=== PATIENT | male | born 1955 | race Caucasian/White ===

== ENCOUNTER 2022-07-08 15:52 | Outpatient (CLI) | payer MEDICARE, BC, SELFPAY ==
--- OUTSIDE RECORDS SUMMARY | 2022-07-08 15:55 | XMS_ITS | Encounter Summary ---
:1955 Author Organization [facility] Address [address] [place] [address] Care Team Providers Name Role Phone Angeline Stern MD Primary Care Provider [phone] Encounter Details Date Type Department Care Team Description 10/06/[address] [facility] MD Adi [address] [place], [place] ORTHOPEDICS [address] [address] [facility] [phone] [place] [address] (Wo rk) Social History Tobacco Use Types Packs/Day Years Used Date Smoking Tobacco: Never Smokeless Tobacco: Never Alcohol Use Standard Drinks/Week Comments No 0 (1 standard drink = 0.6 oz pure alcoho l) Sex Assigned at Date Recorded Not on file documented as of this encounter Medications at Time of Discharge Medication Sig Dispensed Refills Start Date End Date clobetasol (TEMOVATE) Apply topically 2 0 0.05 % external ointment times daily Dermatological Products, Externally apply 0 Misc. (KERASAL FUNGAL topically daily as NAIL RENEWAL EX) needed fluticasone (FLONASE) 50 [place] 1 spray into 0 MCG/ACT nasal spray both nostrils daily as needed for rhinitis or allergies ibuprofen (ADVIL,MOTRIN) Take 1 tablet by 90 tablet 1 02/08 800 MG tablet mouth every 8 hours as needed for pain. loratadine-pseudoePHEDri Take 1 tablet by 14 tablet 0 02/08 ne (CLARITIN-D 24-HOUR) mouth daily. 10-240 MG per tablet meclizine (ANTIVERT) 25 Take 25 mg by mouth 0 MG tablet 3 times daily as needed for dizziness multivitamin w/minerals Take 1 tablet by 0 (MULTI-VITAMIN) tablet mouth daily oxyCODONE (ROXICODONE) 5 1 tab po q 4 hrs prn pain scale 3-6, 55 ta blet 0 10/19/2018 MG tabletIndications: 2 tabs po q 4hrs prn pain scale 7-10 S/P total knee arthroplasty, right acetaminophen (TYLENOL) Take 3 tablets (975 270 tablet 0 02/201911/18/2018 325 MG mg) by mouth every 8 tabletIndications: S/P hours total knee arthroplasty, right aspirin (ASA) 325 MG EC Take 1 tablet (325 60 tablet 0 02/201911/18/2018 tabletIndications: VTE mg) by mouth 2 times Prophylaxis daily hydrOXYzine (ATARAX) 25 Take 1 tablet (25 45 tablet 0 10/1910/29/2018 MG tabletIndications: mg) by mouth every 6 S/P total knee hours as needed for arthroplasty, right itching (adjuvant to pain medication) order for Equipment being ordered: Walker Wheels ( [id number]) and Walker ([id number]) 1 each 0 10/18/2018 10/18/2019 DMEIndications: S/P Treatment Diagnosis: Impaired gait stability s/p TKA total knee arthroplasty, right senna-docusate Take 2 tablets by 120 tablet 0 10/19/201804/2019 (SENOKOT-S/PERICOLACE) mouth 2 times daily 8.6-50 MG tabletIndications: S/P total knee arthroplasty, right documented as of this encounter Plan of Treatment Not on filedocumented as of this encounter Visit Diagnoses Not on filedocumented in this encounter Care Teams Pulp Plant Supervisor Relationship Specialty Start Date End Date Angeline Stern MD PCP - General Internal Medicine 02/09/13 10/10/18 [id number] [address] [address] documented as of this encounter
--- OUTSIDE RECORDS SUMMARY | 2022-07-08 15:55 | XMS_ITS | Encounter Summary ---
:1955 Author Organization [facility] Address [address] [place] [address] Care Team Providers Name Role Phone Angeline Stern MD Primary Care Provider [phone] Encounter Details Date Type Department Care Team Description 10/31/2015 Therapy Visit [facility] Marshall, Primary osteoarthritis Athletic Medicine - PT of right knee (Primary [facility] [address] Dx) Therapy [place] [address] [facility] [address] [address] [address] Social History Tobacco Use Types Packs/Day Years Used Date Smoking Tobacco: Never Smokeless Tobacco: Never Alcohol Use Standard Drinks/Week Comments No 0 (1 standard drink = 0.6 oz pure alcoho l) Sex Assigned at Date Recorded Not on file documented as of this encounter Plan of Treatment Not on filedocumented as of this encounter Procedures Procedure Name Priority Date/Time Associated Diagnosis Comme nts Z NEUROMUSCULAR Routine 10/31/2015 2:37 PM Primary osteoarth ritis RE-EDUCATION PUBLIC HEALTH TEACHER of right knee Z THERAPEUTIC Routine 10/31/2015 2:37 PM Primary osteoarthri tis EXERCISES PUBLIC HEALTH TEACHER of right knee documented in this encounter Visit Diagnoses Diagnosis Primary osteoarthritis of right knee - P rimary Primary localized osteoarthrosis, lower leg documented in this encounter Care Teams Change Management Specialist Relationship Specialty Start Date End Date Angeline Stern MD PCP - General Internal Medicine 02/09/13 10/10/18 [address] [address] [address] documented as of this encounter
--- OUTSIDE RECORDS SUMMARY | 2022-07-08 15:55 | XMS_ITS | Encounter Summary ---
:1955 Author Organization [facility] Address [address] [place] [address] Care Team Providers Name Role Phone Angeline Stern MD Primary Care Provider [phone] Encounter Details Date Type Department Care Team Description 10/17/2015 Therapy Visit [place] for Ludwin Pastrana, Primary osteoarthritis Athletic Medicine - PT of right knee (Primary [facility] Physical [address] Dx) Therapy [place] [address] [employer] [address] [place] [address] Social History Tobacco Use Types Packs/Day Years Used Date Smoking Tobacco: Never Smokeless Tobacco: Never Alcohol Use Standard Drinks/Week Comments No 0 (1 standard drink = 0.6 oz pure alcoho l) Sex Assigned at Date Recorded Not on file documented as of this encounter Progress Notes Maria Teresa Bateman - 10/17/2015 4:26 PM CST Subjective: Pertinent medical history includes: None. Medical allergies: no. Other surgeries include: None reported. Current medications: Muscle relaxants. 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 Primary job tasks include: Other, driving, repetitive tasks, lifting and operating a machine (pushing/ pulling, carrying). Barriers include: None as reported by patient. Red flags: None as reported by patient. Knee Activity of Daily Living Score: 64.61 Objective: System Physical Exam General ROS Assessment/Plan: ICAL SUPPORT ASSOCIATE Ludwin Pastrana PT - 10/17/2015 1:19 PM CST [place] for Athletic Medicine Initial Evaluation Subjective: Mitch Catherine is a 60 year old male with a bilateral knees (R>L) condition. B knee pain on oraround 09/22/2015, pt turned his leg while walking and noticed a sharp pain. Since that time he has had continued pain in his R>L knee. Pt has had xrays of his knees which show bilateral knee OA. Prior to the current episode of pain, pt had noticed knee pain over the years prior, especially after doing housework that involved kneeling and lifting. Pt visited MD who gave a cortisone injection on 10/07/2015, pt is feeling very mild benefit so far from that. 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 Patient reports pain: Medial. Pain is described as sharp and aching and is constant and reported as 1/10 and 8/10. Pain is worse in the P.M.. Symptoms are exacerbated by walking, running and descendingstairs (driving - pushing on gas, prolonged position) and relieved by rest. Since onset symptoms areunchanged. Special tests: X-ray. Previous treatment: injection. There was mild improvement followingprevious treatment. General health as reported by patient is good. Past medical history: low back pain. Objective: Standing Alignment: Lumbar: Lateral shift L Gait: Gait Type: Antalgic Deviations: Hip: Trendelenberg R and Trendelenberg L Flexibility/Screens: Positive screens: Hip; Lumbar; Knee and Shoulder Lower Extremity: Decreased left lower extremity flexibility:Quadriceps Decreased right lower extremity flexibility: Quadriceps Knee Evaluation: ROM: AROM: normal Strength: Quad Set Left: Good Pain: Quad Set Right: Good Pain: Ligament Testing: Normal Special Tests: Normal Palpation: Right knee tenderness present at: Medial Joint Line Edema: Normal General ROS Assessment/Plan: Patient is a 60 year old male with both sides knee complaints. Patient has the following significant findings with corresponding treatment plan. Diagnosis 1: R>L knee pain, DJD Pain - hot/cold therapy, manual therapy, self management, education and home program Decreased strength - therapeutic exercise and therapeutic activities Impaired gait - gait training Impaired muscle performance - neuro re-education Decreased function - therapeutic activities Previous and current functional limitations: (See Goal Flow Sheet for this information) Short term and MCC goals: (See Goal Flow Sheet for this information) Communication ability: Patient appears to be able to clearly communicate and understand verbal and written communication and follow directions correctly. Treatment Explanation - The following has been discussed with the patient: RX ordered/plan of care Anticipated outcomes Possible risks and side effects This patient would benefit from PT intervention to resume normal activities. Rehab potential is good. Frequency: 1 X week, once daily Duration: for 8 weeks Discharge Plan: Achieve all LTG. Independent in home treatment program. Reach maximal therapeutic benefit. Please refer to the daily flowsheet for treatment today, total treatment time and time spent performing 1:1 timed codes. ICAL SUPPORT ASSOCIATE documented in this encounter Plan of Treatment Not on filedocumented as of this encounter Procedures Procedure Name Priority Date/Time Associated Diagnosis Comme [facility] Z THERAPEUTIC Routine 10/17/2015 3:22 PM Primary osteoarthri tis of EXERCISES CLINICAL SUPPORT ASSOCIATE right knee documented in this encounter Visit Diagnoses Diagnosis Primary osteoarthritis of right knee - P rimary Primary localized osteoarthrosis, lower leg documented in this encounter Care Teams Octave Board Assembler Relationship Specialty Start Date End Date Angeline Stern MD PCP - General Internal Medicine 02/09/13 10/10/18 [address] [place] [address] documented as of this encounter
--- OUTSIDE RECORDS SUMMARY | 2022-07-08 15:55 | XMS_ITS | Encounter Summary ---
:1955 Author Organization [facility] Address [address] [place] [address] Care Team Providers Name Role Phone Angeline Stern MD Primary Care Provider [phone] Reason for Visit Reason Onset Date Comments Outreach 06/14/2013 Preventative health screening Encounter Details Date Type Department Care Team Description 06/14/2013 Telephone [facility] Angeline Stern Outreach (Preventative Clinic Carrol Portillo MD health screening) [address] [address] [place], [place] [address] [phone] Social History Tobacco Use Types Packs/Day Years Used Date Smoking Tobacco: Never Smokeless Tobacco: Never Alcohol Use Standard Drinks/Week Comments No 0 (1 standard drink = 0.6 oz pure alcoho l) Sex Assigned at Date Recorded Not on file documented as of this encounter Miscellaneous Notes Telephone Encounter - Nael Moise - 06/14/2013 6:48 PM CDT 06/14/2013 Call Regarding Preventive Health Screening FIT kit Message: no answer, kept ringing Comments: declined colonoscopy earlier this year due to finances, opted for FIT kit but previous order has without the kit being returned. Outreach Reimbursement Analyst Nael Mcnamara documented in this encounter Plan of Treatment Not on filedocumented as of this encounter Visit Diagnoses Not on filedocumented in this encounter Care Teams Back Pad Inspector Relationship Specialty Start Date End Date Angeline Stern MD PCP - General Internal Medicine 02/09/13 10/10/18 [address] [place] [address] documented as of this encounter
--- OUTSIDE RECORDS SUMMARY | 2022-07-08 15:55 | XMS_ITS | Encounter Summary ---
:1955 Author Organization [facility] Address [address] [place] [address] Care Team Providers Name Role Phone Mitch Li Primary Care Provider Encounter Details Date Type Department Care Team Description 10/17/2018 Travel Social History Tobacco Use Types Packs/Day Years [...] on filedocumented in this encounter Care Teams Assistant Softball Coach Relationship Specialty Start Date End Date Micth Li PCP - General Family Practice 10/11/18 documented as of this encounter
--- OUTSIDE RECORDS SUMMARY | 2022-07-08 15:55 | XMS_ITS | Encounter Summary ---
:1955 Author Organization [facility] Address [address] [place] [address] Care Team Providers Name Role Phone Angeline Stern MD Primary Care Provider [phone] Encounter Details Date Type Department Care Team Description 12/19/2015 Therapy Visit [place] for Day, Ludwin, Right sh oulder pain (Primary Dx); Athletic Medicine - PT Primary osteoarthritis of right knee [place] [facility] [address] Therapy [place] [address] [employer] [address] [place] [address] Social History Tobacco Use Types Packs/Day [...] Name Priority Date/Time Associated Diagnosis Comme nts [facility] NEUROMUSCULAR Routine 12/19/2015 2:37 PM Right shoul gena pain RE-EDUCATION CDT Primary osteoarthritis of right knee Z THERAPEUTIC Routine 12/19/2015 2:37 PM Right shoulde r pain EXERCISES CDT Primary osteoarthritis of right knee documented in this encounter Visit Diagnoses Diagnosis Right shoulder pain - Primary Pain in joint, shoulder region Primary osteoarthritis of right knee Primary localized osteoarthrosis, lower leg documented in this encounter Care Teams Corrections Officer Relationship Specialty Start Date End Date Angeline Stern MD PCP - General Internal Medicine 02/09/13 10/10/18 [address] [address] [address] documented as of this encounter
--- OUTSIDE RECORDS SUMMARY | 2022-07-08 15:55 | XMS_ITS | Encounter Summary ---
:1955 Author Organization [facility] Address [address] [place] [address] Care Team Providers Name Role Phone Angeline Stern MD Primary Care Provider [phone] Encounter Details Date Type Department Care Team Description 01/02/2016 Therapy Visit [place] for Ludwin Pastrana, Right sh oulder pain (Primary Dx); Athletic Medicine - PT Primary osteoarthritis of right knee [place] [facility] [address] Therapy [place] [address] [employer] [employer] [address] [place] [address] Social History Tobacco Use Types Packs/Day Years Used Date Smoking Tobacco: Never Smokeless Tobacco: Never Alcohol Use Standard Drinks/Week Comments No 0 (1 standard drink = 0.6 oz pure alcoho l) Sex Assigned at Date Recorded Not on file documented as of this encounter Progress Notes Ludwin Pastrana, PT - 01/02/2016 2:36 PM CDT Subjective: HPI Objective: System Physical Exam General ROS Assessment/Plan: DISCHARGE REPORT SUBJECTIVE Pt indicates that his R knee is feeling back to normal, has no limitation with any ADL's and is confident that he will be able to manage his condition on his own going forward. Pt feels that his R shoulder is at 90% of back to normal, has very mild pain with certain movements. Pt acknowledges that he hasn't fully returned to work duties that may aggravate his shoulder and notes that he will need to test how his shoulder handles that stress before he can feel back to 100%. Current pain level is 0/10 . Initial Pain level: 5/10. Changes in function: Yes (See Goal flowsheet attached for changes in current functional level) Adverse reaction to treatment or activity: None OBJECTIVE Standing Alignment: Cervical/Thoracic: Forward head Shoulder/UE: Rounded shoulders Gait:?normal ?? Knee ROM:?? AROM: normal?? Strength: Knee Ext: Left: 5/5 Right: 5/5 Knee Flex: Left 5/5 Right: 5/5 Quad Set Left: Good? Quad Set Right: Good? Ligament Testing:?? Normal Special Tests: Normal Palpation:?? Right knee tenderness present at:?? none Edema:?? Normal Shoulder AROM: Flexion: Left: Wnl Right: Wnl Abduction: Left: wnl Right: Wnl External Rotation: Left: Wnl Right: WNL Extension/Internal Rotation: Left: Wnl Right: Wnl PROM: : PROM = AROM. Strength: Flexion: Left:5/5 Pain: Right: 5/5 Pain: Abduction: Left: 5/5 Pain: Right: 5/5 Pain: Internal Rotation: Left:5/5 Pain: Right: 5/5 Pain: External Rotation: Left:5/5 Pain: Right:5/5 Pain: Special Tests: Left shoulder negative for the following special tests: Labral and Impingement Right shoulder negative for the following special tests: Impingement Right shoulder negative for the following special tests:Labral Palpation: Right shoulder tenderness present at: none ASSESSMENT/PLAN Updated problem list and treatment plan: Diagnosis 1: R knee pain Diagnosis 2: R shoulder pain STG/LTGs have been met or progress has been made towards goals: Yes (See Goal flow sheet completed today.) Assessment of Progress: The patient's condition is improving. Self Management Plans: Patient has been instructed in a home treatment program. Patient has been instructed in self management of symptoms. I have re-evaluated this patient and find that the nature, scope, duration and intensity of the therapy is appropriate for the medical condition of the patient. Mitch continues to require the following intervention to meet STG and LTG's: PT intervention is nolonger required to meet STG/LTG. Recommendations: This patient is ready to be discharged from therapy and continue their home treatment program. Please refer to the daily flowsheet for treatment today, total treatment time and time spent performing 1:1 timed codes. documented in this encounter Plan of Treatment Not on filedocumented as of this encounter Procedures Procedure Name Priority Date/Time Associated Diagnosis Comme nts [facility] NEUROMUSCULAR Routine 01/02/2016 2:34 PM Right shoulder pa in RE-EDUCATION CDT [facility] THERAPEUTIC EXERCISES Routine 01/02/2016 2:34 PM Right jose cruz ulder pain CDT documented in this encounter Visit Diagnoses Diagnosis Right shoulder pain - Primary Pain in joint, shoulder region Primary osteoarthritis of right knee Primary localized osteoarthrosis, lower leg documented in this encounter Care Teams Cadd Operator Relationship Specialty Start Date End Date Angeline Stern MD PCP - General Internal Medicine 02/09/13 10/10/18 [address] [place] [address] documented as of this encounter
--- OUTSIDE RECORDS SUMMARY | 2022-07-08 15:55 | XMS_ITS | Clinical Summary ---
:1955 Author Organization [facility] Address [address] [place] [address] Care Team Providers Name Role Phone Mitch Li Primary Care Provider Allergies Active Allergy Reactions Severity Noted Date Comments Amoxicillin Hives 02/08/2013 Medications Medication Sig Dispensed Refills Start Date End Date Status loratadine-pseudoePHED Take 1 tablet by 14 tablet 0 02/08/2013 Active rine (CLARITIN-D mouth daily. 24-HOUR) 10-240 MG per tablet ibuprofen Take 1 tablet by 90 tablet 1 02/08/2013 Ac tive (ADVIL,MOTRIN) 800 MG mouth every 8 tablet hours as needed for pain. fluticasone (FLONASE) [place] 1 spray into 0 Active 50 MCG/ACT nasal spray both nostrils daily as needed for rhinitis or allergies meclizine (ANTIVERT) Take 25 mg by 0 Active 25 MG tablet mouth 3 times daily as needed for dizziness clobetasol (TEMOVATE) Apply topically 2 0 Active 0.05 % external times daily ointment Dermatological Externally apply 0 Active Products, Misc. topically daily as (KERASAL FUNGAL NAIL needed RENEWAL EX) multivitamin Take 1 tablet by 0 Active w/minerals mouth daily (MULTI-VITAMIN) tablet oxyCODONE (ROXICODONE) 1 tab po q 4 hrs prn pain scale 3-6, 55 tabl et 0 10/19/2018 Active 5 MG 2 tabs po q 4hrs prn pain scale 7-10 tabletIndications: S/P total knee arthroplasty, right Active Problems Patient Care Coordination Note Formatting of this note might be differe nt from the original. [email or web address] Problem Noted Date S/P total knee arthroplasty, right 10/17/2018 CARDIOVASCULAR SCREENING; LDL GOAL LESS THAN 160 02/08 Resolved Problems Problem Noted Date Resolved Date Right shoulder pain 11/28/2015 01/02/2016 Primary osteoarthritis of right knee 10/17/2015 Immunizations Name Administration Dates Next Due Tdap (Adacel,Boostrix) 09/15/2010 Family History Medical History Relation Comments Neurologic Disorder Father parkinson's Breast Cancer Mother postmenopausal Cardiovascular Mother heart faiure; a ge 85 Diabetes Mother Cardiovascular Sister 1 Kidney Disease Sister 2 born with one kidney Relation Status Comments Father Mother Sister 1 Sister 2 Social History Tobacco Use Types Packs/Day Years Used Date Smoking Tobacco: Never Smokeless Tobacco: Never Alcohol Use Standard Drinks/Week Comments No 0 (1 standard drink = 0.6 oz pure alcoho l) Sex Assigned at Date Recorded Not on file Last Filed Vital Signs Vital Sign Reading Time Taken Comments Blood Pressure 135/78 10/19/2018 7:29 AM CUSTOMER TECHNICAL SERVICES MANAGER Pulse 75 10/17/2018 2:45 PM CUSTOMER TECHNICAL SERVICES MANAGER Temperature 35.6 ??C (96 ??F) 10/19/2018 7:29 AM CUSTOMER TECHNICAL SERVICES MANAGER Respiratory Rate 16 10/19/2018 12:43 PM CUSTOMER TECHNICAL SERVICES MANAGER Oxygen Saturation 96% 10/19/2018 7:29 AM CUSTOMER TECHNICAL SERVICES MANAGER Inhaled Oxygen Concentration - - Weight 103.9 kg (229 lb) 10/17/2018 8:20 AM CUSTOMER TECHNICAL SERVICES MANAGER Height 185.4 cm (6' 1) 10/17/2018 8:20 AM CUSTOMER TECHNICAL SERVICES MANAGER per pt Body Mass Index 30.21 10/17/2018 8:20 AM CUSTOMER TECHNICAL SERVICES MANAGER Plan of Treatment Not on file Medical Devices Implanted Type Area Medical Education Manager Device Shelf Model / Identifier Expiration Serial / Date Lot Bone Cement Simplex W/Tobramycin [id number] Cement, Right: STRYKE R 03/12/2020 [id number] / Implanted: Qty: 1 on 10/17/2018 by Los Diaz MD at [facility] Bone Knee ORTHOPEDICS / [id number] Imp Patella Zim Knee All Marcelle 35mm [id number] Total Rig ht: [employer] 07/13/2026 [id number] / Implanted: Qty: 1 on 10/17/2018 by Los Diaz MD at [facility] Joint Knee / Component [id number] /Insert Persona Tibia, Cemented, 5 Degree, Stemmed, Right, Size F Right: [employer] 06/12/2028 [id number] / Implanted: Qty: 1 on 10/17/2018 by Los Diaz MD at [facility] Knee / [id number] Insurance Payer Benefit Plan / Subscriber ID Effective Dates Phone Addre ss Type Group BCBS BCBS FEDERAL [id number] 2015-Present [phone] [address] PPO EMPLOYEE PROGRAM Tasneem JANSEN [id number] Advance Directives For more information, please contact: [phone] Latest Code Status on File Code Status Date Activated Date Inactivated Comments Full Code 10/17/2018 2:52 PM 10/19/2018 3:42 PM Question Answer Comments Code status determined by: Discussion with patient/legal dec ision maker Care Teams Leadership Program Intern Relationship Specialty Start Date End Date Mitch Li PCP - General Family Practice 10/11/18
--- OUTSIDE RECORDS SUMMARY | 2022-07-08 15:55 | XMS_ITS | Encounter Summary ---
:1955 Author Organization [facility] Address [address] [place] [address] Care Team Providers Name Role Phone Angeline Stern MD Primary Care Provider [phone] Encounter Details Date Type Department Care Team Description 11/28/2015 Therapy Visit [facility] for Ludwin Pastrana, Primary osteoarthritis of right knee (Primary Dx); Athletic Medicine - PT Right shoulder pain [facility] [address] Therapy [place] [address] [facility] [id number] [place] [id number] Social History Tobacco Use Types Packs/Day Years Used Date Smoking Tobacco: Never Smokeless Tobacco: Never Alcohol Use Standard Drinks/Week Comments No 0 (1 standard drink = 0.6 oz pure alcoho l) Sex Assigned at Date Recorded Not on file documented as of this encounter Progress Notes Maria Teresa Bateman - 11/28/2015 4:10 PM CDT Subjective: Pertinent medical history includes: None. Medical allergies: yes (Amoxiclilin). Other surgeries include: None reported. Current medications: Anti-inflammatory and other (Claritan D). 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 Primary job tasks include: Lifting, repetitive tasks and other (Walking). Barriers include: None as reported by patient. Red flags: None as reported by patient. Objective: System Physical Exam General ROS Assessment/Plan: Ludwin Pastrana PT - 11/28/2015 2:00 PM CDT [facility] Initial Evaluation Subjective: Mitch Catherine is a 60 year old male with a right shoulder condition. This is a chronic conditionR shoulder pain which started on or around February of 2015, pt was moving and stacking heavy boxes overhead. Pt noticed pain immediately as he was performing the lift. Pt put off going in to the MD until August of 2015 when it had worsened following doing some excessive vacuuming while at work. Pt had a cortisone injection in August of 2015, which didn't help. Pt then had an MRI of his R shoulder inJanuary of 2015. No tearing indicated in the MRI. However, pt does recall them saying that surgery was a potential option. . Patient reports pain: Posterior. Pain is described as sharp and aching and is constant and reported as 5/10. Pain is the same all the time. Symptoms are exacerbated by certain positions, lifting and carrying (vacuuming) and relieved by rest. Since onset symptoms are gradually worsening. Special tests:MRI. Previous treatment: injection. There was no improvement following previous treatment. Past medical history: B knee OA. Objective: Standing Alignment: Cervical/Thoracic: Forward head Shoulder/UE: Rounded shoulders Shoulder Evaluation: ROM: AROM: Flexion: Left: Wnl Right: Wnl Abduction: Left: wnl Right: Wnl External Rotation: Left: Wnl Right: At side WNL, at 90 abd 45 Extension/Internal Rotation: Left: Wnl Right: Wnl PROM: : PROM = AROM. Strength: Flexion: Left:5/5 Pain: Right: 5-/5 Pain: Abduction: Left: 5/5 Pain: Right: 5-/5 Pain: Internal Rotation: Left:5/5 Pain: Right: 5/5 Pain: External Rotation: Left:5/5 Pain: Right:5-/5 Pain: Stability Testing: Left shoulder stability negative testing: Apprehension and Sulcus sign Right shoulder stability negative testing: Apprehension and Sulcus sign Special Tests: Left shoulder negative for the following special tests: Labral and Impingement Right shoulder positive for the following special tests:Impingement Right shoulder negative for the following special tests:Labral Palpation: Right shoulder tenderness present at: Supraspinatus Mobility Tests: Glenohumeral anterior left: Hypomobile Glenohumeral anterior right: Hypomobile Glenohumeral posterior left: Hypomobile Glenohumeral posterior right: Hypomobile Glenohumeral inferior left: Hypomobile Glenohumeral inferior right: Hypomobile General ROS Assessment/Plan: Patient is a 60 year old male with right side shoulder complaints. Patient has the following significant findings with corresponding treatment plan. 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 Independent in home treatment program. Reach maximal therapeutic benefit. Please refer to the daily flowsheet for treatment today, total treatment time and time spent performing 1:1 timed codes. documented in this encounter Plan of Treatment Not on filedocumented as of this encounter Procedures Procedure Name Priority Date/Time Associated Diagnosis Comme nts [facility] THERAPEUTIC Routine 11/28/2015 3:33 PM Primary osteoarthri tis EXERCISES CDT of right knee Right shoulder pain [facility] NEUROMUSCULAR Routine 11/28/2015 3:33 PM Primary osteoarth ritis RE-EDUCATION CDT of right knee Right shoulder pain documented in this encounter Visit Diagnoses Diagnosis Primary osteoarthritis of right knee - P rimary Primary localized osteoarthrosis, lower leg Right shoulder pain Pain in joint, shoulder region documented in this encounter Care Teams Hospice Clinical Supervisor Relationship Specialty Start Date End Date Angeline Stern MD PCP - General Internal Medicine 02/09/13 10/10/18 [address] [place] [address] documented as of this encounter
--- OUTSIDE RECORDS SUMMARY | 2022-07-08 15:55 | XMS_ITS | Encounter Summary ---
:1955 Author Organization [facility] Address [address] [place] [address] Care Team Providers Name Role Phone Angeline Stern MD Primary Care Provider [phone] Encounter Details Date Type Department Care Team Description 11/21/2015 Therapy Visit [facility] Marshall, Primary osteoarthritis Athletic Medicine - PT of right knee ([facility] [address] Dx) Therapy [place] [address] [facility] [address] [address] [phone] Social History Tobacco Use [...] Name Priority Date/Time Associated Diagnosis Comme nts [facility] NEUROMUSCULAR Routine 11/21/2015 2:41 PM Primary osteoarth ritis 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
--- OUTSIDE RECORDS SUMMARY | 2022-07-08 15:55 | XMS_ITS | Encounter Summary ---
:1955 Author Organization [facility] Address [address] [place] [address] Care Team Providers Name Role Phone Angeline Stern MD Primary Care Provider [phone] Encounter Details Date Type Department Care Team Description 10/24/2015 Therapy Visit Ludwin Marshall, Primary osteoarthritis Athletic Medicine - PT of right knee ([facility] [address] Dx) Therapy [place] [address] [facility] [address] [place] [phone] Social History Tobacco Use [...] Name Priority Date/Time Associated Diagnosis Comme nts [facility] NEUROMUSCULAR Routine 10/24/2015 2:43 PM Primary osteoarth ritis 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
--- OUTSIDE RECORDS SUMMARY | 2022-07-08 15:55 | XMS_ITS | Encounter Summary ---
:1955 Author Organization [facility] Address [facility] [place] [address] Care Team Providers Name Role Phone Angeline Stern MD Primary Care Provider [phone] Mitch Li Primary Care Provider Encounter Details Date Type Department Care Team Description 09/27/2018 Orders Only [employer] [place] [facility] laboratory examination [address] [facility] (Primary Dx) [place], [place] [facility] [phone] [phone] [address] [place] [address] Social History Tobacco Use Types Packs/Day Years Used Date Smoking Tobacco: Never Smokeless Tobacco: Never Alcohol Use Standard Drinks/Week Comments No 0 (1 standard drink = 0.6 oz pure alcoho l) Sex Assigned at Date Recorded Not on file documented as of this encounter Plan of Treatment Not on filedocumented as of this encounter Visit Diagnoses Diagnosis Pre-operative laboratory examination - P rimary Pre-procedural laboratory examination documented in this encounter Care Teams Tire Duster Relationship Specialty Start Date End Date Angeline Stern MD PCP - General Internal Medicine 02/09/13 10/10/18 [address] [place] [address] Mitch Li PCP - General Family Practice 10/11/18 documented as of this encounter
--- OUTSIDE RECORDS SUMMARY | 2022-07-08 15:55 | XMS_ITS | Encounter Summary ---
:1955 Author Organization [facility] Address [address] [place] [id number] Care Team Providers Name Role Phone Mitch Li Primary Care Provider Reason for Visit Auth/Cert Specialty Diagnoses / Procedures Referred By Contact Refer red To Contact Surgery Diagnoses DJD Rh Periop Services Procedures ARTHROPLASTY KNEE [address] [place], [place] [address] Phone: Fax: Referral ID Status Reason Start Date Expiration Date Visits Requ ested Visits Authorized [id number] 1 1 Encounter Details Date Type Department Care Team Description 10/17/2018 Surgery [facility] Leonor Diallo Right to jer[place]o knee [facility] lacy Joshi MD arthroplasty [address] [place], [place] ORTHOPEDICS [phone] [facility] [phone] [address] [place] [address] (Wo rk) Surgery Details Date/Time Status Location OR Service Patient Case Case Traum a Class Class Type Case? 10/17/18 10:25 Posted [facility] OR OR 06 Orthopedics Surgery AM Admit Panel 1 Procedure LRB Anes Op Region Wound Class Commen ts Right total knee Right Combined Spinal with Knee I-Clean arthroplasty Femoral Nerve Block Surgeon Surgeon Role Service Panel Leonor Diallo MD Primary Orthopedics 1 Anita Burgess PA-C Assisting Aquaculture Program Director Authorizat ion 1 Special Needs Joint Class on 10/06 @1800. Nasal screen done at preop6# stated documented in this encounter Social History Tobacco Use Types Packs/Day Years Used Date Smoking Tobacco: Never Smokeless Tobacco: Never Alcohol Use Standard Drinks/Week Comments No 0 (1 standard drink = 0.6 oz pure alcoho l) Sex Assigned at Date Recorded Not on file documented as of this encounter Last Filed Vital Signs Vital Sign Reading Time Taken Comments Blood Pressure 152/102 10/17/2018 8:20 AM WARDROBE SUPERVISOR Pulse 86 10/17/2018 8:20 AM WARDROBE SUPERVISOR Temperature 36.5 ??C (97.7 ??F) 10/17/2018 8:20 AM WARDROBE SUPERVISOR Respiratory Rate 18 10/17/2018 11:35 AM WARDROBE SUPERVISOR Oxygen Saturation 98% 10/17/2018 8:20 AM WARDROBE SUPERVISOR Inhaled Oxygen Concentration - - Weight 103.9 kg (229 lb) 10/17/2018 8:20 AM WARDROBE SUPERVISOR Height 185.4 cm (6' 1) 10/17/2018 8:20 AM WARDROBE SUPERVISOR per pt Body Mass Index 30.21 10/17/2018 8:20 AM WARDROBE SUPERVISOR documented in this encounter Discharge Summaries Anita Burgess PA-C - 10/19/2018 1:37 PM CST Diagnosis: right DJD knee Procedure: right Cemented total knee replacement Surgeon: Leonor Diallo MD Patient underwent total knee replacement without complication. Patient had typical transient post-opanemia. Patient's hospital stay included physical therapy and DVT prophylaxis. After discussion withpatient regarding no history of DVT and current high mobility, patient is discharged with ASA for home DVT pphx. Patient will follow -up in the office 10-14days post-op for wound check. Please refer tochart for any other specifics of this hospital stay. Anita Burgess PA-C ROBE SUPERVISOR documented in this encounter Discharge Instructions Discharge InstructionsAddie Sarabia RN - 10/18/2018 5:05 PM WARDROBE SUPERVISOR Return to clinic in 10-14 days. Call [phone] to schedule or if you experience any problems before your scheduled appointment. See general discharge instruction sheet for knees 1. Do exercises at home as instructed by therapist twice a day. Continue outpatient therapy as ordered by your doctor. 2. Ice knee after exercises and therapy. 3. Examine dressing daily for problems. 4. May shower, can get dressing wet, no soaking (no bathtubs, pools or hot tubs) 5. Notify your dentist or physician of your implant so you can get antibiotics before any dental work or before any invasive procedure (ie: colonoscopy) 6. Remove anti-embolism stockings (Satnam hose) for 30 minutes twice daily. Aquacel dressing: DO NOT CHANGE DRESSING DAILY. Leave this dressing on until follow-up appointment with Orthopedic Surgeon. Dressing is waterproof, can shower with it on, pat dry when done. No soaking such as in tub baths, pools or hot tubs While on narcotic pain medication, to prevent constipation: 1. Drink plenty of water to keep well hydrated 2. May take over the counter Colace or Senna (follow instructions on label) Call your physician if: ([phone]) 1. Persistent fever greater than 100 degrees with body chills or excessive sweating. 2. Increased/persistent redness, localized warmth, tenderness, drainage or swelling at incision site. Greater than 50% drainage on dressing. 3. Persistent pain not controlled with oral pain medications, ice and rest. 4. No bowel movement in 3 days (may use Milk of Magnesia or other over the counter remedy). 5. Chest pain, shortness of breath, and/or calf pain with excessive swelling. 6. Generalized feeling of illness. 7. Any other questions or concerns related to your surgery/recovery. Thank you for allowing [facility] to participate in your cares!! ROBE SUPERVISOR documented in this encounter Medications at Time of Discharge Medication Sig Dispensed Refills Start Date End Date clobetasol (TEMOVATE) Apply topically 2 0 0.05 % external ointment times daily Dermatological Products, Externally apply 0 Misc. (KERASAL FUNGAL topically daily as NAIL RENEWAL EX) needed fluticasone (FLONASE) 50 [place] 1 spray into 0 MCG/ACT nasal spray [...] arthroplasty, right documented as of this encounter Progress Notes Anita Burgess PA-C - 10/19/2018 9:55 AM CST Orthopedic Surgery 10/19/2018 POD 2 S: Patient voices no unexpected ortho complaints today. Denies chest pain or shortness of breath. Did well overnight. Planning to discharge later today. O: Blood pressure 135/78, pulse 75, temperature 96 ??F (35.6 ??C), temperature source Oral, resp. rate 16, height 1.854 m (6' 1), weight 103.9 kg (229 lb), SpO2 96 %. Lab Results Component Value Date HGB 13.0 10/19/2018 No results found for: INR I/O last 3 completed shifts: In: 1999 [P.O.:1999] Out: 2860 [Urine:2860] Distal extremity CMSI bilaterally. Calves are negative bilaterally, both soft and nontender. The dressing is C/D/I. A: Mr. Engle is doing well status post Procedure(s): Right total knee arthroplasty. P: Continue physical therapy. Continue DVT pphx with ASA due to high mobility and low risk factors for DVT. Anticipate discharge to home later today. Anita Burgess PA-C [phone] ROBE SUPERVISOR Tatyana Noel, OT - 10/18/2018 3:11 PM CST 10/18/18 1434 Quick Adds Type of Visit Initial Occupational Therapy Evaluation Living Environment Lives With spouse Living Arrangements house Home Accessibility stairs to enter home Transportation Anticipated family or friend will provide Living Environment Comment Pt lives with spouse in house, 3 stairs to enter, all needs can be met onmain level, walk in shower, comfort height toilet. Functional Level Ambulation 0-->independent Transferring 0-->independent Toileting 0-->independent Bathing 0-->independent Dressing 0-->independent Eating 0-->independent Communication 0-->understands/communicates without difficulty Swallowing 0-->swallows foods/liquids without difficulty Cognition 0 - no cognition issues reported Fall history within last six months no General Information Onset of Illness/Injury or Date of Surgery - Date 10/17/18 Referring Physician Anita Burgess PA-C Patient/Family Goals Statement Pt's goal is to d/c home Additional Occupational Profile Info/Pertinent History of Current Problem Per chart: Pt is a 63 yearold male s/p R TKA Precautions/Limitations fall precautions Weight-Bearing Status - RLE weight-bearing as tolerated Visual Perception Visual Perception Wears glasses Pain Assessment Patient Currently in Pain Yes, see Vital Sign flowsheet (10/23 pain in RLE) Range of Motion (ROM) ROM Comment WFL Strength Strength Comments WFL Hand Strength Hand Strength Comments WFL Coordination Upper Extremity Coordination No deficits were identified Bed Mobility Skill: Sit to Supine Level of [place]: Sit/Supine stand-by assist Physical Assist/Nonphysical Assist: Sit/Supine 1 person assist Bed Mobility Skill: Supine to Sit Level of [place]: Supine/Sit stand-by assist Physical Assist/Nonphysical Assist: Supine/Sit 1 person assist Transfer Skill: Bed to Chair/Chair to Bed Level of [place]: Bed to Chair stand-by assist Physical Assist/Nonphysical Assist: Bed to Chair 1 person assist Weight-Bearing Restrictions weight-bearing as tolerated Assistive Device - Transfer Skill Bed to Chair Chair to Bed Rehab Eval rolling walker Transfer Skill: Sit to Stand Level of [place]: Sit/Stand stand-by assist Physical Assist/Nonphysical Assist: Sit/Stand 1 person assist Transfer Skill: Sit to Stand weight-bearing as tolerated Assistive Device for Transfer: Sit/Stand rolling walker Transfer Skill: Toilet Transfer Level of [place]: Toilet stand-by assist Physical Assist/Nonphysical Assist: Toilet 1 person assist Weight-Bearing Restrictions: Toilet weight-bearing as tolerated Assistive Device rolling walker Balance Balance Comments CGA/SBA while in stance FWW level Upper Body Dressing Level of [place]: Dress Upper Body stand-by assist Physical Assist/Nonphysical Assist: Dress Upper Body 1 person assist Lower Body Dressing Level of [place]: Dress Lower Body stand-by assist Physical Assist/Nonphysical Assist: Dress Lower Body 1 person assist Toileting Level of [place]: Toilet stand-by assist Physical Assist/Nonphysical Assist: Toilet 1 person assist Grooming Level of [place]: Grooming stand-by assist Physical Assist/Nonphysical Assist: Grooming 1 person assist Instrumental Activities of Daily Living (IADL) Previous Responsibilities housekeeping;laundry;shopping;yardwork;medication management;finances;driving;work IADL Comments Pt will have support from spouse as needed for IADLs Activities of Daily Living Analysis Impairments Contributing to Impaired Activities of Daily Living pain ADL Comments Pt presents to OT below baseline level of functioning in areas of self cares including bathing, dressing, grooming and toileting General Therapy Interventions Planned Therapy Interventions ADL retraining;IADL retraining;transfer training Clinical Impression Criteria for Skilled Therapeutic Interventions Met yes, treatment indicated OT Diagnosis Impaired ADLs, IADLs and mobility tasks Influenced by the following impairments Pain, decreased functional activity tolerance Assessment of Occupational Performance 5 or more Performance Deficits Identified Performance Deficits Bathing, dressing, grooming, toileting, homemaking, transfers Clinical Decision Making (Complexity) Low complexity Therapy Frequency daily Predicted Duration of Therapy Intervention (days/wks) eval and 1x treat Anticipated Discharge Disposition Home with Assist Risks and Benefits of Treatment have been explained. Yes Patient, Family & other staff in agreement with plan of care Yes Clinical Impression Comments Pt would benefit from skilled OT to maximize safety and indep in all ADLs, IADLs and mobility tasks due to current deficits impacting function [facility] AM-PAC??? 6 Clicks Daily Activity Inpatient Short Form 1. Putting on and taking off regular lower body clothing? 3 - A Little 2. Bathing (including washing, rinsing, drying)? 3 - A Little 3. Toileting, which includes using toilet, bedpan or urinal? 4 - None 4. Putting on and taking off regular upper body clothing? 4 - None 5. Taking care of personal grooming such as brushing teeth? 4 - None 6. Eating meals? 4 - None Daily Activity Raw Score (Score out of 24.Lower scores equate to lower levels of function) 22 Total Evaluation Time Total Evaluation Time (Minutes) 10 ROBE SUPERVISOR Monica Vizcarra RN - 10/18/2018 1:30 PM CST Patient A&O. VSS. Ambulates Ax1 w/ WW & GB. +BS/gas, tolerating diet. Arenas discontinued this am, has voided adequately since. CMS intact. Dressing CDI. Taking scheduled tylenol and PRN oxycodone and atarax for pain control. Possible discharge to home tomorrow. Will continue to monitor. Anita Fuchs PA-C - 10/18/2018 7:51 AM CST Orthopedic Surgery 10/18/2018 POD 1 S: Patient voices no unexpected ortho complaints today. Denies chest pain or shortness of breath. Ambulated in room last cabrera. O: Blood pressure 130/80, pulse 75, temperature 95.7 ??F (35.4 ??C), temperature source Oral, resp. rate 16, height 1.854 m (6' 1), weight 103.9 kg (229 lb), SpO2 98 %. Lab Results Component Value Date HGB 13.7 10/18/2018 No results found for: INR I/O last 3 completed shifts: In: 2750 [P.O.:960; I.V.:1790] Out: 2560 [Urine:2150; Drains:385; Blood:25] Distal extremity CMSI bilaterally. Calves are negative bilaterally, both soft and nontender. The dressing is C/D/I. A: Mr. Engle is doing well status post Procedure(s): Right total knee arthroplasty. P: Continue physical therapy. Continue DVT pphx with ASA due to high mobility and low risk factors for DVT. Anticipate discharge to home likely tomorrow cabrera. Anita Burgess PA-C [phone] ROBE SUPERVISOR Brandon Parrish, RN - 10/18/2018 5:26 AM CST Pt alert and oriented,VSS, lung sounds clear, capno in place with 2L of O2. Up with Assist of one gait/walker. Tolerating regular diet, +ve bowel sounds, -ve flatus. Pain controlled with scheduled tylenol with prn Oxy. Dressing is clean dry and intact.Hemovac in place drained 160ml.dced this morning. Arenas d/mendel this morning, due to void.Plan to go home at discharge. ROBE SUPERVISOR Kathi Orourke, PT - 10/17/2018 5:38 PM CST 10/17/18 1341 Quick Adds Type of Visit Initial PT Evaluation Living Environment Lives With spouse Living Arrangements house Home Accessibility stairs to enter home Number of Stairs, Main Entrance three Stair Railings, Main Entrance railing on left side (ascending) Transportation Anticipated family or friend will provide Self-Care Usual Activity Tolerance good Current Activity Tolerance moderate Regular Exercise No Equipment Currently Used at Home none Functional Level Prior Ambulation 0-->independent Transferring 0-->independent Toileting 0-->independent Bathing 0-->independent Fall history within last six months no Which of the above functional risks had a recent onset or change? ambulation;transferring;toileting;bathing;dressing General Information Onset of Illness/Injury or Date of Surgery - Date 10/17/18 Referring Physician Anita Burgess PA-C Patient/Family Goals Statement Return home at discharge Pertinent History of Current Problem (include personal factors and/or comorbidities that impact the POC) Pt is POD0 R TKA. See chart for PMH. Precautions/Limitations fall precautions Weight-Bearing Status - LLE full weight-bearing Weight-Bearing Status - RLE weight-bearing as tolerated General Observations Pt supine upon initiation, agreeable to session. Cognitive Status Examination Orientation orientation to person, place and time Level of Consciousness alert Follows Commands and Answers Questions 100% of the time Personal Safety and Judgment intact Memory intact Pain Assessment Patient Currently in Pain Yes, see Vital Sign flowsheet Integumentary/Edema Integumentary/Edema Comments Kunal wrap in place to R LE Posture Posture Forward head position;Protracted shoulders Range of Motion (ROM) ROM Comment R knee flexion to ~45 degrees Strength Strength Comments Good quad set, able to SLR R LE Bed Mobility Bed Mobility Comments sit<>supine not assessed 2/2 elevated BP Transfer Skills Transfer Comments Not assessed 2/2 elevated BP Gait Gait Comments Not assessed 2/2 elevated BP. Balance Balance Comments Anticipate pt will require B UE support for safe dynamic mobility Sensory Examination Sensory Perception no deficits were identified Coordination Coordination no deficits were identified Muscle Tone Muscle Tone no deficits were identified Modality Interventions Planned Modality Interventions Cryotherapy Planned Modality Interventions Comments Ice PRN General Therapy Interventions Planned Therapy Interventions bed mobility training;gait training;ROM;strengthening;stretching;transfer training;home program guidelines;progressive activity/exercise Clinical Impression Criteria for Skilled Therapeutic Intervention yes, treatment indicated PT Diagnosis Impaired functional mobility Influenced by the following impairments Pain, weakness, elevated BP, impaired R knee flexion Functional limitations due to impairments Difficulty with bed mobility, transfers, ambulation, stairs Clinical Presentation Stable/Uncomplicated Clinical Presentation Rationale medically stable Clinical Decision Making (Complexity) Low complexity Therapy Frequency` 2 times/day Predicted Duration of Therapy Intervention (days/wks) 3 days Anticipated Equipment Needs at Discharge walker Anticipated Discharge Disposition Home with Outpatient Therapy Risk & Benefits of therapy have been explained Yes Patient, Family & other staff in agreement with plan of care Yes [facility]-PAC TM 6 Clicks ?? 2016, Trustees of [facility], under license to [employer]. All rights reserved. 6 Clicks Short Forms Basic Mobility Inpatient Short Form [facility] AM-PAC??? 6 Clicks V.2 Basic Mobility Inpatient Short Form 1. Turning from your back to your side while in a flat bed without using bedrails? 4 - None 2. Moving from lying on your back to sitting on the side of a flat bed without using bedrails? 3 - ALittle 3. Moving to and from a bed to a chair (including a wheelchair)? 3 - A Little 4. Standing up from a chair using your arms (e.g., wheelchair, or bedside chair)? 3 - A Little 5. To walk in hospital room? 3 - A Little 6. Climbing 3-5 steps with a railing? 2 - A Lot Basic Mobility Raw Score (Score out of 24.Lower scores equate to lower levels of function) 18 Total Evaluation Time Total Evaluation Time (Minutes) 8 ROBE SUPERVISOR Monica Vizcarra RN - 10/17/2018 2:52 PM CST Arrived to room 604 from PACU at 1440 via cart, transferred to bed via hover mat without difficulty,alert and oriented x 4, oriented to room and call system, dressing CDI, CMS intact, IV patent and infusing, hemovac and arenas patent, rates pain 2 , reviewed welcome folder and pain/medication information packet with patient and . SCD's on BLE. Clarisa ice chips well. PCS WNL. Will continue to monitor. ROBE SUPERVISOR documented in this encounter Consult Notes Papi Toro MD - 10/17/2018 4:08 PM CST [facility] Hospitalist Consultation Date of Admission: 10/17/2018 Assessment & Plan Mitch Engle is a 63 year old male who was admitted on 10/17/2018. I was asked to see the patient for medical management of medical issues, in the setting of right total knee arthroplasty. Right total knee arthroplasty: I evaluated the patient postoperatively. Patient underwent surgery under spinal anesthesia. Postoperatively, patient has been doing well. Vitals are stable. Pain is adequately controlled. Drain is in place. At baseline patient does not appear to have chronic medical problems. His main medical issue is his usual allergies for which she takes Claritin-D. Otherwise he has history of osteoarthritis and degenerative joint disease. He says that his blood pressure is usually fairly good. We will follow the patient peripherally. Feel free to contact us should there be any medical issues. DVT Prophylaxis: Defer to primary service Code Status: Full Code Papi Toro MD Reason for Consult Reason for consult: I was asked by orthopedic team to evaluate this patient to manage postoperative medical issues. Primary Care Physician MITCH LI Chief Complaint Right knee pain. History is obtained from the patient History of Present Illness Mitch Engle is a 63 year old male who was admitted by orthopedic team for an elective righttotal knee arthroplasty. His knee pain has been progressively worsening and not better with medical management. I evaluated the patient postoperatively. Patient underwent the surgery under spinal anesthesia. Uneventful surgery. Postoperatively patient has been doing well with stable vitals and adequate pain control. Past Medical History I have reviewed this patient's medical history and updated it with pertinent information if needed. Past Medical History: Diagnosis Date ??? Osteoarthritis knees, feet, shoudlers ??? Sleep apnea Doesn't use a CPAP Past Surgical History I have reviewed this patient's surgical history and updated it with pertinent information if needed. Past Surgical History: Procedure Laterality Date ??? C NONSPECIFIC PROCEDURE 1958 right groin- not certain if hernia related. Prior to Admission Medications Prior to Admission Medications Prescriptions Last Dose Informant Patient Reported? Taking? Dermatological Products, Misc. (KERASAL FUNGAL NAIL RENEWAL EX) 10/14/2018 Yes Yes Sig: Externally apply topically daily as needed clobetasol (TEMOVATE) 0.05 % external ointment Past Week at Unknown time Yes Yes Sig: Apply topically 2 times daily fluticasone (FLONASE) 50 MCG/ACT nasal spray Past Month at Unknown time Yes Yes Sig: [place] 1 spray into both nostrils daily as needed for rhinitis or allergies ibuprofen (ADVIL,MOTRIN) 800 MG tablet 10/07/2018 Yes Yes Sig: Take 1 tablet by mouth every 8 hours as needed for pain. loratadine-pseudoePHEDrine (CLARITIN-D 24-HOUR) 10-240 MG per tablet 10/12/2018 Yes Yes Sig: Take 1 tablet by mouth daily. meclizine (ANTIVERT) 25 MG tablet More than a month at Unknown time Yes No Sig: Take 25 mg by mouth 3 times daily as needed for dizziness multivitamin w/minerals (MULTI-VITAMIN) tablet 10/10/2018 Yes Yes Sig: Take 1 tablet by mouth daily Facility-Administered Medications: None Allergies Allergies Allergen Reactions ??? Amoxicillin Hives Social History I have reviewed this patient's social history and updated it with pertinent information if needed. Mitch De La Cruz Teddyjohnna reports that has never smoked. he has never used smokeless tobacco. He reports that he does not drink alcohol or use drugs. Family History I have reviewed this patient's family history and updated it with pertinent information if needed. Family History Problem Relation Age of Onset ??? Diabetes Mother ??? Cardiovascular Mother heart faiure; age 85 ??? Breast Cancer Mother postmenopausal ??? Neurologic Disorder Father parkinson's ??? Cardiovascular Sister ??? Kidney Disease Sister born with one kidney Review of Systems The 10 point Review of Systems is negative other than noted in the HPI or here. Physical Exam Temp: 95.6 ??F (35.3 ??C) Temp src: Oral BP: (!) 155/95 Pulse: 75 Heart Rate: 80 Resp: 12 SpO2: 100 % O2 Device: None (Room air) Vital Signs with Ranges Temp: [95.6 ??F (35.3 ??C)-97.7 ??F (36.5 ??C)] 95.6 ??F (35.3 ??C) Pulse: [73-86] 75 Heart Rate: [73-87] 80 Resp: [7-18] 12 BP: (125-157)/(87-118) 155/95 SpO2: [97 %-100 %] 100 % 229 lbs 0 oz Constitutional: Awake, alert, cooperative, no apparent distress. Eyes: Conjunctiva and pupils examined and normal. HEENT: Moist mucous membranes, normal dentition. Respiratory: Clear to auscultation bilaterally, no crackles or wheezing. Cardiovascular: Regular rate and rhythm, normal S1 and S2, and no murmur noted. GI: Soft, non-distended, non-tender, normal bowel sounds. Lymph/Hematologic: No anterior cervical or supraclavicular adenopathy. Skin: No rashes, no cyanosis, no edema. Musculoskeletal: No joint swelling, erythema or tenderness. Distal sensation is coming back. Drain is in place distal pulses are intact. Neurologic: Cranial nerves 2-12 intact, normal strength and sensation. Psychiatric: Alert, oriented to person, place and time, no obvious anxiety or depression. Data -Data reviewed today: No lab results found in last 7 days. No results found for this or any previous visit (from the past 24 hour(s)). ROBE SUPERVISOR documented in this encounter Miscellaneous Notes Plan of Care - Isabella Muse RN - 10/19/2018 1:37 PM CST Pt A&O x4. VS stable; afebrile. PO oxycodone and scheduled tylenol managing pain. CMS intact. Dressing CDI-incision iced. Up w/ SBA, using gait belt, and walker. Voiding in good amts. Tolerating regular diet. Reviewed discharge instructions and medications with patient and spouse. Questions answered. Patientdischarged to home via spouse w/, discharge instructions, filled medications (Oxycodone, vistaril, senna, tylenol, and aspirin), and belongings at this time. ROBE SUPERVISOR Plan of Care - Angeline Campuzano PTA - 10/19/2018 9:41 AM CST Assistant Project Manager PT Patient plan for discharge: Home Current status: PT - Pt amb 250' with ww indep with step thru gait pattern. Goal met Pt performed 4 steps with simulating grab rail and use of SEC with supervision. Goal met Pt is indep with all transfers. Goal met Barriers to return to prior living situation: Stairs to enter home-will address with PT Recommendations for discharge: Home with OPPT per plan established by the PT. Rationale for recommendations: Anticipate that with continued IPPT the pt will be able to complete all mobility skills required for safe discharge home. OPPT to maximize post-op outcomes. PT - Pt discharging to home today per Ortho with OP PT. Collaborated with PT - all goals met - please refer to discharge summary. Entered by: Angeline Capmuzano 10/19/2018 9:41 AM ROBE SUPERVISOR Associated attestation - Urmila Mejia PT - 10/19/2018 11:25 AM WARDROBE SUPERVISOR Physical Therapy Discharge Summary Reason for therapy discharge: All goals and outcomes met, no further needs identified. Progress towards therapy goal(s). See goals on Care Plan in [facility] electronic health record for goal details. Goals met Therapy recommendation(s): Continued therapy is recommended. Rationale/Recommendations: Recommend OP PT for continued gait training, strengthening, and functional mobility training per BPCI care plan. Plan of Care - Lili Davidson RN - 10/19/2018 2:52 AM CST Pt up with 1 assist, walker, and gait belt. Pain controlled with oxycodone, tylenol, and ice to R knee. LS clear - encouraged IS use in which pt demonstrated approproriately. BS hypo, passing flatus. Discussed bowel management options for when patient goes home. Pt understood. CMS intact with no numbness/tingling. Drsg CDI. Voiding adequately. Plan is to discharge to home today if meets criteria. ROBE SUPERVISOR Plan of Care - Nara Reddy RN - 10/18/2018 11:16 PM CST A/O. VSS. CMS intact. Dressing D/I. Voiding well. Ambulated in berger with Ax1 et walker. Tolerating regular diet. Pain well controlled with Oxycodone 10mg. Plans to discharge home tomorrow. Will continue to monitor. ROBE SUPERVISOR Plan of Care - Tatyana Noel, OT - 10/18/2018 3:14 PM CST OT: Order received, eval completed and treatment initiated. Pt is a 63 year old male s/p R TKA. Pt lives with spouse in house, 3 stairs to enter, all needs can be met on main level, walk in shower, comfort height toilet. Pt reports indep in all ADLs, IADLs and mobility tasks with no AD at baseline. Ptworks for [employer], active job. Assistant Project Manager OT Patient plan for discharge: Home Current status: Pt completed bed mobility supine <> sit EOB with SBA. Pt completed sit > stand from EOB to FWW with SBA, safety cues provided for hand placement with transfers. Pt ambulated to/from BR FWW level with SBA, completed toilet transfer with use of FWW as simulated toilet rails withSBA. Pt educated on walk in shower transfer technique, able to return demo with CGA for safety. Pt educated on compensatory technique for LB dressing, able to return demo to thread shorts over toes with SBA, don up over hips with SBA. Pt able to complete toileting and grooming tasks with SBA. Pt and spouse educated on home safety modifications/recommendations, car transfer technique and safe activities post TKA, verbalized understanding. Pt with no further skilled OT needs. Barriers to return to prior living situation: Stairs (PT to address) Recommendations for discharge: Home w/ spouse assist as needed for ADLs/IADLs Rationale for recommendations: Pt doing well, has achieved all OT goals at this time. No further questions/concerns for OT. Entered by: Tatyana Noel 10/18/2018 3:15 PM Occupational Therapy Discharge Summary Reason for therapy discharge: All goals and outcomes met, no further needs identified. Progress towards therapy goal(s). See goals on Care Plan in [facility] electronic health record for goal details. Goals met Therapy recommendation(s): No further skilled OT needs. ROBE SUPERVISOR Plan of Care - Henry Álvarez, PT - 10/18/2018 1:20 PM CST Assistant Project Manager PT Patient plan for discharge: Home Current status: BP stable this morning, no lightheadedness or nausea. Amb x 175ft with FWW and CGA/SBA. No KI needed, good quad control with functional standing activity and gait skills. AAROM R knee 10-80 deg. Reviewed HEP. Barriers to return to prior living situation: Stairs to enter home-will address with PT Recommendations for discharge: Home with OPPT Rationale for recommendations: Anticipate that with continued IPPT the pt will be able to complete all mobility skills required for safe discharge home. OPPT to maximize post-op outcomes. Entered by: Henry Álvarez 10/18/2018 1:20 PM ROBE SUPERVISOR Plan of Care - Nara Reddy, RN - 10/17/2018 10:43 PM CST A/O. CMS intact. Dressing D/I. Hemovac in place. Arenas patent with clear, yellow urine. Remains on RA. Zofran given x2 this shift-has intermittent nausea. No emesis. Pain well controlled with [id number]. Ambulated around room with Ax2 et walker. Tolerated well. Plans to go home at discharge. Will continue to monitor. ROBE SUPERVISOR Plan of Care - Kathi Orourke, PT - 10/17/2018 5:43 PM CST PT: Orders received. PT evaluation completed and treatment initiated. Pt is POD0 R TKA. Pt reports living in a rambler style home with 3 steps to enter through garage, or single step through front. Pt's spouse will be available to assist if needed after discharge. Pt was indep with mobility prior to surgery. Assistant Project Manager PT Patient plan for discharge: Home Current status: Pt and spouse educated in PT role and POC, pt agreeable to session. Pt and sposue with multiple questions regarding equipment needs, expectations for mobility, IP PT versus OPPT, and overall recovery. Answered questions to pt's satisfaction. Pt's BP assessed in supine before initiatingOOB mobility 2/2 elevated readings earlier this evening. BP initially 159/105. Rechecked again ~3 minutes later after encouragement for deep breathing and relaxation techniques. Improved to 155/98. OOBmobility held at this time 2/2 elevated diastolic BP. Pt understanding, and RN notified. Plans to beOOB with nursing later this evening as appropriate. Pt able to complete SLR with ease, do not anticipate need for KI. Barriers to return to prior living situation: Stairs to enter home-will address with PT Recommendations for discharge: Home with OPPT Rationale for recommendations: Anticipate that with continued IPPT the pt will be able to complete all mobility skills required for safe discharge home. OPPT to maximize post-op outcomes. Entered by: Kathi Orourke 10/17/2018 5:44 PM ROBE SUPERVISOR Op Note - Leonor Diallo MD - 10/17/2018 1:02 PM CST Procedure Date: 10/17/2018 PREOPERATIVE DIAGNOSIS: Osteoarthritis, right knee. POSTOPERATIVE DIAGNOSIS: Osteoarthritis, right knee. PROCEDURE PERFORMED: Right total knee arthroplasty. SURGEON: Leonor Diallo MD SHIRRING MACHINE OPERATOR: Anita Burgess PA-C ANESTHESIA: Spinal with adductor canal block. ESTIMATED BLOOD LOSS: 25 mL. TOURNIQUET TIME: Approximately 65 minutes. COMPLICATIONS: None. DESCRIPTION OF PROCEDURE: The patient was taken to the operating room where after successful administration of spinal anesthetic, adductor canal block, antibiotic prophylaxis, tranexamic acid, and sterile prep and drape, the leg was exsanguinated and an anterior incision was made followed by medial arthrotomy with a predominantly posteromedial soft tissue release. He had a slight flexion contracture.An intramedullary 5 degree guide was used with anterior referencing at 3 degrees of external rotation which did appear to match the epicondylar axis and a box cut was made for PCL substitution. Retractors were carefully placed about the proximal tibia and a cut was made perpendicular to the mechanicalaxis, removing approximately 2 mm of medial bone. Medial osteophytes were also removed. Tibial rotation was matched to the medial one-third of the tubercle and 10 mm was then resected from the undersurface of a 25 mm patella, which was prepared accordingly. Posterior osteophytes were removed under direct vision and with the knee in hyperflexion, carefully protecting the neurovascular structures, and a capsular injection was similarly performed. After copious irrigation and drying, antibiotic-impregnated Simplex cement was used for a Kelsie Persona size 8 femur, size F tibia, 10-mm polyethylene insert, and a 35 mm patellar button. Range of motion, balance, and tracking were all excellent. Copious antibiotic and Betadine irrigation was performed after drawing in full extension. A layered anatomic closure was then accomplished. The staff had preselected antibiotic cement and for this reason it was utilized. There were no complications. LEONOR DIALLO MD MT: WT Name: MITCH ENGLE MRN: [id number] Account: [id number] : 1955 Procedure Date: 10/17/2018 Document: [id number] ROBE SUPERVISOR Op Note - Leonor Diallo MD - 10/17/2018 7:13 AM CST R TKR for OA No anticipated complications ROBE SUPERVISOR Pharmacy-Admission Medication History - Ashok Clayton, [facility] - 10/13/2018 2:31 PM CST Medication reconciliation completed by pre-admitting. Prior to Admission medications Medication Sig Last Dose Taking? Auth Provider clobetasol (TEMOVATE) 0.05 % external ointment Apply topically 2 times daily Yes Reported, Patient Dermatological Products, Misc. (KERASAL FUNGAL NAIL RENEWAL EX) Externally apply topically daily as needed Yes Reported, Patient fluticasone (FLONASE) 50 MCG/ACT nasal spray [place] 1 spray into both nostrils daily as needed for rhinitis or allergies Yes Reported, Patient ibuprofen (ADVIL,MOTRIN) 800 MG tablet Take 1 tablet by mouth every 8 hours as needed for pain. Yes Angeline Stern MD loratadine-pseudoePHEDrine (CLARITIN-D 24-HOUR) 10-240 MG per tablet Take 1 tablet by mouth daily. Yes Angeline Stern MD meclizine (ANTIVERT) 25 MG tablet Take 25 mg by mouth 3 times daily as needed for dizziness Yes Reported, Patient multivitamin w/minerals (MULTI-VITAMIN) tablet Take 1 tablet by mouth daily Yes Reported, Patient ROBE SUPERVISOR documented in this encounter Plan of Treatment Not on filedocumented as of this encounter Procedures Procedure Name Priority Date/Time Associated Comments Diagnosis HEMOGLOBIN Routine 10/19/2018 6:23 AM S/P total knee Results for this WARDROBE SUPERVISOR arthroplasty, right procedur e are in the results section. GLUCOSE Routine 10/19/2018 6:23 AM S/P total knee Results for this WARDROBE SUPERVISOR arthroplasty, right procedur e are in the results section. HEMOGLOBIN Routine 10/18/2018 6:03 AM Results f or this WARDROBE SUPERVISOR procedure are i n the results section. GLUCOSE Routine 10/18/2018 6:03 AM Results f or this WARDROBE SUPERVISOR procedure are i n the results section. XR KNEE PORT RIGHT STAT 10/17/2018 4:31 PM Res ults for this / VIEWS WARDROBE SUPERVISOR procedure are i n the results section. ARTHROPLASTY, KNEE, 10/17/2018 11:32 AM DJD TOTAL WARDROBE SUPERVISOR Special Needs Joint Class on 10/06 @1800. N angi screen done at preop6' / 220# stated LAB RESULT - HIM SCAN 09/19/2018 12:00 AM WARDROBE SUPERVISOR EKG CARDIAC - HIM SCAN 09/14/2018 12:00 AM WARDROBE SUPERVISOR documented in this encounter Results (ABNORMAL) Glucose (10/19/2018 6:23 AM WARDROBE SUPERVISOR) P athologist Signature Glucose 106 (H) 70 - 99 10/19/2018 JUSTIN mg/dL 7:07 AM [facility] Specimen Anatomical Collection Method Collection Time Receive d Time (Source) Location / / Volume Laterality Blood specimen 10/19/2018 6:23 AM 019 6:24 (specimen) WARDROBE SUPERVISOR AM WARDROBE SUPERVISOR Leonor Diallo MD LAB - BLOOD ORDERABLES Performing Organization Address City/State/ZIP Code Phon e Number [place] [address] [place] [address] [facility] [address] [place], [place] [address], [facility] [phone] (ABNORMAL) Hemoglobin (10/19/2018 6:23 AM WARDROBE SUPERVISOR) athologist Signature Hemoglobin 13.0 (L) 13.3 - 17.7 10/19/2018 JUSTIN g/dL 6:57 AM [facility] Specimen Anatomical Collection Method Collection Time Receive d Time (Source) Location / / Volume Laterality Blood specimen 10/19/2018 6:23 AM 019 6:24 (specimen) WARDROBE SUPERVISOR AM WARDROBE SUPERVISOR Anita Burgess PA-C LAB - BLOOD ORDERABLES Performing Organization Address City/[facility]/ZIP [facility] Phon e Number [facility] [address] [place], [place] [address] [place] [address] [address] [place], [place] [address], [facility] [phone] (ABNORMAL) Glucose (10/18/2018 6:03 AM WARDROBE SUPERVISOR) athologist Signature Glucose 117 (H) 70 - 99 10/18/2018 JUSTIN mg/dL 6:22 AM [facility] Specimen Anatomical Collection Method Collection Time Receive d Time (Source) Location / / Volume Laterality Blood specimen 10/18/2018 6:03 AM 019 6:04 (specimen) WARDROBE SUPERVISOR AM WARDROBE SUPERVISOR Leonor Diallo MD LAB - BLOOD ORDERABLES Performing Organization Address City/[facility]/ZIP [facility] Phon e Number M [facility] [address] [place], [place] [address] [facility] [address] [place], [place] [address], [facility] [phone] Hemoglobin (10/18/2018 6:03 AM WARDROBE SUPERVISOR) athologist Signature Hemoglobin 13.7 13.3 - 17.7 10/18/2018 [facility] g/dL 6:09 AM [facility] Specimen Anatomical Collection Method Collection Time Receive d Time (Source) Location / / Volume Laterality Blood specimen 10/18/2018 6:03 AM 019 6:04 (specimen) WARDROBE SUPERVISOR AM WARDROBE SUPERVISOR Anita Burgess PA-C LAB - BLOOD ORDERABLES Performing Organization Address City/State/ZIP Code Phon e Number M [facility] [address] [place], [place] [address] [facility] [address] [place], [place] [address], [facility] [phone] XR Knee Port Right 1/2 Views (10/17/2018 4:31 PM WARDROBE SUPERVISOR) Anatomical Region Laterality Modality Knee, Right Knee Right Digital Radiography Specimen (Source) Anatomical Location Collection Method / Collectio n Time Received Time / Laterality Volume Impressions 10/17/2018 5:12 PM WARDROBE SUPERVISOR IMPRESSION: ?Knee arthroplasty in anatomic alignment. DESMOND ZAYAS MD Narrative 10/17/2018 5:12 PM WARDROBE SUPERVISOR KNEE ONE-TWO VIEWS RIGHT 10/17/2018 4:31 PM HISTORY: Knee arthroplasty COMPARISON: None. FINDINGS: ?There is total knee arthr oplasty in anatomic alignment with well-seated components. Procedure Note Desmond Zayas MD - 10/17/2018Fo rmatting of this note might be different from the original. KNEE ONE-TWO VIEWS RIGHT 10/17/2018 4:31 P M HISTORY: Knee arthroplasty COMPARISON: None. FINDINGS: There is total knee arthroplas ty in anatomic alignment with well-seated components. IMPRESSION: Knee arthroplasty in anatomi c alignment. DESMOND ZAYAS MD Anita Burgess PA-C IMG DIAGNOSTIC IMAGING ORDER TRENT LAB RESULT - HIM SCAN (09/19/2018 12:00 AM WARDROBE SUPERVISOR) Specimen (Source) Anatomical Location Collection Method / Collectio n Time Received Time / Laterality Volume 09/19/2018 Narrative This result has an attachment that is no t available. Provider Outside NON-BEAKER LAB TESTING EKG CARDIAC - HIM SCAN (09/14/2018 12:00 AM WARDROBE SUPERVISOR) Specimen (Source) Anatomical Location Collection Method / Collectio n Time Received Time / Laterality Volume 09/14/2018 Narrative This result has an attachment that is no t available. Provider Outside ECG ORDERABLES documented in this encounter Visit Diagnoses Not on filedocumented in this encounter Administered Medications Inactive Administered Medications - up to 3 most recent administrations Medication Order MAR Action Action Date Dose Rate Site acetaminophen (TYLENOL) tablet 650 mg 650 mg, Oral, EVERY 4 HOURS PRN, other, multimodal surgical pain management along with NSAIDS and opioid medication as ind icated based on pain control and physical function., Starting on Fidelina 10/20/18 at 000 0, May give first dose 4 hours after last scheduled dose of acetaminophen Maximum acetaminophen dose from all sources = 75 mg/kg/day not to exceed 4 grams/day., Post-procedure acetaminophen (TYLENOL) tablet 975 mg Given 10/19/2018 8:01 AM WARDROBE SUPERVISOR 975 mg 975 mg, Oral, EVERY 8 HOURS, First dose on Wed10/17/18 at 1600, For 3 days, Do not use if patient has an active opioid/acetaminophen combined analgesic product ordered for pain. Maximum acetaminophen dose from all sources = 75 mg/kg/day not to exceed 4 grams/day., Post-procedure Given 10/19/2018 12:22 AM WARDROBE SUPERVISOR 975 mg Given 10/18/2018 4:14 PM WARDROBE SUPERVISOR 975 mg aspirin (ASA) EC tablet 325 mg Given 10/19/2018 8:01 AM WARDROBE SUPERVISOR 325 mg 325 mg, Oral, DAILY, First dose on Wed10/18/18 at 0800, Indications: VTE Prophylaxis, DO NOT CRUSH., Post-procedure Given 10/18/2018 7:44 AM WARDROBE SUPERVISOR 325 mg bacitracin 100,000 Units, Given 10/17/2018 1:02 2,000 mLs Operative gentamicin (GARAMYCIN) 200 mg, PM WARDROBE SUPERVISOR Site/Surgical Site ceFAZolin (ANCEF) 2 g in sodium chloride 0.9% (bag) 2,000 mL Bag for irrigation Irrigation, ONCE, On Wed10/17/18 at 0030, For 1 dose, Intra-procedure benzocaine-menthol (CHLORASEPTIC) 6-10 M G lozenge 1-2 lozenge 1-2 lozenge, Buccal, EVERY 1 HOUR PRN, sore throat, so re throat without fever, Starting on Wed10/17/18 at 1451, Post-procedure bupivacaine 0.25% w/EPI Given 10/17/2018 12:42 PM 31 ml given Operative 1:200,000 (29mL) + WARDROBE SUPERVISOR Site/S urgical Site ketorolac 30 mg (1mL) PRN, Starting on Wed10/17/18 at 1242, Intra-procedure celecoxib (celeBREX) capsule 200 mg Given 10/19/2018 8:01 AM WARDROBE SUPERVISOR 200 mg 200 mg, Oral, 2 TIMES DAILY, First dose on Wed10/18/18 at 0800, For 4 doses, Age less than 65. IF celecoxib (CELEBREX) was given pre-operatively, start celecoxib (CELEBREX) 12 hours after given., Post-procedure Given 10/18/2018 8:48 PM WARDROBE SUPERVISOR 200 mg Given 10/18/2018 7:43 AM WARDROBE SUPERVISOR 200 mg HYDROmorphone (PF) (DILAUDID) injection 0.3-0.5 mg 0.3-0.5 mg, Intravenous, EVERY 2 HOURS P RN, moderate to severe pain, Starting on Wed10/17/18 at 1602, For ordered IV doses 0.1-4 mg give IV Push undiluted. Administer each 2mg over 2-5 minutes. hydrOXYzine (ATARAX) tablet 25 mg Given 10/18/2018 1:39 PM WARDROBE SUPERVISOR 25 mg 25 mg, Oral, EVERY 6 HOURS PRN, itching, Starting on Wed10/17/18 at 1451, Caution to be used when administering multiple Central Nervous System (ELECTRICAL POWER ENGINEER) depressing meds within a short time frame., Post-procedure Given 10/18/2018 7:43 AM WARDROBE SUPERVISOR 25 mg lidocaine (LMX4) cream Topical, EVERY 1 HOUR PRN, pain, with VA D insertion or accessing implanted port., Starting on Wed10/17/18 at 1451, Do NOT g collins if patient has a history of allergy to any local anesthetic or any yeison product. Apply 30 minutes prior to VAD insertion or port access. MAX Dose: 2.5 g (?? of 5 g t ube), Post-procedure lidocaine 1 % 1 mL 1 mL, Other, EVERY 1 HOUR PRN, mild pain with VAD insertion or accessing implanted port, Starting on Wed10/17/18 at 1451, Do NOT give if p atient has a history of allergy to any local anesthetic or any yeison product. MAX dose 1 mL subcutaneous OR intradermal in divided doses., Post-procedure metoclopramide (REGLAN) injection 10 mg 10 mg, Intravenous, Administer over 2 Mi nutes, EVERY 6 HOURS PRN, nausea, vomiting, Starting on Wed10/17/18 at 1451, This is Step 3 of nausea and vomiting management. Give if nausea not resolved 15 minutes a fter giving prochlorperazine (COMPAZINE). If nausea not resolved in 15-30 minutes, Notify provider. Avoid use if patient has full bowel obstruction or perforation. I rritant. For ordered IV doses 1-10 mg, give IV Push undiluted over 2 minutes., Post-procedure metoclopramide (REGLAN) tablet 10 mg 10 mg, Oral, EVERY 6 HOURS PRN, nausea, vomiting, Starting on Wed10/17/18 at 1451, This is Step 3 of nausea and vomiting ma nagement. Give if nausea not resolved 15 minutes after giving prochlorperazine (C OMPAZINE). If nausea not resolved in 15-30 minutes, Notify provider. Avoid use if patient has ful l bowel obstruction or perforation., Post-procedure naloxone (NARCAN) injection 0.1-0.4 mg 0.1-0.4 mg, Intravenous, EVERY 2 MIN PRN , opioid reversal, Starting on Wed10/17/18 at 1451, For respiratory rate LESS than or EQUAL to 8. Partial reversal dose: 0.1 mg titrated q 2 minutes for Analgesia Si de Effects Monitoring Sedation Level of 3 (frequently drowsy, arousable, drifts to sleep during conversation).Full reversal dose: 0.4 mg bolus for Analgesia Side Effects Monitori ng Sedation Level of 4 (somnolent, minimal or no response to st imulation). For ordered IV doses 0.1-2mg give IVP. Give each 0.4mg over 15 second s in emergency situations. For non-emergent situations further dilute in 9mL of NS to facilitate t itration of response., Post-procedure ondansetron (ZOFRAN) injection 4 mg Given 10/17/2018 9:53 PM WARDROBE SUPERVISOR 4 mg 4 mg, Intravenous, EVERY 6 HOURS PRN, nausea, vomiting, Administer over 2-5 Minutes, Starting on Wed10/17/18 at 1451, This is Step 1 of nausea and vomiting management. If nausea not resolved in 15 minutes, go to Step 2 prochlorperazine (COMPAZINE). Irritant. For ordered IV doses 0.1-4 mg, give IV Push undiluted over 2-5 minutes., Post-procedure Given 10/17/2018 3:41 PM WARDROBE SUPERVISOR 4 mg ondansetron (ZOFRAN-ODT) ODT tab 4 mg 4 mg, Oral, EVERY 6 HOURS PRN, nausea, v omiting, Starting on Wed10/17/18 at 1451, This is Step 1 of nausea and vomiting management. If n ausea not resolved in 15 minutes, go to Step 2 prochlorperazine (COMPAZINE). Do not push through foil backing. Peel back foil and gently remove. Place on to ngue immediately. Administration with liquid unnecessary W ith dry hands, peel back foil backing and gently remove tablet; do not push oral d isintegrating tablet through foil backing; administer immediately on tongue and oral disintegrati ng tablet dissolves in seconds; then swallow with saliva; liquid not required ., Post-procedure oxyCODONE (ROXICODONE) tablet 5-10 mg Given 10/19/2018 12:43 PM WARDROBE SUPERVISOR 10 mg 5-10 mg, Oral, EVERY 3 HOURS PRN, other, pain control or improvement in physical function. Hold dose for analgesic side effects., Starting on Wed10/17/18 at 1451, Start with the lowest dose. May adjust dose by 5 mg every 3 hours as needed. Notify provider to assess for uncontrolled pain or analgesic side effects. Hold while on MASTIC FLOOR LAYER or with regular IV opioid dosing. Maximum total is 80 mg in 24 hours., Post-procedure Given 10/19/2018 8:00 AM WARDROBE SUPERVISOR 10 mg Given 10/19/2018 4:27 AM WARDROBE SUPERVISOR 10 mg povidone-iodine Given 10/17/2018 1:02 PM 100 ml given Operative (BETADINE) 10% soln 7 mL WARDROBE SUPERVISOR Site/Surgical Site + 0.9% NaCl 250 mL PRN, Starting on Wed10/17/18 at 1302, Intra-procedure prochlorperazine (COMPAZINE) injection 1 0 mg 10 mg, Intravenous, EVERY 6 HOURS PRN, nausea, vomitin g, Administer over 1-2 Minutes, Starting on Wed10/17/18 at 1451, This is Step 2 of nausea and vomiting management. If nausea not resolved in 15 minutes, give metoclopramide (REGLAN), if ordered (step 3 of nausea and vomiting m anagement) For ordered IV doses 0.1-10 mg, give IV Push undiluted. Each 5mg over 1 minute., Post- procedure prochlorperazine (COMPAZINE) tablet 10 m g 10 mg, Oral, EVERY 6 HOURS PRN, nausea, vomiting, Starting on Wed10/17/18 at 1451, This is Step 2 of nausea and vomiting management. If n ausea not resolved in 15 minutes, give metoclopramide (REGLAN), i f ordered (step 3 of nausea and vomiting management), Post-procedure senna-docusate (SENOKOT-S/PERICOLACE) Given 10/19/2018 8:[address] 1 tablet 8.6-50 MG per tablet 1 tablet 1 tablet, Oral, 2 TIMES DAILY, First dose on Wed10/17/18 at 2000, If no bowel movement in 24 hours, increase to 2 tablets PO. Hold for loose stools., Post-procedure Given 10/18/2018 8:48 PM WARDROBE SUPERVISOR 1 tablet Given 10/18/2018 7:44 AM WARDROBE SUPERVISOR 1 tablet senna-docusate (SENOKOT-S/PERICOLACE) 8. 6-50 MG per tablet 2 tablet 2 tablet, Oral, 2 TIMES DAILY, First dose on Wed 9 at 2000, Hold for loose stools., Post-procedure sodium chloride (PF) 0.9% PF flush 3 mL Given 10/17/2018 9:54 PM WARDROBE SUPERVISOR 3 mLs 3 mL, Intracatheter, EVERY 1 HOUR PRN, line flush, for peripheral IV flush post IV meds, Starting on Wed10/17/18 at 1451, Post-procedure Given 10/17/2018 3:42 PM WARDROBE SUPERVISOR 3 mLs sodium chloride (PF) 0.9% PF flush 3 mL Given 10/19/2018 8:02 AM WARDROBE SUPERVISOR 3 mLs 3 mL, Intracatheter, EVERY 8 HOURS, First dose on Wed10/17/18 at 1500, And Q1H PRN, to lock peripheral IV dormant line., Post-procedure Given 10/19/2018 12:24 AM WARDROBE SUPERVISOR 3 mLs Given 10/18/2018 4:14 PM WARDROBE SUPERVISOR 3 mLs documented in this encounter Active and Recently Administered Medications Times are shown in WARDROBE SUPERVISOR. Scheduled Medication Order 10/17/2018 10/18/2018 10/19/2018 acetaminophen (TYLENOL) tablet 975 mg 1533 (Given - Pr ovider: Nara Reddy RN) 0045 (Given - Provider: Kamron Bailey)0743 (Given - Provider: Monica Vizcarra RN)1614 (Given - Provider: Nara Reddy RN) 0022 (Given - Provider: Lili Davidson RN)0801 (Given - Provider: Isabella Muse RN) 975 mg, Oral, EVERY 8 HOURS, First dose on Wed10/17/18 at 1600, For 3 days, Do not use if patient has an active opioid/acetaminophen combined analgesic product ordered for pain. Maximum acetaminophen dos e from all sources = 75 mg/kg/day not to exceed 4 grams/day., Po st-procedure aspirin (ASA) EC tablet 325 mg 0744 (Given - Pro vider: Monica Vizcarra RN) 0801 (Given - Provider: Isabella Muse RN) 325 mg, Oral, DAILY, First dose on Wed at 0800, DO NOT CRUSH., Post-procedure bacitracin 100,000 Units, gentamicin (GA RAMYCIN) 200 mg, ceFAZolin (ANCEF) 2 g in sodium chloride 0.9% (bag) 2,000 mL Bag for irrigation (COMPLETED) 0030 (Due)1302 (Given - Provider: Leonor Diallo MD) Irrigation, ONCE, Wed10/17/18 at 0030, For 1 dose, Intra-procedur e ceFAZolin (ANCEF) intermittent infusion 2 g in 100 mL dextrose PRE-MIX (COMPLETED) 1143 (Given - Provider: Bev Heart APRN SCENE PAINTER) 2 g, Intravenous, PRE-OP/PRE-PROCEDURE, Starting Wed10/17/18 at 0855, For 1 dose, Give first dose within 1 hour PRIOR to incision. If patient weight is greater than or equal to 120 kg increase dose to 3 g., Indications: Perioperative Pharmacoprophylaxis, Pre-procedur e ceFAZolin (ANCEF) intermittent infusion 2 g in 100 mL dextrose PRE-MIX (COMPLETED) 1999 (Given - Provider: Nara Reddy RN) 0405 (Gi brian - Provider: Brandon Parrish RN) 2 g, Intravenous, EVERY 8 HOURS, First d ose on Wed10/17/18 at 2000, For 2 doses, First post-op dose due 8 hours after intra-op dose, see eMAR. , Indications: Perioperative Pharmacoprophylaxis, Post-procedure celecoxib (celeBREX) capsule 200 mg 742 (Given - Provider: Monica Vizcarra RN)2047 (Given - Provider: Nara Reddy RN) 08 (Given - Provider: Isabella Muse RN) 200 mg, Oral, 2 TIMES DAILY, First dose on Wed10/18/18 at 0800, For 4 doses, Age less than 65. IF celecoxib (CELEBREX) was given pre-operatively, start celecoxib (CELEBREX) 12 hours after given., Post-procedure celecoxib (celeBREX) capsule 400 mg (COMPLETED) 854 ( Given - Provider: Miladys Covarrubias RN) 400 mg, Oral, ONCE, Wed10/17/18 at 0900, For 1 dose, Pre-procedur e oxyCODONE (oxyCONTIN) 12 hr tablet 10 mg (COMPLETED) 0 855 (Given - Provider: Miladys Covarrubias RN) 10 mg, Oral, ONCE, Wed10/17/18 at 0900, For 1 dose, DO NOT CRUSH., Pre-procedure senna-docusate (SENOKOT-S/PERICOLACE) 8. 6-50 MG per tablet 1 tablet(Linked Group 1) 1999 (Given - Provider: Nara Reddy RN) 743 (Gi brian - Provider: Monica Vizcarra RN)2047 (Given - Provider: Nara Reddy RN) 08 (Given - Provider: Isabella Muse RN) 1 tablet, Oral, 2 TIMES DAILY, First dos e on Wed10/17/18 at 1999, If no bowel movement in 24 hours, increase to 2 tablets PO. Hold for loose stools., Post-procedure senna-docusate (SENOKOT-S/PERICOLACE) 8. 6-50 MG per tablet 2 tablet(Linked Group 1) 1999 (See Alternative - Provider: Nara Reddy RN ) 743 (See Alternative - Provider: Monica Vizcarra RN)2047 (See Alternative - Provider: Nara Reddy RN) 08 (See Alternative - Provider: Isabella Muse RN) 2 tablet, Oral, 2 TIMES DAILY, First dos e on Wed10/17/18 at 2000, Hold for loose stools., Post-procedure sodium chloride (PF) 0.9% PF flush 3 mL 1456 (Not Give n - Provider: Monica Vizcarra RN - Reason: IV Infusing)2332 (Not Given - Provider: Nara Reddy RN - Reason: IV Infusing) 0732 (Not Given - Provider: Sumanth RN - Reason: IV Infusing)1614 (Given - Provider: Nara Reddy, JACE) 0024 (Given - Provider: Lili Davidson, JACE)0802 (Given - Provider: Isabella Muse RN) 3 mL, Intracatheter, EVERY 8 HOURS, Firs t dose on Wed10/17/18 at 1500, And Q1H PRN, to lock peripheral IV dormant line., Post-procedure tranexamic acid (CYKLOKAPRON) infusion 1 g (COMPLETED) 1153 (Given - Provider: Bev Heart APRN CRNA) 1 g, Intravenous, ONCE, Wed10/17/18 at 0900, For 1 dose, Pre-proc edure Continuous Medication Order 10/17/2018 10/18/2018 10/19/2018 lactated ringers infusion (CANCELED) 1130 (New Bag - P rovider: Bev Heart APRN CRNA)1233 (New Bag - Provider: Bev Heart APRN CRNA)1319 (Anesthesia Volume Adjustment - Provider: Bev Heart APRN CRNA) at 25 mL/hr, Intravenous, CONTINUOUS, IF patient NOT on dialysis., Pre- procedure, Starting Wed10/17/18 at 0830, Until Wed10/17/18 at 1321 sodium chloride 0.9% infusion (CANCELED) 1532 (New Bag - Provider: Nara Reddy RN) at 50 mL/hr, Intravenous, CONTINUOUS, Ch omayra to saline lock when PO well tolerated., Post-procedure, Starting Wed10/17/18 at 1500, Until Wed10/18/18 at 1703 PRN Medication Order 10/17/2018 10/18/2018 10/19/2018 acetaminophen (TYLENOL) tablet 650 mg 650 mg, Oral, EVERY 4 HOURS PRN, other, multimodal surgical pain management along with NSAIDS and opioid medication as indicated based on pain control and physical function., Starting Fidelina 10/20/18 at 0000 , May give first dose 4 hours after last scheduled dose of acetaminophen Maximum acetaminophen dose from all sources = 75 mg/kg/day not to exceed 4 grams/day., Post-procedure benzocaine-menthol (CHLORASEPTIC) 6-10 MG lozenge 1-2 lozenge 1-2 lozenge, Buccal, EVERY 1 HOUR PRN, s ore throat, sore throat without fever, Starting 10/17/18 at 1451, Post-procedure bupivacaine 0.25% w/EPI 1:200,000 (29mL) + ketorolac 3 0 mg (1mL) (CANCELED) 1242 (Given - Provider: Leonor Diallo MD) PRN, Starting 10/17/18 at 1242, Intra-procedure fentaNYL (PF) (SUBLIMAZE) injection 25-50 mcg (CANCELE D) 1337 (Given - Provider: Danyelle Alvarado RN)1351 (Given - Provider: Danyelle Alvarado RN) 25-50 mcg, Intravenous, EVERY 2 MIN PRN, Starting 10/17/18 at 1314, other, acute pain, MAX cumulative dose = 250 mcg. Use fentaNYL (SUBLIMAZE) initially, as a short acting agent for acute pain control . If insufficient, or a longer acting ag ent is needed, begin morphine or HYDROmorphone (DILAUDID) if ordered. For ordered IV doses 1-100 mcg give IV Push undiluted over a minimum of 3-5 minutes., PACU fluticasone (FLONASE) 50 MCG/ACT spray 1 spray 1 spray, Both Nostrils, DAILY PRN, rhini tis, allergies, Starting 10/18/18 at 0907 HYDROmorphone (PF) (DILAUDID) injection 0.3-0.5 mg 0.3-0.5 mg, Intravenous, EVERY 2 HOURS P RN, Starting 10/17/18 at 1602, Until 10/19/18 at 1537, moderate to severe pain, For ordered IV doses 0.1-4 mg give IV Push undiluted. Administer each 2mg over 2-5 minutes. hydrOXYzine (ATARAX) tablet 25 mg 0743 ( Given - Provider: Monica Vizcarra, RN)1339 (Given - Provider: Monica Vizcarra, RN) 25 mg, Oral, EVERY 6 HOURS PRN, itching, Starting 10/17/18 at 1451, Caution to be used when administering multiple Central Nervous System (ELECTRICAL POWER ENGINEER) depressing meds within a short time frame., Post-procedure lidocaine (LMX4) cream Topical, EVERY 1 HOUR PRN, pain, with VA D insertion or accessing implanted port., Starting 10/17/18 at 1451, Do NOT give if patient has a history of allergy to any local anesthetic or any yeison prod uct. Apply 30 minutes prior to VAD inser tion or port access. MAX Dose: 2.5 g (?? of 5 g tube), Post-procedure lidocaine 1 % 1 mL 1 mL, Other, EVERY 1 HOUR PRN, mild pain with VAD insertion or accessing implanted port, Starting 10/17/18 at 1451, Do NOT give if patient has a history of allergy to any local anesthetic or any flores e product. MAX dose 1 mL subcutaneous O R intradermal in divided doses., Post-procedure metoclopramide (REGLAN) injection 10 mg(Linked Group 2) 10 mg, Intravenous, Administer over 2 Mi nutes, EVERY 6 HOURS PRN, Starting 10/17/18 at 1451, nausea, vomiting, This is Step 3 of nausea and vomiting management. Give if nausea not resolved 15 minutes after giving prochlorperazine (COMPAZINE ). If nausea not resolved in 15-30 minutes, Notify provider. Avoid use if patient has full bowel obstruction or perforation. Irritant. For ordered IV doses 1-10 m g, give IV Push undiluted over 2 minutes., Post-procedure metoclopramide (REGLAN) tablet 10 mg(Linked Group 2) 10 mg, Oral, EVERY 6 HOURS PRN, Starting 10/17/18 at 1451, nausea, vomiting, This is Step 3 of nausea and vomiting management. Give if nausea not resolved 15 minutes after giving prochlorperazine (COM PAZINE). If nausea not resolved in 15-30 minutes, Notify provider. Avoid use if patient has full bowel obstruction or perforation., Post-procedure naloxone (NARCAN) injection 0.1-0.4 mg 0.1-0.4 mg, Intravenous, EVERY 2 MIN PRN , opioid reversal, Starting 10/17/18 at 1451, For respiratory rate LESS than or EQUAL to 8. Partial reversal dose: 0.1 mg titrated q 2 minutes for Analgesia Hakan e Effects Monitoring Sedation Level of 3 (frequently drowsy, arousable, drifts to sleep during conversation).Full reversal dose: 0.4 mg bolus for Analgesia Side Effects Monitoring Sedation Level of 4 (s omnolent, minimal or no response to stim ulation). For ordered IV doses 0.1-2mg give IVP. Give each 0.4mg over 15 seconds in emergency situations. For non- emergent situations further dilute in 9mL of NS to facilitate titration of response., Post-procedure ondansetron (ZOFRAN) injection 4 mg(Linked Group 3) 15 41 (Given - Provider: Nara Reddy RN)2153 (Given - Provider: Nara Reddy RN) 4 mg, Intravenous, EVERY 6 HOURS PRN, na usea, vomiting, Administer over 2-5 Minutes, Starting 10/17/18 at 1451, This is Step 1 of nausea and vomiting management. If nausea not resolved in 15 minutes, go to Step 2 prochlorperazine (COMPAZINE ). Irritant. For ordered IV doses 0.1-4 mg, give IV Push undiluted over 2-5 minutes., Post-procedure ondansetron (ZOFRAN-ODT) ODT tab 4 mg(Linked Group 3) 1541 (See Alternative - Provider: Nara Rdedy RN)2153 (See Alternative - Provider: Nara Reddy RN) 4 mg, Oral, EVERY 6 HOURS PRN, nausea, v omiting, Starting 10/17/18 at 1451, This is Step 1 of nausea and vomiting management. If nausea not resolved in 15 minutes, go to Step 2 prochlorperazine (CORINNE ZINE). Do not push through foil backing. Peel back foil and gently remove. Place on tongue immediately. Administration with liquid unnecessary With dry hands, peel back foil backing and gently remove ta blet; do not push oral disintegrating ta blet through foil backing; administer immediately on tongue and oral disintegrating tablet dissolves in seconds; then swallow with saliva; liquid not required., Post-procedure oxyCODONE (ROXICODONE) tablet 5-10 mg 1642 (Given - Pr ovider: Nara Reddy RN)2000 (Given - Provider: Nara Reddy RN)2306 (Given - Provider: Rosa Jackson LPN) 0405 (Given - Provider: Kamron Bailey)0743 (Given - Provider: Monica Vizcarra, JACE)1047 (Given - Provider: Monica Vizcarra RN)1339 (Given - Provider: Monica Vizcarra RN)1650 (Given - Provider: Nara Reddy RN) 0022 (Given - Provider: Lili Davidson, JACE)0427 (Given - Provider: Lili Davidson, JACE)0800 (Given - Provider: Isabella Muse RN)1243 (Given - Provider: Isabella Muse RN) 5-10 mg, Oral, EVERY 3 HOURS PRN, other, pain control or improvement in physical function. Hold dose for analgesic side effects., Starting 10/17/18 at 1451, Start with the lowest dose. May adjust dose 2047 (Give n - Provider: Nara Reddy RN) by 5 mg every 3 hours as needed. Notify provider to assess for uncontrolled pain or analgesic side effects. Hold while on MASTIC FLOOR LAYER or with regular IV opioid dosing. Maximum total is 80 mg in 24 hours., Post-procedure povidone-iodine (BETADINE) 10% soln 7 mL + 0.9% NaCl 2 50 mL (CANCELED) 1302 (Given - Provider: Leonor Diallo MD) PRN, Starting 10/17/18 at 1302, Intra-procedure prochlorperazine (COMPAZINE) injection 10 mg(Linked Group 4) 10 mg, Intravenous, EVERY 6 HOURS PRN, n ausea, vomiting, Administer over 1-2 Minutes, Starting 10/17/18 at 1451, This is Step 2 of nausea and vomiting management. If nausea not resolved in 15 minutes, give metoclopramide (REGLAN), if ordere d (step 3 of nausea and vomiting management) For ordered IV doses 0.1-10 mg, give IV Push undiluted. Each 5mg over 1 minute., Post-procedure prochlorperazine (COMPAZINE) tablet 10 mg(Linked Group 4) 10 mg, Oral, EVERY 6 HOURS PRN, nausea, vomiting, Starting Wed10/17/18 at 1451, This is Step 2 of nausea and vomiting management. If nausea not resolved in 15 minutes, give metoclopramide (REGLAN), if or dered (step 3 of nausea and vomiting management), Post-procedure sodium chloride (PF) 0.9% PF flush 3 mL 1542 (Given - Provider: Nara Reddy, JACE)2154 (Given - Provider: Nara Reddy, JACE) 3 mL, Intracatheter, EVERY 1 HOUR PRN, l ine flush, for peripheral IV flush post IV meds, Starting Wed10/17/18 at 1451, Post-procedure Linked Groups Order Group 1: senna-docusate (SENOKOT-S/PERICOLACE) 8.6-50 MG per tablet 1 tabletJump to med 1 tablet, Oral, 2 TIMES DAILY, First dos e on Wed10/17/18 at 2000
If no bowel movement in 24 hours, increase to 2 tablets PO. Hold for loose stools.
Post-procedure Or senna-docusate (SENOKOT-S/PERICOLACE) 8.6-50 MG per tablet 2 tabletJump to med 2 tablet, Oral, 2 TIMES DAILY, First dos e on Wed10/17/18 at 2000
Hold for loose stools.
Post-procedure Group 2: metoclopramide (REGLAN) tablet 10 mgJump to med 10 mg, Oral, EVERY 6 HOURS PRN, Starting Wed10/17/18 at 1451, nausea, vomiting
This is Step 3 of nausea and vomiting management. Give if nausea not resolved 15 minutes after g iving prochlorperazine (COMPAZINE).&nbsp ;If nausea not resolved in 15-30 minutes, Notify provider. Avoid use if patient has full bowel obstruction or perforation.
Post-procedure Or metoclopramide (REGLAN) injection 10 mgJump to med 10 mg, Intravenous, Administer over 2 Mi nutes, EVERY 6 HOURS PRN, Starting 10/17/18 at 1451, nausea, vomiting
This is Step 3 of nausea and vomiting management. Give if naus ea not resolved 15 minutes after giving prochlorperazine (COMPAZINE). If nausea not resolved in 15-30 minutes, Notify provider. Avoid use if patient has full bowel obstruction or perfo ration. Irritant. For ordered IV doses 1 -10 mg, give IV Push undiluted over 2 minutes.
Post-procedure Group 3: ondansetron (ZOFRAN-ODT) ODT tab 4 mgJump to med 4 mg, Oral, EVERY 6 HOURS PRN, nausea, v omiting, Starting 10/17/18 at 1451
This is Step 1 of nausea and vomiting management. If nausea not resolved in 15 minutes, go to Sam p 2 prochlorperazine (COMPAZINE). Do not push through foil backing. Peel back foil and gently remove. Place on tongue immediately. Administration with liquid unnecessary With dry hands, peel ba ck foil backing and gently remove tablet ; do not push oral disintegrating tablet through foil backing; administer immediately on tongue and oral disintegrating tablet dissolves in seconds; then swallow with saliva; liquid not required.
Pos t-procedure Or ondansetron (ZOFRAN) injection 4 mgJump to med 4 mg, Intravenous, EVERY 6 HOURS PRN, na usea, vomiting, Administer over 2-5 Minutes, Starting 10/17/18 at 1451
This is Step 1 of nausea and vomiting management. If nausea n ot resolved in 15 minutes, go to Step 2 prochlorperazine (COMPAZINE). Irritant. For ordered IV doses 0.1-4 mg, give IV Push undiluted over 2-5 minutes.
Post-procedure Group 4: prochlorperazine (COMPAZINE) injection 10 mgJump to med 10 mg, Intravenous, EVERY 6 HOURS PRN, n ausea, vomiting, Administer over 1-2 Minutes, Starting 10/17/18 at 1451
This is Step 2 of nausea and vomiting management. If nausea not resol joe in 15 minutes, give metoclopramide ( REGLAN), if ordered (step 3 of nausea and vomiting management) For ordered IV doses 0.1-10 mg, give IV Push undiluted. Each 5mg over 1 minute.
Post-procedure Or prochlorperazine (COMPAZINE) tablet 10 mgJump to med 10 mg, Oral, EVERY 6 HOURS PRN, nausea, vomiting, Starting 10/17/18 at 1451
This is Step 2 of nausea and vomiting management. If nausea not resolved in 15 minutes, give metocloprami de (REGLAN), if ordered (step 3 of nause a and vomiting management)
Post-procedure documented in this encounter Care Teams [employer]let Trucker Relationship Specialty Start Date End Date Mitch Li PCP - General Family Practice 10/11/18 documented as of this encounter
--- OUTSIDE RECORDS SUMMARY | 2022-07-08 15:55 | XMS_ITS | Encounter Summary ---
:1955 Author Organization [facility] Address [address] [place] [id number] Care Team Providers Name Role Phone Mitch Li Ronaldo Primary Care Provider Reason for Visit Auth/Cert Specialty Diagnoses / Procedures Referred By Contact Refer red To Contact Surgery Diagnoses DJD Rh Periop Services Procedures ARTHROPLASTY KNEE [address] [place], [place] [address] Phone: Fax: Referral ID Status Reason Start Date Expiration Date Visits Requ ested Visits Authorized [id number] 1 1 Encounter Details Date Type Department Care Team Description 10/17/2018 - Hospital Encounter [facility] Leonor Diallo S/ P total knee 10/19/2018 [facility] Spine MD Adi arthroplasty, right [address] [facility] (Primary Dx) [place], [place] [facility] [address] [phone] [address] [place] [address] Social History Tobacco Use Types Packs/Day Years Used Date Smoking Tobacco: Never Smokeless Tobacco: Never Alcohol Use Standard Drinks/Week Comments No 0 (1 standard drink = 0.6 oz pure alcoho l) Sex Assigned at Date Recorded Not on file documented as of this encounter Last Filed Vital Signs Vital Sign Reading Time Taken Comments Blood Pressure 135/78 10/19/2018 7:29 AM DR[facility] Pulse 75 10/17/2018 2:45 PM [facility] Temperature 35.6 ??C (96 ??F) 10/19/2018 7:29 AM [facility] Respiratory Rate 16 10/19/2018 12:43 PM [facility] Oxygen Saturation 96% 10/19/2018 7:29 AM [facility] Inhaled Oxygen Concentration - - Weight 103.9 kg (229 lb) 10/17/2018 8:20 AM [facility] Height 185.4 cm (6' 1) 10/17/2018 8:20 AM [facility] per pt Body Mass Index 30.21 10/17/2018 8:20 AM [facility] documented in this encounter Discharge Summaries Anita [...] of this hospital stay. Anita Burgess PA-C [facility] documented in this encounter Discharge Instructions Discharge InstructionsAddie Sarabia RN - 10/18/2018 5:05 PM [facility] Return to clinic in 10-14 days. Call [phone] to schedule or if you experience any [...] instructions on label) Call your physician if: ([phone]) 1. Persistent fever greater than 100 degrees [...] to your surgery/recovery. Thank you for allowing [facility] to participate in your cares!! GE [facility]KHAND documented in this encounter Medications at Time of Discharge Medication Sig Dispensed Refills Start Date End Date clobetasol (TEMOVATE) Apply topically 2 0 0.05 % external ointment times daily Dermatological Products, Externally apply 0 Misc. (KERASAL FUNGAL topically daily as NAIL RENEWAL EX) needed fluticasone (FLONASE) 50 [place] 1 spray into 0 MCG/ACT nasal spray [...] nontender. The dressing is C/D/I. A: Mr. Nodland is doing well status post Procedure(s): Right total knee arthroplasty. P: Continue physical therapy. Continue DVT pphx with ASA due to high mobility and low risk factors for DVT. Anticipate discharge to home later today. Anita Burgess PA-C [phone] [facility] Bert Tatyana, OT - 10/18/2018 3:11 PM CST 10/18/18 [...] Mobility Skill: Sit to Supine Level of [place]: Sit/Supine stand-by assist Physical Assist/Nonphysical Assist: Sit/Supine 1 person assist Bed Mobility Skill: Supine to Sit Level of [place]: Supine/Sit stand-by assist Physical Assist/Nonphysical Assist: Supine/Sit 1 person assist Transfer Skill: Bed to Chair/Chair to Bed Level of [place]: Bed to Chair stand-by assist Physical Assist/Nonphysical Assist: Bed to Chair 1 person assist Weight-Bearing Restrictions weight-bearing as tolerated Assistive Device - Transfer Skill Bed to Chair Chair to Bed Rehab Eval rolling walker Transfer Skill: Sit to Stand Level of [place]: Sit/Stand stand-by assist Physical Assist/Nonphysical Assist: Sit/Stand 1 person assist Transfer Skill: Sit to Stand weight-bearing as tolerated Assistive Device for Transfer: Sit/Stand rolling walker Transfer Skill: Toilet Transfer Level of [place]: Toilet stand-by assist Physical Assist/Nonphysical Assist: Toilet 1 person assist Weight-Bearing Restrictions: Toilet weight-bearing as tolerated Assistive Device rolling walker Balance Balance Comments CGA/SBA while in stance FWW level Upper Body Dressing Level of [place]: Dress Upper Body stand-by assist Physical Assist/Nonphysical Assist: Dress Upper Body 1 person assist Lower Body Dressing Level of [place]: Dress Lower Body stand-by assist Physical Assist/Nonphysical Assist: Dress Lower Body 1 person assist Toileting Level of [place]: Toilet stand-by assist Physical Assist/Nonphysical Assist: Toilet 1 person assist Grooming Level of [place]: Grooming stand-by assist Physical Assist/Nonphysical Assist: Grooming [...] tasks due to current deficits impacting function [facility] AM-PAC??? 6 Clicks Daily Activity Inpatient Short [...] Evaluation Time Total Evaluation Time (Minutes) 10 Monica Horn RN - 10/18/2018 1:30 PM CST Patient A&O. VSS. Ambulates Ax1 w/ WW & GB. +BS/gas, tolerating diet. Carolyn discontinued this am, has voided adequately since. [...] home likely tomorrow cabrera. Anita Burgess PA-C [phone] [facility] Brandon Parrish RN - 10/18/2018 5:26 AM CST Pt [...] to void.Plan to go home at discharge. GE [facility] Kathi Orourke, PT - 10/17/2018 5:38 PM CST 10/17/18 1731 Quick Adds Type of Visit Initial PT [...] in agreement with plan of care Yes [facility] TM 6 Clicks ?? 2016, Trustees of [facility], under license to [employer]. All rights reserved. 6 Clicks Short Forms Basic Mobility Inpatient Short Form [facility]??? 6 Clicks V.2 Basic Mobility Inpatient Short [...] Evaluation Time Total Evaluation Time (Minutes) 8 [facility] Monica Vizcarra RN - 10/17/2018 2:52 PM CST Arrived to room 604 from PACU at 1440 via cart, transferred to bed via hover mat without difficulty,alert and oriented x 4, oriented to room and call system, dressing CDI, CMS intact, IV patent and infusing, hemovac and arenas patent, rates pain , reviewed welcome folder and pain/medication information packet with patient and . SCD's on BLE. Clarisa ice chips well. PCS WNL. Will continue to monitor. GE DECKHAND documented in this encounter Consult Notes Papi Toro MD - 10/17/2018 4:08 PM CST [facility] Hospitalist Consultation Date of Admission: 10/17/2018 [...] Month at Unknown time Yes Yes Sig: [place] 1 spray into both nostrils daily as [...] it with pertinent information if needed. Mitch Engle reports that has never smoked. he has [...] previous visit (from the past 24 hour(s)). GE [facility] documented in this encounter Miscellaneous Notes Plan [...] and aspirin), and belongings at this time. GE [facility] Plan of Care - Angeline Campuzano PTA - 10/19/2018 9:41 AM CST [employer] PT Patient plan for discharge: Home Current [...] refer to discharge summary. Entered by: Angeline Campuzano 10/19/2018 9:41 AM [facility] Associated attestation - Urmila Mejia, PT - 10/19/2018 11:25 AM [facility] Physical Therapy Discharge Summary Reason for therapy discharge: All goals and outcomes met, no further needs identified. Progress towards therapy goal(s). See goals on Care Plan in [facility] electronic health record for goal details. Goals [...] discharge to home today if meets criteria. GE [facility]AND Plan of Care - Nara Reddy RN - 10/18/2018 11:16 PM CST A/O. VSS. CMS intact. Dressing D/I. Voiding well. Ambulated in berger with Ax1 et walker. Tolerating regular diet. Pain well controlled with Oxycodone 10mg. Plans to discharge home tomorrow. Will continue to monitor. GE [facility] Plan of Care - Tatyana Noel OT - 10/18/2018 3:14 PM CST OT: [...] baseline. [employer] for [employer], active job. [employer] OT Patient plan for discharge: Home Current [...] goal(s). See goals on Care Plan in [facility] electronic health record for goal details. Goals met Therapy recommendation(s): No further skilled OT needs. GE [facility] Plan of Care - Henry Álvarez, PT - 10/18/2018 1:20 PM CST [employer] PT Patient plan for discharge: Home Current [...] Entered by: Henry Álvarez 10/18/2018 1:20 PM [facility] Plan of Care - Nara Reddy, RN - 10/17/2018 10:43 PM CST A/O. CMS intact. Dressing D/I. Hemovac in place. Arenas patent with clear, yellow urine. Remains on RA. Zofran given x2 this shift-has intermittent nausea. No emesis. Pain well controlled with [id number]. Ambulated around room with Ax2 et walker. Tolerated well. Plans to go home at discharge. Will continue to monitor. GE [facility] Plan of Care - Kathi Orourke, PT [...] was indep with mobility prior to surgery. [employer] PT Patient plan for discharge: Home Current [...] Entered by: Kathi Orourke 10/17/2018 5:44 PM [facility] Op Note - Leonor Diallo MD - 10/17/2018 1:02 PM CST Procedure Date: 10/17/2018 PREOPERATIVE DIAGNOSIS: Osteoarthritis, right knee. POSTOPERATIVE DIAGNOSIS: Osteoarthritis, right knee. PROCEDURE PERFORMED: Right total knee arthroplasty. SURGEON: Leonor Diallo MD [employer]OR [employer] BUILDING: Anita Burgess PA-C ANESTHESIA: Spinal with adductor [...] WT Name: MITCH ENGLE MRN: [id number] Account: [id number] : 1955 Procedure Date: 10/17/2018 Document: [id number] [facility] Op Note - Leonor Diallo MD - 10/17/2018 7:13 AM CST R TKR for OA No anticipated complications GE [facility] Pharmacy-Admission Medication History - Ashok Clayton [facility] - 10/13/2018 2:31 PM CST Medication reconciliation completed by pre-admitting. Prior to Admission medications Medication Sig Last Dose Taking? Auth Provider clobetasol (TEMOVATE) 0.05 % external ointment Apply topically 2 times daily Yes Reported, Patient Dermatological Products, Misc. (KERASAL FUNGAL NAIL RENEWAL EX) Externally apply topically daily as needed Yes Reported, Patient fluticasone (FLONASE) 50 MCG/ACT nasal spray [place] 1 spray into both nostrils daily as [...] tablet by mouth daily Yes Reported, Patient GE [facility]AND documented in this encounter Plan of Treatment Not on filedocumented as of this encounter Procedures Procedure Name Priority Date/Time Associated Comments Diagnosis HEMOGLOBIN Routine 10/19/2018 6:23 AM S/P total knee Results for this [facility] arthroplasty, right procedur e are in the results section. GLUCOSE Routine 10/19/2018 6:23 AM S/P total knee Results for this [facility] arthroplasty, right procedur e are in the results section. HEMOGLOBIN Routine 10/18/2018 6:03 AM Results f or this [facility] procedure are i n the results section. GLUCOSE Routine 10/18/2018 6:03 AM Results f or this [facility] procedure are i n the results section. XR KNEE PORT RIGHT STAT 10/17/2018 4:31 PM Res ults for this 1/2 VIEWS [facility] procedure are i n the results section. ARTHROPLASTY, KNEE, 10/17/2018 11:32 AM DJD TOTAL [facility] Special Needs Joint Class on 10/06 @1800. N angi screen done at preop6' / 220# stated LAB RESULT - HIM SCAN 09/19/2018 12:00 AM [facility] EKG CARDIAC - HIM SCAN 09/14/2018 12:00 AM [facility] documented in this encounter Results (ABNORMAL) Glucose (10/19/2018 6:23 AM DR[facility]) athologist Signature Glucose 106 (H) 70 - 99 10/19/2018 [place] mg/dL 7:07 AM [facility] Specimen Anatomical Collection Method Collection Time Receive d Time (Source) Location / / Volume Laterality Blood specimen 10/19/2018 6:23 AM 019 6:24 (specimen) [facility] AM [facility] Leonor Diallo MD LAB - BLOOD ORDERABLES Performing Organization Address City/State/ZIP Code Phon e Number [place] [address] [place] [address] [facility] [address] [phone] (ABNORMAL) Hemoglobin (10/19/2018 6:23 AM [facility]) athologist Signature Hemoglobin 13.0 (L) 13.3 - 17.7 10/19/2018 [place] g/dL 6:57 AM [facility] Specimen Anatomical Collection Method Collection Time Receive d Time (Source) Location / / Volume Laterality Blood specimen 10/19/2018 6:23 AM 019 6:24 (specimen) [facility] AM [facility] Anita Burgess PA-C LAB - BLOOD ORDERABLES Performing Organization Address City/State/ZIP Code Phon e [place] [facility] [address] [place], [place] [address] [facility] [address] [place], [place] [address], [facility] [phone] (ABNORMAL) Glucose (10/18/2018 6:03 AM DR[facility]) athologist Signature Glucose 117 (H) 70 - 99 10/18/2018 [place] mg/dL 6:22 AM [facility] Specimen Anatomical Collection Method Collection Time Receive d Time (Source) Location / / Volume Laterality Blood specimen 10/18/2018 6:03 AM 019 6:04 (specimen) DR[facility] AM [facility] Leonor Diallo MD LAB - BLOOD ORDERABLES Performing Organization Address City/State/ZIP Code Phon e Number [facility] [address] [place], [place] [address] [place] [address] [address] [place], [place] [address], [facility] [phone] Hemoglobin (10/18/2018 6:03 AM DR[facility]) athologist Signature Hemoglobin 13.7 13.3 - 17.7 10/18/2018 [facility] g/dL 6:09 AM [facility] Specimen Anatomical Collection Method Collection Time Receive d Time (Source) Location / / Volume Laterality Blood specimen 10/18/2018 6:03 AM 019 6:04 (specimen) DR[facility] AM [facility] Anita Burgess PA-C LAB - BLOOD ORDERABLES Performing Organization Address City[place]State[place] [facility] [place] [facility] [address], [place] [address] [facility] [address] [place], [place] [address], [facility] [phone] XR Knee Port Right 1/2 Views (10/17/2018 4:31 PM DR[facility]) Anatomical Region Laterality Modality Knee, Right Knee Right Digital Radiography Specimen (Source) Anatomical Location Collection Method / Collectio n Time Received Time / Laterality Volume Impressions 10/17/2018 5:12 PM [facility] IMPRESSION: ?Knee arthroplasty in anatomic alignment. DESMOND ZAYAS MD Narrative 10/17/2018 5:12 PM [facility] KNEE ONE-TWO VIEWS RIGHT 10/17/2018 4:31 PM [...] anatomi c alignment. DESMOND ZAYAS MD Anita LOVETT-Tom IMG DIAGNOSTIC IMAGING ORDER TRENT LAB RESULT - HIM SCAN (09/19/2018 12:00 AM [facility]) Specimen (Source) Anatomical Location Collection Method / Collectio n Time Received Time / Laterality Volume 09/19/2018 Narrative This result has an attachment that is no t available. Provider Outside NON-BEAKER LAB TESTING EKG CARDIAC - HIM SCAN (09/14/2018 12:00 AM [facility]) Specimen (Source) Anatomical Location Collection Method / Collectio n Time Received Time / Laterality Volume 09/14/2018 Narrative This result has an attachment that is no t available. Provider Outside ECG ORDERABLES documented in this encounter Visit Diagnoses Diagnosis S/P total knee arthroplasty, right - Tiesha jacinta S/P total knee arthroplasty, right documented in this encounter Administered Medications Inactive Administered [...] tablet 975 mg Given 10/19/2018 8:01 AM [facility] 975 mg 975 mg, Oral, EVERY 8 HOURS, First dose on Wed10/17/18 at 1600, For 3 days, Do not use if patient has an active opioid/acetaminophen combined analgesic product ordered for pain. Maximum acetaminophen dose from all sources = 75 mg/kg/day not to exceed 4 grams/day., Post-procedure Given 10/19/2018 12:22 AM [facility] 975 mg Given 10/18/2018 4:14 PM [facility] 975 mg aspirin (ASA) EC tablet 325 mg Given 10/19/2018 8:01 AM [facility] 325 mg 325 mg, Oral, DAILY, First dose on Wed10/18/18 at 0800, Indications: VTE Prophylaxis, DO NOT CRUSH., Post-procedure Given 10/18/2018 7:44 AM [facility] 325 mg benzocaine-menthol (CHLORASEPTIC) 6-10 M G lozenge 1-2 lozenge 1-2 lozenge, Buccal, EVERY 1 HOUR PRN, sore throat, so re throat without fever, Starting on Wed10/17/18 at 1451, Post-procedure ceFAZolin (ANCEF) intermittent infusion Given 10/18/2018 4:0 5 AM [facility] 2 g 200 mL/hr 2 g in 100 mL dextrose PRE-MIX Routine, 2 g, Intravenous, EVERY 8 HOURS, First dose on Wed10/17/18 at 2000, For 2 doses, First post-op dose due 8 hours after intra-op dose, see eMAR. , Indications: Perioperative Pharmacoprophylaxis, Post-procedure Given 10/17/2018 8:00 PM [facility] 2 g 200 mL/hr celecoxib (celeBREX) capsule 200 mg Given 10/19/2018 8:01 AM [facility] 200 mg 200 mg, Oral, 2 TIMES DAILY, First dose on Wed10/18/18 at 0800, For 4 doses, Age less than 65. IF celecoxib (CELEBREX) was given pre-operatively, start celecoxib (CELEBREX) 12 hours after given., Post-procedure Given 10/18/2018 8:48 PM [facility] 200 mg Given 10/18/2018 7:43 AM [facility] 200 mg celecoxib (celeBREX) capsule 400 mg Given 10/17/2018 8:55 AM [facility] 400 mg 400 mg, Oral, ONCE, On Wed10/17/18 at 0900, For 1 dose, Pre-procedure fentaNYL (PF) (SUBLIMAZE) injection 25-5 0 mcg Given 10/17/2018 1:51 PM [facility] 50 mcg 25-50 mcg, Intravenous, EVERY 2 MIN PRN, other, acute pain, Starting on Wed10/17/18 at 1314, MAX cumulative dose = 250 mcg. Use fentaNYL (SUBLIMAZE) initially, as a short acting agent for acute pain control. If insufficient, or a longer acting agent is needed, begin morphine or HYDROmorphone (DILAUDID) if ordered. For ordered IV doses 1-100 mcg give IV Push undiluted over a minimum of 3-5 minutes., PACU Given 10/17/2018 1:37 PM [facility] 50 mcg HYDROmorphone (PF) (DILAUDID) injection 0.3-0.5 mg 0.3-0.5 mg, Intravenous, EVERY 2 HOURS P RN, moderate to severe pain, Starting on Wed10/17/18 at 1602, For ordered IV doses 0.1-4 mg give IV Push undiluted. Administer each 2mg over 2-5 minutes. hydrOXYzine (ATARAX) tablet 25 mg Given 10/18/2018 1:39 PM [facility] 25 mg 25 mg, Oral, EVERY 6 HOURS PRN, itching, Starting on Wed10/17/18 at 1451, Caution to be used when administering multiple Central Nervous System (RELIGIOUS ACTIVITIES DIRECTOR) depressing meds within a short time frame., Post-procedure Given 10/18/2018 7:43 AM [facility] 25 mg lidocaine (LMX4) cream Topical, EVERY [...] injection 4 mg Given 10/17/2018 9:53 PM [facility] 4 mg 4 mg, Intravenous, EVERY 6 HOURS PRN, nausea, vomiting, Administer over 2-5 Minutes, Starting on 10/17/18 at 1451, This is Step 1 of nausea and vomiting management. If nausea not resolved in 15 minutes, go to Step 2 prochlorperazine (COMPAZINE). Irritant. For ordered IV doses 0.1-4 mg, give IV Push undiluted over 2-5 minutes., Post-procedure Given 10/17/2018 3:41 PM DR[facility] 4 mg ondansetron (ZOFRAN-ODT) ODT tab 4 [...] saliva; liquid not required ., Post-procedure oxyCODONE (oxyCONTIN) 12 hr tablet 10 mg Given 10/17/2018 8:55 AM [facility] 10 mg 10 mg, Oral, ONCE, On Wed10/17/18 at 0900, For 1 dose, DO NOT CRUSH., Pre-procedure oxyCODONE (ROXICODONE) tablet 5-10 mg Given 10/19/2018 12:43 PM [facility] 10 mg 5-10 mg, Oral, EVERY 3 HOURS PRN, other, pain control or improvement in physical function. Hold dose for analgesic side effects., Starting on Wed10/17/18 at 1451, Start with the lowest dose. May adjust dose by 5 mg every 3 hours as needed. Notify provider to assess for uncontrolled pain or analgesic side effects. Hold while on NECKTIES PAINTER or with regular IV opioid dosing. Maximum total is 80 mg in 24 hours., Post-procedure Given 10/19/2018 8:00 AM [facility] 10 mg Given 10/19/2018 4:27 AM [facility] 10 mg prochlorperazine (COMPAZINE) injection 1 0 mg 10 [...] loose stools., Post-procedure Given 10/18/2018 8:48 PM DREDGE [facility] 1 tablet Given 10/18/2018 7:44 AM [facility] 1 tablet senna-docusate (SENOKOT-S/PERICOLACE) 8. 6-50 MG per tablet 2 tablet 2 tablet, Oral, 2 TIMES DAILY, First dose on Wed 9 at 2000, Hold for loose stools., Post-procedure sodium chloride (PF) 0.9% PF flush 3 mL Given 10/17/2018 9:54 PM [facility] 3 mLs 3 mL, Intracatheter, EVERY 1 HOUR PRN, line flush, for peripheral IV flush post IV meds, Starting on Wed10/17/18 at 1451, Post-procedure Given 10/17/2018 3:42 PM DREDGE [facility] 3 mLs sodium chloride (PF) 0.9% PF flush 3 mL Given 10/19/2018 8:02 AM DR[facility] 3 mLs 3 mL, Intracatheter, EVERY 8 HOURS, First dose on Wed10/17/18 at 1500, And Q1H PRN, to lock peripheral IV dormant line., Post-procedure Given 10/19/2018 12:24 AM DR[facility] 3 mLs Given 10/18/2018 4:14 PM DREDGE DECKH[facility] 3 mLs sodium chloride 0.9% infusion New Bag 10/17/2018 3:32 PM DREDGE DECKHAND 50 mL/hr at 50 mL/hr, Intravenous, CONTINUOUS, Change to saline lock when PO well tolerated., Post-procedure, Starting on Wed10/17/18 at 1500, Until Wed10/18/18 at 1703 documented in this encounter Active and Recently Administered Medications Times are shown in DR[facility]. Scheduled Medication Order 10/17/2018 10/18/2018 10/19/2018 acetaminophen (TYLENOL) tablet 975 mg 1533 (Given - Pr ovider: Nara Reddy RN) 0045 (Given - Provider: Kamron Bailey)0743 (Given - Provider: Monica Vizcarra, JACE)1614 (Given - Provider: Nara Reddy, JACE) 0022 (Given - Provider: Lili Davidson RN)0801 [...] 1143 (Given - Provider: Bev Heart APRN CRNA) 2 g, Intravenous, PRE-OP/PRE-PROCEDURE, Starting Wed10/17/18 at 0855, For 1 dose, Give first dose within 1 hour PRIOR to incision. If patient weight is greater than or equal to 120 kg increase dose to 3 g., Indications: Perioperative Pharmacoprophylaxis, Pre-procedur e ceFAZolin (ANCEF) intermittent infusion 2 g in 100 mL dextrose PRE-MIX (COMPLETED) 1999 (Given - Provider: Nara Reddy RN) 040 (Gi brian - Provider: Brandon Parrish RN) 2 g, Intravenous, EVERY 8 HOURS, First d ose on Wed10/17/18 at 1999, For 2 doses, First post-op dose due [...] Alternative - Provider: Nara Reddy RN ) 0744 (See Alternative - Provider: Monica Vizcarra RN)204 (See Alternative - Provider: Nara Reddy, JACE) 0801 (See Alternative - Provider: Isabella Muse RN) [...] Reason: IV Infusing)1614 (Given - Provider: Nara Reddy RN) 0024 (Given - Provider: Lili Davidson RN)0802 (Given - Provider: Isabella Muse, JACE) 3 mL, Intracatheter, EVERY 8 HOURS, Firs [...] (CANCELED) 1532 (New Bag - Provider: Nara Reddy, JACE) at 50 mL/hr, Intravenous, CONTINUOUS, Ch omayra to saline lock when PO well tolerated., Post-procedure, Starting 10/17/18 at 1500, Until Wed10/18/18 at 1703 PRN [...] ore throat, sore throat without fever, Starting Wed10/17/18 at 1451, Post-procedure bupivacaine 0.25% w/EPI 1:200,000 (29mL) + ketorolac 3 0 mg (1mL) (CANCELED) 1242 (Given - Provider: Leonor Diallo MD) PRN, Starting Wed10/17/18 at 1242, Intra-procedure fentaNYL (PF) (SUBLIMAZE) injection 25-50 mcg (CANCELE D) 1337 (Given - Provider: Danyelle Alvarado RN)1351 (Given - Provider: Danyelle Alvarado RN) 25-50 mcg, Intravenous, EVERY 2 MIN PRN, Starting Wed10/17/18 at 1314, other, acute pain, MAX cumulative [...] Intravenous, EVERY 2 HOURS P RN, Starting Wed10/17/18 at 1602, Until Wed10/19/18 at 1537, moderate to severe pain, For ordered IV doses 0.1-4 mg give IV Push undiluted. Administer each 2mg over 2-5 minutes. hydrOXYzine (ATARAX) tablet 25 mg 0743 ( Given - Provider: Monica Vizcarra, RN)1339 (Given - Provider: Monica Vizcarra RN) 25 mg, Oral, EVERY 6 HOURS PRN, itching, Starting Wed10/17/18 at 1451, Caution to be used when administering multiple Central Nervous System (RELIGIOUS ACTIVITIES DIRECTOR) depressing meds within a short time frame., Post-procedure lidocaine (LMX4) cream Topical, EVERY 1 HOUR PRN, pain, with VA D insertion or accessing implanted port., Starting Wed10/17/18 at 1451, Do NOT give if patient [...] 15 41 (Given - Provider: Nara Reddy RN)3 (Given - Provider: Nara Reddy RN) 4 mg, Intravenous, EVERY 6 HOURS PRN, na usea, vomiting, Administer over 2-5 Minutes, Starting Wed10/17/18 at 1451, This is Step 1 of nausea and vomiting management. If nausea not resolved in 15 minutes, go to Step 2 prochlorperazine (COMPAZINE ). Irritant. For ordered IV doses 0.1-4 mg, give IV Push undiluted over 2-5 minutes., Post-procedure ondansetron (ZOFRAN-ODT) ODT tab 4 mg(Linked Group 3) 1541 (See Alternative - Provider: Nara Reddy RN)2153 (See Alternative - Provider: Nara Reddy [...] Kamron Bailey)0743 (Given - Provider: Monica Vizcarra RN)1047 (Given - Provider: Monica Vizcarra RN)1339 (Given [...] Hold dose for analgesic side effects., Starting Wed10/17/18 at 1451, Start with the lowest dose. May adjust dose 2047 (Give n - Provider: Nara Reddy RN) by 5 mg every 3 hours as needed. Notify provider to assess for uncontrolled pain or analgesic side effects. Hold while on NECKT[employer] PAINTER or with regular IV opioid dosing. Maximum total is 80 mg in 24 hours., Post-procedure povidone-iodine (BETADINE) 10% soln 7 mL + 0.9% NaCl 2 50 mL (CANCELED) 1302 (Given - Provider: Leonor Diallo MD) PRN, Starting Wed10/17/18 at 1302, Intra-procedure prochlorperazine (COMPAZINE) injection 10 [...] HOURS PRN, nausea, vomiting, Starting 10/17/18 at 1451, This is Step [...]
Post-procedure documented in this encounter Care Teams Bench Loom Weaver Relationship Specialty Start Date End Date Mitch Li PCP - General Family Practice 10/11/18 documented as of this encounter
--- OUTSIDE RECORDS SUMMARY | 2022-07-08 15:55 | XMS_ITS | Encounter Summary ---
:1955 Author Organization [place] Address [facility] [place] [address] Care Team Providers Name Role Phone Angeline Stern MD Primary Care Provider [phone] Reason for Referral Referral not Required - Closed Specialty Diagnoses / Procedures Referred By Contact Refer red To Contact Diagnoses Right groin mass Angeline Stern M [facility] [place] [id number] [address] [facility][[address]] [address] [place] [address] [place] [phone] Fax: Referral ID Status Reason Start Date Expiration Date Visits Requ ested Visits Authorized [id number] Closed 02/08/2013 08/07/2013 1 1 Reason for Visit Reason Comments Establish Care NEW PATIENT Encounter Details Date Type Department Care Team Description 02/08/2013 Office Visit [facility] Angeline Stern Right mariama in mass (Primary Dx); Clinic Carrol Portillo MD CARDIOVASCULAR SCREENING; LDL GOAL LESS THAN 160; [id number] [address] [address] [address] [address] Special screening for malignant neoplasm s, [place] [address] [phone] Social History Tobacco Use Types Packs/Day Years Used Date Smoking Tobacco: Never Smokeless Tobacco: Never Alcohol Use Standard Drinks/Week Comments No 0 (1 standard drink = 0.6 oz pure alcoho l) Sex Assigned at Date Recorded Not on file documented as of this encounter Last Filed Vital Signs Vital Sign Reading Time Taken Comments Blood Pressure 122/84 02/08/2013 4:07 PM CDT Pulse 76 02/08/2013 4:07 PM CDT Temperature 36.7 ??C (98 ??F) 02/08/2013 4:07 PM CDT Respiratory Rate 12 02/08/2013 4:07 PM CDT Oxygen Saturation - - Inhaled Oxygen Concentration - - Weight 96.2 kg (212 lb) 02/08/2013 4:07 PM CDT Height 182.2 cm (5' 11.75) 02/08/2013 4:07 PM CDT Body Mass Index 28.95 02/08/2013 4:07 PM CDT documented in this encounter Progress Notes Angeline Stern MD - 02/16/2013 4:49 PM CDT Quick Note: Labs reviewed. Continue current meds and healthy lifestyle choices; diet and exercise. Angeline Stern MD - 02/08/2013 4:04 PM CDT SUBJECTIVE: Mitch Catherine is a 57 year old male who presents to clinic today for the following health issues: Abdominal Pain ?? Duration: Several Months ?? Description (location/character/radiation): Right side groin area, can feel oblong shaped mass. Associated flank pain: None ?? Intensity: mild ?? Accompanying signs and symptoms: Fever/Chills: no Nausea/vomitting: no Diarrhea: no Dysuria or Hematuria: YES- 1 Month ago blood in stool ?? History (previous similar pain/trauma/previous testing): None ?? Precipitating or alleviating factors: Pain worse with eating/BM/urination: No Pain relieved by BM: no ?? Therapies tried and outcome: None Problem list and histories reviewed & adjusted, as indicated. Additional history: as documented ROS: CONSTITUTIONAL:NEGATIVE for fever, chills, change in weight INTEGUMENTARY/SKIN: NEGATIVE for worrisome rashes, moles or lesions ENT/MOUTH: NEGATIVE for ear, mouth and throat problems RESP:NEGATIVE for significant cough or SOB CV: NEGATIVE for chest pain, palpitations or peripheral edema GI: right sided pain, no urinary issues or bowel changes. Recalls a surgery as child, he is not sureabout hernia vs undescended testicle vs other ??? : negative for dysuria, hematuria, decreased urinary stream, erectile dysfunction MUSCULOSKELETAL: NEGATIVE for significant arthralgias or myalgia NEURO: NEGATIVE for weakness, dizziness or paresthesias ENDOCRINE: NEGATIVE for temperature intolerance, skin/hair changes HEME/ALLERGY/IMMUNE: NEGATIVE for bleeding problems PSYCHIATRIC: NEGATIVE for changes in mood or affect Problem list, Medication list, Allergies, and Medical/Social/Surgical histories reviewed in [facility] andupdated as appropriate. Labs reviewed in [facility] OBJECTIVE: BP 122/84 Pulse 76 Temp 98 ??F (36.7 ??C) (Oral) Resp 12 Ht 5' 11.75 (1.822 m) Wt 212 lb (96.163 kg) BMI 28.95 kg/m2 Body mass index is 28.95 kg/(m^2). GENERAL: healthy, alert and no distress EYES: Eyes grossly normal to inspection, extraocular movements - intact, and PERRL HENT: ear canals- normal; TMs- normal; Nose- normal; Mouth- no ulcers, no lesions NECK: no tenderness, no adenopathy, no asymmetry, no masses, no stiffness; thyroid- normal to palpation RESP: lungs clear to auscultation - no rales, no rhonchi, no wheezes CV: regular rates and rhythm, normal S1 S2, no S3 or S4 and no murmur, no click or rub - ABDOMEN: soft, nontender, without hepatosplenomegaly or masses MS: extremities- no gross deformities noted, no edema SKIN: no suspicious lesions, no rashes NEURO: Normal strength and tone, sensory exam grossly normal and mentation intact BACK: no CVA tenderness, no paralumbar tenderness - male: testicles normal without atrophy or masses, no hernias and Right sided scar noted- firmness just above the scar; nontender; no clear incisional hernia, no erythema or warmth PSYCH: mentation appears normal ASSESSMENT/PLAN: New Patient 789.33 Right groin mass (primary encounter diagnosis) Comment: superior to previous incision.; 6 cm and runs parallel to incision, ?incisional hernia? uncertain if mesh used at that time No clear dx test; will defer to surgery if anything further is needed; Discussed with pt if concerning symptoms would develop: nausea or vomiting, increased lower abdominal pain, change in bowels, etc.- then would advise immediate assistance. Plan: GENERAL SURG ADULT REFERRAL V81.2 CARDIOVASCULAR SCREENING; LDL GOAL LESS THAN 160 Comment: establishing care, cardiac risk assessment- check lipids Plan: Lipid panel reflex to direct LDL V76.51 Special screening for malignant neoplasms, colon Comment: colon screening reviewed, timing, frequency, etc. Desires FIT at this time due to financialconcerns Plan: Fecal colorectal cancer screen (FIT) reports that he has never smoked. He has never used smokeless tobacco. Estimated Body mass index is 28.95 kg/(m^2) as calculated from the following: Height as of this encounter: 5' 11.75(1.822 m). Weight as of this encounter: 212 lb(96.163 kg). Weight management plan: healthy diet and exercise encouraged. Angeline Stern MD [facility] [place] documented in this encounter Nursing Notes 02/08/2013 4:00 PM CDT >> DEEP NEFF Wed February 08, 2013 4:10 PM Patient presents with: Establish Care - NEW PATIENT Initial BP 122/84 Pulse 76 Temp 98 ??F (36.7 ??C) (Oral) Resp 12 Ht 5' 11.75 (1.822 m) Wt212 lb (96.163 kg) BMI 28.95 kg/m2 Estimated Body mass index is 28.95 kg/(m^2) as calculated from the following: Height as of this encounter: 5' 11.75(1.822 m). Weight as of this encounter: 212 lb(96.163 kg). BP completed using cuff size: taya Neff CMA documented in this encounter Plan of Treatment Scheduled Referrals Name Type Priority Associated Diagnoses Order S noel GENERAL SURG ADULT Referral Routine Right groin mass Order ed: 02/08/2013 REFERRAL documented as of this encounter Procedures Procedure Name Priority Date/Time Associated Diagnosis Comme nts LIPID REFLEX TO Routine 02/08/2013 4:50 PM CARDIOVASCULAR Resu lts for this DIRECT LDL PANEL CDT SCREENING; LDL GOAL proc edure are in LESS THAN 160 the results section. documented in this encounter Results (ABNORMAL) Lipid panel reflex to direct LDL (02/08/2013 4:50 PM CDT) P athologist Signature Cholesterol 213 (H) 0 - 200 [facility] mg/dL CLINIC [facility] Comment: LDL Cholesterol is the primary guide to therapy. The NCEP recommends further evaluation of: patients with cholesterol greater than 200 mg/dL if additional risk facto rs are present, cholesterol greater than 240 mg/dL, triglycerides greater than 1 50 mg/dL, or HDL less than 40 mg/dL. Triglycerides 141 0 - 150 mg/dL [facility] HDL Cholesterol 46 40 - 110 mg/dL [facility] LDL Cholesterol Calculated 139 (H) 0 - 129 mg/dL [facility] Comment: LDL Cholesterol is the primary guide to therapy: LDL-cholesterol goal in high risk patients is <100 mg/dL and in very high risk patients is <70 mg/dL. VLDL-Cholesterol 28 0 - 30 mg/dL [facility] Cholesterol/HDL Ratio 4.7 0.0 - 5.0 [facility] Specimen Anatomical Collection Method Collection Time Receive d Time (Source) Location / / Volume Laterality Blood specimen 02/08/2013 4:50 PM 013 4:51 (specimen) CDT PM CDT Angeline Stern MD LAB - BLOOD ORDERABLES Performing Organization Address City/State/ZIP Code Phon e Number [facility] [address] [facility] [place] [address] [facility] [address] [place] [address] documented in this encounter Visit Diagnoses Diagnosis Right groin mass - Primary Abdominal or pelvic swelling, mass, or l ump, right lower quadrant CARDIOVASCULAR SCREENING; LDL GOAL LESS THAN 160 Special screening for malignant neoplasm s, colon documented in this encounter Care Teams Occupational Rehabilitation Aide Relationship Specialty Start Date End Date Angeline Stern MD PCP - General Internal Medicine 02/09/13 10/10/18 [id number] [place] [id number] documented as of this encounter
--- OUTSIDE RECORDS SUMMARY | 2022-07-08 15:55 | XMS_ITS | Encounter Summary ---
:1955 Author Organization [facility] Address [facility] [place] [place] [address] Care Team Providers Name Role Phone Mitch Li Primary Care Provider Reason for Visit Auth/Cert Specialty Diagnoses / Procedures Referred By Contact Refer red To Contact Surgery Diagnoses DJD Rh Periop Services Procedures ARTHROPLASTY KNEE [address] [place], [place] [address] Phone: Fax: Referral ID Status Reason Start Date Expiration Date Visits Requ ested Visits Authorized [id number] 1 1 Encounter Details Date Type Department Care Team Description 10/17/2018 Anesthesia Event [facility] Aneesh Ibarra MD [facility] ANESTHESIA [id number] [place] [address] [facility] PeriOp Servic es Frederick Turner APRN COMPLIANCE QUALITY PERFORMANCE [facility]ST [facility] ANESTHESIA [place] [address] [facility] [place] [id number] [address] [place] [address] Anesthesia Record Procedure Summary Procedure Name Responsible Anesthesia Start Anesthesia Stop Anesthesiologist Time Time Right total knee Aneesh Ibarra MD 10/17/18 1140 1322 arthroplasty (Right: Knee) Events Date Time Event Comment 10/17/2018 1123 Non-OR Block Start Aneesh sherwood 1130 Non-OR Block Stop Aneesh sidhu 1131 Non-OR Block Start Aneesh sherwood 1137 Non-OR Block Stop Aneesh sidhu 1140 An Start 1142 An Start Data 1142 An Induction 1152 Quick Note 30 bangladeshi nasal trumpet placed in right nare without difficul ty 1207 An Tourn Inflated 1207 AN INCISION 1249 MD Present 1313 An Tourn Deflated 1319 an stop data 1320 MD Present 1322 An Stop Electronically s igned by Bev Heart on October 17, 2018 1:25 PM Name Total midazolam 1 mg/mL 4 mg fentaNYL 50 mcg/mL 200 mcg propofol 10 mg/mL 20 mg propofol infusion (mcg/kg/min) 987.05 mg bupivacaine spinal 0.75% in dextrose 8.25% 2 mL bupivacaine 0.5% with EPINEPHrine 1:200,000 30 mL ceFAZolin (ANCEF) intermittent infusion 2 g in 100 mL dextrose PRE-MIX 2 g tranexamic acid (CYKLOKAPRON) infusion 1 g 1 g ketamine injection 10 mg/mL 10 mg lactated ringers infusion 1,200 mL Agents Name NO HELIOX O2 N2O Air Exp Sevoflurane Exp Isoflurane Exp Desflurane Exp N2O O2 Delivery Device Ins Sevoflurane Ins Isoflurane Ins Desflurane O2 Auxiliary Blood No blood administrations on file. Lines, Drains, and Airways Type Details Placement Removal Incision/Surgical Site 10/17/18; 1243; 10/17/18 1243 by Right; Knee Andra Sinclair RN Urethral Catheter 10/17/18; No; 10/17/18 0000 by 10/18/18 0511 by Anesthesia; 16 fr Andra Sinclair RN [place], Bev Boateng CNA Closed/Suction Drain 10/17/18; 1; Right; 10/17/18 0000 by 0734 by Knee; (09/20 Hemovac Andra Sinclair, Monica Lee, hooked to suction RN reservoir); 10 Macedonian Peripheral IV 10/17/18; Left, 10/17/18 0000 by 10/19/18 1153 b y Posterior; Hand Nara Cartagena, Melida Peñaloza CNA documented in this encounter Social History Tobacco Use Types Packs/Day Years Used Date Smoking Tobacco: Never Smokeless Tobacco: Never Alcohol Use Standard Drinks/Week Comments No 0 (1 standard drink = 0.6 oz pure alcoho l) Sex Assigned at Date Recorded Not on file documented as of this encounter OR Notes Anesthesia Postprocedure Evaluation - Aneesh Ibarra MD - 10/17/2018 3:44 PM CST Patient: Mitch Catherine Procedure(s): Right total knee arthroplasty Diagnosis:DJD Diagnosis Additional Information: PREOPERATIVE DIAGNOSIS: Osteoarthritis, right knee. POSTOPERATIVE DIAGNOSIS: Osteoarthritis, right knee. PROCEDURE PERFORMED: Right total knee arthroplasty. Anesthesia Type: Spinal, Periph. Nerve Block for postop pain Note: Anesthesia Post Evaluation Patient location during evaluation: PACU Patient participation: Able to participate in evaluation but full recovery from regional anesthesia has not yet ocurrred but is anticipated to occur within 48 hours Level of consciousness: awake Pain management: adequate Airway patency: patent Cardiovascular status: acceptable Respiratory status: acceptable Hydration status: euvolemic PONV: controlled Anesthetic complications: None Last vitals: Vitals: 10/17/18 1408 10/17/18 1420 10/17/18 1445 BP: 157/87 Pulse: 75 Resp: 12 18 16 Temp: 96.6 ??F (35.9 ??C) 95.6 ??F (35.3 ??C) SpO2: 98% Electronically Signed By: Aneesh Ibarra MD October 17, 2018 3:44 PM [employer] Anesthesia Procedure Notes - Aneesh Ibarra MD - 10/17/2018 11:39 AM [employer] Associated Order(s): Peripheral/Paravertebral Block Peripheral nerve/Neuraxial procedure note : Saphenous Pre-Procedure Performed by Aneesh Ibarra MD Referred by YOEL Location: pre-op Pre-Anesthestic Checklist: patient identified, IV checked, site marked, risks and benefits discussed, informed consent, monitors and equipment checked, pre-op evaluation, at physician/surgeon's requestand post-op pain management Timeout Correct Patient: Yes Correct Procedure: Yes Correct Site: Yes Correct Laterality: Yes Correct Position: Yes Site Marked: Yes . Procedure Documentation . Procedure: right Saphenous. Ultrasound used to identify targeted nerve, plexus, or vascular marker and placed a needle adjacentto it., Ultrasound was used to visualize the spread of the anesthetic in close proximity to the above stated nerve. Patient Prep;mask, sterile gloves, povidone-iodine 7.5% surgical scrub. . Needle: insulated, short bevel Needle Gauge: 20. Needle Length (Inches) 2 Insertion Method: Single Shot. Assessment/Narrative Paresthesias: No. Injection made incrementally with aspirations every 5 mL.. The placement was negative for: blood aspirated, painful injection and site bleeding. Bolus given via needle.. Secured via. Complications: none. Test dose of mL at. Test dose negative for signs of intravascular, subdural or intrathecal injection. Comments: The surgeon has given a verbal order transferring care of this patient to me for the performance of a regional analgesia block for post-op pain control. It is requested of me because I am uniquely trained and qualified to perform this block and the surgeon is neither trained nor qualified to perform this procedure. [employer] Anesthesia Procedure Notes - Aneesh Ibarra MD - 10/17/2018 11:38 AM [employer] Associated Order(s): Spinal Block Peripheral nerve/Neuraxial procedure note : intrathecal Pre-Procedure Performed by Aneesh Ibarra MD Referred by YOEL Location: pre-op Pre-Anesthestic Checklist: patient identified, IV checked, site marked, risks and benefits discussed, informed consent, monitors and equipment checked, pre-op evaluation and at physician/surgeon's request Timeout Correct Patient: Yes Correct Procedure: Yes Correct Site: Yes Correct Laterality: Yes Correct Position: Yes Site Marked: Yes . Procedure Documentation ASA 2 . Procedure: Intrathecal. (midline approach) Patient Prep;mask, sterile gloves, povidone-iodine 7.5% surgical scrub, patient draped. . Needle: Adonay tip Spinal Needle (gauge): 25 Spinal/LP Needle Length (inches): 3 # of attempts: 1 and # of redirects: Introducer used Introducer: 20 G . Assessment/Narrative Paresthesias: No. . . clear CSF fluid removed . [employer] Anesthesia Preprocedure Evaluation - Aneesh Ibarra MD - 10/17/2018 9:57 AM CST Anesthesia Pre-Procedure Evaluation Patient: Mitch Catherine : 1955 Preoperative Diagnosis: DJD Procedure(s): Right total knee arthroplasty (Spinal and adductor canal block) Past Medical History: Diagnosis Date ??? Osteoarthritis knees, feet, shoudlers ??? Sleep apnea Doesn't use a CPAP Past Surgical History: Procedure Laterality Date ??? C NONSPECIFIC PROCEDURE 1958 right groin- not certain if hernia related. Anesthesia Evaluation . ROS/MED HX ENT/Pulmonary: (+)sleep apnea, doesn't use CPAP , . . (-) asthma and Other pulmonary disease Neurologic: (-) TIA, Other neuro hx, Dementia and Neuropathy Cardiovascular: (+) hypertension----. : . . . :. . (-) CAD, CHF, arrhythmias, pulmonary hypertension and dyslipidemia METS/Exercise Tolerance: Hematologic: (-) history of blood clots Musculoskeletal: (+) arthritis, , , other musculoskeletal- Chronic Low Back Pain GI/Hepatic: (-) GERD, hiatal hernia and hepatitis Renal/Genitourinary: (-) renal disease Endo: (+) Obesity, . (-) Type I DM, Type II DM, thyroid disease, chronic steroid usage and other endocrine disorder Psychiatric: (-) psychiatric history Infectious Disease: - neg infectious disease ROS Malignancy: - no malignancy Other: - neg other ROS Physical Exam Airway Mallampati: II TM distance: >3 FB Neck ROM: full Dental Cardiovascular Rhythm and rate: regular and normal (-) no murmur Pulmonary breath sounds clear to auscultation Other findings: No lab results found. Lab Test 09/19/18 POTASSIUM 4.4 CR 1.02 GLC 84 Lab Results Component Value Date POTASSIUM 4.4 09/19/2018 CR 1.02 09/19/2018 GLC 84 09/19/2018 Preop Vitals BP Readings from Last 3 Encounters: 10/17/18 (!) 152/102 02/08/13 122/84 Pulse Readings from Last 3 Encounters: 10/17/18 86 02/08/13 76 Resp Readings from Last 3 Encounters: 10/17/18 18 02/08/13 12 SpO2 Readings from Last 3 Encounters: 10/17/18 98% Temp Readings from Last 1 Encounters: 10/17/18 97.7 ??F (36.5 ??C) (Temporal) Ht Readings from Last 1 Encounters: 10/17/18 1.854 m (6' 1) Wt Readings from Last 1 Encounters: 10/17/18 103.9 kg (229 lb) Estimated body mass index is 30.21 kg/m?? as calculated from the following: Height as of this encounter: 1.854 m (6' 1). Weight as of this encounter: 103.9 kg (229 lb). Anesthesia Plan History & Physical Review History and physical reviewed and following examination; no interval change. ASA Status: 2 . NPO Status: > 8 hours Plan for Spinal and Periph. Nerve Block for postop pain with Propofol induction. PONV prophylaxis: Ondansetron (or other 5HT-3) and Dexamethasone or Solumedrol Postoperative Care Postoperative pain management: IV analgesics, Oral pain medications and Peripheral nerve block (Single Shot). Consents Anesthetic plan, risks, benefits and alternatives discussed with: Patient.. Aneesh Ibarra MD . [employer] documented in this encounter Miscellaneous Notes Anesthesia Care Transfer Note - Bev Heart APRN CRNA - 10/17/2018 1:24 PM CST Patient: Mitch Catherine Procedure(s): Right total knee arthroplasty Diagnosis: DJD Diagnosis Additional Information: No value filed. Anesthesia Type: Spinal, Periph. Nerve Block for postop pain Note: Airway :Room Air Patient transferred to:PACU Comments: VSS. Spontaneously breathing room air. Report given to RN.Handoff Report: Identifed the Patient, Identified the Reponsible Provider, Reviewed the pertinent medical history, Discussed the surgical course, Reviewed Intra-OP anesthesia mangement and issues during anesthesia, Set expectations for post- procedure period and Allowed opportunity for questions and acknowledgement of understanding Vitals: (Last set prior to Anesthesia Care Transfer) GALINA VITALS 10/17/2018 1249 - 10/17/2018 1324 10/17/2018 Pulse: 95 SpO2: 99 % Electronically Signed By: Bev Heart APRN CRNA October 17, 2018 1:24 PM [employer] documented in this encounter Plan of Treatment Not on filedocumented as of this encounter Procedures Procedure Name Priority Date/Time Associated Diagnosis Comme nts ANE Routine 10/17/2018 11:39 AM [employer] PERIPHERAL/PARAVETEBRAL BLOCK Procedure Note - Fátima Ibarra MD - 10/17/2018 11:39 AM CSTThis note is in progress. Formatting of this note migh t be different from the original. Peripheral nerve/Neuraxial p rocedure note : Saphenous Pre-Procedure Performed by Aneesh Ibarra MD Referred by YOEL Location: pre-op Pre-Anesthestic Checklist: p atient identified, IV checked, site marked, risks and benefits discussed, informed consent, monitors and equipment checked, pre-op evaluation, at physician/surgeon's request and post-op pain management Timeout Correct Patient: Yes Correct Procedure: Yes Correct Site: Yes Correct Laterality: Yes Correct Position: Yes Site Marked: Yes . Procedure Documentation . Procedure: right Saphenous. Ultrasound used to identify targeted nerve, plexus, or vascular marker and placed a needle adjacent to it., Ultrasound was used to visualize the spread of the anesthetic in close proximity to the above stated nerve. Patient Prep;mask, sterile g loves, povidone-iodine 7.5% surgical scrub. . Needle: insulated, short bevel Needle Gauge: 20. Needle Length (Inches) 2 Insertion Method: Single Shot. Assessment/Narrative Paresthesias: No. Injection made incrementally with aspirations every 5 mL.. The placement was negative for: blood aspirated, painful injection and site bleeding. Bolus given via needle.. Secured via. Complications: none. Test do se of mL at. Test dose negative for signs of intravascular, subdural or intrathecal injection. Comments: The surgeon has given a verbal order transferring care of this patient to me for the performance of a regional an algesia block for post-op pain control. It is requested of me because I am uniquely trained and qualified to perform this block and the surgeon is neither trained nor qualified to perform this procedure. ANE SPINAL BLOCK FORM Routine 10/17/2018 11:38 AM [employer] Procedure Note - Fátima Ibarra MD - 10/17/2018 11:38 AM CSTThis note is in progress. Formatting of this note migh t be different from the original. Peripheral nerve/Neuraxial p rocedure note : intrathecal Pre-Procedure Performed by Aneesh Ibarra MD Referred by YOEL Location: pre-op Pre-Anesthestic Checklist: p atient identified, IV checked, site marked, risks and benefits discussed, informed consent, monitors and equipment checked, pre-op evaluation and at physician/surgeon's request Timeout Correct Patient: Yes Correct Procedure: Yes Correct Site: Yes Correct Laterality: Yes Correct Position: Yes Site Marked: Yes . Procedure Documentation ASA 2 . Procedure: Intrathecal. (mid line approach) Patient Prep;mask, sterile g loves, povidone-iodine 7.5% surgical scrub, patient draped. . Needle: Adonay tip Spinal Needle (gauge): 25 Spinal/LP Needle Length (inches): 3 # of attempts: 1 and # of redirects: Introducer used Introducer: 20 G . Assessment/Narrative Paresthesias: No. . . clear CSF fluid removed . documented in this encounter Visit Diagnoses Not on filedocumented in this encounter Administered Medications Inactive Administered Medications - up to 3 most recent administrations Medication Order MAR Action Action Date Dose Rate Site bupivacaine 0.5 % - EPINEPHrine Given 10/17/2018 11:35 AM [employer] 30 mLs 1:200,000 injection PRN, Starting on Wed10/17/18 at 1135, Anesthesia Intra-op bupivacaine 0.75% in dextrose 8.25% Given 10/17/2018 11:28 AM CS T 2 mLs (intrathecal) (SENSORCAINE) 0.75-8.25 % injection PRN, Starting on Wed10/17/18 at 1128, Anesthesia Intra-op ceFAZolin (ANCEF) intermittent infusion 2 g in Given 0 10/17/2018 11:43 AM [employer] 2 g 100 mL dextrose PRE-MIX Routine, 2 g, Intravenous, PRE-OP/PRE-PROCEDURE, Starting on Wed10/17/18 at 0855, For 1 dose, Give first dose within 1 hour PRIOR to incision. If patient weight is greater than or equal to 120 kg increase dose to 3 g., Indications: Perioperative Pharmacoprophylaxis, Pre-procedure fentaNYL (PF) (SUBLIMAZE) injection Given 10/17/2018 12:10 PM [employer] 25 mcg PRN, Administer over 3-5 Minutes, Starting on Wed10/17/18 at 1123, Anesthesia Intra-op Given 10/17/2018 12:08 PM [employer] 25 mcg Given 10/17/2018 12:00 PM [employer] 25 mcg ketamine (KETALAR) injection Given 10/17/2018 12:27 PM [employer] 10 mg PRN, Administer over 2-5 Minutes, Starting on Wed10/17/18 at 1227, Anesthesia Intra-op lactated ringers infusion New Bag 10/17/2018 12:33 PM [employer] at 25 mL/hr, Intravenous, CONTINUOUS, IF patient NOT on dialysis., Pre-procedure, Starting on Wed10/17/18 at 0830, Until Wed10/17/18 at 1321 New Bag 10/17/2018 11:30 AM [employer] midazolam (VERSED) injection Given 10/17/2018 11:31 AM [employer] 1 mg Administer over 2 Minutes, PRN, Starting on Wed10/17/18 at 1123, Anesthesia Intra-op Given 10/17/2018 11:23 AM [employer] 3 mg propofol (DIPRIVAN) infusion New Bag 10/17/2018 12:30 PM [employer] Intravenous, CONTINUOUS PRN, Starting on Wed10/17/18 at 1145, Anesthesia Intra-op Rate/Dose Change 10/17/2018 12:27 PM [employer] 100 mcg/kg/min 62.3 mL/hr Rate/Dose Change 10/17/2018 11:50 AM [employer] 125 mcg/kg/min 77.9 mL/hr propofol (DIPRIVAN) injection 10 mg/mL v ial Given 10/17/2018 11:50 AM [employer] 20 mg PRN, Starting on Wed10/17/18 at 1150, Anesthesia Intra-op tranexamic acid (CYKLOKAPRON) infusion 1 g Given 10/17/2018 11:53 AM [employer] 1 g 1 g, Intravenous, ONCE, On Wed10/17/18 at 0900, For 1 dose, Pre-procedure documented in this encounter Care Teams Customer Marketing Intern Relationship Specialty Start Date End Date Mitch Li PCP - General Family Practice 10/11/18 documented as of this encounter
--- OUTSIDE RECORDS SUMMARY | 2022-07-08 15:56 | XMS_ITS | Encounter Summary ---
:1955 Author Organization [facility] Address [address] [place] [address] Care Team Providers Name Role Phone Mitch Li MD Primary Care Provider Reason for Visit Reason Comments EYE EXAM,YEARLY MIGUEL 6 years ago. Patient sta anupama his vision seems a little worse but overall doing well. He does get itchy eyes at times from allergies. Will use allergy drops very seldom.No ocular surgery. Encounter Details Date Type Department Care Team Description 08/23/2018 Office Visit [facility] Anna Marie Vega Examination of eyes and visi on (Primary Dx); [address] [place], OD Myopia, bilateral; [place], [place] [phone] Regular astigmatism of left eye; [phone] DIABLO Presbyopia; [place] [address] Combined form of age-related cataract, b oth eyes Social History Tobacco Use Types Packs/Day Years Used Date Smoking Tobacco: Never Smokeless Tobacco: Never Alcohol Use Standard Drinks/Week Comments No 0 (1 standard drink = 0.6 oz pure alcoho l) Sex Assigned at Date Recorded Not on file documented as of this encounter Patient Instructions Patient InstructionsAnna Marie Vega, OD - 08/23/2018 3:00 PM CST Thanks for coming to the eye clinic today! The first step in healthy eyes is having regular eye exams. The other things that can help keep your eyes healthy until we see you again are: wear sunglasses to protect your eyes from UV light, don't smoke, and eat a healthy diet including green and orange vegetables like spinach, carrots, broccoli, and squash. Your eyes will be dilated from 4 to 14 hours depending on the strength of the drops used at your appointment. Children usually get strong drops so their eyes stay dilated and blurry longer. Wearing sunglasses today outside will keep your eyes comfortable, but your vision will still be blurry up close for awhile. Use extra caution in getting around today until the drops wear off. Did you know that we all get cataracts as we age? Cataracts develop slowly and when they start to affect vision cataract surgery can be done. Did you know that dry eyes cause watering and burning? It seems like that wouldn???t make sense but it does, and using artificial tears can help a lot of patients keep their eyes feeling more comfortable. Artificial tears are available over the counter and are safe to use up to 4 times per day. Ask usfor a recommendation if you are not sure which brand to try. Did you know that a separate pair of glasses can be prescribed for use at the computer? Ask your eyedoctor if this may be a good choice for you. ERY WORKER documented in this encounter Progress Notes Anna Marie Vega, OD - 08/23/2018 3:00 PM CST Chief Complaint Patient presents with ??? EYE EXAM,YEARLY MIGUEL 6 years ago. Patient states his vision seems a little worse but overall doing well. He does getitchy eyes at times from allergies. Will use allergy drops very seldom.No ocular surgery. History Reviewed Assessment ICD-10-CM 1. Examination of eyes and vision Z01.00 2. Myopia, bilateral H52.13 Refractive State, Determination Of 3. Regular astigmatism of left eye H52.222 Refractive State, Determination Of 4. Presbyopia H52.4 Refractive State, Determination Of 5. Combined form of age-related cataract, both eyes H25.813 Takes glasses off to read phone. Used to wear contacts but not for a long time. 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 Plan Spectacle Prescription given. Cataract discussed. Patient understood what was discussed and all questions were answered. See patient instructions. Return to clinic in one year for comprehensive eye exam. Anna Marie Vega,OD ERY WORKER documented in this encounter Plan of Treatment Not on filedocumented as of this encounter Visit Diagnoses Diagnosis Examination of eyes and vision - Primary Myopia, bilateral Myopia Regular astigmatism of left eye Regular astigmatism Presbyopia Combined form of age-related cataract, b oth eyes documented in this encounter Care Teams Hoop Punch Operator Helper Relationship Specialty Start Date End Date Mitch Li MD PCP - General Family Practice 08/23/18 [address] [place] [address] documented as of this encounter
--- OUTSIDE RECORDS SUMMARY | 2022-07-08 15:56 | XMS_ITS | Encounter Summary ---
:1955 Author Organization [facility] Address [address] [address] Care Team Providers Name Role Phone Trish Frausto MD Primary Care Provider Reason for Visit Reason Comments CONGESTION x 10 days, no other sx Encounter Details Date Type Department Care Team Description 05/18/2012 Office Visit [facility] Tiffany Cabrera MD Allergic rhinitis Practice [address] [facility] (Primary Dx) [address] [place] [address] [phone] Social History Tobacco Use Types Packs/Day Years Used Date Smoking Tobacco: Never Alcohol Use Standard Drinks/Week Comments No 0 (1 standard drink = 0.6 oz pure alcoho l) Sex Assigned at Date Recorded Not on file documented as of this encounter Last Filed Vital Signs Vital Sign Reading Time Taken Comments Blood Pressure 125/84 05/18/2012 1:22 PM CDT Pulse 85 05/18/2012 1:22 PM CDT Temperature - - Respiratory Rate 16 05/18/2012 1:22 PM CDT Oxygen Saturation 98% 05/18/2012 1:22 PM CDT Inhaled Oxygen Concentration - - Weight - - Height - - Body Mass Index - - documented in this encounter Progress Notes Tiffany Cabrera MD - 05/18/2012 1:27 PM CDT Chief Complaint Patient presents with ??? CONGESTION x 10 days, no other sx Patient with h/o enviormental allergies. Will have some nasal drainage/congestion, sensation of post nasal drip along with dry intermittent coughing intermittently the day and night, x past 1.5 weeks.He will have sensation of inability to take full deep breath in at times as has sensation of phlegm in throat. Denies fevers, chills, SOB, chest pain/tightness/pressure, nausea, vomiting, abdominal pain, lightheadedness/dizziness/passing out, changes in energy level. Denies Tob current or past use. Denies h/o RAD, bronchitis, PNA. He has been taking claritin D year round-no change in his sx's. No known sick contacts. Allergies Allergen Reactions ??? Amoxicillin ROS: see above for pertinents. BP 125/84 Pulse 85 Resp 16 SpO2 98% General: He appears well, alert and oriented x 3, pleasant and cooperative. Ears: serous fluid b/l TM's. Neck: supple and free of adenopathy EYES: PERRL, no conjunctival injection b/l. Mouth:MMM, no lesions. Chest: clear to IPPA. Heart: sounds are normal, no murmurs. Ext: no LE edema b/l. A/P: 1. Allergic rhinitis: try flonase per Epic, SERD. Due to some sensation of inability to take full deep breathes in, tried albuterol neb x one in clinic- seemed to help patient's sx's. Advised albuterol inh 1-2 puffs Q 6 hours PRN, SERD. RTC in 3 weeks, sooner PRN sx's worsen/new sx's occur. Warning signs given.Tiffany Cabrera MD 05/18/2012, 6:53 PM documented in this encounter Nursing Notes 05/18/2012 1:40 PM CDT >> LALI CUELLAR WedMay 18, 2012 1:43 PM Premixed albuterol nebulizer treatment done per provider order. [facility]# [id number] Lali/TANK CAR RECONDITIONER documented in this encounter Plan of Treatment Not on filedocumented as of this encounter Visit Diagnoses Diagnosis Allergic rhinitis - Primary Allergic rhinitis, cause unspecified documented in this encounter Care Teams Document Management Consultant Relationship Specialty Start Date End Date Trish Frausto MD PCP - General 09/01/05 08/22/18 [address] [place] [address] documented as of this encounter
--- OUTSIDE RECORDS SUMMARY | 2022-07-08 15:56 | XMS_ITS | Encounter Summary ---
:1955 Author Organization [employer] Address [address], [place] [address] Care Team Providers Name Role Phone Trish Frausto MD Primary Care Provider Reason for Visit Reason Onset Date Comments QUESTIONS, GENERAL 06/17/2011 Encounter Details Date Type Department Care Team Description 06/17/2011 Telephone [facility] Trish Frausto, Kvng RODRIGUES, director of physician practices [address] [facility] [id number] [place] [address] [place], [place] [phone] (Wo rk) Social History Tobacco Use Types Packs/Day Years Used Date Smoking Tobacco: Never Alcohol Use Standard Drinks/Week Comments No 0 (1 standard drink = 0.6 oz pure alcoho l) Sex Assigned at Date Recorded Not on file documented as of this encounter Nursing Notes Crystal Simon RN - 06/17/2011 9:49 AM CDT Patient needing work slip as he has missed 3 days of work. States Wednesday started with ST and fever, generalized body aches and loose stools. Feeling better but felt he should stay home one more day. 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 Charity Massey - 06/17/2011 9:28 AM CDT Patient would like to speak to his either provider or nurse. Name of patient's provider: Trish Frausto Summarize the patient's question or concern: The patient has been experiencing flu-like symptoms forthe past couple of days and he would like to speak to or a nurse about his this because his employer is requesting a note to excuse his absences from work and he would like to know if he needs to be seen for this. Charity Massey documented in this encounter Plan of Treatment Not on filedocumented as of this encounter Visit Diagnoses Not on filedocumented in this encounter Care Teams Parachute Supervisor Relationship Specialty Start Date End Date Trish Frausto MD PCP - General 09/01/05 08/22/18 [address] [place] [address] documented as of this encounter
--- OUTSIDE RECORDS SUMMARY | 2022-07-08 15:56 | XMS_ITS | Encounter Summary ---
:1955 [facility] Address [address] [place] [address] Care Team Providers Name Role Phone Trish Frausto MD Primary Care Provider Reason for Visit Reason Comments Sore Throat Encounter Details Date Type Department Care Team Description 02/28/2015 Telephone Careline Unknown, Physician Sore Throat [address] [place], [place] [address] [place] [address] [phone] (Wo rk) Social History Tobacco Use Types Packs/Day Years Used Date Smoking Tobacco: Never Alcohol Use Standard Drinks/Week Comments No 0 (1 standard drink = 0.6 oz pure alcoho l) Sex Assigned at Date Recorded Not on file documented as of this encounter Nursing Notes Teresa Peña, RN - 02/28/2015 6:39 AM CDT Returned call to pt C/o sore throat since noon yesterday [place] like he was hot yesterday too - but didn't check temp Taking Tylenol and Ibuprofen w/out improvement No cough, congestion, rash Has a relative in his household with strep throat currently TRIAGE REFERENCE: SORE THROAT - ADULT CNG (c) 2013 STAT SYMPTOMS (Consider 911) None PMH Patient Active Problem List Diagnosis ??? HYPERLIPIDEMIA NEC/NOS ??? HEADACHE ??? OTHER ATOPIC DERMATITIS ??? Overweight ??? ALLERGIC RHINITIS NOS ??? Recurrent Low Back Pain CURRENT MEDICATIONS: Current Outpatient Prescriptions Medication Sig ??? ALBUterol sulfate hfa (AKA PROAIR,VENTOLIN) 108 (90 BASE) MCG/ACT inhaler Inhale 2 Puffs by mouth every 6 hours as needed for Wheezing. ??? CLARITIN OR 1 as neened ??? CLOBETASOL PROP (TEMOVATE) 0.05% OINTMENT apply bid to hands for 2 weeks prn for severe flares ??? fluticasone (FLONASE) 50 MCG/ACT nasal solution Apply or instill 2 Sprays into both nostrils daily at bedtime. ??? ibuprofen (AKA MOTRIN) 800 MG tablet Take one tablet by mouth every 6-8 hours as needed for pain. ??? Loratadine-Pseudoephedrine (LORATADINE-D 24HR) 10-240 MG tablet Take 1 Tab by mouth daily. ??? MULTIPLE VITAMIN TABS 1 tab daily MEDICATION ALLERGIES: Amoxicillin HOME TREATMENT: OTC pain meds Lozenges, salt water gargles PRN Drink extra fluids PLAN: Advised clinic/UC today for eval if sore throat persist despite home tx. Reviewed home treatments described above as well as worsening/stat symptoms to watch for. Encouraged to call back anytime with any questions, concerns, changes in symptoms. Pt verbalized understanding of recommendations, denies further questions and is agreeable to plan. Teresa Peña RN Kelli Leon - 02/28/2015 6:35 AM CDT Which care system or clinic is the patient normally seen at? [facility]. [facility] would like me to ask all callers, If the CareLine was not available, what would you have done?Make Appointment. Situation:Sore throat Plan:A nurse will return your call. If your symptoms change for the worse, please call us back [phone].. documented in this encounter Plan of Treatment Not on filedocumented as of this encounter Visit Diagnoses Not on filedocumented in this encounter Care Teams Employee Communications Specialist Relationship Specialty Start Date End Date Trish Frausto MD PCP - General 09/01/05 08/22/18 [address] [place] [address] documented as of this encounter
--- OUTSIDE RECORDS SUMMARY | 2022-07-08 15:56 | XMS_ITS | Encounter Summary ---
:1955 [facility] Address [address] [address] Care Team Providers Name Role Phone Trish Frausto MD Primary Care Provider Reason for Visit Reason Onset Date Comments Refill 12/08/2011 Encounter Details Date Type Department Care Team Description 12/08/2011 Refill [facility] Trish Frausto MD Refill [address] [facility] [address] [place], [place] [address] [place] [address] [phone] (Wo rk) Social History Tobacco Use Types Packs/Day Years Used Date Smoking Tobacco: Never Alcohol Use Standard Drinks/Week Comments No 0 (1 standard drink = 0.6 oz pure alcoho l) Sex Assigned at Date Recorded Not on file documented as of this encounter Nursing Notes Lizzy Fuentes RN - 12/11/2011 9:48 AM CDT Pt. requesting RX for loratadine D #90 for his allergies. He feels it will be cheaper & less hassel than OTC, Reminded he is overdue for [facility] Maude Burt RN - 12/11/2011 8:17 AM CDT RN is unable to fill, because it does not meet medication refill standing order criteria. 1) will send to provider to review as med is historical in current med list. Needs HP provider signature. Standing Orders Exist Last office visit: 09-02-11 Last time med was ordered: Date: historical Maude Burt RN 12/11/2011, 8:17 AM Adam Bermeo RN - 12/10/2011 5:29 PM CDT Returning encounter to clinic, no pharmacy indicated. Adam Bermeo RN documented in this encounter Plan of Treatment Not on filedocumented as of this encounter Visit Diagnoses Diagnosis ALLERGIC RHINITIS NOS - Primary Allergic rhinitis, cause unspecified documented in this encounter Care Teams Identifier Horse Relationship Specialty Start Date End Date Trish Frausto MD PCP - General 09/01/05 08/22/18 [address] [place] [address] documented as of this encounter
--- OUTSIDE RECORDS SUMMARY | 2022-07-08 15:56 | XMS_ITS | Encounter Summary ---
:1955 [facility] Address [address] [address] Care Team Providers Name Role Phone Trish Frausto MD Primary Care Provider Reason for Visit Reason Comments ECZEMA Encounter Details Date Type Department Care Team Description 08/31/2014 Initial Consult Nithya Naqvi Contact dermatitis and other eczema due to other chemical products (Primary Dx); Dermatology MD Ronaldo Contact dermatitis and other eczema, due to unspecified cause; [address] [address] [facility] Other specified disease [place] [address] [place], [place] [phone] [address] Social History Tobacco Use Types Packs/Day Years Used Date Smoking Tobacco: Never Alcohol Use Standard Drinks/Week Comments No 0 (1 standard drink = 0.6 oz pure alcoho l) Sex Assigned at Date Recorded Not on file documented as of this encounter Patient Instructions Patient InstructionsBaljit Jarquin MA - 08/31/2014 11:30 AM CST DIRECT PHONE NUMBER: BALJIT [phone]. FEEL FREE TO CALL WITH ANY QUESTIONS OR CONCERNS YOU MAY HAVE. USE TEST: USING PAPER TAPE, APPLY A SMALL SQUARE OF THE PRODUCT TO UPPER, INNER ARM AND COVER IT WITH TAPE. LEAVE IT THERE FOR 48 HOURS. IF YOU REACT TO THIS THEN YOU WILL KNOW THAT YOU ARE ALLERGIC TOTHIS PRODUCT. DRY SKIN: TRY NOT TO TAKE HOT SHOWERS BUT INSTEAD WARM WATER SHOWERS. LIMIT SOAP USE. PAT SKIN DRY & IMMEDIATELY APPLY MOISTURIZER. DRY HANDS TREATMENT PLAN: 1) MIX WARM WATER (NOT HOT) WITH EPSOM SALTS. SOAK HANDS FOR 2 - 5 MINUTES IN THE WATER. 2) PAT HANDS DRY, DO NOT SCRUB HANDS DRY. 3) IMMEDIATELY APPLY CLOBETASOL - USE THE CLOBETASOL OINTMENT ONCE DAILY AFTER THE WATER SOAKS FOR A FULL WEEK OR UNTIL THERE IS NO MORE PINKNESS TO THE SKIN 4) THEN IMMEDIATELY APPLY LOTION. CONTINUE TO USE THE LOTION EVEN AFTER YOU ARE NO LONGER USING THE CLOBETASOL. 5) AFTER YOU HAVE COMPLETED THE CLOBETASOL TREATMENT, CONTINUE TO DO WATER SOAKS EVERY DAY FOLLOWED BY LOTION FOR SEVERAL MONTHS. * APPLY LOTION 15 TIMES THROUGHOUT THE DAY AND ESPECIALLY EVERY SINGLE TIME YOUR HANDS GET WET. * HOT WATER WILL DRY OUT SKIN. RECOMMEND YOU ONLY USE WARM TO COOL WATER FOR HAND WASHING AND SHOWERS. * EVERY TIME YOU CHANGE YOUR GLOVES, RINSE YOUR HANDS OFF AND THEN APPLY LOTION. RECOMMENDED LOTIONS: *LOTIONS THAT CONTAIN CERAMIDES. FOR EXAMPLE, CERA VE LOTION, EUCERIN PROFESSIONAL REPAIR, CUREL LOTION. *BEST TO APPLY THESE RIGHT AFTER A SHOWER OR BATH IN ADDITION TO YOUR DAILY USE MINER BLASTING documented in this encounter Progress Notes Nithya Torres MD - 08/31/2014 11:33 AM CST Progress Notes signed by Nithya Price MD at 09/02/14718 Author: Nithya Price MD Service: (none) Author Type: Physician Filed: 09/02/14718 Note Time: 08/31/142016 Status: Signed Manager Sterile Processing: Nithya Price MD (Physician) NAME: EUSEBIA ENGLE MR#: [id number] CSN: [id number] AUTHENTICATING CLINICIAN: Nithya Torres MD CONFIRM #: [id number] LOC: 527 CLINIC PROGRESS NOTE DATE OF VISIT: 08/31/2014 : 1955 SUBJECTIVE: Eusebia is a 59-year-old here for eczema on the hands. He has had it for years. Initially seen in 2007 with a waste recycler. He had clobetasol. Just 2-3 days knocks it completely down. 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 He does have to have Nitrol non powdered gloves on regularly. He is a lot a chemicals and the skinjust very sore. His had triamcinolone. He has also been given Lidex, and those help but not as fast as clobetasol. EXAMINATION: He is a young-appearing 59-year-old with erythema just to the wrist on the back of the hands and thefingers, the palms are actually pretty clear. ASSESSMENT: Asteatotic eczema, with probable sweating under the Nitrol gloves exacerbating it. PLAN: He can use test his Nitrol gloves on the upper inner arm and on we talked about how to do that. I would do a full 48 hours patching and then take that off and see what happens, unless of course it flares earlier. For the hands, we talked at length about benefits of steroids versus detriments and the proper use of them. Talked about water soaks of the hands to rehydrate, followed by moisturization. Heis allergic to Quaternium-15; he needs to avoid that in lotions, but I would do water soaks and moisturization at least once a day. Cut the temperature of any water down, cut out soap if he is just rinsing the hands. Lotion up 15 times a day. Samples were given. Something with ceramide would be best. No hot water. I would avoided foams and gels that are alcohol based, which will irritate the skin andagain, steroid effect of thinning of the skin was discussed at length. I will see him back in a few months if he would like. Should be seen at least every 2 years if he is needing clobetasol intermittently, and he can call me if the patch test is positive. We will go from there. VLV:TEMITOPE C: CONFIRM #: [id number] MINER BLASTING documented in this encounter Plan of Treatment Not on filedocumented as of this encounter Visit Diagnoses Diagnosis Contact dermatitis and other eczema due to other chemical products - Primary Contact dermatitis and other eczema, due to unspecified cause Other specified disease of sebaceous gla nds documented in this encounter Care Teams Protection Consultant Relationship Specialty Start Date End Date Trish Frausto MD PCP - General 09/01/05 08/22/18 [address] [place] [address] documented as of this encounter
--- OUTSIDE RECORDS SUMMARY | 2022-07-08 15:56 | XMS_ITS | Encounter Summary ---
:1955 Author Organization [facility] Address [address] [address] Care Team Providers Name Role Phone Trish Frausto MD Primary Care Provider Reason for Visit Reason Onset Date Comments SHOT,FLU 09/03/2014 Encounter Details Date Type Department Care Team Description 09/03/2014 Nursing Visit [facility] Need f or prophylactic Department vaccination and [address] [facility] inoculation against [place], [place] [address] influenza (Primary Dx) [phone] Social History Tobacco Use Types Packs/Day Years Used Date Smoking Tobacco: Never Alcohol Use Standard Drinks/Week Comments No 0 (1 standard drink = 0.6 oz pure alcoho l) Sex Assigned at Date Recorded Not on file documented as of this encounter Progress Notes Nilda Sy LPN - 09/03/2014 3:53 PM CST Flu shot given, see smartform. HER GOODS I ASSEMBLER documented in this encounter Plan of Treatment Not on filedocumented as of this encounter Visit Diagnoses Diagnosis Need for prophylactic vaccination and in oculation against influenza - Primary documented in this encounter Care Teams Product Development Worker Relationship Specialty Start Date End Date Trish Frausto MD PCP - General 09/01/05 08/22/18 [address] [place] [address] documented as of this encounter
--- OUTSIDE RECORDS SUMMARY | 2022-07-08 15:56 | XMS_ITS | Encounter Summary ---
:1955 Author Organization [employer] Address [address] [address] Care Team Providers Name Role Phone Trish Frausto MD Primary Care Provider Reason for Visit Reason Onset Date Comments Refill 03/07/2015 Encounter Details Date Type Department Care Team Description 03/07/2015 Refill [facility] Trish Frausto MD Refill [address] [facility] [address] [place], [place] [address] [place] [address] [phone] (Wo rk) Social History Tobacco Use Types Packs/Day Years Used Date Smoking Tobacco: Never Alcohol Use Standard Drinks/Week Comments No 0 (1 standard drink = 0.6 oz pure alcoho l) Sex Assigned at Date Recorded Not on file documented as of this encounter Nursing Notes Nia Vizcarra - 03/07/2015 1:00 PM CDT I called and spoke to the pt and he is aware of his need for this appt but he will call back at a later date to arrange it. Trish Frausto MD - 03/07/2015 12:52 PM CDT Please call pt and explain that it has been nearly 4 years since he was last seen in this clinic. For further refills, he will have to follow up. Interface, Out [employer] Prov Query - 03/07/2015 12:45 PM CDT Loratadine-Pseudoephedrine (LORATADINE-D 24HR) 10-240 MG tablet - VIOLATION #1: Medication is not assigned to a protocol. - VIOLATION #2: A qualifying visit was not found within the last 2 years of the patient record. - PROTOCOL: None Exists - LAST QUALIFYING VISIT: None - NEXT SCHEDULED VISIT: None - LAST REFILLED ON: 12/17/2014, QTY: 30, Refills: 0, Sig: take 1 tab by mouth daily. (unchanged) Powered by [employer], Reference: [id number], 03/07/2015 12:45:16 PM CDT, Pool: CHAN RN ([id number]) Cindy Martínez - 03/07/2015 12:44 PM CDT This prescription is for a controlled substance (CIII-CV). The order will print at your care unit printer. Please sign and fax to [facility] pharmacy Last fill from a Pharmacy on 12/18/2014 for a quantity of 30; WITH REFILLS. documented in this encounter Plan of Treatment Not on filedocumented as of this encounter Visit Diagnoses Not on filedocumented in this encounter Care Teams Blasting Contract Man Relationship Specialty Start Date End Date Trish Frausto MD PCP - General 09/01/05 08/22/18 [address] [place] [address] documented as of this encounter
--- OUTSIDE RECORDS SUMMARY | 2022-07-08 15:56 | XMS_ITS | Encounter Summary ---
:1955 Author Organization [facility] Address [address] [place] [address] Care Team Providers Name Role Phone Mitch Li MD Primary Care Provider Encounter Details Date Type Department Care Team Description 08/28/2020 Lab Visit [facility] Hand dermatitis [address] [place] [address] Social History Tobacco Use Types Packs/Day Years Used Date Smoking Tobacco: Never Smokeless Tobacco: Never Alcohol Use Standard Drinks/Week Comments No 0 (1 standard drink = 0.6 oz pure alcoho l) Sex Assigned at Date Recorded Not on file documented as of this encounter Plan of Treatment Not on filedocumented as of this encounter Procedures Procedure Name Priority Date/Time Associated Diagnosis Comme nts VITAMIN D Routine 08/28/2020 2:00 PM Hand dermatitis Result s for this 25-HYDROXY, TOTAL PRESIDENT PRACTICING UROLOGIST procedure are in the results section. CALCIUM Routine 08/28/2020 2:00 PM Hand dermatitis Result s for this PRESIDENT PRACTICING UROLOGIST procedure are i n the results section. documented in this encounter Results Calcium (CA) (08/28/2020 2:00 PM PRESIDENT PRACTICING UROLOGIST) P athologist Signature Calcium 9.4 8.4 - 10.4 08[facility]28/2020 [facility] 3:49 PM PRESIDENT PRACTICING UROLOGIST LABORATORY Specimen Anatomical Collection Method / Collection Time Recei joe Time (Source) Location / Volume Laterality Blood Venipuncture / 08/28/2020 2:00 08/28/2020 2:00 Unknown PM PRESIDENT PRACTICING UROLOGIST PM PRESIDENT PRACTICING UROLOGIST Nithya Torres MD LAB_1 Performing Organization Address City/State/ZIP Code Phon e Number [facility] [address] [place] [address] (ABNORMAL) Vitamin D 25-Hydroxy, Total (Inhouse) (08/28/2020 2:00 PM PRESIDENT PRACTICING UROLOGIST) P athologist Signature Vitamin D, 25 (L) 30 - 80 08/28/2020 [facility] 25-OH, Total ng/mL 7:21 PM PRESIDENT PRACTICING UROLOGIST LABORATORY Specimen Anatomical Collection Method / Collection Time Recei joe Time (Source) Location / Volume Laterality Blood Venipuncture / 08/28/2020 2:00 08/28/2020 2:00 Unknown PM PRESIDENT PRACTICING UROLOGIST PM PRESIDENT PRACTICING UROLOGIST Narrative [facility] - 08/28/2020 7:21 P M PRESIDENT PRACTICING UROLOGIST Expected values Deficiency: <20 ng/mL Insufficiency: 20-29 ng/mL Optimum: 30-80 ng/mL Possible toxicity: >80 ng/mL Nithya Torres MD LAB_1 Performing Organization Address City/[facility]/ZIP Code Phon e Number [facility] [address] [place] [address] documented in this encounter Visit Diagnoses Diagnosis Hand dermatitis Contact dermatitis and other eczema, due to unspecified cause documented in this encounter Care Teams [employer] Special War[employer] Medic Relationship Specialty Start Date End Date Mitch Li MD PCP - General Family Practice 08/23/18 [address] [place] [address] documented as of this encounter
--- OUTSIDE RECORDS SUMMARY | 2022-07-08 15:56 | XMS_ITS | Encounter Summary ---
:1955 [facility] Address [address], [place] [address] Care Team Providers Name Role Phone Trish Frausto MD Primary Care Provider Reason for Visit Reason Comments Refill Encounter Details Date Type Department Care Team Description 02/09/2013 Refill [facility] [place], PAOliviaC Refill [address] [facility] [address] [place], [place] [address] [place] [address] [phone] (Wo rk) Social History Tobacco Use Types Packs/Day Years Used Date Smoking Tobacco: Never Alcohol Use Standard Drinks/Week Comments No 0 (1 standard drink = 0.6 oz pure alcoho l) Sex Assigned at Date Recorded Not on file documented as of this encounter Nursing Notes Noemí Graham RN - 02/09/2013 5:09 PM CDT No Standing Orders Exist Last office visit: 05/18/12 Last time med was ordered:Loratadine-Pseudoephedrine (LORATADINE-D 24HR) 10-240 MG tablet 90 Tab 1 12/11/2011 Date: 12/11/11 Dispensed: 90 Number of refills: 1 Noemí Graham RN documented in this encounter Plan of Treatment Not on filedocumented as of this encounter Visit Diagnoses Not on filedocumented in this encounter Care Teams Medical Lab Scientist Relationship Specialty Start Date End Date Trish Frausto MD PCP - General 09/01/05 08/22/18 [address] [place] [address] documented as of this encounter
--- OUTSIDE RECORDS SUMMARY | 2022-07-08 15:56 | XMS_ITS | Encounter Summary ---
:1955 Author Organization [facility] Address [address], [place] [address] Care Team Providers Name Role Phone Trish Frausto MD Primary Care Provider Reason for Visit Reason Comments SHOT,FLU Encounter Details Date Type Department Care Team Description 09/17/2012 Office Visit [facility] fo r prophylactic [place] vaccination and [address] [facility] inoculation against [place], [place] [address] influenza (Primary Dx) [phone] Social History Tobacco Use Types Packs/Day Years Used Date Smoking Tobacco: Never Alcohol Use Standard Drinks/Week Comments No 0 (1 standard drink = 0.6 oz pure alcoho l) Sex Assigned at Date Recorded Not on file documented as of this encounter Last Filed Vital Signs Vital Sign Reading Time Taken Comments Blood Pressure - - Pulse - - Temperature 36.8 ??C (98.2 ??F) 09/18/2012 11:14 AM YOUTH LEADER Respiratory Rate - - Oxygen Saturation - - Inhaled Oxygen Concentration - - Weight - - Height - - Body Mass Index - - documented in this encounter Progress Notes Emily Corona LPN - 09/18/2012 11:15 AM CST Pt responded no to all questions regarding flu shot review.Emily Corona LPN H LEADER documented in this encounter Plan of Treatment Not on filedocumented as of this encounter Visit Diagnoses Diagnosis Need for prophylactic vaccination and in oculation against influenza - Primary documented in this encounter Care Teams Irs Agent Relationship Specialty Start Date End Date Trish Frausto MD PCP - General 09/01/05 08/22/18 [address] [place] [address] documented as of this encounter
--- OUTSIDE RECORDS SUMMARY | 2022-07-08 15:56 | XMS_ITS | Encounter Summary ---
:1955 Author Organization [facility] Address [address] [place] [id number] Care Team Providers Name Role Phone Trish Frausto MD Primary Care Provider Reason for Visit Reason Comments CONSULT allergic rhinitis Encounter Details Date Type Department Care Team Description 01/06/2017 Initial Consult [place] [facility] Karmen Prather, Mixed rhinitis (Primary Dx); [id number] [facility] PND (post-nasal drip); [place] [address] [facility] H/O penicillin-type antibiot ic allergy [phone] [place] [address] Social History Tobacco Use Types Packs/Day Years Used Date Smoking Tobacco: Never Alcohol Use Standard Drinks/Week Comments No 0 (1 standard drink = 0.6 oz pure alcoho l) Sex Assigned at Date Recorded Not on file documented as of this encounter Last Filed Vital Signs Vital Sign Reading Time Taken Comments Blood Pressure 136/74 01/06/2017 12:58 PM CDT Pulse 79 01/06/2017 12:58 PM CDT Temperature - - Respiratory Rate - - Oxygen Saturation 98% 01/06/2017 12:58 PM CDT Inhaled Oxygen Concentration - - Weight 99.8 kg (220 lb) 01/06/2017 12:58 PM CDT Height 182.9 cm (6') 01/06/2017 12:58 PM CDT Body Mass Index 29.84 01/06/2017 12:58 PM CDT documented in this encounter Patient Instructions Patient InstructionsKarmen Prather MD - 01/06/2017 1:33 PM CDT Call [phone] to schedule Penicillin/Amoxicillin allergy tests non urgently. This appointment lasts 2-3 hours. Eat before and bring things to do during the visit, since a major portion is waiting and watching for allergic symptoms. Antihistamines like Benadryl (diphenhydramine), Zyrtec (cetirizine) and Claritin (loratidine) interfere with the test, so do not take them 5 days prior to the appointment. No Dymista 7 days prior documented in this encounter Progress Notes Karmen Prather MD - 01/06/2017 2:10 PM CDT NAME: EUSEBIA ENGLE MR#: [id number] CSN: [id number] AUTHENTICATING CLINICIAN: Karmen Prather MD CONFIRM #: [id number] LOC: 514 CLINIC PROGRESS NOTE DATE OF VISIT: 01/06/2017 : 1955 CHIEF COMPLAINT: Rhinitis, postnasal drip, cough. HISTORY OF PRESENT ILLNESS: Kemal was last seen in allergy clinic in 2009, when his allergy tests were positive to grass pollen only. He returns for evaluation and management of episodic perennial increases in postnasal drainage that have triggered coughing, throat clearing and voice loss. His most recent episode started 3 weeks ago and is improving. These seem different than colds and can occur any time throughout the year. He uses fluticasone nasal spray episodically and it helps, especially with nasal congestion. He has had intermittent bleeding with more consistent use of it. Claritin-D, Zyrtec and fexofenadine have been less effective. Good sense of smell. No sinusitis. No sinus surgeries. No sinonasal trauma. No nasal saline irrigation. He snores. No apneas. Sleep restorative. No ocular symptoms. He has had 2 clinical pneumonias, treated as an outpatient with antibiotics. No wheezing or dyspnea.No inhaler use. No respiratory hospitalizations. Good exercise tolerance. No reflux symptoms. No food allergies or bee sting reactions. ADVERSE DRUG REACTIONS: Reviewed in the electronic health record. He had an itchy rash on his forearms that started 72 hoursafter completing amoxicillin for a URI in 2010. It lasted 3 or 4 days. He does not recall taking treatment for the rash. No other systemic symptoms. No blistering or peeling. No oral ulceration. No fever. PAST MEDICAL HISTORY: Significant for dyshidrotic eczema, herniorrhaphy in childhood, hyperlipidemia. FAMILY MEDICAL HISTORY: Positive for allergic rhinitis and asthma in his sibling, eczema in his mom and siblings. SOCIAL AND EXPOSURE HISTORY: He has lived in his current home for 2 years. No pets. No mold or water problems there. Never smoker. No environmental tobacco exposure. 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 Visited his sister's home in [place] 4 weeks ago, 1 week prior to his most recent exacerbation. OBJECTIVE: VITAL SIGNS: On the electronic health record. His pulse oximetry is 98% on room air. HEENT: His conjunctiva are clear. His right tympanic membrane is obscured by wax that is not removed. Left tympanic membrane is normal. His nasal mucosa has a marked nasal septal deviation that narrowsthe lower part of the right nasal cavity and is otherwise normal. His oropharynx is free of exudate. LUNGS: Clear to auscultation. HEART: Regular. EXTREMITIES: No digital clubbing. No lower extremity edema. After discussion, we elected not to repeat allergy tests today since it is unlikely to significantlychange management. ASSESSMENT: 1.Mixed allergic and non-allergic rhinitis. Grass pollen exposure at his sister's in [place] 4 weeks ago may have been the precipitating factor for his most recent episode versus infectious. 2.Postnasal drainage triggering cough. 3.Rash after amoxicillin; could represent an IgE-mediated drug allergy. PLAN: Treatment options discussed. Advised nasal saline irrigation every morning p.r.n. when postnasal drip is bothersome. We reviewed technique. Instead of fluticasone nasal spray, advised Dymista 1 squirt to each nostril b.i.d. p.r.n. He could also use this once daily as maintenance and increase it to twice daily during symptomatic flares. Return to the clinic as needed. BJG:TEMITOPE C: CONFIRM #: [id number] documented in this encounter Plan of Treatment Not on filedocumented as of this encounter Visit Diagnoses Diagnosis Mixed rhinitis - Primary Chronic rhinitis PND (post-nasal drip) Postnasal drip H/O penicillin-type antibiotic allergy Personal history of allergy to penicilli n documented in this encounter Care Teams Maintenance Controller Relationship Specialty Start Date End Date Trish Frausto MD PCP - General 09/01/05 08/22/18 [id number] [place] [address] documented as of this encounter
--- OUTSIDE RECORDS SUMMARY | 2022-07-08 15:56 | XMS_ITS | Clinical Summary ---
:1955 Author Organization [facility] [employer] [facility] [place] [address] Care Team Providers Name Role Phone Mitch Li MD Primary Care Provider [phone] Allergies Active Allergy Reactions Severity Noted Date Comments Amoxicillin Hives 04/24/2015 Medications Medication Sig Dispensed Refills Start End Date Status Date aspirin chewable 81 Chew 1 Tablet 30 Tablet 1 Active mg chewable (81 mg) by 2 tabletIndications: mouth or crush Acute ST elevation and give via myocardial nasogastric infarction (STEMI) tube once of anterior wall daily. (HC) nitroglycerin Place 1 Tablet 22 Tablet 0 A ctive (NITROSTAT) 0.4 mg (0.4 mg) under 2 sublingual the tongue tabletIndications: every 5 minutes Chest pain, if needed for unspecified type Chest Pain. ticagrelor Take 1 Tablet 28 Tablet 0 Activ e (BRILINTA) 90 mg (90 mg) by 2 tabletIndications: mouth [address] elevation daily. myocardial infarction (STEMI) of anterior wall (HC) azelastine 137 Inhale 1 [place] 30 mL 11 Active mcg/actuation into affected 2 (ASTELIN) nasal nostril(s) in sprayIndications: the morning and Chronic vasomotor 1 [place] in the rhinitis evening. rosuvastatin Take 1 Tablet 90 Tablet 1 Act collins (CRESTOR) 40 mg (40 mg) by 2 tabletIndications: mouth at ST elevation bedtime. Due myocardial for cardiology infarction follow up in involving left September 2022. anterior descending (LAD) coronary artery (HC), Hyperlipidemia, unspecified hyperlipidemia type metoprolol Take 1 Tablet 90 Tablet 3 Activ e succinate (Toprol (25 mg) by 2 XL) 25 mg mouth once Sustained-Release daily. tabletIndications: Acute ST elevation myocardial infarction (STEMI) of anterior wall (HC) metoprolol Take 0.5 90 Tablet 1 06/17/20 Discontin ued succinate (TOPROL Tablets (25 mg) 2 22 (Reorder XL) 50 mg by mouth once (E-can sarah not sustained-release daily. Due for sent)) tabletIndications: cardiology Acute ST elevation follow up in myocardial September 2022. infarction (STEMI) of anterior wall (HC) Active Problems Problem Noted Date Bradycardia 06/02/2022 Anemia 06/01/2022 Left ventricular dysfunction( 30-35% post STEMI 022, 45-50% 01/2022). 10/13/2021 STEMI left anterior descending (LAD) (HC); HOLLIE to 100% prox LAD 10/08/2021 10/08/2021 S/P total knee arthroplasty, right 10/17/2018 Obstructive sleep apnea 01/12/2018 Hyperlipidemia 12/10/2017 Osteoarthritis of both knees 12/10/2017 Eczema 04/24/2015 Allergy 04/24/2015 Resolved Problems Problem Noted Date Resolved Date Hypovolemia 06/02/2022 06/17/2022 JUAN MANUEL (acute kidney injury) 06/01/2022 06/17/2022 Dizziness 06/01/2022 06/17/2022 Hyperkalemia 06/01/2022 06/17/2022 Overweight 12/10/2017 06/05/2022 Encounters Date Type Specialty Care Team Description 07/03/2022 Ancillary Procedure Arrived 07/03/2022 Travel 06/18/2022 Orders Only Mitch Li <No scans a ttached> MD Carli 06/17/2022 Office Visit Mitch Li Medicare AN [facility] MD Carli (subsequent) Vi sit 06/17/2022 Travel 06/09/2022 Telephone Cody Lewis MD 06/06/2022 Orders Only Mitch Li <No scans a ttached> MD Carli 06/05/[address] [facility] 06/01/2022 - 05/15, hypotension) 06/05/2022 Orders Only LiMitch <No scans a ttached> MD Carli 06/05/2022 Travel 06/03/2022 Patient Outreach Rebeka Orozco Prim ary RN Care RN Management; Hos pital F/U (Lace=52) 06/01/2022 - Emergency [place] JUAN MANUEL (acute kidney injury) (HC) (Primary Dx); 06/02/2022 BONY Howard Dizziness; Nabor Page Hyperkalemia; DO Murphy Acute ST elevation myocardial infarction (STEMI) of anterior wall (HC); Dinah Huber Coronary artery disease, unspecified vessel or lesion type, unspecified whether angina present, unspecified whether [place] or transplanted heart MD Kayla Howard Thao Nguyen L, PLASTER TENDER Discharge Summary - Nabor Page DO - 06/02/2022 9:27 AM CDT Images from the original not e were not included. HOSPITALIST DISCHARGE SUMMAR Y ? ? [facility] Admission Date: 06/01/2022 Discharge Date: 06/02/2022 Discharge Plan: Mitch reece was discharged to home. Principal Diagnosis JUAN MANUEL (acute kidney injury) (H C) Hospital Problem List Principal Problem: JUAN MANUEL (acute kidney injury) ( HC) Active Problems: Anemia Dizziness Hyperkalemia Bradycardia Hypovolemia ADDITIONAL COMMENTS REGARDIN G DIAGNOSIS SPECIFICITY Additional Diagnosis Informa tion ?? Hospital Course Mr. Mitch Catherine is a [age] y.o. male with a history of CAD who presents with dizziness for the past month, called the clinic to get some med adjustments via phone after he'd lost 60 lbs with becoming more healthy with his lifes tyle and was told to present to the ER. No history of bleeding. No trauma. No chest pain or shortness of breath. Has noted HR in the 40s with waking per his fitness tracker. Not eating meat per . Metoprolol was decreased, lo sartan and spironolactone were held, and he was rehydrated. He feels much better, HR improved into the 60s and potassium normalized, creatinine is trending down. He was noted to have anemia without history of bleeding, this was stable with iron studies and B12 level still pending at discharge--he will follow up for outpatient work up of this. Recommendations for Outpatie nt Provider ? ? PCP: Mitch Li MD Recommendations for outpati ent provider Specific recommendations to be addressed at the follow up visit - Recheck kidney function, ane larry work up (and follow up on labs pending here), recheck potassium. Reassess cardiac meds, determine if needs to see cardiology sooner than scheduled. Reason(s) medications were s topped or changed - Decreased metoprolol to 1/2 prior dose due to bradycardia and dizziness, low BP. Stopped spironolactone due to hyperkalemia. Stopped losartan due to low BP and hyperkalemia, JUAN MANUEL. Anticoagulation/Oxygen Recom mendations - None Tests and Studies needed - Potassium, Creatinine, and H emoglobin Discharge Medications Your Home Medicines CHANGE how you take these me dicines Instructions metoprolol succinate 50 mg s ustained-release tablet For diagnoses: Acute ST elev ation myocardial infarction (STEMI) of anterior wall (HC) What changed: how much to ta ke Commonly known as: TOPROL XL Take 0.5 Tablets (25 mg) by mouth once daily. Due for cardiology follow up in September 2022. CONTINUE taking these medici ivis Instructions aspirin chewable 81 mg chewa ble tablet For diagnoses: Acute ST elev ation myocardial infarction (STEMI) of anterior wall (HC) Chew 1 Tablet (81 mg) by mo uth or crush and give via nasogastric tube once daily. azelastine 137 mcg/actuation nasal spray For diagnoses: Chronic vasom otor rhinitis Commonly known as: ASTELIN Inhale 1 [place] into affecte d nostril(s) in the morning and 1 [place] in the evening. nitroglycerin 0.4 mg subling ual tablet For diagnoses: Chest pain, u nspecified type Commonly known as: NITROSTAT Place 1 Tablet (0.4 mg) und er the tongue every 5 minutes if needed for Chest Pain. rosuvastatin 40 mg tablet For diagnoses: ST elevation myocardial infarction involving left anterior descending (LAD) coronary artery (HC), Hyperlipidemia, unspecified hyperlipidemia type Commonly known as: CRESTOR Take 1 Tablet (40 mg) by mo uth at bedtime. Due for cardiology follow up in September 2022. ticagrelor 90 mg tablet For diagnoses: Acute ST elev ation myocardial infarction (STEMI) of anterior wall (HC) Commonly known as: BRILINTA Take 1 Tablet (90 mg) by mo uth 2 times daily. STOP taking these medicines losartan 50 mg tablet Commonly known as: COZAAR spironolactone 25 mg tablet Commonly known as: ALDACTONE Where to get your medicines Prescriptions for these medi cines or supplies were NOT printed nor sent to your preferred pharmacy. Check with your doctor if you have questions. Check with your doctor if yo u have questions. ?? metoprolol succinate 50 m g sustained-release tablet Pertinent Findings / Procedu res First weight: 78.5 kg (173 l b) (06/01/22 1428) Last weight: 78.9 kg (174 lb) (06/02/22503) Most Recent Vital Signs Last 36 Hours BP: 108/66 (06/02/22920) B P Min: 90/51 Max: 130/73 Pulse: 67 (06/02/22920) Pu lse Min: 42 Max: 67 Resp: 18 (06/02/22832) Res p Min: 16 Max: 18 SpO2: 99 % (06/02/22832) S pO2 Min: 99 % Max: 100 % Temp: 98.4 ??F (36.9 ??C) (0 06/02/22832) Temp Min: 97.1 ??F (36.2 ??C) Max: 98.4 ??F (36.9 ??C) Most Recent O2 Device Last L PM (if NC) Last FiO2 (if BiPAP/vent) Room Air (06/02/22832) Last Wt: 78.9 kg (174 lb) (0 06/02/22503) Change from prior: 1.5 kg current BMI: 22.82 EXAM: Mitch is alert, no a cute distress. Affect appropriate. Oropharynx pink and moist, no adenopathy. Heart RRR without murmur. Lungs clear to auscultation. Abdomen soft, nontender, bowel sounds pres ent. Extremities without clu bbing, cyanosis, or edema. Brisk capillary refill. Recent Labs 06/02/22 0654 06/01/22 1443 WBC -- 8.1 RBC -- 3.93 L HGB 11.4 L 11.8 L HCT -- 36.9 L MCV 94 94 MCH -- 30.0 MCHC -- 32.0 PLT -- 193 MPV -- 10.3 Recent Labs 06/02/22 0654 06/01/22 1443 SODIUM 141 140 POTASSIUM 4.6 5.4 H CHLORIDE 111 H 108 [id number] 22 26 BUN 28 H 30 H CREATININE 2.03 H 2.40 H GLUCOSE 83 100 CALCIUM 9.0 9.6 Recent Labs 06/01/22 1443 ALKPHOSPH 74 PROTEIN 6.9 BILITOTAL 0.8 AST 25 ALT 30 Recent Labs 06/01/22 1443 TROPONINI 0.026 Consultants None Diet / Activity / Follow-Up After Discharge Orders and I nstructions Cardiac diet: - make food choices that ar e considered heart healthy - eat more fresh fruits and vegetables: - aim for two or more servi ngs of fruit each day - eat three or more serving s of vegetables each day - eat whole grains. - limit sodium (salt): - do not add extra salt at the table - omit or reduce salt in ba dagmar and cooking - eat more foods you make at home - eat more chicken, fish, an d lean pork, eat less red meat - bake, grill, or broil meat s, limit fried foods - eat two to three servings of low-fat or fat-free dairy foods each day - use these sparingly: veget able oil and spray, tub or squeeze margarine, low or non-fat salad dressing sparingly - read labels to avoid trans -fats For your safety: If prescribed, use your can e, walker, or crutches as directed. Carry a phone (cordSidewalk or akua parker) with you at all times in case of an emergency Reduce your chance of fallin g in your home by: - removing throw rugs - using a night light - clearing the path from you r bed to the bathroom. Primary Care Provider maci ragland up appointment(s) Micth Li MD in 3-5 days. When to follow up: 1 to 5 d ays When is patient being disch arged?: Today Up as tolerated It is important to slowly r eturn to your regular level of activity. Start with 5-10 minutes at one time and slowly build to 30 minutes at one time. Save your energy by spreading out activities that make you tired. Rest as needed. When should you be concerne d? Your health care provider i s: Mitch Li MD Please call your health care provider if: - you feel you are getting w orse or having an increase in problems - fever greater than 101 deg vivian - increasing shortness of br eath - any signs of infection (in creasing redness, swelling, tenderness, warmth, change in appearance, or increased drainage) - blood in your urine or sto ol - coughing or vomiting blood - nausea (upset stomach) and vomiting and/or diarrhea that will not stop - severe pain that is not re lieved by medicine, rest or ice Call 911 if you feel you are having a medical emergency. [facility]? The reason(s) you were in [facility] is/are dizziness caused by too much medicine and affecting your kidneys. Pending Studies Lab results that may not be resulted at time of discharge: (From admission through now) Start Ordered 06/02/22 0616 IRON PLUS IRO N BINDING CAP TOMORROW AM, EARLY AM 06/01/22 1739 06/01/22 1745 VITAMIN B12 O NE TIME, GAMAL 06/01/22 1739 06/01/22 1745 FERRITIN ONE TIME, GAMAL 06/01/22 1739 06/01/22 1745 RETICULOCYTES ONE TIME, GAMAL 06/01/22 1739 Total time spent on discharg e coordination: 22 minutes. Patient was seen and examined today. Nabor Page DO Hospitalist, [facility] ? ? [phone] Cc: Abraham Christopher MD, [facility] 06/01/2022 Office Visit Dizzy 06/01/2022 Travel 06/01/2022 Nurse Triage Mitch Li MD Dizziness 04/24/2022 Refill Abraham Christopher MD Refill Request 04/20/2022 Office Visit Adam Guzman MD Abelardo rgies (Follow up allergies) 04/20/2022 Travel 04/16/2022 Telephone Mitch Li MD Results (Echo report from 01-19-2022) from Last 3 Months Immunizations Name Administration Dates Next Due Amb Influenza, Inactivated AIIV4 (Age 1006/26/2020 65+ Years) Preserv Free COVID-19 vaccine (Moderna 12/08/2020, 11/10/2020 100mcg/0.5mL) PF, MDV COVID-19 vaccine (Moderna Booster 03/10/2022, 07/16/2021 50mcg/0.25mL) PF, MDV Hepatitis B, Unspecified 07/02/1994, 01/21/1994, 12/18/1993 Influenza Virus, Unspecified 09/03/2014, 09/18/2012, 010, 06/17/2009, 07/03/2008, 08/10/2007 Influenza, IIV4 06/01/2019, 06/25/2015, 09/03/2014 Influenza, IIV4 (=>6mos) MDV 09/19/2018 Influenza, Inactivated AIIV4 (Age 65+ 07/16/2021 Years) Preserv Free Pneumococcal Conj 20-valent (Prevnar 01/12/2022 20) Pneumococcal Poly,23-Valent 12/24/2020 (Pneumovax) Td (Age >=7 Years) 07/13/1994, 09/12/1984 Td, Preservative Free (age >= 7 05/14/2005 Years) Tdap 02/18/2021, 09/15/2010 Zoster (Zostavax-ZVL, live) 07/05/2015 Family History Medical History Relation Name Comments Alcoholism Maternal Grandfather Alcoholism Maternal Grandmother Diabetes Mother Cancer-prostate Neg. 1 Heart attack Paternal Grandfather Cancer-colon Sister d 67 Anesthesia Problem No Family History Relation Name Status Comments Maternal Grandfather Maternal Grandmother Mother Neg. 1 Neg. 2 Paternal Grandfather Sister Social History Tobacco Use Types Packs/Day Years Used Date Never Smoker Smokeless Tobacco: Never Used Tobacco Cessation: Counseling Given: Yes Alcohol Use Standard Drinks/Week Comments Not Currently 0 (1 standard drink = 0.6 oz pure alcoho l) Sex Assigned at Date Recorded Not on file COVID-19 Exposure Response Date Recorded In the last 10 days, have you been in contact with No / Unsu re 07/03/2022 9:31 AM CDT someone who was confirmed or suspected to have Coronavirus/COVID-19? Obstetrics History Last Filed Vital Signs Vital Sign Reading Time Taken Comments Blood Pressure 123/67 06/17/2022 1:57 PM CDT Pulse 52 06/17/2022 1:57 PM CDT Temperature 36.9 ??C (98.4 ??F) 06/02/2022 8:33 AM CDT Respiratory Rate 18 06/02/2022 8:33 AM CDT Oxygen Saturation 98% 06/17/2022 1:57 PM CDT Inhaled Oxygen Concentration - - Weight 79.8 kg (176 lb) 06/17/2022 1:57 PM CDT Height 185.4 cm (6' 1) 06/17/2022 1:57 PM CDT Body Mass Index 23.22 06/17/2022 1:57 PM CDT Plan of Treatment Upcoming Encounters Date Type Specialty Care Team Description 07/15/2022 Orders Only Lab, [facility] Maintenance Due Date Last Done Comments Zoster (shingles) series for age 1208/30/2015 07/05/2015 50+ (1 of 2) Colonoscopy through age 75 08/01/2020 08/01/2015, 5 COVID-19 vaccine series (5 - 05/05/2022 03/10/2022, 021, Booster for Moderna series) 12/08/2020, Addition al history exists Influenza for age 65+ 05/14/2022 07/16/2021, 06/26/2020, 06/01/2019, Additional history exists BMI (ht and wt on same day) for 06/17/2023 06/17/2022, 10/15, age 18+ 01/14/2021, Additional history exists Medicare Wellness for age 65+ 06/17/2023 06/17/2022, 2020 Depression screening for age 12+ 06/18/2023 06/18/2022, 01/2022, 06/01/2022, Additional history exists Lipids for age 45-75 06/17/2027 06/17/2022, 12/09/2021, 10/08/2021, Additional history exists Tetanus booster 02/18/2031 02/18/2021, 09/15/2010, 05/14/2005, Additional history exists Hepatitis C screening for age Completed 06/25/2015 18-79 Tdap Completed 02/18/2021, 09/15/2010 Pneumococcal series for age 65+ Completed 01/12/2022, 12/12 Procedures Procedure Name Priority Date/Time Associated Diagnosis Comme nts US RENAL AND BLADDER Routine 07/03/2022 10:11 Stage 3b chronic Results for this COMPLETE AM CDT kidney disease (HC) procedur e are in the results section. PSA TOTAL SCREEN Routine 06/17/2022 2:50 Prostate cancer Resul ts for this PM CDT screening procedure are i n the results section. LIPID PANEL W REFLEX Routine 06/17/2022 2:50 Hyperlipidemia, R esults for this MEASURED LDL PM CDT unspecified procedure are i n hyperlipidemia type the resu lts section. FERRITIN Routine 06/17/2022 2:50 Anemia, unspecified Resul ts for this PM CDT type procedure are i n the results section. HEMOGLOBIN Routine 06/17/2022 2:50 Anemia, unspecified Resul ts for this PM CDT type procedure are i n the results section. BASIC METABOLIC PANEL Routine 06/17/2022 2:50 JUAN MANUEL (acute kidne y Results for this PM CDT injury) (HC) procedure are i n the results section. BASIC METABOLIC PANEL Routine 06/05/2022 12:13 JUAN MANUEL (acute kidn ey Results for this PM CDT injury) (HC) procedure are i n the results section. HEMOGLOBIN Routine 06/05/2022 12:13 Anemia, unspecified Resu lts for this PM CDT type procedure are i n the results section. SCAN-CARDIAC STRIP 06/02/2022 9:26 AM CDT MAGNESIUM GAMAL 06/02/2022 6:54 Results for this AM CDT procedure are i n the results section. IRON PLUS IRON Early AM 06/02/2022 6:54 Results fo r this BINDING CAP AM CDT procedure are i n the results section. HEMOGLOBIN Early AM 06/02/2022 6:54 Results for this AM CDT procedure are i n the results section. BASIC METABOLIC PANEL Early AM 06/02/2022 6:54 Res ults for this AM CDT procedure are i n the results section. SCAN-CARDIAC STRIP 06/01/2022 11:39 PM CDT URINALYSIS Timed 06/01/2022 8:27 Results for this MICROSCOPIC PM CDT procedure are i n the results section. URINE ALBUMIN TO Today 06/01/2022 8:27 Results for this CREATININE RATIO, PM CDT procedure are in RANDOM the results section. UA W/ SEDIMENT EXAM Today 06/01/2022 8:27 Resul ts for this REFLEXED PER CRITERIA PM CDT proced ure are in the results section. SCAN-CARDIAC STRIP 06/01/2022 6:21 PM CDT COVID 19 STAT 06/01/2022 3:49 Results for this PM CDT procedure are i n the results section. COVID 19 COLLECTION STAT 06/01/2022 3:49 Resul ts for this PM CDT procedure are i n the results section. RETICULOCYTES GAMAL 06/01/2022 2:43 Results for this PM CDT procedure are i n the results section. FERRITIN GAMAL 06/01/2022 2:43 Results for this PM CDT procedure are i n the results section. VITAMIN B12 GAMAL 06/01/2022 2:43 Results for this PM CDT procedure are i n the results section. TROPONIN I GAMAL 06/01/2022 2:43 Results for this PM CDT procedure are i n the results section. MAGNESIUM GAMAL 06/01/2022 2:43 Results for this PM CDT procedure are i n the results section. CBC WITH AUTO STAT 06/01/2022 2:43 Results for this DIFFERENTIAL PM CDT procedure are i n the results section. COMP METABOLIC PANEL STAT 06/01/2022 2:43 Resu lts for this PM CDT procedure are i n the results section. CBC WITH AUTO STAT 06/01/2022 2:43 Results for this DIFFERENTIAL PM CDT procedure are i n the results section. EKG 12 LEAD STAT 06/01/2022 2:35 Results for this PM CDT procedure are i n the results section. from Last 3 Months Results US RENAL AND BLADDER COMPLETE (07/03/2022 10:11 AM CDT) Anatomical Region Laterality Modality Abdomen, AORTA, KIDNEYS Ultrasound Specimen (Source) Anatomical Collection Method Collection Time Re ceived Time Location / / Volume Laterality 07/03/2022 2:09 PM CDT Impressions 07/03/2022 2:09 PM CDT Normal renal ultrasound. Dictated by Scott Villeda MD @ Jul 03 ??2:09PM (Electronically Signed) ?? Narrative 07/03/2022 2:09 PM CDT For Patients: ??As a result of the Cures Act, medical imaging exams and procedure report s are released immediately into [facility]. ??You may view this report before your referring provider. ??If you have questions, please contact your health care provider. CLINICAL HISTORY: Chronic kidney disease COMPARISON: none TECHNIQUE: Bradley scale and color Doppler images were acquired of the kidneys and urinary bladder. FINDINGS: Sonographic images reveal a symmetric ap pearance of the kidneys. There is no evidence of hydronephrosis, mass or calculus. The right kidney measures 10.3cm in length and the left kidney measures 9.4cm i n length. The renal cortex appears of no rmal thickness. Normal color Doppler images of both kidneys. The urinary bladder appears normal. Prev oid bladder volume 76 cc. There is no evidence of bladder calculi or diverticula. Procedure Note Scott Villeda MD - 07/03/2022For matting of this note might be different from the original. For Patients: As a result of the Cures Act, medical imaging exams and procedure reports are released immediately into your electronic medical record. You may view this report before your referring provider. If you have questions, please contact yo health care provider. CLINICAL HISTORY: Chronic kidney disease COMPARISON: none TECHNIQUE: Bradley scale and color Doppler images were acquired of the kidneys and urinary bladder. FINDINGS: Sonographic images reveal a symmetric ap pearance of the kidneys. There is no evidence of hydronephrosis, mass or calculus. The right kidney measures 10.3cm in length and the left kidney measures 9.4cm in length. The renal cortex appears of normal thickness. Norm al color Doppler images of both kidneys. The urinary bladder appears normal. Prev oid bladder volume 76 cc. There is no evidence of bladder calculi or diverticula. IMPRESSION: Normal renal ultrasound. Dictated by Scott Villeda MD @ Jul 03 2:09PM (Electronically Signed) Mitch Li MD US LIPID PANEL W REFLEX MEASURED LDL (06/17/2022 2:50 PM CDT) Patholo gist Method Time Signature CHOLESTEROL,TOTAL 120 100 - 199 06/18/2022 [facility] mg/dL 3:27 PM CDT [facility] TRIGLYCERIDES 90 <150 06/18/2022 [facility] mg/dL 3:27 PM CDT [facility] HDL CHOLESTEROL 51 >40 mg/dL 06/18/2022 [facility] 3:27 PM CDT [facility] NON-HDL 69 <145 06/18/2022 [facility] CHOLESTEROL mg/dl 3:27 PM CDT [facility] CHOL/HDL RATIO 2.35 <4.50 06/18/2022 [facility] 3:27 PM CDT [facility] LDL CHOLESTEROL 51 <=130 06/18/2022 [facility] mg/dL 3:27 PM CDT [facility] VLDL CHOLESTEROL 18 <=30 06/18/2022 [facility] mg/dL 3:27 PM CDT [facility] PROVIDER ORDERED RANDOM 06/18/2022 [facility] STATUS 3:27 PM CDT [facility] Specimen Anatomical Collection Method / Collection Time Recei joe Time (Source) Location / Volume Laterality Blood BLOOD SPECIMEN / Venipuncture / 06/17/2022 2:50 2021 2:51 Unknown Unknown PM CDT PM CDT Mitch Li MD CHEMISTRY Performing Organization Address City/State/ZIP Code Phon e Number [facility] [address] [place] [address] [place] [address] [facility] [address] LABORATORY (ABNORMAL) HEMOGLOBIN (06/17/2022 2:50 PM CDT)Only the most recent of3 results within the time period is included. P athologist Signature HEMOGLOBIN 11.9 (L) 13.5 - 06/17/2022 [facility] 17.5 g/dL 2:54 PM CDT [facility] MCV 94 80 - 100 06/17/2022 [facility] fL 2:54 PM CDT [facility] Specimen Anatomical Collection Method / Collection Time Recei joe Time (Source) Location / Volume Laterality Blood BLOOD SPECIMEN / Venipuncture / 06/17/2022 2:50 2021 2:51 Unknown Unknown PM CDT PM CDT Mitch Li MD HEMATOLOGY Performing Organization Address City/State/ZIP Code Phon e Number [facility] [address] [place] [address] FERRITIN (06/17/2022 2:50 PM CDT)Only the most recent of2 resultswithin the time period is included. P athologist Signature FERRITIN 227.6 22.0 - 06/18/2022 [facility] 275.0 ng/mL 3:48 PM CDT [facility] LAB[facility] Specimen Anatomical Collection Method / Collection Time Recei joe Time (Source) Location / Volume Laterality Blood BLOOD SPECIMEN / Venipuncture / 06/17/2022 2:50 2021 2:51 Unknown Unknown PM CDT PM CDT Mitch Li MD CHEMISTRY Performing Organization Address City/[facility]/ZIP Code Phon e Number [facility] [id number] [place] [address] LABORATORY-CENTRAL 2000 LABORATORY (ABNORMAL) BASIC METABOLIC PANEL (06/17/2022 2:50 PM CDT)Only the most recent of 3 resultswithin the time period is included. Patholo gist Method Time Signature SODIUM 139 135 - 145 06/18/2022 [facility] mmol/L 3:26 PM CDT LABORATORY-[facility] TRAL LABORATORY POTASSIUM 4.6 3.5 - 5.0 06/18/2022 [facility] mmol/L 3:26 PM CDT LABORATORY-[facility] TRAL LABORATORY CHLORIDE 108 98 - 110 06/18/2022 [facility] mmol/L 3:26 PM CDT LABORATORY-[facility] TRAL LABORATORY CO2,TOTAL 22 21 - 31 06/18/2022 [facility] mmol/L 3:26 PM CDT LABORATORY-[facility] TRAL LABORATORY ANION GAP 9 5 - 18 06/18/2022 [facility] 3:26 PM CDT LABORATORY-[facility] TRAL LABORATORY GLUCOSE 90 65 - 100 06/18/2022 [facility] mg/dL 3:26 PM CDT LABORATORY-[facility] TRAL LABORATORY CALCIUM 9.0 8.5 - 10.5 06/18/2022 [facility] mg/dL 3:26 PM CDT LABORATORY-[facility] TRAL LABORATORY BUN 27 (H) 8 - 25 06/18/2022 [facility] mg/dL 3:26 PM CDT LABORATORY-[facility] TRAL LABORATORY CREATININE 2.07 (H) 0.72 - 06/18/2022 [facility] 1.25 mg/dL 3:26 PM CDT LABORATORY-[facility] TRAL LABORATORY BUN/CREAT RATIO 13 10 - 20 06/18/2022 [facility] 3:26 PM CDT LABORATORY-[facility] TRAL LABORATORY eGFR 34 (L) >90 06/18/2022 [facility] mL/min/1.7 3:26 PM CDT LABORATORY-SAFIA 3m2 TRAL LABORATORY Comment: As of 2021, eGFR is calcu lated by the CKD-EPI creatinine equation without race adjustment. eGFR can be inf luenced by muscle mass, exercise, and diet. The reported eGFR is an estimation only and is only applicable if the renal function is stable. Specimen Anatomical Collection Method / Collection Time Recei joe Time (Source) Location / Volume Laterality Blood BLOOD SPECIMEN / Venipuncture / 06/17/2022 2:50 2021 2:51 Unknown Unknown PM CDT PM CDT Mitch Li MD CHEMISTRY Performing Organization Address City/State/ZIP Code Phon e Number [employer] [address] [place] [address] LABORATORY-CENTRAL 2000 LABORATORY PSA TOTAL SCREEN (06/17/2022 2:50 PM CDT) P athologist Signature PSA TOTAL 0.86 <4.00 06/18/2022 [facility] (SCREEN) ng/mL 3:48 PM CDT LABORATORY-[facility] LABORATORY Specimen Anatomical Collection Method / Collection Time Recei joe Time (Source) Location / Volume Laterality Blood BLOOD SPECIMEN / Venipuncture / 06/17/2022 2:50 2021 2:51 Unknown Unknown PM CDT PM CDT Narrative [facility] - 06/18/2022 3:48 PM CDT The [employer] Assistant PSA assay is a Chemiluminescent Microparticle Immunoassay(CMIA). Assay values ob tained with different assay methods aj ot be used interchangeably due to differences in assay methods and reagent specificity. Mitch Li MD LABORATORY Performing Organization Address City/State/ZIP Code Phon e Number [employer] [address] [place] [id number] LABORATORY-CENTRAL 2000 LABORATORY SCAN-CARDIAC STRIP (06/02/2022 9:26 AM CDT) Narrative This result has an attachment that is no t available. Scanner OTHER IRON PLUS IRON BINDING CAP (06/02/2022 6:54 AM CDT) athologist Signature IRON 78 31 - 144 06/02/2022 [facility] ug/dL 6:42 PM CDT LABORATORY-CENT RAL LABORATORY UIBC 182 06/02/2022 [facility] HE[facility] (UNSATURATED) 6:42 PM CDT LABORATORY-SAFIA T RAL LABORATORY IRON BINDING 260 245 - 400 06/02/2022 [facility] CAPACITY ug/dL 6:42 PM CDT LABORATORY-[facility]ENT [facility] LABORATORY IRON,% 30 20 - 55 % 06/02/2022 [facility] SATURATION 6:42 PM CDT LABORATORY-CENT [facility] LABORATORY Specimen Anatomical Collection Method Collection Time Receive d Time (Source) Location / / Volume Laterality Blood BLOOD SPECIMEN / Butterfly / 06/02/2022 6:54 AM 06/02 6:57 Unknown Unknown CDT AM CDT Nabortheodore Rank[facility]ignesh [facility] CHEMISTRY Performing Organization Address City/[facility]/ZIP Code Phon e Number [employer] [address] [place] [address] LABORATORY-CENTRAL 2000 LABORATORY MAGNESIUM (06/02/2022 6:54 AM CDT)Only the most recent of2 resultswithin the time period is included. athologist Signature MAGNESIUM 2.3 1.6 - 2.6 06/02/2022 [place] mg/dL 8:31 AM CDT [facility] LABORATORY Specimen Anatomical Collection Method Collection Time Receive d Time (Source) Location / / Volume Laterality Blood BLOOD SPECIMEN / Butterfly / 06/02/2022 6:54 AM 06/02 6:57 Unknown Unknown CDT AM CDT Nabor Engelvalor [facility] DO CHEMISTRY Performing Organization Address City/State/ZIP Code Phon e Number [facility] [address] [place] [address] SCAN-CARDIAC STRIP (06/01/2022 11:39 PM CDT) Narrative This result has an attachment that is no t available. Scanner OTHER (ABNORMAL) URINALYSIS MICROSCOPIC (06/01/2022 8:27 PM CDT) Analysis Performed At Patho logist Time Signature RBC 3-5 (A) 0-2, None 06/01/2022 [place] Seen /HPF 9:02 PM T [facility] LABORATORY WBC 0-2 0-2, 3-5, 06/01/2022 [place] None Seen 9:02 PM CDT [facility] /HPF LABORATORY BACTERIA Rare None Seen, 06/01/2022 [place] Rare, Few 9:02 PM [facility] CENTER Bacteria/H LABORATORY PF EPITHELIAL Few None Seen, 06/01/2022 [place] CELLS Few 9:02 PM T [facility] Epi/HPF LABORATORY Specimen Anatomical Collection Method Collection Time Receive d Time (Source) Location / / Volume Laterality Urine URINE SPECIMEN / Non-Blood / 06/01/2022 8:27 PM 06/01 8:35 Unknown Unknown CDT PM CDT Nabor Page DO URINE Performing Organization Address City/State/ZIP Code Phon e Number [facility] [address] [place], [place] [id number] (ABNORMAL) URINE ALBUMIN TO CREATININE RATIO, RANDOM (06/01/2022 8:27 PM CDT) Patholo gist Method Time Signature ALB RAND URINE 47.6 mg/L 06/01/2022 [place] 8:56 PM [facility] LABORATORY CREATININE,URI 0.43 g/L 06/01/2022 [facility] 8:56 PM [facility] LABORATORY ALBUMIN TO 110.7 (H) <30.0 mg/g 06/01/2022 [place] CREATININE creat 8:56 PM [facility] RATIO,RAND UR LABORATORY PROTEIN, URINE 30 (A) Negative 06/01/2022 [facility] mg/dL 8:56 PM [facility] LABORATORY Specimen Anatomical Collection Method Collection Time Receive d Time (Source) Location / / Volume Laterality Urine URINE SPECIMEN / Non-Blood / 06/01/2022 8:27 PM 06/01 8:35 Unknown Unknown CDT PM CDT Narrative [facility] - 8:56 PM CDT If Albumin to Creatinine Ratio is elevated, consider the following: ? Elevations seen with incipient nephr opathy associated ?? with diabetes mellitus or hypertensi on. Stress, exercise, ?? hematuria, and urinary tract infecti on may also produce ?? elevated results. If clinically marilin cated, confirm with ?? 24 Hour Albumin to Creatinine Ratio. Nabor Page DO URINE Performing Organization Address City/State/ZIP Code Phon e Number [facility] [address] [place] [address] (ABNORMAL) UA W/ SEDIMENT EXAM REFLEXED PER CRITERIA (06/01/2022 8:27 PM T) [facility] Method Time Signature COLOR Yellow Yellow Color 06/01/2022 [place] 9:02 PM [facility] LABORATORY CLARITY Clear Clear 06/01/2022 [place] Clarity 9:02 PM [facility] LABORATORY SPECIFIC 1.010 1.010, 06/01/2022 [facility] GRAVITY,URINE 1.015, 9:02 PM [facility] 1.020, 1.025 LABORATORY PH,URINE 7.0 6.0, 7.0, 06/01/2022 [place] 8.0, 5.5, 9:02 PM [facility] 6.5, 7.5, LABORATORY 8.5 UROBILINOGEN, Normal Normal EU/dl 06/01/2022 [facility] QUALITATIVE 9:02 PM [facility] LABORATORY PROTEIN, 30 (A) Negative 06/01/2022 [facility] URINE mg/dL 9:02 PM [facility] LABORATORY GLUCOSE, Negative Negative 06/01/2022 [facility] URINE mg/dL 9:02 PM [facility] LABORATORY KETONES,URINE Negative Negative 06/01/2022 [facility] mg/dL 9:02 PM [facility] LABORATORY BILIRUBIN,URI Negative Negative 06/01/2022 [facility] NE 9:02 PM [facility] LABORATORY OCCULT Small (A) Negative 06/01/2022 [facility] BLOOD,URINE 9:02 PM [facility] LABORATORY NITRITE Negative Negative 06/01/2022 [facility] 9:02 PM CDT [facility] LABORATORY LEUKOCYTE Negative Negative 06/01/2022 [facility] ESTERASE 9:02 PM CDT [facility] LABORATORY Specimen Anatomical Collection Method Collection Time Receive d Time (Source) Location / / Volume Laterality Urine URINE SPECIMEN / Non-Blood / 06/01/2022 8:27 PM 06/01 8:35 Unknown Unknown CDT PM CDT Nabor Page DO URINE Performing Organization Address [facility] Phon e Number [facility] [address] [place] [address] SCAN-CARDIAC STRIP (06/01/2022 6:21 PM CDT) Narrative This result has an attachment that is no t available. Scanner OTHER COVID 19 (06/01/2022 3:49 PM CDT) Analysis Performed At [facility] Time Signature COVID 19 Negative Negative 06/01/2022 [place] [facility] 6:34 PM CDT [facility] LAB[facility]AT[facility] Comment: All PCR tests are subject to fa lse negative result due to variability in viral load and collection technique. A n egative result does not rule out a SARS-CoV-2 infection. Clinical correlation required . Specimen Anatomical Location / Collection Method Collection Lennox e Received Time (Source) Laterality / Volume Other SPECIMEN FROM Non-Blood / 06/01/2022 3:49 06/01/2022 3:58 NASOPHARYNGEAL Unknown PM CDT PM CDT STRUCTURE / Unknown Narrative [facility] - 6:34 PM CDT This test has been authorized by FDA und er an Emergency Use Authorization (EUA). This test is only authorized for the duration of time the declaration that circumstances exist justifying the authorization of th e emergency use of in vitro diagnostic tests for detection of SARS-CoV-2 virus and/or diagnosis of COVID-19 infection under section 564(b)(1) of the Act, 21 U.S.C. 360bbb-3(b) (1), unless the authorization is terminated or revoked sooner. Dinah Huber MD MICROBIOLOGY Performing Organization Address City/[facility]/ZIP Code Phon e Number [facility] [address] [place] [address] COVID 19 COLLECTION (06/01/2022 3:49 PM CDT) [facility] [employer] Method Time Signature TESTING [facility] 06/01/2022 [place] [facility]AT[facility] Laboratory 3:59 PM [facility] LABORATORY Comment: Specimen submitted to [facility] for testing. Specimen Anatomical Location / Collection Method Collection Lennox e Received Time (Source) Laterality / Volume Other SPECIMEN FROM Non-Blood / 06/01/2022 3:49 06/01/2022 3:54 NASOPHARYNGEAL Unknown PM CDT PM CDT STRUCTURE / Unknown Dinah Huber MD SEND OUTS Performing Organization Address City/State/ZIP Code Phon e Number [facility] [address] [place] [address] (ABNORMAL) CBC WITH AUTO DIFFERENTIAL (06/01/2022 2:43 PM CDT) [facility] Method Time Signature WHITE BLOOD 8.1 4.5 - 06/01/2022 [place] COUNT 11.0 2:50 PM [facility] thou/cu LABORATORY mm RED BLOOD COUNT 3.93 (L) 4.30 - 06/01/2022 [place] 5.90 2:50 PM [facility] mil/cu mm LABORATORY HEMOGLOBIN 11.8 (L) 13.5 - 06/01/2022 [place] 17.5 g/dL 2:50 PM [facility] LABORATORY HEMATOCRIT 36.9 (L) 37.0 - 06/01/2022 [place] 53.0 % 2:50 PM [facility] LABORATORY MCV 94 80 - 100 06/01/2022 [place] fL 2:50 PM [facility] LABORATORY MCH 30.0 26.0 - 06/01/2022 [place] 34.0 pg 2:50 PM [facility] LABORATORY MCHC 32.0 32.0 - 06/01/2022 [place] 36.0 g/dL 2:50 PM [facility] LABORATORY RDW 13.6 11.5 - 06/01/2022 [place] 15.5 % 2:50 PM [facility] LABORATORY PLATELET COUNT 193 140 - 440 06/01/2022 [facility] thou/cu 2:50 PM [facility] mm LABORATORY MPV 10.3 6.5 - 06/01/2022 [place] 11.0 fL 2:50 PM [facility] LABORATORY % NEUT 74.1 % 06/01/2022 [place] 2:50 PM [facility] LABORATORY % LYMPH 16.0 % 06/01/2022 [place] 2:50 PM [facility] LABORATORY % MONO 7.9 % 06/01/2022 [place] 2:50 PM [facility] LABORATORY % EOS 1.6 % 06/01/2022 [place] 2:50 PM [facility] LABORATORY % BASO 0.4 % 06/01/2022 [place] 2:50 PM [facility] LABORATORY ABSOLUTE 6.0 1.7 - 7.0 06/01/2022 [place] NEUTROPHILS thou/cu 2:50 PM [facility] mm LABORATORY ABSOLUTE 1.3 0.9 - 2.9 06/01/2022 [place] LYMPHOCYTES thou/cu 2:50 PM [facility] mm LABORATORY ABSOLUTE 0.6 <0.9 06/01/2022 [place] MONOCYTES thou/cu 2:50 PM [facility] mm LABORATORY ABSOLUTE 0.1 <0.5 06/01/2022 [place] EOSINOPHILS thou/cu 2:50 PM [facility] mm LABORATORY ABSOLUTE 0.0 <0.3 06/01/2022 [place] BASOPHILS thou/cu 2:50 PM [facility] mm LABORATORY Specimen Anatomical Collection Method / Collection Time Recei joe Time (Source) Location / Volume Laterality Blood BLOOD SPECIMEN / Venipuncture / 06/01/2022 2:43 2021 2:47 Unknown Unknown PM CDT PM CDT Herlinda LOVETT HEMATOLOGY Performing Organization Address City/State/ZIP Code Phon e Number [facility] [address] [place] [address] TROPONIN I (06/01/2022 2:43 PM CDT) P athologist Signature TROPONIN I 0.026 <0.034 06/01/2022 [place] ng/mL 4:07 PM [facility] LABORATORY Specimen Anatomical Collection Method / Collection Time Recei joe Time (Source) Location / Volume Laterality Blood BLOOD SPECIMEN / Venipuncture / 06/01/2022 2:43 2021 2:47 Unknown Unknown PM CDT PM CDT Herlinda LOVETT CHEMISTRY Performing Organization Address City/[facility]/ZIP Code Phon e Number [facility] [address] [place] [address] RETICULOCYTES (06/01/2022 2:43 PM CDT) P athologist Signature RETIC% 1.2 0.5 - 1.5 06/02/2022 [facility] % 6:15 PM CDT LABORATORY-CENT RAL LABORATORY RETIC 0.05 0.03 - 06/02/2022 [facility] (ABSOLUTE) 0.08 6:15 PM CDT LABORATORY-CENT mil/cu mm RAL LABORATORY Specimen Anatomical Collection Method / Collection Time Recei joe Time (Source) Location / Volume Laterality Blood BLOOD SPECIMEN / Venipuncture / 06/01/2022 2:43 2021 2:47 Unknown Unknown PM CDT PM CDT Nabor Page DO HEMATOLOGY Performing Organization Address City/[facility]/ZIP Code Phon e Number [facility] [address] [place] [address] LABORATORY-CENTRAL 2000 LABORATORY VITAMIN B12 (06/01/2022 2:43 PM CDT) P athologist Signature VITAMIN B12 281 180 - 914 06/03/2022 [facility] pg/mL 12:46 PM CDT LABORATORY-CENT RAL LABORATORY Specimen Anatomical Collection Method / Collection Time Recei joe Time (Source) Location / Volume Laterality Blood BLOOD SPECIMEN / Venipuncture / 06/01/2022 2:43 2021 2:47 Unknown Unknown PM CDT PM CDT Nabor Page DO CHEMISTRY Performing Organization Address City/[facility]/ZIP Code Phon e Number [facility] [address] [place] [address] LABORATORY-CENTRAL 2000 LABORATORY (ABNORMAL) COMP METABOLIC PANEL (06/01/2022 2:43 PM CDT) [facility] gist Method Time Signature SODIUM 140 135 - 145 06/01/2022 [place] mmol/L 3:07 PM CDT MEDICAL CENTER LABORATORY POTASSIUM 5.4 (H) 3.5 - 5.0 06/01/2022 [place] mmol/L 3:07 PM [facility] LABORATORY CHLORIDE 108 98 - 110 06/01/2022 [place] mmol/L 3:07 PM [facility] LABORATORY CO2,TOTAL 26 21 - 31 06/01/2022 [place] mmol/L 3:07 PM [facility] LABORATORY ANION GAP 6 5 - 18 06/01/2022 [place] 3:07 PM [facility] LABORATORY GLUCOSE 100 65 - 100 06/01/2022 [place] mg/dL 3:07 PM [facility] LABORATORY CALCIUM 9.6 8.5 - 06/01/2022 [place] 10.5 3:07 PM [facility] mg/dL LABORATORY BUN 30 (H) 8 - 25 06/01/2022 [place] mg/dL 3:07 PM [facility] LABORATORY CREATININE 2.40 (H) 0.72 - 06/01/2022 [place] 1.25 3:07 PM [facility] mg/dL LABORATORY BUN/CREAT RATIO 13 10 - 20 06/01/2022 [place] 3:07 PM [facility] LABORATORY ALBUMIN 4.3 3.2 - 4.6 06/01/2022 [place] g/dL 3:07 PM [facility] LABORATORY PROTEIN,TOTAL 6.9 6.0 - 8.0 06/01/2022 [place] g/dL 3:07 PM [facility] LABORATORY GLOBULIN 2.6 2.0 - 3.7 06/01/2022 [place] g/dL 3:07 PM [facility] LABORATORY A/G RATIO 1.7 1.0 - 2.0 06/01/2022 [place] 3:07 PM [facility] LABORATORY BILIRUBIN,TOTAL 0.8 0.2 - 1.2 06/01/2022 [place] mg/dL 3:07 PM [facility] LABORATORY ALK PHOSPHATASE 74 50 - 136 06/01/2022 [place] IU/L 3:07 PM [facility] LABORATORY ALT (SGPT) 30 8 - 45 06/01/2022 [place] IU/L 3:07 PM [facility] LABORATORY AST (SGOT) 25 2 - 40 06/01/2022 [place] IU/L 3:07 PM [facility] LABORATORY eGFR 29 (L) >90 06/01/2022 [place] mL/min/1. 3:07 PM [facility] 73m2 LABORATORY Comment: As of 2021, eGFR is calcu lated by the CKD-EPI creatinine equation without race adjustment. eGFR can be inf luenced by muscle mass, exercise, and diet. The reported eGFR is an estimation only and is only applicable if the renal function is stable. Specimen Anatomical Collection Method / Collection Time Recei joe Time (Source) Location / Volume Laterality Blood BLOOD SPECIMEN / Venipuncture / 06/01/2022 2:43 2021 2:47 Unknown Unknown PM CDT PM CDT Herlinda LOVETT CHEMISTRY Performing Organization Address City/State/ZIP Code Phon e Number [facility] [address] [place] [address] EKG 12 LEAD (06/01/2022 2:35 PM CDT) Component Value Ref Range Test Analysis Performed Pathologis t Method Time At Signature Interpretation Sinus bradycardia BEYOND NOW Low voltage QRS Septal infarct , age undetermined Abnormal ECG No previous ECGs available Ventricular Rate 47 BPM BEYOND NOW Atrial Rate 47 BPM BEYOND NOW P-R Interval 152 ms BEYOND NOW QRS Duration 88 ms BEYOND NOW QT 416 ms BEYOND NOW QTc 368 ms BEYOND NOW P [place] 17 degrees BEYOND NOW R [place] 8 degrees BEYOND NOW T [place] 59 degrees BEYOND NOW Specimen Anatomical Collection Method Collection Time Receive d Time (Source) Location / / Volume Laterality 06/01/2022 2:35 PM 2 5:06 CDT PM CDT Herlinda LOVETT EKG ORD Performing Organization Address City/State/ZIP Code Phon e Number BEYOND NOW [place], [place] from Last 3 Months Insurance Payer Benefit Plan / Subscriber ID Effective Dates Phone Addre ss Type Group MEDICARE PART A MEDICARE PART A [id number] 2020-Present ATTN: CLAIMS - HB USE ONLY HB ONLY [address] [place] [address] MEDICARE PART B MEDICARE PART B [id number] 2020-Present ATTN: CLAIMS - HB USE ONLY HB ONLY [address] [place] [address] MEDICARE - PB MEDICARE PB [id number] 2020-Present ATT N: CLAIMS USE ONLY ONLY [address] [place] [address] [employer] [id number] 2020-Present [address] [place] [address] Advance Directives Latest Code Status on File Code Status Date Activated Date Inactivated Comments Full Code 06/01/2022 5:42 PM 06/02/2022 12:51 PM Code Status Discussion: Reviewed Preferences Full Code 10/08/2021 4:05 AM 10/09/2021 2:43 PM Code Status Discussion: Reviewed Preferences Care Teams Music Engraver Relationship Specialty Start Date End Date Mitch Li MD PCP - General Family Practice 08/01/15 [address] [facility] [address]
--- OUTSIDE RECORDS SUMMARY | 2022-07-08 15:56 | XMS_ITS | Encounter Summary ---
:1955 Author Organization [facility] Address [address] [place] [address] Care Team Providers Name Role Phone Trish Frausto MD Primary Care Provider Reason for Visit Reason Onset Date Comments Same Day/Next Day Appt. 12/14/2011 Encounter Details Date Type Department Care Team Description 12/14/2011 Telephone [facility] Juanjose Leon Same Day/Next Day [address] M, OD Appt. [place], [place] [address] Social History Tobacco Use Types Packs/Day Years Used Date Smoking Tobacco: Never Alcohol Use Standard Drinks/Week Comments No 0 (1 standard drink = 0.6 oz pure alcoho l) Sex Assigned at Date Recorded Not on file documented as of this encounter Nursing Notes Melisa Milian - 12/14/2011 11:54 AM CDT Scheduled pt 4-11 Dr Mccloud. Told pt I would watch for cancellations and call home #. Ok to schedulethrough spouse Nilda Cho - 12/14/2011 11:33 AM CDT Patient would like appointment with: Any Provider Patient requesting appointment for: PT BROKE GLASSES AND LAST EYE EXAM WAS 03/22, NEEDS APPT TO GET NEW GLASSES Wants/Needs to be seen within: [facility], AFTER 2PM WORKS BEST Additional Comments: NEXT APPTS WERE FOR 12/23/11, DECLINED OTHER LOCATIONS Add Is it okay to leave detailed message on your voicemail? YES Nilda Cho documented in this encounter Plan of Treatment Not on filedocumented as of this encounter Visit Diagnoses Not on filedocumented in this encounter Care Teams Entertainment Musician Relationship Specialty Start Date End Date Trish Frausto MD PCP - General 09/01/05 08/22/18 [address] [place] [address] documented as of this encounter
--- OUTSIDE RECORDS SUMMARY | 2022-07-08 15:56 | XMS_ITS | Encounter Summary ---
:1955 Author Organization [facility] Address [address] [place] [address] Care Team Providers Name Role Phone Trish Frausto MD Primary Care Provider Reason for Visit Reason Comments Medication Request Encounter Details Date Type Department Care Team Description 02/07/2018 Telephone Urgent Care Rosamaria Hanna P A-C Medication Request [place] [address] [address] [place], [place] [phone] (Wo rk) Social History Tobacco Use Types Packs/Day Years Used Date Smoking Tobacco: Never Alcohol Use Standard Drinks/Week Comments No 0 (1 standard drink = 0.6 oz pure alcoho l) Sex Assigned at Date Recorded Not on file documented as of this encounter Nursing Notes Twila Bucio - 02/07/2018 2:42 PM CDT Medications - Med Change / Question Is this a medication change or a general question? What is your question or concern? Pt would like to have Rx sent to alternative pharmacy that is open today. Name and Dose of current medication: Quantity Refills Start End ? meclizine (ANTIVERT) 25 MG tablet 30 Tab 0 02/07/2018 03/09/2018 ? Sig : ??Take 1 Tab by mouth every 6 hours as needed for Dizziness/Vertigo for up to 30 days. Who prescribed it? Ue Alexsandra, PA-C Is it okay to leave a detailed message on your voicemail? No- pt's spouse is calling If a prescription is needed, may we fill it at a [facility] pharmacy? No: [facility] [Appt Center/Conveyor Technician: Please add the selected pharmacy to Meds & Orders] Twila Bucio Please route to: Urgent [facility]- Will notify provider/nurse in person. TE created for documentation purposes. documented in this encounter Plan of Treatment Not on filedocumented as of this encounter Visit Diagnoses Not on filedocumented in this encounter Care Teams Mender Knit Goods Relationship Specialty Start Date End Date Trish Frausto MD PCP - General 09/01/05 08/22/18 [address] [place] [address] documented as of this encounter
--- OUTSIDE RECORDS SUMMARY | 2022-07-08 15:56 | XMS_ITS | Encounter Summary ---
:1955 Author Organization [facility] Address [address], [place] [address] Care Team Providers Name Role Phone Trish Frausto MD Primary Care Provider Reason for Visit Reason Onset Date Comments Prior Authorization For Medication 01/26/2017 Encounter Details Date Type Department Care Team Description 01/26/[address] [facility] [address] Karmen Prather Prio r Authorization For Allergy Medication [address] [place] [address] [place] [address] [phone] (Wo rk) Social History Tobacco Use Types Packs/Day Years Used Date Smoking Tobacco: Never Alcohol Use Standard Drinks/Week Comments No 0 (1 standard drink = 0.6 oz pure alcoho l) Sex Assigned at Date Recorded Not on file documented as of this encounter Progress Notes Tone Yoo RN - 02/09/2017 5:29 PM CDT Addended by: TONE YOO on: 02/09/2017 05:29 PM Modules accepted: Orders documented in this encounter Nursing Notes Tone Yoo RN - 02/09/2017 5:21 PM CDT Medications faxed per [facility] orders below. Phoned pt to inform and instruct. Pt states understanding. Note complete. Karmen Prather MD - 02/09/2017 5:08 PM CDT nasacort 1 sp en qd along with astelin 2 ap en qd #1, 11 rf for each. Pls let pt know that change isdue to what insurance will cover but I expect it to work as well. Tone Yoo RN - 02/09/2017 3:48 PM CDT Pt calling back with formulary alternatives: Budenoside, flunisolide, fluticasone, triamcinolone, and mometasone. [facility]- change medication or PA? Inez Jiménez RN - 01/28/2017 5:48 PM CDT No call back from patient. Please address if/when pt calls back. Inez Jiménez RN - 01/26/2017 4:31 PM CDT [facility] pt. 01/06/17, pt calling in stating he was told by his pharmacy that the Dymista is not covered by insurance. Discussed process with patient, he will call insurance, get alternatives and call clinic back. documented in this encounter Plan of Treatment Not on filedocumented as of this encounter Visit Diagnoses Not on filedocumented in this encounter Care Teams Ingot Stripper Relationship Specialty Start Date End Date Trish Frausto MD PCP - General 09/01/05 08/22/18 [address] [place] [address] documented as of this encounter
--- OUTSIDE RECORDS SUMMARY | 2022-07-08 15:56 | XMS_ITS | Encounter Summary ---
:1955 Author Organization [email or web address] Address [address], [place] [address] Care Team Providers Name Role Phone Trish Frausto MD Primary Care Provider Reason for Visit Reason Onset Date Comments Refill 04/05/2014 Encounter Details Date Type Department Care Team Description 04/05/2014 Refill [facility] Tiffany Cabrera MD Refill [address] [facility] [address] [place], [place] [address] [place] [address] [phone] (Wo rk) Social History Tobacco Use Types Packs/Day Years Used Date Smoking Tobacco: Never Alcohol Use Standard Drinks/Week Comments No 0 (1 standard drink = 0.6 oz pure alcoho l) Sex Assigned at Date Recorded Not on file documented as of this encounter Nursing Notes Nia Vizcarra - 04/09/2014 4:27 PM CDT lmtcb and letter mailed. Nia Vizcarra - 04/06/2014 3:11 PM CDT lmtcb Nia Vizcarra - 04/05/2014 8:38 AM CDT Lmtcb. 04/05/2014 8:41 AM Nia Vizcarra Trish Frausto MD - 04/05/2014 8:29 AM CDT Please encourage pt to make a f/u appt as it has been nearly 2 years. 04/05/2014 8:19 AM CDT Loratadine-Pseudoephedrine (LORATADINE-D 24HR) 10-240 MG tablet - VIOLATION #1: Medication is not assigned to a protocol. - VIOLATION #2: An office visit is overdue (performed 23 months ago, required every 12 months). - PROTOCOL: None Exists - LAST VISIT IN FAMILY PRACTICE: 05/18/2012 - NEXT SCHEDULED VISIT: None - LAST REFILLED ON: 02/09/2013, QTY: 90, Refills: 0, Sig: take one tablet by mouth every day (changed but equivalent) Powered by [employer], Reference: [id number], 04/05/2014 8:19:17 AM CDT, Pool: GRACE REFSHERIN MCCORMICK ([id number]) Sulaiman Blake - 04/05/2014 8:18 AM CDT Last fill from a Pharmacy on 12/27/2013 for a quantity of 90. documented in this encounter Plan of Treatment Not on filedocumented as of this encounter Visit Diagnoses Not on filedocumented in this encounter Care Teams Physical Optics Teacher Relationship Specialty Start Date End Date Trish Frausto MD PCP - General 09/01/05 08/22/18 [address] [place] [address] documented as of this encounter
--- OUTSIDE RECORDS SUMMARY | 2022-07-08 15:56 | XMS_ITS | Encounter Summary ---
:1955 Author Organization [facility] Address [address], [place] [address] Care Team Providers Name Role Phone Mitch Li MD Primary Care Provider Reason for Visit Reason Comments Skin Check Encounter Details Date Type Department Care Team Description 08/28/2020 Office Visit Nithya Naqvi, Augusto june skin (Primary Dx); Dermatology Hand dermatitis; [address] [address] [address] pedis of both feet; [place] [address] [place], [place] Fatigue, unspecified type; [phone] [address] Prurigo nodularis; [phone] (Wo rk) Stasis pigmentation; Seborrhei c keratosis; Skin exam for m alignant neoplasm Social History Tobacco Use Types Packs/Day Years Used Date Smoking Tobacco: Never Smokeless Tobacco: Never Alcohol Use Standard Drinks/Week Comments No 0 (1 standard drink = 0.6 oz pure alcoho l) Sex Assigned at Date Recorded Not on file documented as of this encounter Patient Instructions Patient InstructionsMelida Wright RN - 08/28/2020 1:15 PM CST 1. Clothing and shade are the best for sun protection. 2. Use sunblock with zinc in it. See below for Dr. Parisi's sunblock recommendations. 3. Good mosturizers: *LOTIONS THAT CONTAIN CERAMIDES. THESE ARE VERY HEALING FOR THE SKIN. *FOR EXAMPLE: -CERA VE CREAM -EUCERIN PROFESSIONAL REPAIR -EUCERIN ECZEMA RELIEF -EUCERIN SMOOTHING ESSENTIALS -GOLD ELLIOTT ECZEMA CARE *BEST TO APPLY THESE RIGHT AFTER A SHOWER OR BATH IN ADDITION TO YOUR DAILY USE 4. Prurigo Nodules: You can use Clobetasole (Temovate) on areas once a day for 2 weeks. 5. LAB: * THERE ARE ORDERS IN YOUR CHART TO HAVE YOUR LABS CHECKED IN THE FUTURE DISCUSSED AT TODAY'S APPOINTMENT. * BE SURE TO ASK THE LAB TO RUN DR. PARISI'S BLOOD WORK ORDERS TOO IF YOU ARE ARE HAVING BLOOD WORKDRAWN FOR MORE THAN ONE PROVIDER AT A TIME. *RECOMMEND YOU MAKE A LAB APPOINTMENT PRIOR TO COMING IN. *LAB APPOINTMENT PHONE NUMBER IS [phone]. *YOUR LAB RESULTS WILL BE MAILED TO YOU INCLUDING DR. PARISI'S RECOMMENDATIONS. DIRECT PHONE NUMBER: LENA [phone]. FEEL FREE TO CALL WITH ANY QUESTIONS OR CONCERNS YOU MAY HAVE. MOLES TO HAVE CHECKED IN CLINIC: BLACK, WALSH OR BROWN IN THE CENTER WITH A RED OR COPPER TONE COLORING AROUND IT. ANY MOLES THAT CHANGE OR DOUBLE IN SIZE. SUNBLOCK: PREFER CLOTHING OVER SUNSCREEN. WHEN USING SUNSCREEN, PREFER SUNBLOCKS THAT ARE ZINC BASED AND ARE AT LEAST 5% ZINC. -VANICREAM SPF 30 OR 50 -CERAVE MINERAL SUNSCREEN -KAYE AVAILABLE AT [employer] OR Spotted -BLUE NatureBox (FOR SENSITIVE SKIN OR BABY) -BULLFROG SUNSCREEN -TERRASPORT OR AQUASPORT WHICH ARE AVAILABLE AT [employer] OR ONLINE. -AVEENO MINERAL SUNSCREEN (AVAILABLE AT [employer]) *MORE ELEGANT SUNSCREENS WITH ZINC IN IT: -BABO SUNSCREEN (AVAILABLE AT [employer] OR ONLINE) -DOROTHY AVAILABLE AT [employer] -PACIFICA MINERAL SUNSCREEN AVAILABLE AT [employer] -KARON-POSAY ANTHELIOS 50 MINERAL ULTRA LIGHT ([employer] OR ONLINE) -JUICE BEAUTY SPF 30 TINTED MINERAL MOISTURIZER FOR FACE -JUICE BEAUTY SPORT SPF 30 SPORT SUNSCREEN -BEAUTY COUNTER ALL MINERAL SUNSCREEN STICK, LOTION OR SPRAY -BEAUTY COUNTER DEW SKIN MOISTURIZING COVERAGE FOR FACE -CLINIQUE CITY BLOCK SHEER SPF 25 (NOT CLINIQUE SUPER CITY BLOCK SPF 40) -DAVID SAHA WHICH IS AVAILABLE AT Maintenance Assistant *Avoid sunscreens with oxybenzone, parsol 1789 (avobenzone) and octinoxate. ENVIRONMENTAL WORKING GROUP: [email or web address] THIS WILL LIST SUNSCREENS WITH LESS CHEMICALS IN IT THINK DIRTY JOE THIS WILL LIST PRODUCTS WITH LESS CHEMICALS IN IT VITAMIN D-3 RECOMMENDATIONS: - TAKE VITAMIN D WITH FOOD THAT HAS FAT IN IT THIS HELPS THE BODY ABSORB IT. - PREFER YOU TAKE IT YEAR ROUND. - CAN ADD UP YOUR VITAMIN D-3 INTAKE FOR THE WEEK AND TAKE IT ALL AT ONCE INSTEAD OF DAILY IF YOU ARE NOT GOOD AT REMEMBERING TO TAKE IT. - PREFER GEL CAPSULES OVER SOLID TABLETS. THIS IS AVAILABLE OVER THE COUNTER. - VITAMIN D HAS BEEN SHOWN TO FIGHT CERTAIN CANCERS, IT'S A NATURAL MOOD BOOSTER, NATURAL IMMUNITY BOOSTER, NATURAL ANTI-INFLAMMATORY AND GOOD FOR YOUR MUSCLES, BONES AND BRAIN HEALTH. CATION NURSE documented in this encounter Progress Notes Nithya Torres MD - 08/28/2020 12:00 PM CST NAME: MITCH ENGLE MR#: [id number] CSN: [id number] AUTHENTICATING CLINICIAN: Nithya Torres MD CONFIRM #: [id number] LOC: 527 CLINIC PROGRESS NOTE DATE OF VISIT: 08/28/2020 : 1955 Mitch is a 45-qvmx-iqxqu gentleman who recently retired and no longer working with chemicals, but he does feel like his hands have broken down recently because he is having to wash so often because of the coronavirus. He has not been as good about getting medication on his skin either as he has beendealing with a bad back and a few other things. He also has a couple sore spots in the back of his scalp that will not heal. He has a quaternium-15 allergy. He uses clobetasol for the hands, Eucerin eczema cream with ceramide for moisturization. He had toenail fungus, was placed on Lamisil. Got a booster month treatment a few months ago and he feels like the nails are doing better now. He has had a ve ry dark mole removed from the left mid back in the past and it was just moderately dysplastic. He has had knee replacement. OBJECTIVE: Full-body exam today including scalp, face, neck, chest, back, abdomen, buttocks, groin, arms, legs,hands, feet, nails, perirectal, and pubic area. He has 2 prurigo nodules on the left posterior nape of the neck within the hair- bearing areas. His face is very youthful. His hand is only mildly irritated and asteatotic along the sides of the hands, not worrisome, not intense. He has a little bit of pressure hyperkeratosis 2nd toe, left foot, from just pressure in shoes and a little bit of maybe onychomycosis thickening at the edges of the toenails, big toenails only, but overall, his nails look perfect and his feet are clear. He has a few small seborrheic keratosis and cherries on the body. A few junctional nevi that are not worrisome. His scalp is free from any dermatitis and overall things look good. ASSESSMENT: Onychomycosis, really now clear. Hand dermatitis. Water soaks and moisturization. Clobetasol for a couple weeks. 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 Offered injection. He declined. Talked about ljooiww-edgs-ogngpmh cycle. He will do a little clobetasol for a short time and calm it down. He has a little impre ssed depression on his right rib cage below the nipple. I think it is an accessory nipple and we talked briefly about that. We might have talked about vitamin D and vitamin C today as well, and I thinkhe has never had a vitamin D checked, so I did order to have that run. He has Blue Cross/Blue Shieldalong with Medicare. I did inform him it is possible it will not be covered, but I do not think it is a bad idea to check. I will call him with the results of that and go from there. He is more tired than usual lately, but not enough to where he is concerned about it. VLV:MEDQ C: CONFIRM #: [id number] CATION NURSE documented in this encounter Plan of Treatment Not on filedocumented as of this encounter Results Calcium (CA) (08/28/2020 2:00 PM MEDICATION NURSE) athologist Signature Calcium 9.4 8.4 - 10.4 08/28/2020 [facility] mg[facility]dL 3:49 PM MEDICATION NURSE LABORATORY Specimen Anatomical Collection Method / Collection Time Recei joe Time (Source) Location / Volume Laterality Blood Venipuncture / 08/28/2020 2:00 08/28/2020 2:00 Unknown PM MEDICATION NURSE PM MEDICATION NURSE Nithya Torres MD LAB_1 Performing Organization Address City/State/ZIP Code Phon e Number [facility] [address] [place] [address] (ABNORMAL) Vitamin D 25-Hydroxy, Total (Inhouse) (08/28/2020 2:00 PM MEDICATION NURSE) athologist Signature Vitamin D, 25 (L) 30 - 80 08/28/2020 [facility] 25-OH, Total ng/mL 7:21 PM MEDICATION NURSE LABORATORY Specimen Anatomical Collection Method / Collection Time Recei joe Time (Source) Location / Volume Laterality Blood Venipuncture / 08/28/2020 2:00 08/28/2020 2:00 Unknown PM MEDICATION NURSE PM MEDICATION NURSE Narrative [facility] - 08/28/2020 7:21 P M MEDICATION NURSE Expected values Deficiency: <20 ng/mL Insufficiency: 20-29 ng/mL Optimum: 30-80 ng/mL Possible toxicity: >80 ng/mL Nithya Torres MD LAB_1 Performing Organization Address City/State/ZIP Code Phon e Number [facility] [address] [place] [address] documented in this encounter Visit Diagnoses Diagnosis Sun-damaged skin - Primary Other chronic dermatitis due to solar ra diation Hand dermatitis Contact dermatitis and other eczema, due to unspecified cause Tinea pedis of both feet Fatigue, unspecified type 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
--- OUTSIDE RECORDS SUMMARY | 2022-07-08 15:56 | XMS_ITS | Encounter Summary ---
:1955 Author [facility] Address [address], [place] [address] Care Team Providers Name Role Phone Trish Frausto MD Primary Care Provider Encounter Details Date Type Department Care Team Description 10/06/2010 Correspondence [facility] Melisa Muro FMLA Practice [place] [address] [facility] [address] [place], [place] [address] [place] [address] [phone] (Wo rk) Social History Tobacco Use Types Packs/Day Years Used Date Smoking Tobacco: Never Alcohol Use Standard Drinks/Week Comments No 0 (1 standard drink = 0.6 oz pure alcoho l) Sex Assigned at Date Recorded Not on file documented as of this encounter Progress Notes Melisa Muro APRN, CNP - 10/14/2010 12:06 PM DISTRIBUTION COLLECTION OPERATOR RIBUTION COLLECTION OPERATOR documented in this encounter Plan of Treatment Not on filedocumented as of this encounter Visit Diagnoses Not on filedocumented in this encounter Care Teams River Rafting Guide Relationship Specialty Start Date End Date Trish Frausto MD PCP - General 09/01/05 08/22/18 [address] [place], [place] [id number] documented as of this encounter
--- OUTSIDE RECORDS SUMMARY | 2022-07-08 15:56 | XMS_ITS | Encounter Summary ---
:1955 Author Organization [facility] Address [address] [place] [address] Care Team Providers Name Role Phone Trish Frausto MD Primary Care Provider Reason for Visit Reason Comments SORE THROAT,NURSE Encounter Details Date Type Department Care Team Description 09/26/2012 Nursing Visit [facility] Acute p haryngitis Department (Primary Dx) [address] [place], [place] [address] Social History Tobacco Use Types Packs/Day Years Used Date Smoking Tobacco: Never Alcohol Use Standard Drinks/Week Comments No 0 (1 standard drink = 0.6 oz pure alcoho l) Sex Assigned at Date Recorded Not on file documented as of this encounter Patient Instructions Patient InstructionsMelida Cortez RN - 09/26/2012 8:45 AM CST How do you test for strep? There are two ways to test for strep: ?? A rapid test. This test looks for a chemical that only strep makes. It is quicker and usually gives results in about 15 minutes. It is not completely accurate like a culture would be. This is the standard test done for strep. ?? A culture test. We collect a sample and see if strep bacteria grow. The problem with this test isthat it can take up to 72 hours to get a result. What happens after I get my rapid strep test result? ?? We will prescribe antibiotics. The sore throat will be gone in three to four days. It's importantto take all your medicines as directed, whether or not the symptoms go away. Throw away your toothbrush as the strep bacteria can live in it. You do not need return to the clinic unless you have new symptoms. ?? If your rapid strep test is negative and you are age 21 or less, the lab will do a throat culture. There is a small chance that the culture might be positive. If so, we will contact you by phone or e-mail with results. (This is usually in 24 to 48 hours.) Usually the culture results are the same asthe rapid strep results. When both tests give the same result, we will not contact you. ?? If your rapid strep test is negative and you are over age 21, we usually won't do a follow-up throat culture. We would only do a culture in certain circumstances. These include: ?? Person lives with or has extensive contact with someone who has had strep in the last 10 days (such as a teacher or day-care worker) ?? Had complications from past strep infections, such as rheumatic fever ?? Is immunocompromised In that case, we would contact you by phone or email when we get results (usually 24-48 hours). When should I seek medical help? Call your clinic during regular hours or the Careline at [phone] after hours if: ?? temperature is 101 degrees F (38.33 C) or more for more than 3 days ?? swollen joints or glands ?? cola-colored urine ?? red rash that feels like sandpaper or increased redness in skin creases ?? you can't swallow liquids Seek immediate evaluation in the clinic or emergency room if: ?? severe difficulty swallowing or breathing, or ?? a young child has excessive drooling. If you or your child (over age 3) has none of these symptoms, use home treatments and take medicine prescribed if you have strep. L MECHANIC documented in this encounter Progress Notes Melida Cortez RN - 09/26/2012 8:45 AM CST Nori Catherine complains of sore throat lasting 6 day(s). Other presenting symptoms include: headache, hoarseness and nasal discharge Pertinent medical history includes: Seasonal allergies and Strep exposure (lives with or extended contact with person who has had strep in last 10 days) Complicating symptoms or history includes: None O There were no vitals taken for this visit. Objective exam of patient indicates red, inflamed throat Phone number: Telephone Information: , alternate number . A Sore Throat. Throat culture indicated if rapid test is negative (exposure to person with strep in last 10 days, history of rheumatic fever, history of post-strep glomerulonephritis or immune compromised) Yes P Wait for rapid strep results. Melida Cortez LPN L MECHANIC documented in this encounter Plan of Treatment Not on filedocumented as of this encounter Procedures Procedure Name Priority Date/Time Associated Diagnosis Comme nts STREP GRP A, RAPID Waiting 09/26/2012 8:49 AM Acute pharyngiti s Results for this SCREEN DURAL MECHANIC procedure are i n the results section. STREP GRP A, THROAT Routine 09/26/2012 8:49 AM Re sults for this CULTURE ONLY DURAL MECHANIC procedure are i n the results section. documented in this encounter Results STREP GRP A, THROAT CULTURE ONLY (09/26/2012 8:49 AM DURAL MECHANIC) [facility] [employer] Method Time Signature Grp A Culture Negative NEG [facility] Final Specimen Anatomical Collection Method Collection Time Receive d Time (Source) Location / / Volume Laterality 09/26/2012 8:49 AM 3 8:54 DURAL MECHANIC AM DURAL MECHANIC Santi Bear MD LAB_1 Performing Organization Address [facility]/ZIP [facility] Phon e Number [facility] [employer] [phone] [address] STREP GRP A, RAPID SCREEN Perform a culture if negative screen?: Yes (09/26/2012 8:49 AM DURAL MECHANIC) [facility] [employer] Method Time Signature Grp A Rapid Negative NEG [facility] Screen Specimen Anatomical Collection Method Collection Time Receive d Time (Source) Location / / Volume Laterality 09/26/2012 8:49 AM 3 8:54 DURAL MECHANIC AM DURAL MECHANIC Santi Bear MD LAB_1 Performing Organization Address [facility]/State/ZIP Code Phon e Number [facility] [phone] [facility] [address] [address] documented in this encounter Visit Diagnoses Diagnosis Acute pharyngitis - Primary documented in this encounter Care Teams Cigar Bander Hand Relationship Specialty Start Date End Date Trish Frausto MD PCP - General 09/01/05 08/22/18 [address] [place], [place] [id number] documented as of this encounter
--- OUTSIDE RECORDS SUMMARY | 2022-07-08 15:56 | XMS_ITS | Encounter Summary ---
:1955 Author Organization [facility] Address [address], [place] [address] Care Team Providers Name Role Phone Trish Frausto MD Primary Care Provider Reason for Visit Reason Onset Date Comments Prior Authorization For Medication 11/12/2016 Encounter Details Date Type Department Care Team Description 11/12/2016 Telephone Nithya Naqvi, Prior Au thorization For Dermatology MD Medication [address] [place] [address] [place], [place] [phone] (Wo rk) Social History Tobacco Use Types Packs/Day Years Used Date Smoking Tobacco: Never Alcohol Use Standard Drinks/Week Comments No 0 (1 standard drink = 0.6 oz pure alcoho l) Sex Assigned at Date Recorded Not on file documented as of this encounter Nursing Notes Carmenza Jarquin MA - 11/16/2016 4:27 PM CST Spoke with pharmacy. Informed we will have the patient try some alternatives. Spoke with patient. All recommendations given. CLOSER Melida Wright RN - 11/16/2016 1:26 PM CST Called Mitch but mailbox was full and unable to leave message. Will try again later. CLOSER Nithya Torres MD - 11/16/2016 10:16 AM CST Please call pt and let him know I do think he should do a amazon search for barrier creams as aquaphor will definitely be too greasy for our purposes- consider Ivyguard cream or similar- even the barrier creams mountain climbers use on face would help his hands Carmenza Gomez MA - 11/16/2016 10:00 AM CST Spoke with Dominguez, the pharmacist at [facility] pharmacy in [place]. States that over the counter Aquaphorwould be comperable to Atopiclair or any other thick ointment that can be purchased over the counter. The Atopiclair is $200 out of pocket and there does not seem to be any other prescription barriers available. Please advise. CLOSER Nithya Torres MD - 11/16/2016 8:30 AM CST Please start PA. Unless there is a barrier cream that is covered CLOSER Meghna Shabazz RN - 11/12/2016 3:50 PM CST Please advise on PA request. Nelly Horne - 11/12/2016 3:42 PM CST PRIOR AUTHORIZATION OR CHANGE MEDICATIONS? Pharmacy Name: [facility] pharmacy Pharmacy Fax# or Address: ph- [phone] Clinician Name: Brian Drug Name/Strength: Dermatological Products, Misc. (ATOPICLAIR) Sig: APPLY FOR USE UNDER GLOVES Formulary Alternative: None provided Insurance Carrier: [facility] [phone] Member ID: [id number] *ECODE CLOSER documented in this encounter Plan of Treatment Not on filedocumented as of this encounter Visit Diagnoses Not on filedocumented in this encounter Care Teams Department Supervisor Relationship Specialty Start Date End Date Trish Frausto MD PCP - General 09/01/05 08/22/18 [address] [place] [address] documented as of this encounter
--- OUTSIDE RECORDS SUMMARY | 2022-07-08 15:56 | XMS_ITS | Encounter Summary ---
:1955 [facility] Address [address] [address] Care Team Providers Name Role Phone Trish Frausto MD Primary Care Provider Reason for Visit Reason Onset Date Comments Refill 11/11/2017 Encounter Details Date Type Department Care Team Description 11/11/2017 Refill [facility] Nithya Vance MD Refill [address] [place] [address] [place] [address] [phone] (Wo rk) Social History Tobacco Use Types Packs/Day Years Used Date Smoking Tobacco: Never Alcohol Use Standard Drinks/Week Comments No 0 (1 standard drink = 0.6 oz pure alcoho l) Sex Assigned at Date Recorded Not on file documented as of this encounter Nursing Notes Melida Wright RN - 11/11/2017 12:21 PM CST Called and spoke with Dara and he did state that he is not using very much of the clobetasol. He is doing water soaks with Epsom Salt and moisturizing them frequently. Advised that Dr. Price did sent rx to his pharmacy. Dara stated understanding. ECTION ANALYST Nithya Torres MD - 11/11/2017 9:05 AM CST Please call dara and go over- good hand care- seems he may be overusing clobetasol- I will refillbut make some kind of f/u for further treatment. ECTION ANALYST Joceline Kim LPN - 11/11/2017 9:01 AM CST Last visit: 11-12-16 (Brian) Future visit: none Date(s) of failed/ cancelled appt: n/a Name of drug: clobetasol 0.05% ointment Reason not refillable by nurse: Nurse unable to refill per protocol. Do you wish to refill? Thank you! ECTION ANALYST documented in this encounter Plan of Treatment Not on filedocumented as of this encounter Visit Diagnoses Not on filedocumented in this encounter Care Teams Swing Grinder Relationship Specialty Start Date End Date Trish Frausto MD PCP - General 09/01/05 08/22/18 [address] [place] [address] documented as of this encounter
--- OUTSIDE RECORDS SUMMARY | 2022-07-08 15:56 | XMS_ITS | Encounter Summary ---
:1955 Author Organization [facility] Address [address] [address] Care Team Providers Name Role Phone Trish Frausto MD Primary Care Provider Reason for Visit Reason Comments EAR,PLUGGED Bilateral since last night. Encounter Details Date Type Department Care Team Description 11/10/2012 Nursing Visit [facility] Impacted cerumen (Primary [address]x) [place] [id number] Social History Tobacco Use Types Packs/Day Years Used Date Smoking Tobacco: Never Alcohol Use Standard Drinks/Week Comments No 0 (1 standard drink = 0.6 oz pure alcoho l) Sex Assigned at Date Recorded Not on file documented as of this encounter Progress Notes Aliza Vizcarra RN - 11/10/2012 3:13 PM CST TYMPANIC MEMBRANE Tympanotomy (PE) tubes are absent per patient. Patient states no history of chronic tympanic membrane perforation. Patient states no history of repaired tympanic membranes. Patient denies immunosuppression. Patient denies diabetes mellitus. Patient denies ear pain. Patient denies pain upon auricle manipulation (movement of the outer part of the ear). Ear canal and structures are not red. Ear canal and structures do not have drainage. If positive response to any of the above items, review with provider to determine if an ear wash is appropriate. Patient is able to receive an ear wash. Aliza Vizcarra RN Sarah Warner RN - 11/10/2012 3:13 PM CST S Mitch Catherine presents to have his ear(s) washed. C/o ears feeling plugged. States they have been using ear wax softening agent Yes. O Cerumen observed in bilateral ear canal(s). A Ear assesment done by RN before and after the ear wash. Cerumen impaction. (policy note: ear assessment must be done pre/post ear wash by RN or Provider.) P Ear wash ordered by provider lab . Right ear lavaged with 2 bottles of tap water. some of the cerumen was removed. Pt states he is going to continue to use ear drops for a few more days, then return for another ear lavage. Left ear lavaged with 3/4 bottles of tap water. Most of the cerumen was removed. Sarah Hines, SENIOR APPLICATIONS DEVELOPER RMATION AND DATA ARCHITECT ANALYST documented in this encounter Plan of Treatment Not on filedocumented as of this encounter Visit Diagnoses Diagnosis Impacted cerumen - Primary documented in this encounter Care Teams Rack Room Worker Relationship Specialty Start Date End Date Trish Frausto MD PCP - General 09/01/05 08/22/18 [address] [place] [address] documented as of this encounter
--- OUTSIDE RECORDS SUMMARY | 2022-07-08 15:56 | XMS_ITS | Encounter Summary ---
:1955 Author Organization [facility] Address [address] [place] [address] Care Team Providers Name Role Phone Trish Frausto MD Primary Care Provider Reason for Visit Reason Comments VERTIGO onset this am, when tried to get up. Room spinning Nausea Encounter Details Date Type Department Care Team Description 02/07/2018 Office Visit [facility] Rosamaria Hanna P A-C Dizziness (Primary Dx) [place] [address] [address] [place], [place] [address] [id number] Social History Tobacco Use Types Packs/Day Years Used Date Smoking Tobacco: Never Alcohol Use Standard Drinks/Week Comments No 0 (1 standard drink = 0.6 oz pure alcoho l) Sex Assigned at Date Recorded Not on file documented as of this encounter Last Filed Vital Signs Vital Sign Reading Time Taken Comments Blood Pressure 156/90 02/07/2018 12:15 PM CDT Pulse 56 02/07/2018 12:15 PM CDT Temperature 35.7 ??C (96.2 ??F) 02/07/2018 12:15 PM CDT Respiratory Rate 16 02/07/2018 12:15 PM CDT Oxygen Saturation 97% 02/07/2018 12:15 PM CDT Inhaled Oxygen Concentration - - Weight 101.6 kg (224 lb) 02/07/2018 12:15 PM CDT Height - - Body Mass Index 30.38 01/06/2017 12:58 PM CDT documented in this encounter Patient Instructions Patient InstructionsRosamaria Upton PA-C - 02/07/2018 12:00 PM CDT Images from the original note were not included. Lowell Maneuver at Home for Vertigo: Exercises Your Care Instructions Vertigo is a spinning or whirling sensation when you move your head. Your doctor may have moved you in different positions to help your vertigo get better faster. This is called the Lowell maneuver. Your doctor also may have asked you to do these exercises at home. Do the exercises as often as your doctor recommends. If your vertigo is getting worse, your doctor may have you change the exercise or stop it. Step 1 Step 1 1. Sit on the edge of a bed or sofa. Step 2 1. Turn your head 45 degrees in the direction your doctor told you to. This should be toward the earthat causes the most vertigo for you. In this picture, the woman is turning toward her left ear. Step 3 1. Tilt yourself backward until you are lying on your back. Your head should still be at a 45-degreeturn. Your head should be about midway between looking straight ahead and looking out to your side. Hold for 30 seconds. If you have vertigo, stay in this position until it stops. Step 4 1. Turn your head 90 degrees toward the ear that has the least vertigo. In this picture, the woman is turning to the right because she has vertigo on her left side. The point of your chin should be raised and over your shoulder. Hold for 30 seconds. Step 5 1. Roll onto the side with the least vertigo. You should now be looking at the floor. Hold for 30 seconds. Follow-up care is a kan part of your treatment and safety. Be sure to make and go to all appointments, and call your doctor if you are having problems. It's also a good idea to know your test results and keep a list of the medicines you take. Where can you learn more? 1. Go to [facility]/[employer] or [employer]. 2. Enter P834 in the search box. Current as of: June 21, 2017 Content Version: 11.6 ?? 7077-7877 [employer]. Dizziness: Care Instructions Your Care Instructions Dizziness is the feeling of unsteadiness or fuzziness in your head. It is different than having vertigo, which is a feeling that the room is spinning or that you are moving or falling. It is also different from lightheadedness, which is the feeling that you are about to faint. It can be hard to know what causes dizziness. Some people feel dizzy when they have migraine headaches. Sometimes bouts of flu can make you feel dizzy. Some medical conditions, such as heart problems or high blood pressure, can make you feel dizzy. Many medicines can cause dizziness, including medicines for high blood pressure, pain, or anxiety. If a medicine causes your symptoms, your doctor may recommend that you stop or change the medicine. If it is a problem with your heart, you may need medicine to help your heart work better. If there isno clear reason for your symptoms, your doctor may suggest watching and waiting for a while to see if the dizziness goes away on its own. Follow-up care is a kan part of your treatment and safety. Be sure to make and go to all appointments, and call your doctor if you are having problems. It's also a good idea to know your test results and keep a list of the medicines you take. How can you care for yourself at home? ?? If your doctor recommends or prescribes medicine, take it exactly as directed. Call your doctor if you think you are having a problem with your medicine. ?? Do not drive while you feel dizzy. ?? Try to prevent falls. Steps you can take include: ? Using nonskid mats, adding grab bars near the tub, and using night-lights. ? Clearing your home so that walkways are free of anything you might trip on. ? Letting family and friends know that you have been feeling dizzy. This will help them know how to help you. When should you call for help? Call 911 anytime you think you may need emergency care. For example, call if: ? ?? You passed out (lost consciousness). ? ?? You have dizziness along with symptoms of a heart attack. These may include: ? Chest pain or pressure, or a strange feeling in the chest. ? Sweating. ? Shortness of breath. ? Nausea or vomiting. ? Pain, pressure, or a strange feeling in the back, neck, jaw, or upper belly or in one or both shoulders or arms. ? Lightheadedness or sudden weakness. ? A fast or irregular heartbeat. ? ?? You have symptoms of a stroke. These may include: ? Sudden numbness, tingling, weakness, or loss of movement in your face, arm, or leg, especially on only one side of your body. ? Sudden vision changes. ? Sudden trouble speaking. ? Sudden confusion or trouble understanding simple statements. ? Sudden problems with walking or balance. ? A sudden, severe headache that is different from past headaches. ?Call your doctor now or seek immediate medical care if: ? ?? You feel dizzy and have a fever, headache, or ringing in your ears. ? ?? You have new or increased nausea and vomiting. ? ?? Your dizziness does not go away or comes back. ?Watch closely for changes in your health, and be sure to contact your doctor if: ? ?? You do not get better as expected. Where can you learn more? 1. Go to [facility]/MumsWay or [employer]. 2. Enter Q823 in the search box. Current as of: August 02, 2017 Content Version: 11.6 ?? [id number] [employer]. documented in this encounter Progress Notes Rosamaria Upton PA-C - 02/07/2018 12:00 PM CDT Historical: Chief Complaint Patient presents with ??? VERTIGO onset this am, when tried to get up. Room spinning ??? Nausea Dizziness How long have you had these symptoms? 1day(s) this am, tried to get out of bed, room spinning sensation Is there anything that relieves your symptoms? sitting still and no movement Is there a sense of movement or spinning with your dizziness? YES Do you feel lightheaded or as if you might faint? No Does your dizziness get worse when standing? No, related more to moving head Does your dizziness get worse with head movement? YES Have you ever had dizziness like this before? YES, years before acute labrinthitis Are there any treatments you have tried? No SUBJECTIVE Mitch Catherine is a 62 y.o. male who presents with a chief complaint of moderate, severe and generalized dizziness since this morning. He describes the dizziness as inability to maintain balance alexandra lightheaded sensation , which have been stable. The following actions precipitate or aggravate thedizziness: none identified. Associated symptoms: Nausea. Denies: vomiting, abnormal bleeding, coffee-ground emesis and melena. ROS OBJECTIVE General: appears well-developed, well-nourished child who behaves age appropriately. BP (!) 156/90 Pulse (!) 56 Temp (!) 96.2 ??F (35.7 ??C) (Tympanic) Resp 16 Wt 224 lb (101.6 kg) SpO2 97% BMI 30.38 kg/m2 Postural Vital Signs: Supine BP did not do, standing BP did not do, Pulse did not do, Nystagmus: none, Tanya-Hallpike Maneuver: negative and Standard Romberg Test is negative head: Normocephalic EENT: Within normal limits Neck without adenopathy Lungs clear to auscultation Heart S1-S2 regular rate and rhythm without murmur Abdomen flat, soft, positive bowel sounds without masses or lesions. Extremity with full range of motion Neuro grossly intact. ASSESSMENT ICD-10-CM 1. Dizziness R42 meclizine (ANTIVERT) 25 MG tablet DISCONTINUED: meclizine (ANTIVERT) 25 MG tablet PLAN Assurance normal exam negative. Unsure etiology for dizziness. Consider environmental factors such as seasonal allergic symptoms or decreasing humidity temperature. Consider dehydration stressors. Treat empirically with meclizine and hopefully his symptoms will improve. On stress fluid and hydration. Stress if symptoms worsen they are to follow up in the Emergency Room later tonight. Otherwise followup with PCP in the next 2-3 days if not improved or sooner if worsen. See orders and meds filed with this encounter. Rosamaria Upton PA-C 02/07/2018, 6:44 PM documented in this encounter Nursing Notes Emily Foy LPN - 02/07/2018 12:00 PM CDT Emily Foy LPN documented in this encounter Plan of Treatment Not on filedocumented as of this encounter Visit Diagnoses Diagnosis Dizziness - Primary Dizziness and giddiness documented in this encounter Care Teams Strategic Marketing Associate Relationship Specialty Start Date End Date Trish Frausto MD PCP - General 09/01/05 08/22/18 [address] [place] [address] documented as of this encounter
--- OUTSIDE RECORDS SUMMARY | 2022-07-08 15:56 | XMS_ITS | Clinical Summary ---
:1955 [facility] Address [address] [place] [address] Care Team Providers Name Role Phone Mitch Li MD Primary Care Provider Source Comments You are receiving this document as you are listed as the primary care provider,follow-up provider, or the patient has been referred to you for consultation.This is in compliance with the Medicare and Medicaid EHR Incentive Program,which states Providers who transition their patient to another setting of careor provider of care or refers their patient to another provider of care shouldprovide summarycare record for each transition of care or referral. [employer] Allergies Active Allergy Reactions Severity Noted Date Comments Amoxicillin 02/13/2010 PN: LW Reaction : generalized rash Medications Medication Sig Dispensed Refills Start Date End Date Status MULTIPLE VITAMIN TABS 1 tab daily 0 08/07/2005 Active ibuprofen (AKA MOTRIN) Take one tablet 30 0 06/24/2009 Active 800 MG by mouth every tabletIndications: 6-8 hours as Recurrent low back pain needed for pain. ALBUterol sulfate hfa Inhale 2 Puffs by 6.7 g 1 05/18/2012 Active (AKA PROAIR,VENTOLIN) mouth every 6 108 (90 BASE) MCG/ACT hours as needed inhaler for Wheezing. Loratadine-Pseudoephedr Take 1 Tab by 30 Tab 0 03/07/2015 Active ine (LORATADINE-D 24HR) mouth daily. 10-240 MG tablet Multiple Take 1 tablet by 0 08/31/2014 Ac tive Vitamins-Minerals mouth daily (MULTIVITAMIN ADULT OR) (every 24 hours). Jlfyspxutkz-Uaytftekz-N Take 1 capsule by 0 08/31/20 14 Active it C-Mn (GLUCOSAMINE mouth daily CHONDROITIN COMPLX) (every 24 hours). Dermatological APPLY FOR USE 100 g 11 11/12/2016 Active Products, Misc. UNDER GLOVES (ATOPICLAIR) Azelastine-Fluticasone Place 1 Union 1 Bottle 11 01/06/2017 Active 137-50 MCG/ACT SUSP into both nostrils two times a day. triamcinolone (NASACORT Place 1 Union 16.5 g 11 02/09/2017 Active AQ) 55 MCG/ACT nasal into both inhaler nostrils daily. azelastine (ASTELIN) Place 2 Sprays 30 mL 11 02/09/2017 Active 0.1 % nasal solution into both nostrils daily. clobetasol (TEMOVATE) Apply to hands 30 g 2 08/28/2020 Active 0.05 % ointment twice daily x 2 weeks prn for severe flares Active Problems Problem Noted Date Recurrent low back pain 06/17/2009 Other atopic dermatitis and related conditions 005 Obesity 05/28/2005 Overview: BMI 28 Epic Allergic rhinitis 05/28/2005 Overview: Epic Hyperlipidemia 05/27/2005 Overview: Other and unspecified hyperlipidemia (HR C) Headache 07/21/2004 Immunizations Name Administration Dates Next Due Flu Vac (3+ yrs) 09/18/2012, 06/18/2010, 06/17/2009, 07/03/2008 HepB Adult (Engerix-B, 20+ yrs, 3 07/02/1994, 01/21/1994, dose series) Influenza IIV4 (Quadrivalent) 0.5mL 09/03/2014 (05433) Influenza Vaccine (3+years) (Imm 08/10/2007 Clinic) Td 07/13/1994, 09/12/1984 Td (7+ yrs) 05/14/2005 Tdap 09/15/2010 Family History Medical History Relation Name Comments Cancer, Breast Mother Cataract Mother Cerebrovascular Disease Mother Diabetes, Type II Mother Alcohol/Drug Abuse Maternal Grandfather Alcohol/Drug Abuse Maternal Grandmother Coronary Artery Disease Paternal Grandfather PR @65 Cataract Paternal Grandmother Thyroid Disorder Sister 2 Hypertension Other both parents Glaucoma Negative Family History Macular Degeneration Negative Family History Relation Name Status Comments Father Alive Mother Alive Brother Alive Daughter Alive Adopted Maternal Grandfather Maternal Grandmother Paternal Grandfather Paternal Grandmother Sister 1 Alive Sister 2 Son Alive Adopted Other Social History Tobacco Use Types Packs/Day Years [...] (224 lb) 02/07/2018 12:15 PM CDT Height 182.9 cm (6') 01/06/2017 12:58 PM CDT Body Mass Index 30.38 01/06/2017 12:58 PM CDT Plan of Treatment Health Maintenance Due Date Last Done Comments Colon Cancer Screening Plan 1955 Due Hep C Screening (Preventive 1955 Services) Medicare Annual Wellness 1955 Visit COVID-19 Vaccine (#1) 1955 PSA Screening Discussion 05/14/2006 05/14/2005 Cholesterol 05/14/2010 05/14/2005 Zoster/Shingles (2 of 3) 08/30/2015 07/05/2015 DTaP/Tdap/Td (2 - Tdap) 09/15/2020 09/15/2010, 05/14/2005, 05/14/2005, Additional history exists Pneumococcal 65+ Yrs (2 - 12/24/2021 12/24/2020 PCV) Influenza (#1) 2022 06/26/2020, 06/01/2019, 09/19/2018, Additional history exists HepB Completed 07/02/1994, 01/21/1994, 12/18/1993 HepA Aged Out No longer eligib le based on patient 's age to complete this topic Hib Aged Out No longer eligib le based on patient 's age to complete this topic IPV (Polio) Aged Out No longer eligib le based on patient 's age to complete this topic MCV4 Aged Out No longer eligib le based on patient 's age to complete this topic Insurance Payer Benefit Plan / Subscriber ID Effective Dates Phone Addre ss Type Group MEDICARE MEDICARE [id number] 2020-Presminda Me son t [facility] [id number] 2018-Chaya [phone] [address] [place] [address] Mitch Catherine Personal/Family Self 1955 [address] (Home) [place] [phone] [id number] (Work) Mitch Catherine Personal/Family Self 1955 [address] (Home) [place] [phone] (Work) Care Teams Borematic Machine Operator Relationship Specialty Start Date End Date Mitch Li MD PCP - General Family Practice 08/23/[address] [place] [place] [address]
--- OUTSIDE RECORDS SUMMARY | 2022-07-08 15:56 | XMS_ITS | Encounter Summary ---
:1955 Author Organization [facility] Address [address], [place] [address] Care Team Providers Name Role Phone Trish Frausto MD Primary Care Provider Reason for Visit Reason Comments SKIN PROBLEM dry hands, bumps on scalp, m ole on back Encounter Details Date Type Department Care Team Description 11/12/2016 Office Visit Nithya Naqvi Asteatot ic eczema (Primary Dx); Dermatology MD Neoplasm of skin; [address] [address] [address] Atypical nevus; [place] [address] [place], [place] Besnier's prurigo; [phone] [address] Nevus of scalp; [phone] (Wo rk) Changing nevus Social History Tobacco Use Types Packs/Day Years Used Date Smoking Tobacco: Never Alcohol Use Standard Drinks/Week Comments No 0 (1 standard drink = 0.6 oz pure alcoho l) Sex Assigned at Date Recorded Not on file documented as of this encounter Patient Instructions Patient InstructionsBaljit Jarquin MA - 11/12/2016 10:21 AM CST DIRECT PHONE NUMBER: BALJIT [phone]. FEEL FREE TO CALL WITH ANY QUESTIONS OR CONCERNS YOU MAY HAVE. DRY HANDS TREATMENT PLAN: * SOAK HANDS FOR 2 - 5 MINUTES IN LUKE WARM WATER TWICE DAILY * PAT HANDS DRY, DO NOT SCRUB HANDS DRY. * THEN IMMEDIATELY APPLY LOTION. * EVERY TIME YOUR HANDS GET WET, FOLLOW WITH LOTION * DO NOT OVER SOAP. USE SOAP ONLY WHEN NEEDED. (FOR EXAMPLE AFTER HANDLING RAW MEAT OR USING THE BATHROOM) * TEST YOUR GLOVES FOR POSSIBLE ALLERGY. SEE USE TEST DIRECTIONS BELOW * APPLY CLOBETASOL ONCE A DAY TO THE WORST AREAS ONLY DURING FLARES. DO NOT USE BEARING GRINDER EVERY DAY. WHEN TOPICAL STEROIDS ARE RECOMMENDED, IT IS BEST TO APPLY THESE IMMEDIATELY FOLLOWING A WATER SOAK.LET THE STEROID SOAK INTO THE SKIN FOR A FEW MINUTES AND THEN FOLLOW WITH RECOMMENDED LOTION. (SO MEDICINE FIRST, THEN LOTION) KEEP IN MIND: TOPICAL STEROID CREAMS ARE MEANT TO HELP BRING INFLAMMATION DOWN. TOPICAL STEROIDS AREAPPLIED 1 - 2 TIMES DAILY TO THE AFFECTED AREA UNTIL SKIN REDNESS RESOLVES. (USUALLY NO LONGER THAN 2 WEEKS) THEN CONTINUE WITH WATER SOAKS FOLLOWED BY LOTION DAILY FOR 2-3 MONTHS. * STEROID CREAMS CAN THIN THE SKIN WITH NURSING HOME USE WHICH CANNOT BE REVERSED. BE SURE TO USE THE STEROID CREAM ONLY DIRECTED. Care Instructions after a shave skin biopsy/removal When do I start changing the bandage on my wound site? Leave the original bandage/dressing in place for 24 to 48 hours. If you develop bleeding from the site, apply firm pressure directly over the bandage, using the heel of your hand, for [address] on top of the first one - don???t keep removing and replacing dressings. NO PEEKING!Notify us if the bleeding still does not stop. How do I change the bandage on my wound? Clean the area once a day with warm soap and water. Gently pat dry the area. After the area has been cleaned and is dry, apply a small amount of petroleum jelly or Aquaphor healing ointment and apply a new bandage. We prefer that you do not use an antibacterial ointment (i.e. bacitracin, Neosporin) as many people develop a hypersensitivity including a rash and even blistering related to these. Is it okay to shower after having a skin biopsy/removal? Showering is okay, but please do not soak in a bathtub, hot tub, or pool. This will slow the healingprocess and may create infection. When can I stop bandaging my wound? Continue the wound care process until the area is healed. Complete healing usually takes 2-4 weeks. Wounds heal best when kept moist, try not to let the area dry out. During this process you may see a white film develop over your wound and this is part of the normal healing process. Letting them open to air, drying out, and having a scab form actually causes wounds to take longer to heal. If your skin is getting sensitive to the bandage, use gauze and paper tape. What signs or symptoms should I call the dermatology department about? Infection after a biopsy is not likely, but can occur. Mild amounts of redness, bruising, swelling, discomfort and a clear to yellowish to blood-tinged discharge are normal. Signs of Infection include: fever, increasing pain, redness and swelling, blood blister, drainage ofpus, and extreme heat from the site. Please call the clinic at [phone] if you experience any ofthese symptoms. When will I receive my skin biopsy/removal results? Your skin biopsy specimen will be sent to our laboratory for processing. It will then be interpretedby one of our board-certified dermatopathologists, Dr. Srinath Rivero, Dr. Sharona Valladares, and Dr. Judd Lorenzo. The dermatopathologists will write their findings in a pathology report. Your provider will then contact you with the results of this pathology report when it is available. Typically you wi ll be contacted 7 to 14 days after your biopsy or procedure. Our pathology services will be listed separately on your bill. If you have further questions about the biopsy process or if you have not received your biopsy results within 2 weeks, please call us at [phone]. USE TEST: APPLY PRODUCT TO UPPER, INNER ARM IN THE SAME SPOT EACH EVENING FOR UP TO 5 NIGHTS IN A ROW. WASH THE PRODUCT OFF IN THE MORNING. STOP USING THE PRODUCT SOON A REACTION OCCURS LIKE RASH, HIVES OR ITCHING. IF NO REACTION OCCURS AFTER 5 DAYS, THEN CONSIDER YOURSELF NOT ALLERGIC TO THE PRODUCT. 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 The mole on the back he thinks is gotten larger. 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 He isavoiding that he is using Eucerin eczema cream and it helps, but his hands are just burning. He has clobetasol. Nothing else has helped. He knows it can thin the skin. He has to wear gloves at work, Nitrol gloves. He never tested the gloves to see if it was problematic or not. If he lotions before he puts the gloves on, he feels like he sweats more and they burn more. EXAMINATION: He has small, patchy, eczematous, inflamed skin on the dorsum of the hands and around the wrists. A little bit on the fingers. Nothing on the palm. The only place he has eczema, just looks like he got behind from doing moisturization and it really flared. On the back he has a mole that is large, junctional, reddish- brown, linear striped almost with regression, pretty symmetric regression but it is getting larger. It is hard for him to follow. It is over a cm in size. He does have a mike K in the middle back. And then in the back of the scalp, just behind the ear, within the hair-bearing area, is a little prurigo nodule. Next to that is a normal intradermal nevus. 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 The back is kind of between the upper in mid over the scapula. I feel it should be removed.He is in agreement. Informed consent was obtained. Lidocaine 1% with epinephrine at 1:100,000 was injected, sterilely prepped. Deep shave biopsy to get it all. Just cautery for hemostasis. Vaseline andBand-Aid. Wound care instructions given. For the hands, we talked at length I think he should do hand soaks twice a day, followed by moisturization. I think he should stop using any commercial soap, because it may have quaternium in it. He should just rinse with cool water. No hot water. He should moisturize before he puts his gloves on but because he feels like it makes it worse, we will do a bariumcream and try Atopiclair. If it is not covered, we will try and get it covered. The clobetasol, justto the red areas. I want him to throw lotion all over the house, the car, the bedside, the toilet, the everywhere, so that anytime he sees it he throws it back on. I will see him back as needed. I will call him in a week with biopsy diagnosis. For the spots behind the neck, I am not worried about them. I encouraged him to stop picking. They will still be there, but they will not get so sore, and theyare not worrisome. DIAGNOSIS: ?Skin, left mid back, shave biopsy: ?- Compound dysplastic nevus with moderate atypia; margins ?narrowly free in the plane of sections studied. Pt informed on voicemail VLV:MEDQ C: CONFIRM #: [id number] [employer]IP[employer] MECHANIC Baljit Jarquin MA - 11/12/2016 10:48 AM CST Images from the original note were not included. Left mid back - biopsy documented in this encounter Plan of Treatment Not on filedocumented as of this encounter Procedures Procedure Name Priority Date/Time Associated Diagnosis Comme nts SURGICAL PATH, PARK Routine 11/12/2016 6:00 AM Re [facility] [employer]QUIPMENT MECHANIC procedure are i n the results section. 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 Date Obtained: 11/12/2016 ?Date Received: 11/13/2016 DIAGNOSIS: ?Skin, left mid back, shave biopsy: ?- Compound dysplastic nevus with moderate atypia; m argins ?narrowly free in the plane of sections studied. ? Tasneem SALAZAR ? (electronic signatur e) ? 11/17/2016 ??16:5 1 CLINICAL NOTES: ?Rule out SDN ORGAN/TISSUE SITE: ?L mid back GROSS DESCRIPTION: ?Received in a formalin-filled container labeled wit h the ?patient's name is an 11 x 10 x 1 mm shave biopsy of skin. ??The ?specimen is marked with yellow ink, quadrisected, a nd submitted ?entirely in one cassette. ?da ? SPDEN MICROSCOPIC DESCRIPTION: ?Microscopic examination performed. 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 Nithya Torres MD LAB_1 Performing Organization Address City/State/ZIP Code Phon e Number PN SOFT [address] [place] [address] [phone] documented in this encounter Visit Diagnoses Diagnosis Asteatotic eczema - Primary Other specified disease of sebaceous gla nds Neoplasm of skin ([facility]) Neoplasm of unspecified nature of bone, soft tissue, and skin Atypical nevus Benign neoplasm of skin, site unspecifie d Besnier's prurigo Other atopic dermatitis and related cond itions Nevus of scalp Benign neoplasm of scalp and skin of nec k Changing nevus Benign neoplasm of skin, site unspecifie d documented in this encounter Care Teams Wellness Educator Relationship Specialty Start Date End Date Trish Frausto MD PCP - General 09/01/05 08/22/18 [address] [place] [address] documented as of this encounter
--- OUTSIDE RECORDS SUMMARY | 2022-07-08 15:56 | XMS_ITS | Encounter Summary ---
:1955 Author Organization [facility] Address [address] [address] Care Team Providers Name Role Phone Trish Frausto MD Primary Care Provider Encounter Details Date Type Department Care Team Description 01/15/2011 PN Conversion Only [facility] [address] Farhana Prather MD Allergy [address] [facility] [address] [place] [address] [phone] Social History Tobacco Use Types Packs/Day Years Used Date Smoking Tobacco: Never Alcohol Use Standard Drinks/Week Comments No 0 (1 standard drink = 0.6 oz pure alcoho l) Sex Assigned at Date Recorded Not on file documented as of this encounter Plan of Treatment Not on filedocumented as of this encounter Visit Diagnoses Not on filedocumented in this encounter Care Teams Nut Roaster Relationship Specialty Start Date End Date Trish Frausto MD PCP - General 09/01/05 08/22/18 [address] [place], [place] [id number] documented as of this encounter
--- OUTSIDE RECORDS SUMMARY | 2022-07-08 15:56 | XMS_ITS | Encounter Summary ---
:1955 Author Organization [facility] Address [address] [place] [address] Care Team Providers Name Role Phone Mitch Li MD Primary Care Provider Reason for Referral Procedure/Equipment (Routine) - Closed Specialty Diagnoses / Procedures Referred By Contact Refer red To Contact Diagnoses [place] [address] [place] [address] Referral ID Status Reason Start Date Expiration Date Visits Requ ested Visits Authorized [id number] Closed 06/06/2019 09/04/2020 1 1 Scheduling Instructions Your provider has recommend an appointme nt with [facility]. We will be calling to schedule t his appointment after reviewing your records. If you have not heard from the clinic wi thin one week, please call [phone] to schedule directly Reason for Visit Reason Comments Skin Check Encounter Details Date Type Department Care Team Description 06/06/2019 Office Visit Nithya Naqvi Sun-damaged skin (Primary Dx); Talon Higgins MD Hand dermatitis; [address] [address] [place] Prurigo nodularis; [place] [address] [place], [place] Skin exam for malignant neop lasm; [phone] [id number] Medication management; [phone] Tinea pedis of both feet; (Work) Onychomycosis Social History Tobacco Use Types Packs/Day Years Used Date Smoking Tobacco: Never Smokeless Tobacco: Never Alcohol Use Standard Drinks/Week Comments No 0 (1 standard drink = 0.6 oz pure alcoho l) Sex Assigned at Date Recorded Not on file documented as of this encounter Patient Instructions Patient InstructionsMelida Wright RN - 06/06/2019 8:45 AM CDT 1. Clothing and shade are the best for sun protection. 2. Use sunblock with zinc in it. See below for Dr. Parisi's sunblock recommendations. 3. FOR YOUR HAND DERMATITIS: You can use Clobetasol once a day as needed. This is a strong steroid and can thin the skin with prolonged use. Prescription sent to your pharmacy. Make sure to use a moisturizer daily and every time your hands have been in water. When you are really flaring: Soak your hands in warm water for 5 to 10 minutes (you can add in some Epsom Salt) , blot dry then apply recommended cream. WHEN TOPICAL STEROIDS ARE RECOMMENDED, IT IS [...] STEROID CREAMS CAN THIN THE SKIN WITH PRIMER SUPERVISOR USE WHICH CANNOT BE REVERSED. BE SURE TO USE THE STEROID CREAM ONLY DIRECTED. 4. FOR THE AREA ON THE LEFT SIDE OF YOUR NECK: Prurigo Nodule You can use Clobetasol once day at bedtime for 5 days. 5. LAB: Stop by the lab in 2 to 3 weeks and have your labs drawn. * THERE ARE ORDERS IN YOUR CHART [...] COMING IN. *LAB APPOINTMENT PHONE NUMBER IS [phone]. *YOUR LAB RESULTS WILL BE MAILED TO YOU INCLUDING DR. PARISI'S RECOMMENDATIONS. 6. PATCH TESTING Your doctor has referred you for patch testing. Patch testing is a weeklong process of testing for skin allergy (compounds that cause a rash when contacting the skin). Scheduling and Appointment Information 1. Our clinic will receive an electronic referral from your doctor. You do not need to call the clinic at this time. We will call you to schedule within 2 weeks of receiving the electronic referral. Ifyou have not heard from our clinic within 2 weeks, please feel free to call and leave a message. 2. When we call, we will provide extra details and this will also be sent in a letter but an overview is provided below. Three appointments within one week are required. What to Expect The First Appointment (up to 3 hours) ??? It is imperative that you to bring all personal products. o Please bring any pwqw-qjm-totalyx (antibiotic ointment, anti-itch creams, essential oils) or prescription creams or lotions which you are presently using or have used in the past, even if it has higinio while. o Empty tubes, bottles, and boxes are still useful so that we can look at ingredients on the labels. ??? If you suspect any articles that you contact at work, please bring a sample of each on your first visit. ??? Patches will be applied to your back. We may need to use your arms, chest, or thighs as well. Once the patches are in place, we will cover them with a hypoallergenic tape and they will stay in place until the second appointment. The Second Appointment (45 minutes to 1 hour) ??? We will remove the patches and will tamica around the edges with a dark pen. ??? Some of the ink used to tamica the edges of the testing area may rub off on clothing and furniture. The Third Appointment (1 to 1.5 hours) ??? The doctor will perform a final reading of your patch testing and will have an in-depth discussion with you about your reactions/test results and treatment plan options. ??? We will tell you what you can and cannot use or do going forward. Guidelines for the Week ??? This should be a very low kan week and we ask that you avoid any activities that will cause perspiration. ??? You will not be able to bathe or shower for the entire week of testing but you may take sponge baths as long as the testing areas are kept dry ??? While the patches are in place (through your second appointment): o You will not be able to wear a bra. - Wearing a camisole without built in bra is okay o You cannot wash your own hair. - We do not want you to raise hands over head or lean over tub or sink. - You may lean back over a sink to have someone wash your hair as if you were in a hair salon. o No bending, lifting, reaching, or twisting! We want you to keep your trunk and arms fairly still while the patches are in place. If this impacts your job duties, you will need to take time off duringthe patch testing process Insurance ??? Insurance companies generally pay most of the charges for patch testing but you should check your own policy. Please do this at least one month prior to your appointment ??? Information: Procedure code: 68414 ICD-10 Code: Dermatitis L30.9 Medications & Exposures ??? Oral prednisone: Stop 2 weeks before testing (ideally). At a minimum, stop 1 week prior to testing but do not stop medication suddenly. ??? Immunosuppressants (Ex. Cellcept, Cyclosporine, or Methotrexate): Stop 1, preferably 2, weeks prior to testing. ??? If you are on other immune suppressant medications (Dupilamab), please call the clinic to discuss this prior to your appointment. ??? Avoid sunlight, tanning booths, light treatments to the back for 2 weeks, 1 week minimum, prior to testing. ??? You are able to use anti-histamines before and during the testing if needed. DIRECT PHONE NUMBER: FERNANDO [phone]. FEEL FREE TO CALL WITH ANY QUESTIONS OR CONCERNSYOU MAY HAVE. MOLES TO HAVE CHECKED IN CLINIC: BLACK, WALSH OR BROWN IN THE CENTER WITH A RED OR COPPER TONE COLORING AROUND IT. ANY MOLES THAT CHANGE OR DOUBLE IN SIZE. SUNBLOCK: PREFER CLOTHING OVER SUNSCREEN. WHEN USING SUNSCREEN, PREFER SUNBLOCKS THAT ARE ZINC BASED AND ARE AT LEAST 5% ZINC. -VANICREAM SPF 30 OR 50 -CERAVE MINERAL SUNSCREEN -DOROTHY AVAILABLE AT [employer] -PACIFICA MINERAL SUNSCREEN AVAILABLE AT [employer] -KAYE AVAILABLE AT [employer] OR [employer] -BLUE LIZARD (FOR SENSITIVE SKIN OR BABY) -BULLFROG SUNSCREEN -TERRASPORT OR AQUASPORT WHICH ARE AVAILABLE AT [facility] OR ONLINE. -AVEENO MINERAL SUNSCREEN (AVAILABLE AT [employer]) *MORE ELEGANT SUNSCREENS WITH ZINC IN IT: -BABO SUNSCREEN (AVAILABLE AT [employer] OR ONLINE) -KARON-POSAY ANTHELIOS 50 MINERAL ULTRA LIGHT ([employer] OR ONLINE) -JUICE BEAUTY SPF 30 TINTED MINERAL MOISTURIZER FOR FACE -JUICE BEAUTY SPORT SPF 30 SPORT SUNSCREEN -BEAUTY COUNTER ALL MINERAL SUNSCREEN STICK, LOTION OR SPRAY -BEAUTY COUNTER DEW SKIN MOISTURIZING COVERAGE FOR FACE -CLINIQUE CITY BLOCK SHEER SPF 25 (NOT CLINIQUE SUPER CITY BLOCK SPF 40) -DAVID SAHA WHICH IS AVAILABLE AT [employer] *Avoid sunscreens with oxybenzone, parsol 1789 (avobenzone) [...] FOR YOUR MUSCLES, BONES AND BRAIN HEALTH. RECOMMENDED LOTIONS: *LOTIONS THAT CONTAIN CERAMIDES. THESE ARE VERY HEALING FOR THE SKIN. 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 Does use Eucerin eczema cream with ceramide and it helps a lot. He has never had the gloves tested for allergy. He had a recent flare recently, not 100% sure why. He does back off the Eucerin in thesummer because things are usually better. He reports he does not use clobetasol on a daily basis. He also has toenail fungus. Primary physician put him on Lamisil, started about 3 or 4 days ago, a year of topical Lamisil did not clear him. He is scheduled to have his labs checked liver function. I think a white count in 6 weeks, not at 2. He is feeling fine on the Lamisil . He did have a mole on the left mid back removed last time that was very dark and a little bit bigger and it was just moderately dysplastic and cleared. PHYSICAL EXAM: SKIN: A full-body examination today including scalp, face, neck, chest, back, abdomen, buttocks, groin, arms, legs, hands, feet, nails, perirectal and pubic area: Inflammatory patches, kind of scattered over the back of the hand with some lichenification and some thinning of the skin. Freckly mole on the left mid upper back that is small 5 mm and a 4 mm brown mole with a little bit of straying of thecolor at the superior pole, only about 4 mm in size on the right upper back. Scar on the left back is well healed with no sign of recurrence and a freckly 4 mm boring, brown, slightly freckly mole on the right posterior lateral thigh that looks fine. Knee replacement scar on the right knee from this year it is healing well. Face shows some glands, some thin mike Ks, nothing worrisome. Scalp looks, good hair jets back a little bit and there is a little more sun damage there, but no definable AK's. Palms are clear. It is really more the back of the hands that he gets rash. The chest and back, abdomen,genitalia are fine. Toenails show onychomycosis about one-third of the way back and a little bit of flaking and scaling on the bottom of the feet. ASSESSMENT: Onychomycosis, history of knee replacement, history of moderately dysplastic nevi, chronic hand dermatitis needing clobetasol, Lidex and triamcinolone does not work. PLAN: I am more comfortable when I start someone on Lamisil to check blood work in 2 weeks for idiosyncratic liver problems, so I am going to do that for him and I do not mean to step on toes. I am just morenervous about antifungals maybe than the average doctor. I also will check a white count. We talked about side effects of Lamisil including taste disturbance, which is not worrisome, but also dropping white count, rash and liver irritability. Told to call if urine gets dark or poop gets light or he has poor appetite or itching. I will check white count and liver function at 2 weeks and then leave it up to the doctor who prescribed it for the 6 week in followup. We talked at length about once he stops that Lamisil if it clears the toenails that is great, but he does not have the enzyme that sheds a fungus, so he will need chronic topicals to avoid it recurring. Otherwise, about 80% of people will recur within a year or 2. Talked about what to be watching for with the nevi. ABCDEs of josé miguel елена discussed, sun protection discussed. Hand dermatitis discussed at length, encouraged him to do water soaks, moisturization, the least amount of clobetasol as he needs and consider patch testing with our [facility] especially if he flares this winter. I spent 35 minutes with him. PRAVIN:TEMITOPE C: CONFIRM #: [id number] documented in this encounter Plan of Treatment Scheduled Referrals Name Type Priority Associated Diagnoses Order S chedule Patch Test Referral Referral Routine Hand dermatitis Order ed: 06/06/2019 documented as of this encounter Results Hepatic Function Panel (HFPA) (06/20/2019 7:23 AM CDT) athologist Signature Alkaline 98 40 - 150 06/20/2019 [facility] Phosphatase U/L 9:07 AM CDT LABORATORY Bilirubin, Total 0.5 0.2 - 1.2 06/20/2019 [place] mg/dL 9:07 AM CDT LABORATORY Bilirubin, 0.2 0.0 - 0.5 06/20/2019 [facility] Direct mg/dL 9:07 AM CDT LABORATORY AST (SGOT) 17 10 - 40 06/20/2019 [place] U/L 9:07 AM CDT LABORATORY ALT (SGPT) 25 0 - 55 U/L 06/20/2019 [facility] 9:07 AM CDT LABORATORY Protein, Total 7.0 6.4 - 8.3 06/20/2019 [facility] [place] g/dL 9:07 AM CDT LABORATORY Albumin 4.0 3.5 - 5.0 06/20/2019 [place] g/dL 9:07 AM CDT LABORATORY Specimen Anatomical Collection Method / Collection Time Recei joe Time (Source) Location / Volume Laterality Blood Venipuncture / 06/20/2019 7:23 06/20/2019 7:23 Unknown AM CDT AM CDT Nithya Torres MD LAB_1 Performing Organization Address City/[facility]/ZIP Code Phon e Number [facility] [address] [place] [address] White Blood Cell Count (WBC1) (06/20/2019 7:23 AM CDT) athologist Signature WBC 4.6 3.5 - 10.5 06/20/2019 [facility] x10(9)/L 7:56 AM CDT LABORATORY Specimen Anatomical Collection Method / Collection Time Recei joe Time (Source) Location / Volume Laterality Blood Venipuncture / 06/20/2019 7:23 06/20/2019 7:23 Unknown AM CDT AM CDT Nithya Torres MD LAB_1 Performing Organization Address City/State/ZIP Code Phon e Number [facility] [address] [place] [address] documented in this encounter Visit Diagnoses Diagnosis Sun-damaged skin - Primary Other chronic dermatitis due to solar ra diation Hand dermatitis Contact dermatitis and other eczema, due to unspecified cause Prurigo nodularis Lichenification and lichen simplex chron icus Skin exam for malignant neoplasm Screening for malignant neoplasm of the skin Medication management Encounter for other specified aftercare Tinea pedis of both feet Onychomycosis Dermatophytosis of nail documented in this encounter Care Teams Order Checker Packer Processer Relationship Specialty Start Date End Date Mitch Li MD PCP - General Family Practice 08/23/18 [address] [address] documented as of this encounter
--- OUTSIDE RECORDS SUMMARY | 2022-07-08 15:56 | XMS_ITS | Encounter Summary ---
:1955 Author Organization [facility] Address [address] [place] [address] Care Team Providers Name Role Phone Trish Frausto MD Primary Care Provider Reason for Visit Reason Comments EAR WASH Encounter Details Date Type Department Care Team Description 11/14/2012 Nursing Visit [facility] Impacted cerumen (Primary [address] Dx) [place] [address] Social History Tobacco Use Types Packs/Day Years Used Date Smoking Tobacco: Never Alcohol Use Standard Drinks/Week Comments No 0 (1 standard drink = 0.6 oz pure alcoho l) Sex Assigned at Date Recorded Not on file documented as of this encounter Progress Notes Donna Aguilar - 11/15/2012 2:55 PM CST S Mitch Catherine presents to have his ear(s) washed. C/o Donna Shea. States they have been using ear wax softening agent Yes. O Cerumen observed in right ear canal(s). A Ear assesment done by Aliza Vizcarra before and Vianney Crow after the ear wash. Cerumen impaction. (policy note: ear assessment must be done pre/post ear wash by RN or Provider.) P Ear wash ordered by provider Dr. Frausto . Right ear lavaged with 3 bottles of tap water. none of the cerumen was removed. Donna Aguilar EOPATH documented in this encounter Plan of Treatment Not on filedocumented as of this encounter Visit Diagnoses Diagnosis Impacted cerumen - Primary documented in this encounter Care Teams Tech Brazer Tester Relationship Specialty Start Date End Date Trish Frausto MD PCP - General 09/01/05 08/22/18 [address] [place] [address] documented as of this encounter
--- OUTSIDE RECORDS SUMMARY | 2022-07-08 15:56 | XMS_ITS | Encounter Summary ---
:1955 Author Organization [facility] Address [address], [place] [address] Care Team Providers Name Role Phone Trish Frausto MD Primary Care Provider Reason for Visit Reason Onset Date Comments Refill 12/17/2014 Encounter Details Date Type Department Care Team Description 12/17/2014 Refill [facility] Trish Frausto MD Refill [address] [facility] [address] [place], [place] [address] [place] [address] [phone] (Wo rk) Social History Tobacco Use Types Packs/Day Years Used Date Smoking Tobacco: Never Alcohol Use Standard Drinks/Week Comments No 0 (1 standard drink = 0.6 oz pure alcoho l) Sex Assigned at Date Recorded Not on file documented as of this encounter Nursing Notes Nia Vizcarra - 12/19/2014 12:36 PM CDT lmtcb and letter mailed. Amaya Tam - 12/18/2014 2:36 PM CDT lmtcb Nia Vizcarra - 12/17/2014 10:40 AM CDT Lmtcb. Adam Valentin MD - 12/17/2014 10:38 AM CDT Please inform Mitch that his medication refill request has been received. Because he is due for either laboratory or clinic monitoring, this request cannot be completed by our centralized refill process. Please inform him that future refills cannot be safely authorized until the recommended monitoring is completed. Please review with him that the following is needed: office visit. Has not been seenhere since 2011. Please assist patient in scheduling this required follow-up. Until he has completed this recommendedmonitoring, medication refills are limited to 30 days at a time. If he has any questions regarding this recommendation, please offer him a scheduled telephone visit to discuss. Adam Valentin MD Interface, Out Surescripts Prov Query - 12/17/2014 10:16 AM CDT Loratadine-Pseudoephedrine (LORATADINE-D 24HR) 10-240 MG tablet - VIOLATION #1: Medication is not assigned to a protocol. - VIOLATION #2: A qualifying visit was not found within the last 2 years of the patient record. - PROTOCOL: None Exists - LAST QUALIFYING VISIT: None - NEXT SCHEDULED VISIT: None - LAST REFILLED ON: 04/05/2014, QTY: 90, Refills: 0, Sig: take 1 tab by mouth daily. (unchanged) Powered by [employer], Reference: [id number], 12/17/2014 10:16:35 AM CDT, Pool: CHAN RN ([id number]) Adele Cosby - 12/17/2014 10:16 AM CDT Last fill from a Pharmacy on 04.09.14 for a quantity of 90. This prescription is for a scheduled II controlled substance. The order will print at your care unitprinter. Please sign and route to pharmacy at mailstop [id number]. documented in this encounter Plan of Treatment Not on filedocumented as of this encounter Visit Diagnoses Not on filedocumented in this encounter Care Teams Warp Dyeing Vat Tender Relationship Specialty Start Date End Date Trish Frausto MD PCP - General 09/01/05 08/22/18 [address] [place] [address] documented as of this encounter
--- OUTSIDE RECORDS SUMMARY | 2022-07-08 15:56 | XMS_ITS | Encounter Summary ---
:1955 Author Organization [facility] Address [address] [place] [address] Care Team Providers Name Role Phone Trish Frausto MD Primary Care Provider Reason for Visit Reason Comments PAIN, FOOT lt Encounter Details Date Type Department Care Team Description 09/02/2011 Office Visit [facility] Trish Frausto (Primary Practice [place] Dx) [address] [facility] [address] [place] [address] [phone] Social History Tobacco Use Types Packs/Day Years Used Date Smoking Tobacco: Never Alcohol Use Standard Drinks/Week Comments No 0 (1 standard drink = 0.6 oz pure alcoho l) Sex Assigned at Date Recorded Not on file documented as of this encounter Last Filed Vital Signs Vital Sign Reading Time Taken Comments Blood Pressure 132/70 09/02/2011 2:07 PM FURNACE PUNCHER Pulse 78 09/02/2011 2:07 PM FURNACE PUNCHER Temperature 35.6 ??C (96 ??F) 09/02/2011 2:07 PM FURNACE PUNCHER Respiratory Rate - - Oxygen Saturation - - Inhaled Oxygen Concentration - - Weight 96.2 kg (212 lb) 09/02/2011 2:07 PM FURNACE PUNCHER Height - - Body Mass Index 27.97 09/15/2010 2:51 PM FURNACE PUNCHER documented in this encounter Progress Notes Trish Frausto MD - 09/02/2011 2:40 PM CST Subjective: 56-year-old male comes in complaining of left foot pain. Went to bed feeling fine last night. Woke up about for the morning to go to the bathroom and was still fine. At 6:30 this morning when he woke up he had extreme pain in his left foot, at the base of the great toe. No injury. No change in activities. No change in shoes. Has not had this before. Objective:BP 132/70 Pulse 78 Temp(Src) 96 ??F (35.6 ??C) (Tympanic) Wt 212 lb (96.163 kg) He appears well. The left foot shows some mild redness and significant tenderness at the MP joint of the left great toe. Difficulty bearing weight secondary to discomfort. X-ray looks okay to me. Assessment: Acute arthritis, possibly gout. Plan: He is given Indocin 25 mg 3 times a day for the next few days. Elevate. Rest. Will check a uric acid level. ACE PUNCHER documented in this encounter Plan of Treatment Not on filedocumented as of this encounter Procedures Procedure Name Priority Date/Time Associated Diagnosis Comme nts URIC ACID Routine 09/02/2011 2:44 PM Arthralgia Results f or this FURNACE PUNCHER procedure are i n the results section . documented in this encounter Results URIC ACID (09/02/2011 2:44 PM FURNACE PUNCHER) P athologist Signature Uric Acid 6.2 3.5 - 8.5 [facility] mg/dl Specimen Anatomical Collection Method Collection Time Receive d Time (Source) Location / / Volume Laterality 09/02/2011 2:44 PM 1 2:48 FURNACE PUNCHER PM FURNACE PUNCHER Trish Frausto MD LAB_1 Performing Organization Address City/State/ZIP Code Phon e Number [facility] [phone] [address] XR FOOT LEFT (09/02/2011 2:31 PM FURNACE PUNCHER) Anatomical Region Laterality Modality Lower Extremity, Foot, Foot & Ankle Comp uted Radiography Specimen (Source) Anatomical Collection Method Collection Time Re ceived Time Location / / Volume Laterality 09/02/2011 2:31 PM FURNACE PUNCHER Narrative 09/02/2011 3:15 PM FURNACE PUNCHER LEFT FOOT, 3 VIEWS 09/02/2011 INDICATION: Pain. FINDINGS: Degenerative changes in the he ad of the first metatarsal with cystic erosive changes medially associat ed with soft tissue thickening. The first MTP joint is normal to minimally narrow. Minimal plantar calcaneal spur. Left foot is otherwise normal. Procedure Note Dale Antoine - 09/02/2011Formatting of t his note might be different from the original. LEFT FOOT, 3 VIEWS 09/02/2011 INDICATION: Pain. FINDINGS: Degenerative changes in the he ad of the first metatarsal with cystic erosive changes medially associat ed with soft tissue thickening. The first MTP joint is normal to minimally narrow. Minimal plantar calcaneal spur. Left foot is otherwise normal. Trish Frausto MD RAD GD documented in this encounter Visit Diagnoses Diagnosis Arthralgia - Primary Pain in joint, site unspecified documented in this encounter Care Teams Automatic Coil Machine Operator Relationship Specialty Start Date End Date Trish Frausto MD PCP - General 09/01/05 08/22/18 [address] [place] [address] documented as of this encounter
--- OUTSIDE RECORDS SUMMARY | 2022-07-08 15:56 | XMS_ITS | Encounter Summary ---
:1955 [address] [facility] Address [address] [address] Care Team Providers Name Role Phone Mitch Li MD Primary Care Provider Encounter Details Date Type Department Care Team Description 06/20/2019 Lab Visit [facility] Medication management [address] [place] [address] Social History Tobacco Use Types [...] Name Priority Date/Time Associated Diagnosis Comme nts LIVER PANEL(HEPATIC Routine 06/20/2019 7:23 AM Medication Re sults for this FUNCTION PANEL) CDT management procedure ar e in the results section. WBC, BLOOD Routine 06/20/2019 7:23 AM Medication Results f or this CDT management procedure are i n the results section. documented in this encounter Results Hepatic Function Panel (HFPA) (06/20/2019 7:23 AM CDT) P athologist Signature Alkaline 98 40 - 150 06/20/2019 [place] Phosphatase U/L 9:07 AM CDT LABORATORY Bilirubin, Total 0.5 0.2 - 1.2 06/20/2019 [place] mg/dL 9:07 AM CDT LABORATORY Bilirubin, 0.2 0.0 - 0.5 06/20/2019 [place] Direct mg/dL 9:07 AM CDT LABORATORY AST (SGOT) 17 10 - 40 06/20/2019 [place] U/L 9:07 AM CDT LABORATORY ALT (SGPT) 25 0 - 55 U/L 06/20/2019 [place] 9:07 AM CDT LABORATORY Protein, Total 7.0 6.4 - 8.3 06/20/2019 [place] g/dL 9:07 AM CDT LABORATORY Albumin 4.0 3.5 - 5.0 06/20/2019 [place] g/dL 9:07 AM CDT LABORATORY Specimen Anatomical Collection Method / Collection Time Recei joe Time (Source) Location / Volume Laterality Blood Venipuncture / 06/20/2019 7:23 06/20/2019 7:23 Unknown AM CDT AM CDT Nithya Torres MD LAB_1 Performing Organization Address City/[facility]/ZIP Code Phon e Number [facility] [facility] [address] [place], [place] [phone] White Blood Cell Count (WBC1) (06/20/2019 7:23 AM CDT) P athologist Signature WBC 4.6 3.5 - 10.5 06/20/2019 [place] x10(9)/L 7:56 AM CDT LABORATORY Specimen Anatomical Collection Method / Collection Time Recei joe Time (Source) Location / Volume Laterality Blood Venipuncture / 06/20/2019 7:23 06/20/2019 7:23 Unknown AM CDT AM CDT Nithya Torres MD LAB_1 Performing Organization Address City/[facility]/ZIP [facility] Phon e Number [facility] [address] [place], [place] [phone] documented in this encounter Visit Diagnoses Diagnosis Medication management Encounter for other specified aftercare documented in this encounter Care Teams Fraud Investigator Relationship Specialty Start Date End Date Mitch Li MD PCP - General Family Practice 08/23/18 [facility] [address] documented as of this encounter
--- OUTSIDE RECORDS SUMMARY | 2022-07-08 15:56 | XMS_ITS | Encounter Summary ---
:1955 Author Organization [facility] Address [address] [place] [address] Care Team Providers Name Role Phone Trish Frausto MD Primary Care Provider Encounter Details Date Type Department Care Team Description 09/02/2011 Imaging [facility] Radiology [address] [place], [place] [address] Social History Tobacco Use Types Packs/Day Years Used Date Smoking Tobacco: Never Alcohol Use Standard Drinks/Week Comments No 0 (1 standard drink = 0.6 oz pure alcoho l) Sex Assigned at Date Recorded Not on file documented as of this encounter Plan of Treatment Not on filedocumented as of this encounter Procedures Procedure Name Priority Date/Time Associated Diagnosis Comme nts XR FOOT LT Routine 09/02/2011 2:31 PM Results f or this AP/MO/LAT INTERMEDIATE DESIGNER procedure are i n the results section. documented in this encounter Results XR FOOT LEFT (09/02/2011 2:31 PM INTERMEDIATE DESIGNER) Anatomical Region Laterality Modality Lower Extremity, Foot, Foot & Ankle Comp uted Radiography Specimen (Source) Anatomical Collection Method Collection Time Re ceived Time Location / / Volume Laterality 09/02/2011 2:31 PM INTERMEDIATE DESIGNER Narrative 09/02/2011 3:15 PM INTERMEDIATE DESIGNER LEFT FOOT, 3 VIEWS 09/02/2011 INDICATION: Pain. [...] GD documented in this encounter Visit Diagnoses Not on filedocumented in this encounter Care Teams Drapery Operator Relationship Specialty Start Date End Date Trish Frausto MD PCP - General 09/01/05 08/22/18 [address] [place] [address] documented as of this encounter
--- OUTSIDE RECORDS SUMMARY | 2022-07-08 15:57 | XMS_ITS | Encounter Summary ---
:1955 Author [facility] Address [address] [place] [address] Care Team Providers Name Role Phone Trish Frausto MD Primary Care Provider Reason for Visit Reason Comments COUGH Encounter Details Date Type Department Care Team Description 06/18/2010 Office Visit [facility] Trish Frausto (upper respiratory Practice LMD infection) (Primary [address] [facility] [address] [place]x) [place] [address] [phone] Social History Tobacco Use Types Packs/Day Years Used Date Smoking Tobacco: Never Alcohol Use Standard Drinks/Week Comments No 0 (1 standard drink = 0.6 oz pure alcoho l) Sex Assigned at Date Recorded Not on file documented as of this encounter Last Filed Vital Signs Vital Sign Reading Time Taken Comments Blood Pressure 121/73 06/18/2010 1:45 PM CDT Pulse 90 06/18/2010 1:45 PM CDT Temperature 36.6 ??C (97.9 ??F) 06/18/2010 1:45 PM CDT Respiratory Rate - - Oxygen Saturation 100% 06/18/2010 1:45 PM CDT Inhaled Oxygen Concentration - - Weight 97.5 kg (215 lb) 06/18/2010 1:45 PM CDT Height - - Body Mass Index 28.96 02/13/2010 2:00 PM CDT documented in this encounter Progress Notes Trish Frausto - 06/18/2010 2:02 PM CDT Subjective: 55-year-old male comes in with two-week history of upper respiratory infection symptoms.He feels he is getting worse. Coughing all the time. Cough is productive. No fever. Son is also sickand required antibiotics before he got better. Two coworkers are sick. Patient is usually healthy. Denies history of pneumonia. Objective:BP 121/73 Pulse 90 Temp 97.9 ??F (36.6 ??C) Wt 215 lb (97.523 kg) SpO2 100% He appears healthy. TMs look okay. Oropharynx is injected. Neck is supple with no adenopathy. No thyromegaly. Lungs are clear with no wheezing or rhonchi. Assessment: Upper respiratory infection. Plan: I did go ahead and give him Zithromax. Fluids. Rest. Call if symptoms are not improving. documented in this encounter Plan of Treatment Not on filedocumented as of this encounter Visit Diagnoses Diagnosis URI (upper respiratory infection) - Prim leo Acute upper respiratory infections of un specified site documented in this encounter Care Teams Beauty Culturist Relationship Specialty Start Date End Date Trish Frausto MD PCP - General 09/01/05 08/22/18 [address] [place] [address] documented as of this encounter
--- OUTSIDE RECORDS SUMMARY | 2022-07-08 15:57 | XMS_ITS | Encounter Summary ---
:1955 Author Organization [facility] Address [address] [place] [address] Care Team Providers Name Role Phone Trish Frausto MD Primary Care Provider Reason for Visit Reason Comments EYE EXAM,YEARLY MIGUEL 02-11-09santos. Patient states no changes in vision noticed. Has seasonal allergies. Watery e yes.No pain,redness or irritation. Encounter Details Date Type Department Care Team Description 03/25/2010 Office Visit [facility] Juanjose Leon Examination of Eyes and Visi on (Primary Dx); [address] M, OD Myopia [place], [place] [address] Social History Tobacco Use Types Packs/Day Years Used Date Smoking Tobacco: Never Alcohol Use Standard Drinks/Week Comments No 0 (1 standard drink = 0.6 oz pure alcoho l) Sex Assigned at Date Recorded Not on file documented as of this encounter Progress Notes Juanjose Leon - 03/25/2010 4:04 PM CDT ROUTINE EYE EXAM Chief Complaint Patient presents with ??? EYE EXAM,YEARLY MIGUEL 02-11-09santos. Patient states no changes in vision noticed. Has seasonal allergies. Watery eyes.No pain,redness or irritation. Patient's Preferred Name: Kemal Assessment: Routine eye exam Myopia / Astigmatism and Presbyopia Plan: New glasses prescription given Return to clinic: 3-4 weeks for IOP and DFE Juanjose Leon, MARK 03/25/2010 documented in this encounter Plan of Treatment Not on filedocumented as of this encounter Visit Diagnoses Diagnosis Examination of eyes and vision - Primary Myopia documented in this encounter Care Teams Supervisor Pleating Relationship Specialty Start Date End Date Trish Frausto MD PCP - General 09/01/05 08/22/18 [address] [place] [address] documented as of this encounter
--- OUTSIDE RECORDS SUMMARY | 2022-07-08 15:57 | XMS_ITS | Encounter Summary ---
:1955 Author Organization [facility] Address [address] [place] [address] Care Team Providers Name Role Phone Trish Frausto MD Primary Care Provider Encounter Details Date Type Department Care Team Description 07/11/2009 Therapy External to [facility] Social History Tobacco Use Types Packs/Day Years Used Date Smoking Tobacco: Never Alcohol Use Standard Drinks/Week Comments No 0 (1 standard drink = 0.6 oz pure alcoho l) Sex Assigned at Date Recorded Not on file documented as of this encounter Progress Notes Interface, In Chrtscr And Scan - 07/19/2009 11:56 AM WAXER R documented in this encounter Plan of Treatment Not on filedocumented as of this encounter Visit Diagnoses Not on filedocumented in this encounter Care Teams Dredge Pipeman Relationship Specialty Start Date End Date Trish Frausto MD PCP - General 09/01/05 08/22/18 [address] [place] [address] documented as of this encounter
--- OUTSIDE RECORDS SUMMARY | 2022-07-08 15:57 | XMS_ITS | Encounter Summary ---
:1955 [facility] Address [address], [place] [address] Care Team Providers Name Role Phone Trish Frausto MD Primary Care Provider Reason for Referral Specialty Diagnoses / Procedures Referred By Contact [place] [address] [place], [place] [address] Referral ID Status Reason Start Date Expiration Date Visits Requ ested Visits Authorized Reason for Visit Reason Comments Forms FMLA for back pain Encounter Details Date Type Department Care Team Description 06/24/2009 Office Visit [facility] Adam Valentin MD Recurrent Low Back Pain (Primary Dx); Practice [address] [place] [address] Screen for Colon Cancer [id number] [place] [phone] Social History Tobacco Use Types Packs/Day Years Used Date Smoking Tobacco: Never Alcohol Use Standard Drinks/Week Comments No 0 (1 standard drink = 0.6 oz pure alcoho l) Sex Assigned at Date Recorded Not on file documented as of this encounter Last Filed Vital Signs Vital Sign Reading Time Taken Comments Blood Pressure 130/70 06/24/2009 9:25 AM CDT Pulse 80 06/24/2009 9:25 AM CDT Temperature - - Respiratory Rate 16 06/24/2009 9:25 AM CDT Oxygen Saturation - - Inhaled Oxygen Concentration - - Weight 97.4 kg (214 lb 12.8 oz) 06/24/2009 9:25 AM CDT Height 184.2 cm (6' 0.5) 06/24/2009 9:25 AM CDT Body Mass Index 28.73 06/24/2009 9:25 AM CDT documented in this encounter Progress Notes Adam Valentin - 06/24/2009 10:21 AM CDT SUBJECTIVE: Patient in for followup on low back pain. See previous note from one week ago on June 17. He states he missed work June 18, return to work on June 21 at the [employer]. He is scheduled for her first session with physical therapy to learn home exercise program today. Continues to take ibuprofen 800 milligrams t.i.d. and use ice. States he is moving much better without significant pain. States he tends to be careful. Patient states he has FMLA form needed for completion. Patient is behind on RHM. Last physical exam in 2004. No colon cancer screening. OBJECTIVE: BP 130/70 Pulse 80 Resp 16 Ht 6' 0.5 (1.842 m) Wt 214 lb 12.8 oz (97.433 kg) Rises from chair without difficulty. Lumbar range of motion much improved with only minimal discomfort at end range. No other change in exam. ASSESSMENT: Recurrent low back pain, improved. Overdue for RHM. PLAN: Follow up with physical therapy for home exercise program. FMLA form completed. Colonoscopy ordered and patient will schedule RHM. Adam Valentin MD documented in this encounter Plan of Treatment Scheduled Referrals Name Type Priority Associated Diagnoses Order S chedule COLONOSCOPY-PREVENTATIV Referral Routine Screen for Colon Cancer Ordered: 06/24/2009 E (V76.51) documented as of this encounter Visit Diagnoses Diagnosis Recurrent low back pain - Primary Lumbago Screen for colon cancer Special screening for malignant neoplasm s, colon documented in this encounter Care Teams Television Specialist Relationship Specialty Start Date End Date Trish Frausto MD PCP - General 09/01/05 08/22/18 [address] [place] [address] documented as of this encounter
--- OUTSIDE RECORDS SUMMARY | 2022-07-08 15:57 | XMS_ITS | Encounter Summary ---
:1955 Author Organization [email or web address] Address [address], [place] [address] Care Team Providers Name Role Phone Trish Frausto MD Primary Care Provider Reason for Visit Reason Onset Date Comments Other 06/20/2010 Encounter Details Date Type Department Care Team Description 06/20/2010 Telephone [facility] Trish Frausto MD Other [address] [facility] [address] [place], [place] [address] [place] [address] [phone] (Wo rk) Social History Tobacco Use Types Packs/Day Years Used Date Smoking Tobacco: Never Alcohol Use Standard Drinks/Week Comments No 0 (1 standard drink = 0.6 oz pure alcoho l) Sex Assigned at Date Recorded Not on file documented as of this encounter Nursing Notes Hilda Cisneros - 06/20/2010 2:41 PM CDT Pt was informed letter ready for continuous pickling line pickler helper Crystal Baca RN, BSN - 06/20/2010 1:57 PM CDT Let him know the letter is ready for continuous pickling line pickler helper Hilda Cisneros - 06/20/2010 12:37 PM CDT Cough----Pt saw Dr Frausto on Wed this wk. Is needing a return to work slip. Pt was out of work ,02 17 and . Pt will continuous pickling line pickler helper note at front end alignment specialist. pls call when ready. Pt knows that Dr Frausto is not in today. documented in this encounter Plan of Treatment Not on filedocumented as of this encounter Visit Diagnoses Not on filedocumented in this encounter Care Teams Business Liaison Manager Relationship Specialty Start Date End Date Trish Frausto MD PCP - General 09/01/05 08/22/18 [address] [place] [address] documented as of this encounter
--- OUTSIDE RECORDS SUMMARY | 2022-07-08 15:57 | XMS_ITS | Encounter Summary ---
:1955 Author Organization [facility] Address [address] [place] [address] Care Team Providers Name Role Phone Trish Frausto MD Primary Care Provider Encounter Details Date Type Department Care Team Description 09/30/2010 Imaging [facility] Radiology [address] [place], [place] [address] Social History Tobacco Use [...] Priority Date/Time Associated Diagnosis Comme nts XR CHEST 2 VIEWS Routine 09/30/2010 12:54 PM Resu lts for this NURSING HOME ASSISTANT ADMINISTRATOR procedure are i n the results section. documented in this encounter Results XR CHEST 2 VIEW ROUTINE (09/30/2010 12:54 PM NURSING HOME ASSISTANT ADMINISTRATOR) Anatomical Region Laterality Modality Chest, Lung Computed Radiography Specimen (Source) Anatomical Collection Method Collection Time Re ceived Time Location / / Volume Laterality 09/30/2010 12:54 PM NURSING HOME ASSISTANT ADMINISTRATOR Narrative 09/30/2010 9:08 PM NURSING HOME ASSISTANT ADMINISTRATOR CHEST X-RAY 2 VIEWS 09/30/2010 INDICATION: Reevaluate pneumonia. COMPARISON: 09/15/2010. FINDINGS: Complete interval clearing of the patchy infiltrate present in the left lung on the prior 09/15/2010 exa m. Both lungs are clear. Heart size and pulmonary vascularity normal. No pl eural effusions. Procedure Note Yong Alvarado - 09/30/2010Formatti ng of this note might be different from the original. CHEST X-RAY 2 VIEWS 09/30/2010 INDICATION: Reevaluate pneumonia. COMPARISON: 09/15/2010. FINDINGS: Complete interval clearing of the patchy infiltrate present in the left lung on the prior 09/15/2010 exa m. Both lungs are clear. Heart size and pulmonary vascularity normal. No pl eural effusions. Trish Frausto MD RAD GD documented in this encounter Visit Diagnoses Not on filedocumented in this encounter Care Teams Tribal Delegate Relationship Specialty Start Date End Date Trish Frausto MD PCP - General 09/01/05 08/22/18 [address] [place] [address] documented as of this encounter
--- OUTSIDE RECORDS SUMMARY | 2022-07-08 15:57 | XMS_ITS | Encounter Summary ---
:1955 Author [facility] Address [address], [place] [address] Care Team Providers Name Role Phone Trish Frausto MD Primary Care Provider Reason for Visit Reason Onset Date Comments Work Slip Request 09/19/2010 Encounter Details Date Type Department Care Team Description 09/19/2010 Telephone [facility] Melisa Muro W ork Slip Request Practice TREE KILLER, KNOCKOUT MACHINE OPERATOR [id number] [place], [place] [address] [place] [address] [phone] (Wo rk) Social History Tobacco Use Types Packs/Day Years Used Date Smoking Tobacco: Never Alcohol Use Standard Drinks/Week Comments No 0 (1 standard drink = 0.6 oz pure alcoho l) Sex Assigned at Date Recorded Not on file documented as of this encounter Nursing Notes Louise Poole LPN - 09/19/2010 3:07 PM CST Pt contacted. Adeline's notes reviewed with pt. He will follow up in 2 weeks. Work slip was left at front office associate. Louise Poole LPN 09/19/2010, 3:07 PM RADAR OPERATOR/NAVIGATOR Melisa Muro, MIGNON, KNOCKOUT MACHINE OPERATOR - 09/19/2010 2:44 PM CST That is fine to extend work slip. I sent a letter to him with xray results and he may not have received this yet. I would like him to come into clinic two weeks after completing his antibiotic for re Examination and repeat CXR to make sure his chest is clear. He should follow up sooner than this if his symptoms are worsening or if he is not Continuing to improve. Melisa Muro NP RADAR OPERATOR/NAVIGATOR Rajni Cho RN - 09/19/2010 2:03 PM CST Spoke with patient. S: Pt requesting extension of work slip. (Previous work slip included 09/15/10 through 09/17/10). Will p/u at front office associate.. Pt is wondering if he needs to be seen for f/u. B: 09/15/10 pt saw Albertina Muro NP. Diagnosed with pneumonia. From progress note: PLAN: Will treat for pneumonia with Zithromax Fluids Rest Call or return to clinic prn if these symptoms worsen, fail to improve as anticipated, or if new symptoms develop. Pt will take last dose of Zithromax today. A: Pt continues with continues with rattle in chest. Cough is productive at times, yellow to clear. At times quite a bit of coughing is needed to get sputum up. If laying around, resting pt states he does not cough much. If more active, moving around, cough is more. Pt state he is sleeping better at night, denies that cough is waking him up. Pt state cold air makes him cough more. Pt states at work he can work outside. At times pt feels SOB and a little wheezing. Pt denies any chest tightness. No audible wheeze. Patient speaks in full sentences without pause for breath. No fever, no chills. Sinus congestion is still present a little bit. No ear pain, no sore throat. Pt continues to feel low energy. Taking in fluids fine. Pt does not feel worse. Plan: Will route to Albertina Muro NP for work slip adding 09/18/10 and 09/19/10 off from work. Pt will nut picker at front office associate along with result letter written today. Pt's next scheduled work day is on Wednesday and pt is hoping to feel well enough by then to go into work. Reviewed with pt letter written today, 09/19/2010 by Albertina Muro NP, regarding xray result and plan. Pt verbalizes understanding of recommended f/u. Pt does not feel he needs to be seen today. Pt informed to be seen sooner if he feels symptoms are worsening, develops fever, feels he is not improving as expected or any further concerns. Discussed with pt finishing Zithromax today, med still continues to work for another 5 days. RADAR OPERATOR/NAVIGATOR Beatriz Perkins - 09/19/2010 9:02 AM CST Patient would like to speak to his either provider or nurse. Name of patient's provider: [facility] Summarize the patient's question or concern: PT WOULD LIKE TO DISCUSS IF HE SHOULD SCHEDULE AN APPT TO F/U FROM HIS PNEUMONIA THANK YOU Beatriz Perkins RADAR OPERATOR/NAVIGATOR documented in this encounter Plan of Treatment Not on filedocumented as of this encounter Visit Diagnoses Not on filedocumented in this encounter Care Teams Pediatric Geneticist Relationship Specialty Start Date End Date Trish Frausto MD PCP - General 09/01/05 08/22/18 [address] [place] [address] documented as of this encounter
--- OUTSIDE RECORDS SUMMARY | 2022-07-08 15:57 | XMS_ITS | Encounter Summary ---
:1955 Author Organization [facility] Address [address], [place] [address] Care Team Providers Name Role Phone Trish Frausto MD Primary Care Provider Reason for Visit Reason Onset Date Comments QUESTIONS, GENERAL 09/15/2010 Encounter Details Date Type Department Care Team Description 09/15/2010 Telephone [facility] Trish Frausto, Kvng RODRIGUES, accounts officer [address] [facility] [address] [place] [address] [place], [place] [phone] (Wo rk) Social History Tobacco Use Types Packs/Day Years Used Date Smoking Tobacco: Never Alcohol Use Standard Drinks/Week Comments No 0 (1 standard drink = 0.6 oz pure alcoho l) Sex Assigned at Date Recorded Not on file documented as of this encounter Nursing Notes Crystal Baca, JACE, BSN - 09/15/2010 12:02 PM CST Has had the flu since last Wed. Low grade fever, coughing. Body aches, cold, fever. Grand kids all had it. Cough is productive at times. Taking a deep breath causes coughing. Denies SOB unless coughing. No wheezing that he's noticed, but his encourages him to come in due to his cough is getting deeper. Office visit recommended. Not usual for fever to last this long. Will see Adeline at 2:40 AL AID EXPERT Elli Ellsworth - 09/15/2010 10:50 AM CST Patient would like to speak to his: provider or nurse Name of patient's provider: Dr. Frausto Summarize the patient's question or concern: States he's had flu symptoms for the last week . Would like to know if he needs to be seen. Elli Ellsworth AL AID EXPERT documented in this encounter Plan of Treatment Not on filedocumented as of this encounter Visit Diagnoses Not on filedocumented in this encounter Care Teams Mill House Supervisor Relationship Specialty Start Date End Date Trish Frausto MD PCP - General 09/01/05 08/22/18 [address] [place] [address] documented as of this encounter
--- OUTSIDE RECORDS SUMMARY | 2022-07-08 15:57 | XMS_ITS | Encounter Summary ---
:1955 Author Organization [facility] Address [address] [address] Care Team Providers Name Role Phone Trish Frausto MD Primary Care Provider Encounter Details Date Type Department Care Team Description 02/13/2010 Office Visit [facility] [place] [address] [address] [place], [place] [phone] (Wo rk) Social History Tobacco Use Types Packs/Day Years Used Date Smoking Tobacco: Never Alcohol Use Standard Drinks/Week Comments No 0 (1 standard drink = 0.6 oz pure alcoho l) Sex Assigned at Date Recorded Not on file documented as of this encounter Last Filed Vital Signs Vital Sign Reading Time Taken Comments Blood Pressure 128/84 02/13/2010 2:00 PM CDT Pulse - - Temperature - - Respiratory Rate - - Oxygen Saturation - - Inhaled Oxygen Concentration - - Weight 95.2 kg (209 lb 15.8 oz) 02/13/2010 2:00 PM C: 9 5.3kg CDT Height 183.5 cm (6' 0.25) 02/13/2010 2:00 PM C: 183.5c m CDT Body Mass Index 28.28 02/13/2010 2:00 PM CDT documented in this encounter Progress Notes Karmen Prather MD - 02/13/2010 12:01 AM CDT Progress Notes signed by Karmen Prather MD at 03/12/10 1145 Author: Karmen Prather MD Service: (none) Author Type: Physician Filed: 01/03/11 2252 Note Time: 02/13/10 0001 Status: Signed Shellfish Dredge Operator: Karmen Prather MD (Physician) NAME: EUSEBIA ENGLE MR#: [id number] ACCT: [id number] VISIT: [id number] DICTATING CLINICIAN: Karmen Prather MD CONFIRM #: [id number] LOC: 514 CLINIC PROGRESS NOTE DATE OF VISIT: 02/13/2010 SUBJECTIVE: CHIEF COMPLAINT: Rhinoconjunctivitis. HISTORY OF PRESENT ILLNESS: Self-referred to discuss treatment options for his 12-year history of bilateral nasal congestion, rhinorrhea, ocular itching and postnasal drip that triggers cough. Symptoms progressively worse in the last year. They are present intermittently throughout the winter but more consistent November through June, particularly if he is doing yard work. Symptoms interfere with his ability to breathe through his nose comfortably. His sense of smell is okay. No sinusitis or sinus surgeries. Believes he had a CT scan had done as part of evaluation for his mild obstructive sleep apnea of the sinuses showing a nasal septal deviation. Surgery was not recommended. He uses Claritin-D daily with improvement, Zyrtec D seemed less effective. Recalls using nasal sprays remotely and a nosebleed occurred. No eye drops. No environmental changes correlate with symptom onset 12 years ago. He is a [place] hus[place] who has lived in his current home for the last 20 years. Kept a dog for 5 or 6 years without change in his symptoms, no current pets. Cough seems clearly related to postnasal drainage. Denies chest tightness, dyspnea or wheezing. No history of asthma, including in young childhood. No recurrent chest colds, bronchitis, or pneumonia. He has never used inhalers. REVIEW OF SYSTEMS: No symptoms of acid reflux. No atopic dermatitis. No bee sting reactions. PAST MEDICAL HISTORY: Significant for dyshidrotic eczema affecting his hands, mild obstructive sleep apnea, for which treatment was not recommended, and herniorrhaphy in young childhood. CURRENT MEDICATIONS: Up to date on the patient health profile. ADR/ALLERGIES: RASH OCCURRED AFTER TAKING AMOXICILLIN. FAMILY MEDICAL HISTORY: Positive for asthma in a sibling. Food allergy in one of his children. 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 No pets. Nonsmoker. No environmental tobacco exposure. OBJECTIVE: VS: Normal and on the patient health profile. GENERAL: Pleasant, interactive. HEENT: Conjunctivae clear. Tympanic membranes normal. Nasal mucosa, some mild turbinate edema, slightly atrophic. Oropharynx: Free of exudate. LUNGS: Clear to auscultation bilaterally. HEART: Regular. ALLERGY SKIN PRICK TESTING: Positive to grass pollen. There is no reaction to dust mite, cat, dog, mold, tree or ragweed. Tests were reviewed personally and scanned into SDoc. ASSESSMENT: Mixed allergic and nonallergic rhinoconjunctivitis. PLAN: Treatment options were discussed. Inhalant allergen avoidance recommended. Trial of fluticasone 2 squirts to each nostril daily and supplement with Claritin-D as needed. OTC Zaditor eye drops recommended. Call if symptoms not well controlled after 2-3 weeks of this treatment and we will consider trying Astepro nasal spray. Follow up as needed. BJG:[id number] C: 02/14/10 11:42 CONFIRM #: [id number] documented in this encounter Plan of Treatment Not on filedocumented as of this encounter Visit Diagnoses Not on filedocumented in this encounter Care Teams Process Pumper Relationship Specialty Start Date End Date Trish Frausto MD PCP - General 09/01/05 08/22/18 [address] [place] [address] documented as of this encounter
--- OUTSIDE RECORDS SUMMARY | 2022-07-08 15:57 | XMS_ITS | Encounter Summary ---
:1955 Author Organization [facility] Address [address], [place] [address] Care Team Providers Name Role Phone Trish Frausto MD Primary Care Provider Encounter Details Date Type Department Care Team Description 02/12/2010 PN Conversion Only [facility] [address] [place] [address] Social History Tobacco Use Types Packs/Day Years Used Date Smoking Tobacco: Never Alcohol Use Standard Drinks/Week Comments No 0 (1 standard drink = 0.6 oz pure alcoho l) Sex Assigned at Date Recorded Not on file documented as of this encounter Plan of Treatment Not on filedocumented as of this encounter Visit Diagnoses Not on filedocumented in this encounter Care Teams Sink Maker Relationship Specialty Start Date End Date Trish Frausto MD PCP - General 09/01/05 08/22/18 [address] [place] [address] documented as of this encounter
--- OUTSIDE RECORDS SUMMARY | 2022-07-08 15:57 | XMS_ITS | Encounter Summary ---
:1955 Author [facility] Address [address], [place] [address] Care Team Providers Name Role Phone Trish Frausto MD Primary Care Provider Encounter Details Date Type Department Care Team Description 06/24/2009 Correspondence [facility] Adam Valentin MD [facility] [address] [facility] [address] [place] [address] [place], [place] [address] [phone] Social History Tobacco Use Types Packs/Day Years Used Date Smoking Tobacco: Never Alcohol Use Standard Drinks/Week Comments No 0 (1 standard drink = 0.6 oz pure alcoho l) Sex Assigned at Date Recorded Not on file documented as of this encounter Progress Notes Adam Valentin - 07/01/2009 7:47 AM CDT documented in this encounter Plan of Treatment Not on filedocumented as of this encounter Visit Diagnoses Not on filedocumented in this encounter Care Teams Director Of Social Services Relationship Specialty Start Date End Date Trish Frausto MD PCP - General 09/01/05 08/22/18 [address] [place] [address] documented as of this encounter
--- OUTSIDE RECORDS SUMMARY | 2022-07-08 15:57 | XMS_ITS | Encounter Summary ---
:1955 [address] [facility] Address [address] [address] Care Team Providers Name Role Phone Trish Frausto MD Primary Care Provider Reason for Visit Reason Onset Date Comments Orders Needed 09/29/2010 Encounter Details Date Type Department Care Team Description 09/29/2010 Telephone [facility] Hayden Frausto MD Orders Needed Practice [address] [facility] [place] [address] [place] [address] [place], [place] [address] [phone] Social History Tobacco Use Types Packs/Day Years Used Date Smoking Tobacco: Never Alcohol Use Standard Drinks/Week Comments No 0 (1 standard drink = 0.6 oz pure alcoho l) Sex Assigned at Date Recorded Not on file documented as of this encounter Nursing Notes Peyman Muse - 09/29/2010 10:49 AM CST Contacted pt gave him message TRUCTION EQUIPMENT MECHANIC Trish Frausto MD - 09/29/2010 9:34 AM CST Order placed. TRUCTION EQUIPMENT MECHANIC Jaimie Vizcarra - 09/29/2010 9:28 AM CST Order Request Questions: What order is being requested: Chest X-ray Why is the order needed: F/U on Pneumonia Is it okay to leave detailed message on your voicemail? yes If after 3pm, can this wait until tomorrow? No Patient was told to f/u with x- ray. TRUCTION EQUIPMENT MECHANIC documented in this encounter Plan of Treatment Not on filedocumented as of this encounter Results XR CHEST 2 VIEW ROUTINE (09/30/2010 12:54 PM CONSTRUCTION EQUIPMENT MECHANIC) Anatomical Region Laterality Modality Chest, Lung Computed Radiography Specimen (Source) Anatomical Collection Method Collection Time Re ceived Time Location / / Volume Laterality 09/30/2010 12:54 PM CONSTRUCTION EQUIPMENT MECHANIC Narrative 09/30/2010 9:08 PM CONSTRUCTION EQUIPMENT MECHANIC CHEST X-RAY 2 VIEWS 09/30/2010 INDICATION: Reevaluate pneumonia. COMPARISON: 09/15/2010. FINDINGS: Complete interval clearing of the patchy infiltrate present in the left lung on the prior 09/15/2010 exa m. Both lungs are clear. Heart size and pulmonary vascularity normal. No pl eural effusions. Procedure Note Yong Alvarado H - 09/30/2010Formatti ng of this note might [...] on filedocumented in this encounter Care Teams Marketing Content Manager Relationship Specialty Start Date End Date Trish Frausto MD PCP - General 09/01/05 08/22/18 [address] [place] [address] documented as of this encounter
--- OUTSIDE RECORDS SUMMARY | 2022-07-08 15:57 | XMS_ITS | Encounter Summary ---
:1955 Author Organization [facility] Address [address] [place] [address] Care Team Providers Name Role Phone Trish Frausto MD Primary Care Provider Encounter Details Date Type Department Care Team Description 09/15/2010 Imaging [facility] Radiology Cough [address] [place], [place] [address] Social History Tobacco Use Types Packs/Day Years Used Date Smoking Tobacco: Never Alcohol Use Standard Drinks/Week Comments No 0 (1 standard drink = 0.6 oz pure alcoho l) Sex Assigned at Date Recorded Not on file documented as of this encounter Progress Notes Melisa Muro APRN, CNP - 09/18/2010 7:05 PM FISHER MUSSEL Quick Note: Please send this letter doesn't look like he has activated online yet. Kemal: The radiologist also read your xray as showing pneumonia. Please finish your Zithromax. I hope you are feeling better. I think it would be a good idea for you to come into clinic For follow up appointment and xray in about two weeks To make sure you are clear. Call or return to clinic prn if these symptoms worsen, fail to improve as anticipated, or if new symptoms develop. Melisa Muro NP ER MUSSEL documented in this encounter Plan of Treatment Not on filedocumented as of this encounter Procedures Procedure Name Priority Date/Time Associated Diagnosis Comme nts XR CHEST 2 VIEWS Routine 09/15/2010 3:34 PM Cough Resul ts for this FISHER MUSSEL procedure are i n the results section. documented in this encounter Results XR CHEST 2 VIEW ROUTINE (09/15/2010 3:34 PM FISHER MUSSEL) Anatomical Region Laterality Modality Chest, Lung Computed Radiography Specimen (Source) Anatomical Collection Method Collection Time Re ceived Time Location / / Volume Laterality 09/15/2010 3:34 PM FISHER MUSSEL Narrative 09/15/2010 9:29 PM FISHER MUSSEL ? EXAMINATION: XR CHEST PA/AP AND LAT 2VWS Sep 15, 2010 03:34:00 PM INDICATION: Cough. FINDINGS: Infiltrates in the left mid an d lower lung field. Right lung is clear. Chest otherwise negative. Procedure Note Dilshad Hendrix T - 09/15/2010 EXAMINATION: XR CHEST PA/AP AND LAT 2VWS Sep 15, 2010 03:34:00 PM INDICATION: Cough. FINDINGS: Infiltrates in the left mid an d lower lung field. Right lung is clear. Chest otherwise negative. Melisa Muro QUALITATIVE FIELD COORDINATOR, CHAIN TESTING MACHINE OPERATOR RAD GD documented in this encounter Visit Diagnoses Diagnosis Cough documented in this encounter Care Teams Insurance Claims Adjuster Relationship Specialty Start Date End Date Trish Frausto MD PCP - General 09/01/05 08/22/18 [address] [place] [address] documented as of this encounter
--- OUTSIDE RECORDS SUMMARY | 2022-07-08 15:57 | XMS_ITS | Encounter Summary ---
:1955 Author Organization [facility] Address [address] [place] [address] Care Team Providers Name Role Phone Trish Frausto MD Primary Care Provider Encounter Details Date Type Department Care Team Description 06/24/2009 Therapy External to [facility] Social History Tobacco Use Types Packs/Day Years Used Date Smoking Tobacco: Never Alcohol Use Standard Drinks/Week Comments No 0 (1 standard drink = 0.6 oz pure alcoho l) Sex Assigned at Date Recorded Not on file documented as of this encounter Progress Notes Interface, In Chrtscr And Scan - 07/01/2009 10:25 AM CDT documented in this encounter Plan of Treatment Not on filedocumented as of this encounter Visit Diagnoses Not on filedocumented in this encounter Care Teams Real Estate Analyst Relationship Specialty Start Date End Date Trish Frausto MD PCP - General 09/01/05 08/22/18 [address] [place] [address] documented as of this encounter
--- OUTSIDE RECORDS SUMMARY | 2022-07-08 15:57 | XMS_ITS | Encounter Summary ---
:1955 Author Organization [facility] Address [address], [place] [address] Care Team Providers Name Role Phone Trish Frausto MD Primary Care Provider Reason for Visit Reason Onset Date Comments QUESTIONS, GENERAL 06/24/2009 Encounter Details Date Type Department Care Team Description 06/24/2009 Telephone [facility] Trish Frausto, Kvng RODRIGUES, ballast cleaning machine operator [address] [facility] [address] [place], [place] [address] [place], [place] [phone] (Wo rk) Social History Tobacco Use Types Packs/Day Years Used Date Smoking Tobacco: Never Alcohol Use Standard Drinks/Week Comments No 0 (1 standard drink = 0.6 oz pure alcoho l) Sex Assigned at Date Recorded Not on file documented as of this encounter Nursing Notes Alexandra Dominique - 06/24/2009 9:27 AM CDT Patient came in for appointment today. Alexandra Dominique LPN 06/24/2009 9:27 AM Alexandra Dominique - 06/24/2009 9:11 AM CDT I will forward to Dr Leavitt to see what he wants to do, then I can call patient back. Alexandra Dominique LPN 06/24/2009 9:11 AM Maxi Godoy - 06/24/2009 8:06 AM CDT Patient would like to speak to his either provider or nurse. Name of patient's provider: Dr leavitt Summarize the patient's question or concern: Pt has an appointment at 9.20a with Dr Leavitt pertaining to [place] paperwork. Would like to know whether he can drop the forms for the dr to sign or come in to see him at 9.20a? Please advise. Maxi Godoy documented in this encounter Plan of Treatment Not on filedocumented as of this encounter Visit Diagnoses Not on filedocumented in this encounter Care Teams Chili Powder Mixer Relationship Specialty Start Date End Date Trish Frausto MD PCP - General 09/01/05 08/22/18 [address] [place] [address] documented as of this encounter
--- OUTSIDE RECORDS SUMMARY | 2022-07-08 15:57 | XMS_ITS | Encounter Summary ---
:1955 Author [facility] Address [address] [place] [address] Care Team Providers Name Role Phone Trish Frausto MD Primary Care Provider Reason for Visit Reason Comments EYE EXAM,YEARLY MIGUEL 09/2006 ROSALNID. Ptstates the DVA and NVA has decreased. Removes the glasses for better NVA. No p ain or redness. ITCHING, EYE Itchy and watery from season al allergies. No drops used. Encounter Details Date Type Department Care Team Description 02/11/2009 Office Visit [facility] Juanjose Leon Examination of Eyes and Visi on (Primary Dx); [address] M, OD Myopia [place], [place] [address] Social History Tobacco Use Types Packs/Day Years Used Date Smoking Tobacco: Never Alcohol Use Standard Drinks/Week Comments No 0 (1 standard drink = 0.6 oz pure alcoho l) Sex Assigned at Date Recorded Not on file documented as of this encounter Patient Instructions Patient InstructionsPeJuanjose sotelo - 02/11/2009 9:37 AM CDT Thank you for choosing [facility] for your eye care needs. Many tests were done to check your eye health today including: pupil reaction, eye muscle function, peripheral (side) vision, visual acuity, and eye pressure. The health of your eyes was also checked, both on the outside as well as the inside of each eye. Your eyeglass prescription or contact prescription may have also been updated. Early detection of eye health problems is important to keep your eyes healthy over your lifetime. Atyour eye exam we are looking for signs of glaucoma, diabetes, high blood pressure, cataract, dry eye, eye allergies, and many other conditions. Frequently Asked Questions: Why do you use eye drops? We use a clear drop to dilate, or open the pupil wider. This allows us to have a clearer, wider view inside the eye to look for signs of eye disease. We use a different eye drop to check the pressure inside the eye; this is usually the yellow eye drop. How long will my eyes be blurry today? Your vision will be blurry up close for about an hour, and your eyes will stay dilated for about 4 hours. You will need to wear sunglasses when you are outside today. If you do not have any sunglasses with you, there are some disposable ones available. Please usecaution in getting around for the few hours that your eyes are dilated. How can I contact the clinic in the future? Appointment Center: [phone] Eye Dept: [phone] Online Services: [email or web address] For after hours care, call the CareLine at [phone] or . We look forward to taking care of your eye care needs in the years to come. documented in this encounter Progress Notes Juanjose Leon - 02/11/2009 9:37 AM CDT ROUTINE EYE EXAM Chief Complaint Patient presents with ??? EYE EXAM,YEARLY MIGUEL 09/2006 ROSALIND. Ptstates the DVA and NVA has decreased. Removes the glasses for better NVA. No pain or redness. ??? ITCHING, EYE Itchy and watery from seasonal allergies. No drops used. Patient's Preferred Name: Kemal Assessment: Routine eye exam Myopia / Astigmatism and Presbyopia Plan: New glasses prescription given Return to clinic: One year or if changes Juanjose Leon, OD 02/11/2009 documented in this encounter Plan of Treatment Not on filedocumented as of this encounter Visit Diagnoses Diagnosis Examination of eyes and vision - Primary Myopia documented in this encounter Care Teams Rehabilitation Director Relationship Specialty Start Date End Date Trish Frausto MD PCP - General 09/01/05 08/22/18 [address] [place] [address] documented as of this encounter
--- OUTSIDE RECORDS SUMMARY | 2022-07-08 15:57 | XMS_ITS | Encounter Summary ---
:1955 Author Organization [facility] Address [address] [address] Care Team Providers Name Role Phone Trish Frausto MD Primary Care Provider Encounter Details Date Type Department Care Team Description 09/30/2010 Correspondence [facility] Melisa Muro FMLA Practice [address] [address] [facility] [address] [place], [place] [address] [place] [address] [phone] (Wo rk) Social History Tobacco Use Types Packs/Day Years Used Date Smoking Tobacco: Never Alcohol Use Standard Drinks/Week Comments No 0 (1 standard drink = 0.6 oz pure alcoho l) Sex Assigned at Date Recorded Not on file documented as of this encounter Progress Notes Melisa Muro APRN, CNP - 10/13/2010 9:17 AM WINDOW DRESSER OW DRESSER documented in this encounter Plan of Treatment Not on filedocumented as of this encounter Visit Diagnoses Not on filedocumented in this encounter Care Teams Director Of Officiating Relationship Specialty Start Date End Date Trish Frausto MD PCP - General 09/01/05 08/22/18 [address] [place], [place] [id number] documented as of this encounter
--- OUTSIDE RECORDS SUMMARY | 2022-07-08 15:57 | XMS_ITS | Encounter Summary ---
:1955 Author Organization [facility] Address [address], [place] [address] Care Team Providers Name Role Phone Trish Frausto MD Primary Care Provider Reason for Visit Reason Comments COUGH since last Wednesday IMMUNIZATIONS Encounter Details Date Type Department Care Team Description 09/15/2010 Office Visit [facility] Melisa Muro P neumonia (Primary Dx); Practice NEWSPAPER PEDDLER, APPLICATION SUPPORT ADMINISTRATOR Cough; [id number] [address] [place] [address] [phone] (Wo rk) Social History Tobacco Use Types Packs/Day Years Used Date Smoking Tobacco: Never Alcohol Use Standard Drinks/Week Comments No 0 (1 standard drink = 0.6 oz pure alcoho l) Sex Assigned at Date Recorded Not on file documented as of this encounter Last Filed Vital Signs Vital Sign Reading Time Taken Comments Blood Pressure 120/76 09/15/2010 2:51 PM METAL FABRICATOR Pulse 70 09/15/2010 2:51 PM METAL FABRICATOR Temperature 36.5 ??C (97.7 ??F) 09/15/2010 2:51 PM METAL FABRICATOR Respiratory Rate 18 09/15/2010 2:51 PM METAL FABRICATOR Oxygen Saturation 96% 09/15/2010 2:51 PM METAL FABRICATOR Inhaled Oxygen Concentration - - Weight 96.2 kg (212 lb) 09/15/2010 2:51 PM METAL FABRICATOR Height 185.4 cm (6' 1) 09/15/2010 2:51 PM METAL FABRICATOR Body Mass Index 27.97 09/15/2010 2:51 PM METAL FABRICATOR documented in this encounter Progress Notes Melisa Muro, NEWSPAPER PEDDLER, APPLICATION SUPPORT ADMINISTRATOR - 09/18/2010 6:55 PM CST SUBJECTIVE: 55 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 COUGH since last Wednesday ??? IMMUNIZATIONS Feels the has had the flu beginning 5 days ago. Low grade fever, coughing. Body aches, cold, fever. Grand kids all had it. Cough is productive at times. Taking a deep breath causes coughing. Denies SOB unless coughing. No wheezing that he's noticed. Feels cough is getting deeper. Temp last night 101. No nausea or vomiting. Both ears feel full. No history of tobacco use no asthma. Does have a history of allergies and uses a nasal spray and otcantihistamines. Current outpatient prescriptions Medication Sig ??? CLARITIN OR 1 as neened ??? CLOBETASOL PROP (TEMOVATE) 0.05% OINTMENT apply bid to hands for 2 weeks prn for severe flares ??? ibuprofen (AKA MOTRIN) 800 MG tablet Take one tablet by mouth every 6-8 hours as needed for pain. ??? mometasone (NASONEX) 50 MCG/ACT nasal solution Apply or instill 2 Sprays into both nostrils daily. ??? MULTIPLE VITAMIN TABS 1 tab daily ??? Iidosejtmtrhafu-WB-QE-APAP (DAYQUIL LIQUICAPS OR) Take 2 Tabs by mouth every 8 hours as needed. ALLERGIES: Amoxicillin History Social History ??? Marital Status: Spouse Name: Haven Number of Children: 3 ??? 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 Tobacco Use: Never ??? Alcohol Use: No ??? Drug Use: No ??? Sexually Active: Yes -- Female partner(s) Control/ Protection: Surgical Other Topics Concern ??? Not on file Social History Narrative ??? No narrative on file OBJECTIVE: BP 120/76 Pulse 70 Temp(Src) 97.7 ??F (36.5 ??C) (Tympanic) Resp 18 Ht 6' 1 (1.854 m) Wt 212 lb (96.163 kg) SpO2 96% He appears well, alert and oriented, neatly and casually dressed, in no apparent distress. Eyes: PERRLA, EOMI, no drainage, no conjunctivitis, no photophobia Nose: mild erythema and edematous mucosa, no sinus tenderness Ears: EACs are clear with TMs that are clear, translucent and without bulging or erythema Mouth: moist mucosa, oropharynx shows no erythema, edema or exudate Neck: supple with no adenopathy Heart: regular rate and rhythm without murmur Lungs: respirations easy and even, lungs are clear with no crackles, no wheezing, no rhonchi does have decreased breath sounds in both bases, frequent deep harsh cough Skin: warm and dry without rash WBC (k/ul) Date Value 09/15/10 3:16 PM 4.7 XRAY of the chest reveals bilateral infiltrates by my independent read. Will await official radiology report and follow up with patient as indicated. ASSESSMENT: Encounter Diagnoses Code Name Primary? Qualifier ??? 486F Pneumonia Yes ??? 786.2 Cough ??? V06.1 Vaccin for DTP PLAN: Will treat for pneumonia with Zithromax Fluids Rest Call or return to clinic prn if these symptoms worsen, fail to improve as anticipated, or if new symptoms develop. See After Visit Summary, patient instructions and orders. Melisa Muro NP Electronically signed by Melisa Muro, NEWSPAPER PEDDLER, APPLICATION SUPPORT ADMINISTRATOR at 09/18/2010 7:02 PM METAL FABRICATOR documented in this encounter Plan of Treatment Not on filedocumented as of this encounter Procedures Procedure Name Priority Date/Time Associated Diagnosis Comme nts COMPLETE BLOOD Waiting 09/15/2010 3:16 PM Cough Results for this COUNT-W/DIFF METAL FABRICATOR procedure are i n the results section. documented in this encounter Results XR CHEST 2 VIEW ROUTINE (09/15/2010 3:34 PM METAL FABRICATOR) Anatomical Region Laterality Modality Chest, Lung Computed Radiography Specimen (Source) Anatomical Collection Method Collection Time Re ceived Time Location / / Volume Laterality 09/15/2010 3:34 PM METAL FABRICATOR Narrative 09/15/2010 9:29 PM METAL FABRICATOR ? EXAMINATION: XR CHEST PA/AP AND LAT [...] is clear. Chest otherwise negative. Melisa Muro APRN, CNP RAD GD HEMOGRAM/PLTS/DIFF (09/15/2010 3:16 PM METAL FABRICATOR) athologist Signature WBC 4.7 4.0 - 11.0 [facility] k/ul Comment: All Parameters Rechecked RBC 5.04 4.5 - 5.9 M/ul [facility] Hemoglobin 15.6 13.5 - 17.5 g/dl [facility] HCT 44.3 41.0 - 53.0 % [facility] MCV 88.0 80 - 100 fl [facility] MCH 30.9 26 - 34 pg [facility] MCHC 35.1 32 - 36 g/dl [facility] RDW 12.0 11.5 - 14.5 % [facility] Platelets 172 150 - 450 k/ul [facility] PMN/Band 61 43 - 72 % [facility] Lymph 24 17 - 43 % [facility] [place] 12 4 - 12 % [facility] Eos 2 0 - 8 % [facility] Baso 1 0 - 1 % [facility] Neutrophil Absolute 2.9 1.8 - 7.7 k/ul [facility] Lymph Absolute 1.1 1.0 - 4.8 k/ul [facility] [place] Absolute 0.6 0.1 - 0.7 k/ul [facility] Eos Absolute 0.1 0.0 - 0.5 k/ul [facility] Baso Absolute 0.1 0.0 - 0.2 k/ul [facility] Specimen Anatomical Collection Method Collection Time Receive d Time (Source) Location / / Volume Laterality 09/15/2010 3:16 PM 1 3:20 METAL FABRICATOR PM METAL FABRICATOR Melisa Muro APRN, CNP LAB_1 Performing Organization Address City/State/ZIP Code Phon e Number [facility] [phone] [facility] [address] [address] documented in this encounter Visit Diagnoses Diagnosis Pneumonia - Primary Pneumonia, organism unspecified Cough Need for prophylactic vaccination with c ombined ssnxrhzcjm-vxoqygx-eworexxbo (DTP) vaccine Cough documented in this encounter Care Teams Precision Optics Technician Relationship Specialty Start Date End Date Trish Frausto MD PCP - General 09/01/05 08/22/18 [address] [place] [address] documented as of this encounter
--- OUTSIDE RECORDS SUMMARY | 2022-07-08 15:57 | XMS_ITS | Encounter Summary ---
:1955 Author Organization [facility] Address [address] [place] [address] Care Team Providers Name Role Phone Trish [...] Interface, In Chrtscr And Scan - 07/19/2009 11:55 AM PEOPLESOFT ADMINISTRATOR LESOFT ADMINISTRATOR documented in this encounter Plan of Treatment Not on filedocumented as of this encounter Visit Diagnoses Not on filedocumented in this encounter Care Teams Pier Master Relationship Specialty Start Date End Date Trish Frausto MD PCP - General 09/01/05 08/22/18 [address] [place] [address] documented as of this encounter
--- OUTSIDE RECORDS SUMMARY | 2022-07-08 15:57 | XMS_ITS | Encounter Summary ---
:1955 Author Organization [facility] Address [address] [address] Care Team Providers Name Role Phone Trish Frausto MD Primary Care Provider Encounter Details Date Type Department Care Team Description 07/03/2008 Correspondence [facility] Hayden Frausto MD [facility] Practice [id number] [place] [address] [place] [address] [place], [place] [address] [phone] Social History Tobacco Use Types Packs/Day Years Used Date Smoking Tobacco: Never Alcohol Use Standard Drinks/Week Comments No 0 (1 standard drink = 0.6 oz pure alcoho l) Sex Assigned at Date Recorded Not on file documented as of this encounter Progress Notes Trish Frausto - 07/09/2008 10:23 AM CDT documented in this encounter Plan of Treatment Not on filedocumented as of this encounter Visit Diagnoses Not on filedocumented in this encounter Care Teams Assembler Surgical Garment Relationship Specialty Start Date End Date Trish Frausto MD PCP - General 09/01/05 08/22/18 [address] [place], [place] [id number] documented as of this encounter
--- OUTSIDE RECORDS SUMMARY | 2022-07-08 15:57 | XMS_ITS | Encounter Summary ---
:[address] [facility] Address [address], [place] [address] Care Team Providers Name Role Phone Trish Frausto MD Primary Care Provider Reason for Referral Specialty Diagnoses / Procedures Referred By Contact [place]er [place] [address] [place], [place] [address] Referral ID Status Reason Start Date Expiration Date Visits Requ ested Visits Authorized Reason for Visit Reason Comments BACK PAIN IMMUNIZATIONS Encounter Details Date Type Department Care Team Description 06/17/2009 Office Visit [facility] Adam Valentin MD Need for Prophylactic Vaccination and In oculation Against Influenza (Primary Dx); Practice [id number] [place] [address] Recurrent Low Back Pain [address] [place] [address] [phone] Social History Tobacco Use Types Packs/Day Years Used Date Smoking Tobacco: Never Alcohol Use Standard Drinks/Week Comments No 0 (1 standard drink = 0.6 oz pure alcoho l) Sex Assigned at Date Recorded Not on file documented as of this encounter Last Filed Vital Signs Vital Sign Reading Time Taken Comments Blood Pressure 120/80 06/17/2009 1:18 PM CDT Pulse 76 06/17/2009 1:18 PM CDT Temperature - - Respiratory Rate 14 06/17/2009 1:18 PM CDT Oxygen Saturation - - Inhaled Oxygen Concentration - - Weight 98 kg (216 lb) 06/17/2009 1:18 PM CDT Height - - Body Mass Index 28.69 07/03/2008 8:44 AM CDT documented in this encounter Progress Notes Adam Valentin - 06/17/2009 1:44 PM CDT SUBJECTIVE: Patient comes in with complain of mid-low back pain. He states he has had this episodically for 10 years. Episodes occur once to twice a year on average. Most recent flare started three days ago. Uncomfortable and did not sleep well last night. Patient has been using ice and ibuprofen if her milligrams t.i.d. for his symptoms. Pain began when he was just sitting with no specific injury. Hurts to stand and walk and more comfortable now with sitting. He has no pain in the legs or buttocks. Denies any fever or chills. Does not really do much in the way of exercise. Has never been in physical therapy. Does not do any back exercises. 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 OBJECTIVE: BP 120/80 Pulse 76 Resp 14 Wt 216 lb (97.977 kg) Patient gets up from chair to bed slowly and stiffly. He can only forward flex about 35 degrees. Extension is also quite limited. Lateral bending is only 10 degrees bilaterally. Heel and toe walking is normal without weakness. Straight leg raise causes some back pain at 90 degrees. Patellar and Achilles reflexes are intact and symmetrical. No lower extremity sensory change. Some discomfort with lumbar area palpation. ASSESSMENT: Recurrent low back pain, mechanical in nature. No radiculopathy. PLAN: Care of the back booklet given. Continue ice and ibuprofen. Activity as tolerated. We will refer to physical therapy for home exercise program. Discussed weight reduction, regular exercise and in back exercises to terminal gauger to see if that will reduce frequency of episodes. Followup if not seeing improvement or symptoms worsen. Patient also advised he is overdue for RHM and colonoscopy. He plans to follow up with PCP Dr. Frausto. Adam Valentin MD documented in this encounter Plan of Treatment Scheduled Referrals Name Type Priority Associated Diagnoses Order S [facility] PHYSICAL THERAPY Referral Routine Recurrent Low Back Pain Ordered: 06/17/2009 documented as of this encounter Visit Diagnoses Diagnosis Need for prophylactic vaccination and in oculation against influenza - Primary Recurrent low back pain Lumbago documented in this encounter Care Teams Lead Cashier Relationship Specialty Start Date End Date Trish Frausto MD PCP - General 09/01/05 08/22/18 [address] [place] [address] documented as of this encounter
--- OUTSIDE RECORDS SUMMARY | 2022-07-08 15:57 | XMS_ITS | Encounter Summary ---
:1955 Author [facility] Address [address], [place] [address] Care Team Providers Name Role Phone Trish Frausto MD Primary Care Provider Reason for Visit Reason Onset Date Comments BACK PAIN 06/19/2009 Encounter Details Date Type Department Care Team Description 06/19/2009 Telephone [facility] Trish Frausto MD BACK PAIN [address] [facility] [address] [place], [place] [address] [place] [address] [phone] (Wo rk) Social History Tobacco Use Types Packs/Day Years Used Date Smoking Tobacco: Never Alcohol Use Standard Drinks/Week Comments No 0 (1 standard drink = 0.6 oz pure alcoho l) Sex Assigned at Date Recorded Not on file documented as of this encounter Nursing Notes Crystal Baca, RN, BSN - 06/19/2009 11:24 AM CDT Wanting a f/u appt for his back pain and a work slip. Normally works Wednesday thru Wednesday. Has beenoff work yesterday and today for back pain. (saw Dr Valentin on Wednesday) Anticipates he will be off the rest of this week as it has not been improving much. Wonders if he should make an appt for f/u. Unknown if he will need any work restrictions. Recommended a f/u appt next Wednesday so he will have his letter and any restrictions if needed for his return to work next Wednesday. Pt agrees with plan Lizzy Shah - 06/19/2009 10:05 AM CDT Patient would like to speak to his doctor or her nurse Name of patient's provider: Trish Frausto Summarize the patient's question or concern: pt has been out of work since Wednesday with back pain. Saw Dr King on Wednesday--needs a return to work slip. Lizzy Shah documented in this encounter Plan of Treatment Not on filedocumented as of this encounter Visit Diagnoses Not on filedocumented in this encounter Care Teams Medical Technical Writer Relationship Specialty Start Date End Date Trish Frausto MD PCP - General 09/01/05 08/22/18 [address] [place] [address] documented as of this encounter
--- OUTSIDE RECORDS SUMMARY | 2022-07-08 15:58 | XMS_ITS | Encounter Summary ---
:1955 Author Organization [facility] Address [address], [place] [address] Care Team Providers Name Role Phone Trish Frausto MD Primary Care Provider Reason for Referral Specialty Diagnoses / Procedures Referred By Contact [place]er [place] [address] [place], [place] [address] Referral ID Status Reason Start Date Expiration Date Visits Requ ested Visits Authorized ROOM GROWTH MEDIA MIXER Reason for Visit Reason Comments SKIN PROBLEM hands Encounter Details Date Type Department Care Team Description 10/19/2007 Office Visit [facility] Trish Frausto ma (Primary Dx); Isis Higgins MD Screen for Colon Cancer [address] [facility] [address] [place] [address] [phone] Social History Tobacco Use Types Packs/Day Years Used Date Smoking Tobacco: Never Alcohol Use Standard Drinks/Week Comments No 0 (1 standard drink = 0.6 oz pure alcoho l) Sex Assigned at Date Recorded Not on file documented as of this encounter Last Filed Vital Signs Vital Sign Reading Time Taken Comments Blood Pressure 116/64 10/19/2007 8:05 AM MUSHROOM GROWTH MEDIA MIXER Pulse 68 10/19/2007 8:05 AM MUSHROOM GROWTH MEDIA MIXER Temperature - - Respiratory Rate 15 10/19/2007 8:05 AM MUSHROOM GROWTH MEDIA MIXER Oxygen Saturation - - Inhaled Oxygen Concentration - - Weight 95.7 kg (211 lb) 10/19/2007 8:05 AM MUSHROOM GROWTH MEDIA MIXER Height - - Body Mass Index 27.84 03/07/2007 8:45 AM CDT documented in this encounter Progress Notes Trish Frausto - 10/19/2007 12:00 AM MUSHROOM GROWTH MEDIA MIXER SUBJECTIVE: Xyegk-odf-vezg-old comes in requesting a refill on his medication. He has a history of eczema, which is worse now in the winter. He has been using his 's ointment and would like a refill. Usually he uses clobetasol, which seems to work the best for him. He understands that he needs to use it sparingly. 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 He frequently has to wear gloves. Often times he has to wear leather gloves, which is really drying for his hands. He does use a regular moisturizing lotion for his hands as well. OBJECTIVE: Appears well. Vital signs: Stable. He has typical eczema throughout his fingers and hands. Some cracking of the skin. No obvious secondary infections. ASSESSMENT: Eczema. PLAN: He is given a refill on the clobetasol ointment. We also discussed that he was due for colonoscopy. I put the referral in. He prefers to use the [facility] if possible. Will follow up as needed. PROBLEM: Eczema. A cc: ROOM GROWTH MEDIA MIXER documented in this encounter Plan of Treatment Not on filedocumented as of this encounter Visit Diagnoses Diagnosis Eczema - Primary Contact dermatitis and other eczema, due to unspecified cause Screen for colon cancer Special screening for malignant neoplasm s, colon documented in this encounter Care Teams Rv Repairer Relationship Specialty Start Date End Date Trish Frausto MD PCP - General 09/01/05 08/22/18 [address] [place] [address] documented as of this encounter
--- OUTSIDE RECORDS SUMMARY | 2022-07-08 15:58 | XMS_ITS | Encounter Summary ---
:1955 Author Organization [facility] Address [address], [place] [address] Care Team Providers Name Role Phone Trish Frausto MD Primary Care Provider Reason for Visit Reason Comments Sore Throat Encounter Details Date Type Department Care Team Description 11/29/2006 Office Visit [facility] Fidel Lyon (Primary Dx); Practice MD Nannette [facility]ERG[facility] [place] [address] [place] [address] [facility] [address] [address] [place], [place] [phone] [address] Social History Tobacco Use Types Packs/Day Years Used Date Smoking Tobacco: Never Alcohol Use Standard Drinks/Week Comments No 0 (1 standard drink = 0.6 oz pure alcoho l) Sex Assigned at Date Recorded Not on file documented as of this encounter Last Filed Vital Signs Vital Sign Reading Time Taken Comments Blood Pressure 120/70 11/29/2006 9:00 AM CDT Pulse - - Temperature 36.2 ??C (97.1 ??F) 11/29/2006 9:00 AM CDT Respiratory Rate - - Oxygen Saturation - - Inhaled Oxygen Concentration - - Weight 97.3 kg (214 lb 6.4 oz) 11/29/2006 9:00 AM CDT Height 184.2 cm (6' 0.5) 11/29/2006 9:00 AM CDT Body Mass Index 28.68 11/29/2006 9:00 AM CDT documented in this encounter Progress Notes Fidel Lyon 11/29/2006 10:06 AM CDT Subjective: 51 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 Has seasonal allergic rhinitis in the spring. Hasn't used any allergy meds other than OTC cold meds. Objective: General appearance: well developed, well nourished and in no acute distress HEENT: Eyes: no lesions of lids, mattering or redness Head: normocephalic Mouth and throat: without erythema or lesions of the mucosa Nose: without septal or mucosal abnormalities Ears: external canals and TMs free of lesions or abnormalities Lungs: clear to auscultation, no wheezes or rales Rapid strep is negative. Assessment: flare of seasonal allergic rhinitis. PLAN: Symptomatic treatment. Recheck depending on clinical course. documented in this encounter Plan of Treatment Not on filedocumented as of this encounter Procedures Procedure Name Priority Date/Time Associated Diagnosis Comme nts STREP GRP A, RAPID Waiting 11/29/2006 9:10 AM Sorethroat Res ults for this SCREEN CDT procedure are i n the results section. documented in this encounter Results STREP GRP A, RAPID SCREEN (11/29/2006 9:10 AM CDT) [facility] Method Time Signature Patient Home None [facility] Phone # Patient Work None [facility] Phone # Grp A Rapid Negative NEG [facility] Screen Grp A Culture Negative NEG [facility] Final Specimen Anatomical Collection Method Collection Time Receive d Time (Source) Location / / Volume Laterality 11/29/2006 9:10 AM 7 9:11 CDT AM CDT Fidel Lyon MD LAB_1 Performing Organization Address City/State/ZIP Code Phon e Number [facility] [phone] [facility] [address] [place] [phone] documented in this encounter Visit Diagnoses Diagnosis Sorethroat - Primary Acute pharyngitis ALLERGIC RHINITIS NOS Allergic rhinitis, cause unspecified documented in this encounter Care Teams Real Estate Listing Consultant Relationship Specialty Start Date End Date Trish Frausto MD PCP - General 09/01/05 08/22/18 [address] [place] [address] documented as of this encounter
--- OUTSIDE RECORDS SUMMARY | 2022-07-08 15:58 | XMS_ITS | Encounter Summary ---
:1955 [facility] Address [address] [place] [address] Care Team Providers Name Role Phone Trish Frausto MD Primary Care Provider Reason for Visit Reason Onset Date Comments APPOINTMENT REQUEST 10/26/2006 Encounter Details Date Type Department Care Team Description 10/25/2006 Telephone Specialty Center 401 Raad Avendano MD APPOINTMENT REQUEST Neurology Clinic [address] [facility] [address] [place] [address] [place] [address] Social History Tobacco Use Types Packs/Day Years Used Date Smoking Tobacco: Never Alcohol Use Standard Drinks/Week Comments No 0 (1 standard drink = 0.6 oz pure alcoho l) Sex Assigned at Date Recorded Not on file documented as of this encounter Nursing Notes Carmelita Aceves - 10/26/2006 11:43 AM CST Spoke with Dr. Avendano who assures me that a NARINDER has been signed by the patient. Spoke with , Haven who states patient will not come in for appointments or neurophysc test because he thinks he is doing just fine. Haven would like to start off with an appointment, with Dr. Avendano to discuss patient's conditions. Haven has been informed that we can do this by bringing her in (appt under her name) as a consult since we do have a NARINDER on file. She is ok with this. She requests that she is notified on upcoming appointments. Appointment scheduled for her on November 29. Carmelita M. Yola, RN NING FACILITATOR Broderick Avendano - 10/25/2006 10:45 AM CST Please continue to attempt to contact patient or spouse (we have signed NARINDER) ([phone] Patricia) toset up appointment. Would also go ahead with repeat neuropsychometrics. First set was with Dr. Holland & not happy with the outcome. Let's get second opinion by having the testing done at [facility] (if possible). NING FACILITATOR documented in this encounter Plan of Treatment Not on filedocumented as of this encounter Visit Diagnoses Not on filedocumented in this encounter Care Teams Housing Assistant Relationship Specialty Start Date End Date Trish Frausto MD PCP - General 09/01/05 08/22/18 [address] [place] [address] documented as of this encounter
--- OUTSIDE RECORDS SUMMARY | 2022-07-08 15:58 | XMS_ITS | Encounter Summary ---
:1955 Author Organization [facility] Address [address], [place] [address] Care Team Providers Name Role Phone Adam Valentin MD Primary Care Provider Encounter Details Date Type Department Care Team Description 08/07/2005 Office Visit Specialty Center Miguel Nguyen SLEE P APNEA NOS; 401 Neurology Clinic OTHER ALTERATION OF CONSCIOUSNESS [address] [place] [address] [place], [place] [phone] [id number] Social History Tobacco Use Types Packs/Day Years Used Date Smoking Tobacco: Never Alcohol Use Standard Drinks/Week Comments No 0 (1 standard drink = 0.6 oz pure alcoho l) Sex Assigned at Date Recorded Not on file documented as of this encounter Last Filed Vital Signs Vital Sign Reading Time Taken Comments Blood Pressure 122/70 08/07/2005 11:44 AM COLD ROLLING SUPERVISOR Pulse 60 08/07/2005 11:44 AM COLD ROLLING SUPERVISOR Temperature - - Respiratory Rate - - Oxygen Saturation - - Inhaled Oxygen Concentration - - Weight 98 kg (216 lb) 08/07/2005 11:44 AM COLD ROLLING SUPERVISOR Height 182.9 cm (6') 08/07/2005 11:44 AM COLD ROLLING SUPERVISOR Body Mass Index 29.29 08/07/2005 11:44 AM COLD ROLLING SUPERVISOR documented in this encounter Patient Instructions Patient Pdrqwauxdpig19/25/2005 11:30 AM COLD ROLLING SUPERVISOR Mr. Catherine will be referred to ENT for evaluation of upper airway patency. He will not drive or engage in potentially dangerous activities if felling sleepy. He will call our office with questions related to the symptoms. He will follow with Dr. Avendano for his other neurological issues. He will be followed in our clinic on an as needed basis. Eyad Nguyen MD documented in this encounter Consult Notes Wendy Miguel Oscar - 08/07/2005 12:00 AM CSTMr. Catherine was seen in our clinic for follow up for : 1. Obstructive sleep apnea per history. 2. Snoring. 3. During the interview, his was also present and provided a part of the history. After his last visit he was further evaluated with blood tests. His TSH was 1.18 and a free T4 was 1.5, both of which were normal. He then was further evaluated with a polysomnogram on 07/22/2005. The study revealed the presence of mild obstructive sleep apnea with an AHI of 3.1 and RDI of 8.9. REM RDI was 6.5. The lowest oxygen saturation was 85%. Snoring was noted throughout the evening. I discussed the sleep study results with the patient and his . The patient states he does not have any significant daytime sleepiness. He wakes up feeling rested. Since his last visit, there has been no significant change in his overall health. REVIEW OF SYSTEMS: Except as described above, no detailed review of systems was done today. PAST MEDICAL HISTORY: Reviewed from the chart, no changes. FAMILY HISTORY: Reviewed from the chart, no changes. CURRENT MEDICATIONS: 1. Multi-vitamins. 2. Ibuprofen prn. 3. Tylenol prn. 4. Claritin. 5. Clobetasol as directed. VITAL SIGNS: Blood pressure: 122/70. Pulse: 60. Weight: 216 pounds. Height: 6 feet tall. PHYSICAL EXAMINATION: The patient has micrognathia. This may cause sleep disorder breathing. DIAGNOSES: 1. Obstructive sleep apnea. 2. Snoring. ASSESSMENT: The patient sleep study reveals the presence of mild sleep apnea. He does have micrognathia which may also cause difficulty breathing. At this point he may benefit from an ENT evaluation for upper airway patency. If he starts to have significant daytime sleepiness, he may certainly be re-evaluated with a sleep study for CPAP titration as well. PLAN: 1. The patient will be referred to ENT for evaluation of upper airway patency. 2. He will not drive or engage in potentially dangerous activities if he is feelings sleepy. 3. He will continue to follow with Dr. Avendano for his other neurological issues. 4. He will contact our office if he has any further questions related to his sleep issues. 5. From now on he will be followed in my clinic on a prn basis. 6. I discussed all of the above with the patient and his who were agreeable with the plan. I spent about 15 minutes with the patient, all of which was spent in discussing the above. P cc: MD Eyad Wilson MD ROLLING SUPERVISOR documented in this encounter Nursing Notes 08/07/2005 11:30 AM CST >> VIVIAN SON 08/07/2005 11:44 am recheck sleep apnea Vivian Son LPN documented in this encounter Plan of Treatment Not on filedocumented as of this encounter Visit Diagnoses Diagnosis Other and unspecified sleep apnea Unspecified sleep apnea Other alteration of consciousness documented in this encounter Care Teams Track Car Operator Relationship Specialty Start Date End Date Adam Valentin MD PCP - General 04/10/01 08/31/05 [address] [place] [address] documented as of this encounter
--- OUTSIDE RECORDS SUMMARY | 2022-07-08 15:58 | XMS_ITS | Encounter Summary ---
:1955 Author Organization [facility] Address [address] [place] [address] Care Team Providers Name Role Phone Adam Valentin MD Primary Care Provider Encounter Details Date Type Department Care Team Description 07/09/2005 Office Visit Specialty Center 401 [place], [place] david Brunson MD MEMORY LOSS Neurology Clinic 22[address] [facility] [address] [place] [address] [place] [address] Social History Tobacco Use Types Packs/Day Years Used Date Smoking Tobacco: Never Alcohol Use Standard Drinks/Week Comments No 0 (1 standard drink = 0.6 oz pure alcoho l) Sex Assigned at Date Recorded Not on file documented as of this encounter Last Filed Vital Signs Vital Sign Reading Time Taken Comments Blood Pressure 118/78 07/09/2005 2:11 PM CDT Pulse 72 07/09/2005 2:11 PM CDT Temperature - - Respiratory Rate - - Oxygen Saturation - - Inhaled Oxygen Concentration - - Weight 98.7 kg (217 lb 9.6 oz) 07/09/2005 2:11 PM CDT Height 182.9 cm (6') 07/09/2005 2:11 PM CDT Body Mass Index 29.51 07/09/2005 2:11 PM CDT documented in this encounter Patient Instructions Patient Pfbpsviujtjv26/27/2005 2:15 PM CDT PLAN: MEDICATIONS: Nothing new. DIAGNOSTIC STUDIES: None REFERRALS: Counselling to assist with communication issues. OTHER INSTRUCTIONS: If you have any trouble with changes in symptoms or other questions or concerns, CALL [phone] (Jag). TEST RESULTS: If you have NOT received a letter or phone call regarding your test results within 2 weeks following your test, you may call: [phone] (Jag). FOLLOW-UP: As needed. documented in this encounter Progress Notes 07/09/2005 2:15 PM CDT FOLLOW-UP VISIT -- 07/09/2005 -- Mitch Catherine -- [id number] : 1955 age: 50 yr pcp: Adam Valentin MD Patient Active Problem List: HYPERLIPIDEMIA NEC/NOS[272.4] HEADACHE[784.0] OTHER ATOPIC DERMATITIS[691.8] Overweight[278.00] ALLERGIC RHINITIS NOS[477.9] Previous visit:05/29/05 Reason for this visit:Routine INTERVAL HISTORY: Mitch Catherine is a 50 yr old male who returns accompanied by his . He reports he has seen Dr. Nguyen and is scheduled for sleep study in about 2 weeks. Hd neuropsych eval by Dr. Andujar & Dr. Holland. They did not discuss the results hence this visit. No other new complaints. Following the visit his insisted on speaking to me without him present and sent him out of Air[employer]. She expressed concern because of the way Dr. Lundy seemed to interact with her by phone. She believes there is something drastically wrong with Mitch. Reiterated that he filled out a form indicating he had one child (really has 3). He forgot to add a paycheck to the checkbook so asked her to quentin eit over. She says he is at times verbally and emotionally abusive and that he has some magical thinking about loosing his job if he needs time off. (She also indicated that she had a bad experience at [facility] when a doctor lied to [her] for 18 months.) She was fairly incredulous that the testing did not reveal any problems (as indicated below). REVIEW OF SYSTEMS: No complaints of headache, visual obscuration/loss, diplopia, blurred vision, numbness or paresthesias, focal weakness, balance difficulty. No chest pain, shortness of breath, abdominal discomfort or bowel & bladder symptoms. All systems not mentioned are negative. PAST/FAMILY HISTORY: No change. Active Medications as of 07/09/2005: CLOBETASOL PROPIONATE 0.05 % EX OINT, apply bid to hands for 2 weeks prn for severe flares, Disp: 1oz, Rfl: 5 IBUPROFEN 800 MG OR TABS, 1 tab as needed, Disp: , Rfl: 0 ACETAMINOPHEN 500MG ORAL TABLETS, 3 tabs as needed, Disp: , Rfl: 0 CLARITIN 10 MG OR TABS, 1 tab as needed, Disp: , Rfl: 0 ALLERGIES: Nka, Amoxicillin EXAMINATION Vital signs: BP 118/78 Pulse 72 Ht 6' (1.83m) Wt 217 lbs 10 oz (98.7kg) Mental status: Normal. Joking, perhaps a bit too much to be appropriate - ? anxiety> Cranial Nerves: Intact in detail. No nystagmus. Sensation: Normal to light touch. Motor: Normal strength all groups. Normal tone. Co-ord: No dysmetria, drift or tremor. Casual gait normal. Able to tandem w/o difficulty E/O & E/C. LABORATORY/DIAGNOSTIC STUDIES: HGB 15.1 06/01/2005 PLTS 241 06/01/2005 AST 18 06/01/2005 ALT 23 06/01/2005 Neuropsych eval - Drs. Andujar & Skyler - 06/10/05 - his results are inconsistent with a cortical or subcortical dementia, CVA or other significant neurological condition. Mr. Catherine performed within normal limits on almost all measures of cognitive functioning... The only notable weakness identified involved transient lapses in his concentration. They were concerned over relationship stressors. Mr. Catherine didn't want his to have any information from the testing. (She did want him in the room when she voiced her concerns.) Counseling was recommended. ASSESSMENT: This was discussed with the couple in detail. I followed Drs. Ventura's lead and recommended counseling after discussing their conclusions. He seemed open to the idea, she less so. I suspect they may choose not to take this approach. She is convinced that there is something drastically wrong with him. Yet it is not seen on the detailed testing. MRI - single focus of T2 abnl in the subcortical white matter of left temporal lobe though not clinically significant. EEG - normal. Labs for treatable causes of dementia - normal. He does seem to have a history strongly suggestive of obstructive sleep apnea. Perhaps this is the cause of some of his cognitive difficulty. Perhaps he has been too closely observed and little slip is noted. PLAN: MEDICATIONS: Nothing new. DIAGNOSTIC STUDIES: None REFERRALS: Counseling to assist with communication issues. OTHER INSTRUCTIONS: If you have any trouble with changes in symptoms or other questions or concerns, CALL [phone] (Jag). TEST RESULTS: If you have NOT received a letter or phone call regarding your test results within 2 weeks following your test, you may call: [phone] (Jag). FOLLOW-UP: As needed. He will follow up with Dr. Nguyen after sleep study. Detailed counseling provided. Encouraged to call if side effects, recurrent seizures or other concerns. Total visit time was 40 min; 30 for C & CC. [Coding:] 780.93 memory complaints Broderick Avendano MD 07/09/2005 5:59 PM documented in this encounter Nursing Notes 07/09/2005 2:15 PM CDT >> JAG GARCIA 07/09/2005 2:11 pm Pt here for FU..Jag Garcia RN documented in this encounter Plan of Treatment Not on filedocumented as of this encounter Visit Diagnoses Diagnosis Memory loss documented in this encounter Care Teams Public Health Service Officer Relationship Specialty Start Date End Date Adam Valentin MD PCP - General 04/10/01 08/31/05 [address] [place] [address] documented as of this encounter
--- OUTSIDE RECORDS SUMMARY | 2022-07-08 15:58 | XMS_ITS | Encounter Summary ---
:1955 Author Organization [facility] Address [address] [place] [address] Care Team Providers Name Role Phone Trish Frausto MD Primary Care Provider Reason for Visit Reason Onset Date Comments Other 03/15/2007 Encounter Details Date Type Department Care Team Description 03/15/2007 Telephone [facility] Beatriz Kolb RN Other [facility] [facility] [place] [address] [place] [address] [place], [place] [id number] Social History Tobacco Use Types Packs/Day Years Used Date Smoking Tobacco: Never Alcohol Use Standard Drinks/Week Comments No 0 (1 standard drink = 0.6 oz pure alcoho l) Sex Assigned at Date Recorded Not on file documented as of this encounter Nursing Notes Beatriz Kolb - 03/15/2007 2:31 PM CDT Called patient and told him of preceding test results and orders per Dr Summers. Patient does not want marital counseling at this time. Beatriz Kolb RN Beatriz Kolb - 03/15/2007 2:20 PM CDT Message Pls call pt memory testing per Teresa negro, pt To consider marital counseling I will be happy to discuss this further NO NEED to d repeat neuropsych w Dr Holland NO evidence of memory loss documented in this encounter Plan of Treatment Not on filedocumented as of this encounter Visit Diagnoses Not on filedocumented in this encounter Care Teams Stonemason Relationship Specialty Start Date End Date Trish Frausto MD PCP - General 09/01/05 08/22/18 [address] [place] [address] documented as of this encounter
--- OUTSIDE RECORDS SUMMARY | 2022-07-08 15:58 | XMS_ITS | Encounter Summary ---
:1955 Author [facility] Address [address], [place] [address] Care Team Providers Name Role Phone Trish Frausto MD Primary Care Provider Reason for Visit Reason Comments BACK PAIN SHOT,FLU Encounter Details Date Type Department Care Team Description 07/03/2008 Office Visit [facility] Trish Frausto Back Pain (Primary Dx); Isis Higgins MD Need for Prophylactic Vaccination and In oculation Against Influenza [address] [facility] [place] [address] [place] [address] [phone] Social History Tobacco Use Types Packs/Day Years Used Date Smoking Tobacco: Never Alcohol Use Standard Drinks/Week Comments No 0 (1 standard drink = 0.6 oz pure alcoho l) Sex Assigned at Date Recorded Not on file documented as of this encounter Last Filed Vital Signs Vital Sign Reading Time Taken Comments Blood Pressure 120/72 07/03/2008 8:44 AM CDT Pulse 60 07/03/2008 8:44 AM CDT Temperature 36.1 ??C (96.9 ??F) 07/03/2008 8:44 AM CDT Respiratory Rate - - Oxygen Saturation - - Inhaled Oxygen Concentration - - Weight 99.3 kg (219 lb) 07/03/2008 8:44 AM CDT Height 184.8 cm (6' 0.75) 07/03/2008 8:44 AM CDT Body Mass Index 29.09 07/03/2008 8:44 AM CDT documented in this encounter Progress Notes Trish Frausto - 07/03/2008 12:00 AM CDT SUBJECTIVE: Sylnq-pwiat-dimb-old comes in complaining of low back pain. He has had difficulty with this for the past 10 years or so. He denies any actual injury. States that just on occasion, he will bend the wrong way or do something and then he will have pain in the low back. If he can rest it and give it two to three days, his symptoms usually resolve spontaneously and he has no problems. When he gets the pain it is usually in the extreme lower lumbar region on the left side. It does not radiate into his legs. No neurologic symptoms. The main reason he is here today is that he did have a recent episode. He is pretty much back to normal, but he is having difficulty with work. 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 He brings in some FMLA papers to sign today. OBJECTIVE: He moves fairly well. He is a little stiff still at this point, but overall is doing well. His pain is in the lower lumbar, upper sacral region just to the left of the spine. Forward flexion is slightly limited, extension looks fine. Good strength in his lower extremities. No pain with straight leg raising. Neuro appears intact. ASSESSMENT: Intermittent back pain, which resolves with conservative treatments. PLAN: I did fill out his FMLA papers. Will follow with us as needed. PROBLEM: Back pain. A / A tdy cc: documented in this encounter Plan of Treatment Not on filedocumented as of this encounter Visit Diagnoses Diagnosis Back pain - Primary Backache, unspecified Need for prophylactic vaccination and in oculation against influenza documented in this encounter Care Teams Service Coordinator Elderly Facility Relationship Specialty Start Date End Date Trish Frausto MD PCP - General 09/01/05 08/22/18 [address] [place] [address] documented as of this encounter
--- OUTSIDE RECORDS SUMMARY | 2022-07-08 15:58 | XMS_ITS | Encounter Summary ---
:1955 [facility] Address [address], [place] [address] Care Team Providers Name Role Phone Adam Valentin MD Primary Care Provider Encounter Details Date Type Department Care Team Description 07/22/2005 Office Visit [facility] Sleep OBSTR UCTIVE SLEEP APNEA, ADULT & PED; Health Center PERIODIC LIMB MOVEMENT DISOR QUIRINO [facility] [id number] [id number] Social History Tobacco Use Types Packs/Day Years Used Date Smoking Tobacco: Never Alcohol Use Standard Drinks/Week Comments No 0 (1 standard drink = 0.6 oz pure alcoho l) Sex Assigned at Date Recorded Not on file documented as of this encounter Plan of Treatment Not on filedocumented as of this encounter Visit Diagnoses Diagnosis Obstructive sleep apnea (adult) (pediatr ic) Periodic limb movement disorder documented in this encounter Care Teams Deck Hand Relationship Specialty Start Date End Date Adam Valentin MD PCP - General 04/10/01 08/31/05 [address] [place] [address] documented as of this encounter
--- OUTSIDE RECORDS SUMMARY | 2022-07-08 15:58 | XMS_ITS | Encounter Summary ---
:1955 Author Organization [facility] Address [address], [place] [address] Care Team Providers Name Role Phone Adam Valentin MD Primary Care Provider Reason for Visit Reason Onset Date Comments QUESTIONS, GENERAL 08/11/2005 Encounter Details Date Type Department Care Team Description 08/11/2005 Telephone Specialty Center 401 Kamron Garcia RN QUESTIONS, GENERAL Neurology Clinic [facility] [address] [place] [address] [place] [phone] [place] [place] [facility] (Wo rk[facility] Social History Tobacco Use Types Packs/Day Years Used Date Smoking Tobacco: Never Alcohol Use Standard Drinks/Week Comments No 0 (1 standard drink = 0.6 oz pure alcoho l) Sex Assigned at Date Recorded Not on file documented as of this encounter Nursing Notes 08/11/2005 11:59 PM RUG CUTTER >> NORA VALDIVIA [facility] Aug 20, 2005 3:07 PM Will await for Pt/Spouse to call back for further instructions. Referal on hold until then. Nora Valdivia RN 08/20/2005 3:06 PM >> JAG GARCIA WedAug 17, 2005 11:24 AM Pt spouse was informed and expressed understanding. Spouse states to hold referral for neuro psych f or now untill she returns call. Jag Garcia RN >> JAG GARCIA WedAug 17, 2005 9:46 AM Left message to call back. Jag Garcia RN >> JAG GARCIA WedAug 14, 2005 4:30 PM Pt spouse was informed and expressed understanding. States will call back on Wednesday..JACE Hopkins RN >> EDWARD JAIMES WedAug 14, 2005 4:22 PM Well, I can recommend repeat neuropsych testing because there is such concern on the part of his spo use. I don't think meds are indicated until we get some indication of need for them. >> JAG GARCIA WedAug 14, 2005 12:25 PM Pt spouse states pt will not go to another consult unless Dr. Jaimes rec further testing. Pt spouse qu estioning meds-if meds would be a value to get started for pt even though tests have been negative s o far..Jag Garcia RN >> JAG GARCIA [facility] Aug 14, 2005 8:48 AM Pt spouse was informed and expressed understanding. Jag Garcia RN >> JAG GARCIA [facility] Aug 14, 2005 8:32 AM Left message to call back. Jag Garcia RN >> EDWARD JAIMES [facility] Aug 13, 2005 7:28 PM Well, I don't have a lot of other neurological tests to do.... We can offer second opinion with or repeat testing with Dr. Garza or Dr. Melgar. >> JAG GARCIA adela Aug 11, 2005 3:47 PM Pt spouse calling with questions about pt ongoing memory loss issues/paranoia. States had sleep stud y and has talked with Dr. Nguyen(see [facility] 08-07-05). Questions what next step is re memory problems-re quests call from Dr. Jaimes (no NARINDER has been signed for pt spouse yet). Aware Dr. Jaimes is out of offic e untill 08-17-05. Pt spouse cell [phone]..Jag Garcia RN documented in this encounter Plan of Treatment Not on filedocumented as of this encounter Visit Diagnoses Not on filedocumented in this encounter Care Teams Tennis Camp Instructor Relationship Specialty Start Date End Date Adam Valentin MD PCP - General 04/10/01 08/31/05 [address] [place] [address] documented as of this encounter
--- OUTSIDE RECORDS SUMMARY | 2022-07-08 15:58 | XMS_ITS | Encounter Summary ---
:1955 Author [facility] Address [address] [place] [address] Care Team Providers Name Role Phone Trish Frausto MD Primary Care Provider Encounter Details Date Type Department Care Team Description 03/17/2007 Correspondence None Hp Natalie, Provider parpi Social History Tobacco Use Types Packs/Day Years Used Date Smoking Tobacco: Never Alcohol Use Standard Drinks/Week Comments No 0 (1 standard drink = 0.6 oz pure alcoho l) Sex Assigned at Date Recorded Not on file documented as of this encounter Progress Notes Dominic Estrada, Provider - 03/17/2007 12:00 AM CDT documented in this encounter Plan of Treatment Not on filedocumented as of this encounter Visit Diagnoses Not on filedocumented in this encounter Care Teams Pot Maker Relationship Specialty Start Date End Date Trish Frausto MD PCP - General 09/01/05 08/22/18 [address] [place] [address] documented as of this encounter
--- OUTSIDE RECORDS SUMMARY | 2022-07-08 15:58 | XMS_ITS | Encounter Summary ---
:1955 Author Organization [facility] Address [address] [address] Care Team Providers Name Role Phone Trish Frausto MD Primary Care Provider Reason for Visit Reason Onset Date Comments CONSULT 09/01/2005 Encounter Details Date Type Department Care Team Description 09/01/2005 Telephone [facility] Adam Valentin MD CONSULT [address] [place] [address] [address] [place] [address] [phone] (Wo rk) Social History Tobacco Use Types Packs/Day Years Used Date Smoking Tobacco: Never Alcohol Use Standard Drinks/Week Comments No 0 (1 standard drink = 0.6 oz pure alcoho l) Sex Assigned at Date Recorded Not on file documented as of this encounter Nursing Notes 09/01/2005 11:59 PM AUTOS DISASSEMBLER >> TRISH Mcfarland Sep 01, 2005 5:21 PM Rx for aricept, 5mg qhs in pharmacy. to send more info re: pt's behavior. Declines Neurology referral. Aricept offered at the request of his to help pt clear his head. Info given to daniella ent. He will consider. >> ITFFANIE Mcfarland Sep 01, 2005 4:13 PM Haven saying she has talked with Dr. Amador and requesting to speak directly to Jett. Neurology is not working for her right now and Dr. Amador reccomended her back to you. Dr. Amador will speak on her behalf if necessary. Kemal is not responding well due to he feels he has no issues. MIght a s well declare WW3. Haven requesting Aerocept (sp) to slow down progress. Haven is not allowed to speak infront of her and he is checking phone calls. >> TRISH Mcfarland Sep 01, 2005 3:51 PM She needs to get him back in with the neurologist. Shouldn't take too long as they have seen him before. >> RALPH Mcfarland Sep 01, 2005 2:29 PM calling, she is concerned pt is showing signs of Alzheimer's disease she has doc. on what he'sbeen doing. long list. Very concerned documented in this encounter Plan of Treatment Not on filedocumented as of this encounter Visit Diagnoses Not on filedocumented in this encounter Care Teams Prosthetics Lab Technician Relationship Specialty Start Date End Date Trish Frausto MD PCP - General 09/01/05 08/22/18 [address] [place] [address] documented as of this encounter
--- OUTSIDE RECORDS SUMMARY | 2022-07-08 15:58 | XMS_ITS | Encounter Summary ---
:1955 Author Organization [facility] Address [address] [place] [address] Care Team Providers Name Role Phone Trish Frausto MD Primary Care Provider Encounter Details Date Type Department Care Team Description 11/29/2006 Correspondence None Hp Natalie, Provider consent to release Social History Tobacco Use Types Packs/Day Years Used Date Smoking Tobacco: Never Alcohol Use Standard Drinks/Week Comments No 0 (1 standard drink = 0.6 oz pure alcoho l) Sex Assigned at Date Recorded Not on file documented as of this encounter Progress Notes Dominic Estrada, Provider - 11/29/2006 12:00 AM CDT documented in this encounter Plan of Treatment Not on filedocumented as of this encounter Visit Diagnoses Not on filedocumented in this encounter Care Teams Pearler Relationship Specialty Start Date End Date Trish Frausto MD PCP - General 09/01/05 08/22/18 [address] [place] [address] documented as of this encounter
--- OUTSIDE RECORDS SUMMARY | 2022-07-08 15:58 | XMS_ITS | Encounter Summary ---
:1955 Author Organization [facility] Address [address] [place] [address] Care Team Providers Name Role Phone Trish Frausto MD Primary Care Provider Encounter Details Date Type Department Care Team Description 10/06/2006 Correspondence None Hp Rois, Provider AUTH TO DISCLOSE PROTECTED MEMBER AND HEAL TH INFOR Social History Tobacco Use Types Packs/Day Years Used Date Smoking Tobacco: Never Alcohol Use Standard Drinks/Week Comments No 0 (1 standard drink = 0.6 oz pure alcoho l) Sex Assigned at Date Recorded Not on file documented as of this encounter Progress Notes Interface, In Chrtscr And Scan - 03/25/2009 12:38 PM CDT documented in this encounter Plan of Treatment Not on filedocumented as of this encounter Visit Diagnoses Not on filedocumented in this encounter Care Teams Soil Conservationist Relationship Specialty Start Date End Date Trish Frausto MD PCP - General 09/01/05 08/22/18 [address] [place] [address] documented as of this encounter
--- OUTSIDE RECORDS SUMMARY | 2022-07-08 15:58 | XMS_ITS | Encounter Summary ---
:1955 Author Organization [facility] Address [address] [place] [address] [place] [address] Care Team Providers Name Role Phone Trish Frausto MD Primary Care Provider Reason for Visit Reason Onset Date Comments QUESTIONS, GENERAL 03/18/2007 Pt's would like all medical information involving her husbands conditi on,test results, appoints, etc to go through her only. Encounter Details Date Type Department Care Team Description 03/18/2007 Telephone [facility] Karie Avendano MD QUESTIONS, GENERAL [facility] [address] (Pt's would like [address] [facility] [place] [phone] information involving [phone] her husbands condition,test results, appoin ts, etc to go through h er only.) Social History Tobacco Use Types Packs/Day Years Used Date Smoking Tobacco: Never Alcohol Use Standard Drinks/Week Comments No 0 (1 standard drink = 0.6 oz pure alcoho l) Sex Assigned at Date Recorded Not on file documented as of this encounter Nursing Notes Broderick Avendano - 03/20/2007 11:33 PM CDT OK. ristan Dubon - 03/18/2007 4:17 PM CDT Spouse informed and expressed understanding. Kristan Valdivia RN Broderick Avendano - 03/18/2007 2:35 PM CDT Message noted. Testing results are all within the normal limits. Neuopsych testing did not support adiagnosis of dementia or memory trouble. Most recent testing also does not support cognitive dysfunction. At this point, I see no reason that we should not communicate with Mr. Catherine about his medical condition and test results. He has signed a release of info so that we can speak with and she can get access to his records. But this does not mean that we are to speak to her only. She can not change this unilaterally or demand that we speak only to her since at this time testing indicates he is competent to act in his ownbehalf. I'll be happy to speak with her about this once I'm back in the clinic. Addie Pérez - 03/18/2007 1:24 PM CDT Patient's Haven Catherine wants all of her husbands medical information to go directly through her including test results, appointments, updates on his condition etc. He has alzheimers disease. She states she has stressed she wants all information to be confidential when she speaks with any of his nurses or doctors. She is very upset one of the nurses in the neurology department called on 03/15/07 and spoke to her about his test results and about what was discussed between her and his physician the last time they consulted about her . She would like to speak with Dr Avendano directly. She can be reached at # [phone](cell phone). documented in this encounter Plan of Treatment Not on filedocumented as of this encounter Visit Diagnoses Not on filedocumented in this encounter Care Teams Cell Room Supervisor Relationship Specialty Start Date End Date Trish Frausto MD PCP - General 09/01/05 08/22/18 [address] [place] [address] documented as of this encounter
--- OUTSIDE RECORDS SUMMARY | 2022-07-08 15:58 | XMS_ITS | Encounter Summary ---
:1955 Author Organization [facility] Address [address] [place] [address] Care Team Providers Name Role Phone Trish Frausto MD Primary Care Provider Encounter Details Date Type Department Care Team Description 10/06/2006 Correspondence None Hp Natalie, Provider AUTHO TO DISCLOSE PROTECTED MEMBER Social History Tobacco Use Types Packs/Day Years Used Date Smoking Tobacco: Never Alcohol Use Standard Drinks/Week Comments No 0 (1 standard drink = 0.6 oz pure alcoho l) Sex Assigned at Date Recorded Not on file documented as of this encounter Progress Notes Dominic Estrada, Provider - 10/06/2006 12:00 AM LIQUOR STORE MANAGER documented in this encounter Plan of Treatment Not on filedocumented as of this encounter Visit Diagnoses Not on filedocumented in this encounter Care Teams Digital Media Representative Relationship Specialty Start Date End Date Trish Frausto MD PCP - General 09/01/05 08/22/18 [address] [place] [address] documented as of this encounter
--- OUTSIDE RECORDS SUMMARY | 2022-07-08 15:58 | XMS_ITS | Encounter Summary ---
:1955 Author Organization [facility] Address [address] [place] [address] Care Team Providers Name Role Phone Trish Frausto MD Primary Care Provider Encounter Details Date Type Department Care Team Description 10/06/2006 Correspondence External to HP External, Provid [place] [address] Social History Tobacco Use Types Packs/Day Years Used Date Smoking Tobacco: Never Alcohol Use Standard Drinks/Week Comments No 0 (1 standard drink = 0.6 oz pure alcoho l) Sex Assigned at Date Recorded Not on file documented as of this encounter Progress Notes External, Provider - 10/06/2006 12:00 AM MUD GRINDER documented in this encounter Plan of Treatment Not on filedocumented as of this encounter Visit Diagnoses Not on filedocumented in this encounter Care Teams Quarryman Relationship Specialty Start Date End Date Trish Frausto MD PCP - General 09/01/05 08/22/18 [address] [place] [address] documented as of this encounter
--- OUTSIDE RECORDS SUMMARY | 2022-07-08 15:58 | XMS_ITS | Encounter Summary ---
:1955 Author Organization [facility] Address [address] [place] [address] Care Team Providers Name Role Phone Trish [...] on filedocumented in this encounter Care Teams Criminal Justice Social Worker Relationship Specialty Start Date End Date Trish Frausto MD PCP - General 09/01/05 08/22/18 [address] [place] [address] documented as of this encounter
--- OUTSIDE RECORDS SUMMARY | 2022-07-08 15:58 | XMS_ITS | Encounter Summary ---
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 M, OD and Vision (Primary [place], [place] [address] Dx) [phone] Social History Tobacco Use Types Packs/Day Years Used Date Smoking Tobacco: Never Alcohol Use Standard Drinks/Week Comments No 0 (1 standard drink = 0.6 oz pure alcoho l) Sex Assigned at Date Recorded Not on file documented as of this encounter Progress Notes Juanjose Leon - 09/28/2006 3:16 PM CST HPI: Chief Complaint Patient presents with ??? 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
--- OUTSIDE RECORDS SUMMARY | 2022-07-08 15:58 | XMS_ITS | Encounter Summary ---
:1955 Author Organization [facility] Address [address], [place] [address] Care Team Providers Name Role Phone Trish Frausto MD Primary Care Provider Encounter Details Date Type Department Care Team Description 08/10/2007 [facility] Nursing Department [address] [place], [place] [address] Social History Tobacco Use [...] on filedocumented in this encounter Care Teams Wick Tender Relationship Specialty Start Date End Date Trish Frausto MD PCP - General 09/01/05 08/22/18 [address] [place], [place] [id number] documented as of this encounter
--- OUTSIDE RECORDS SUMMARY | 2022-07-08 15:58 | XMS_ITS | Encounter Summary ---
:[address] [facility] Address [address] [address] Care Team Providers Name Role Phone Adam Valentin MD Primary Care Provider Encounter Details Date Type Department Care Team Description 06/18/2005 Telephone [facility] Grecia Alba RN [address] [place] [address] [place] [address] [place] [address] Social History Tobacco Use Types Packs/Day Years Used Date Smoking Tobacco: Never Alcohol Use Standard Drinks/Week Comments No 0 (1 standard drink = 0.6 oz pure alcoho l) Sex Assigned at Date Recorded Not on file documented as of this encounter Nursing Notes 06/18/2005 11:59 PM CDT Addended by: JAG GARCIA on: 06/19/2005 3:19:52 PM Comment: Pt called back-informed to results also...Jag Leon >> JAG GARCIA WedJun 19, 2005 2:03 PM Pt spouse was informed and expressed understanding. Reinforced need for NARINDER discuss at next visit with JACE Kelly Dr. verbally informed to this..Jag Garcia RN >> JAG GARCIA WedJun 19, 2005 1:43 PM Left message to call back. Jag Garcia RN >> JAG GARCIA WedJun 19, 2005 9:17 AM [phone] (home) Left message to call back. Jag Garcia RN >> GRECIA ALBA Fidelina Jun 18, 2005 5:05 PM Result Notes message copied by GRECIA ALBA on 06/18/2005 at 5:05 PM ------ Message from: GUDELIA NGUYEN Created: 06/18/2005 at 3:53 PM Ruiz Paige His Thyroid function tests are OK Lets proceed with the eval and f/u as scheduled. thanks. M. Juan Carlos Nguyen MD documented in this encounter Plan of Treatment Not on filedocumented as of this encounter Visit Diagnoses Not on filedocumented in this encounter Care Teams Wax Pot Tender Relationship Specialty Start Date End Date Adam Valentin MD PCP - General 04/10/01 08/31/05 [address] [place] [address] documented as of this encounter
--- OUTSIDE RECORDS SUMMARY | 2022-07-08 15:58 | XMS_ITS | Encounter Summary ---
:1955 Author Organization [facility] Address [address] [address] Care Team Providers Name Role Phone Trish Frausto MD Primary Care Provider Encounter Details Date Type Department Care Team Description 08/27/2005 Office Visit [facility] Gregorio Hill, Nori REYNOLDS APNEA NOS Otolaryngology [address] [place] [address] [place] [address] [phone] Social History Tobacco Use Types Packs/Day Years Used Date Smoking Tobacco: Never Alcohol Use Standard Drinks/Week Comments No 0 (1 standard drink = 0.6 oz pure alcoho l) Sex Assigned at Date Recorded Not on file documented as of this encounter Progress Notes Gregorio Hill - 08/27/2005 12:00 AM CSTREASON FOR CONSULTATION: Sleep apnea, micrognathia. Dear Dr. Nguyen: I had the pleasure of seeing the patient in clinic today. 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 He has a history of some occupational noise exposure. He has no otalgia, no otorrhea. He's got a history of some hearing loss. He may get some sinusitis. He is not having any frequent epistaxis, but he does have some seasonal allergic rhinitis, without any odynophagia, dysphagia or other problems. He is a nonsmoker. I refer to you chart for his medicines. The patient does have pretty significant snoring as well and was considering having LAUP surgery several years ago, but when he went to a session on LAUP surgery, he was frightened by the surgery and left the room during a video. OBJECTIVE: On physical examination today, the patient is alert and oriented and pleasant. His face is symmetric. He does not have midface hypoplasia, but I do indeed agree that his jaw is a bit small, but it is not terribly retrusive. His nasal pyramid is midline. He otherwise has a normal-appearing and symmetric face. His face is non-syndromic. He has not had any other problems with speech and he speaks well today. Does not speak with a muffled voice or any other problem with his voice. His nasal cavity exam shows no masses, no lesions. The turbinates are a bit enlarged. His oral cavity, his oropharynx shows a long soft palate, but his tongue is not excessively large. His jaw does not look a bit retrusive. 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 The patient's neck exam shows no masses, no adenopathy, no thyromegaly. ASSESSMENT/PLAN: Obstructive sleep apnea and severe snoring. We talked to the patient today that with his mild sleep apnea, he would not probably qualify to have palatal surgery performed nor would we recommend it. We did talk to him about techniques that are being used to address his snoring. I gave him approximate prices for what these might cost as elective procedures, and also stated that this something that we are not routinely doing presently at the hospital, but we will likely be starting this once a little more data comes in on some of these techniques, which seem to be successful for certain subpopulations of sleep apnea patients. ?? P cc: Eyad Nguyen MD AL GUNNER SUPERINTENDENT documented in this encounter Nursing Notes 08/27/2005 10:30 AM CST >> SAUMYA HAMMOND 08/27/2005 10:25 am Mitch Catherine is here today for upper airway evaluation. Patient states he has mild sleep apnea and Dr. Nguyen wants to have him checked for any kind of upper airway blockage. Pain scale:2 Location: throat, Frequency:Everyday, Type: sore, Duration: constant since yesterday. Tobacco Status: NEVER SMOKED Current outpatient prescriptions: MULTIPLE VITAMIN TABS,1 tab daily,Disp: ,Rfl: 0 IBUPROFEN 800 MG OR TABS,1 tab as needed,Disp: ,Rfl: 0 ACETAMINOPHEN 500MG ORAL TABLETS,3 tabs as needed,Disp: ,Rfl: 0 CLARITIN 10 MG OR TABS,1 tab as needed,Disp: ,Rfl: 0 CLOBETASOL PROPIONATE 0.05 % EX OINT,apply bid to hands for 2 weeks prn for severe flares,Disp: 1oz,Rfl: 5 Allergies: Allergies As of Date: 08/27/2005 Noted Reaction AMOXICILLIN 03/14/2003 Date Reviewed: 08/27/2005 Allergies to Latex?NO Saumya Hammond RN, 10:23 AM, 08/27/2005. documented in this encounter Plan of Treatment Not on filedocumented as of this encounter Visit Diagnoses Diagnosis Other and unspecified sleep apnea Unspecified sleep apnea documented in this encounter Care Teams Feed Blender Relationship Specialty Start Date End Date Trish Frausto MD PCP - General 09/01/05 08/22/18 [address] [place] [address] documented as of this encounter
--- OUTSIDE RECORDS SUMMARY | 2022-07-08 15:58 | XMS_ITS | Encounter Summary ---
:1955 Author Organization [facility] Address [address] [place] [address] Care Team Providers Name Role Phone Adam Valentin MD Primary Care Provider Encounter Details Date Type Department Care Team Description 08/07/2005 Correspondence None CONSENT AND R ELEASE Social History Tobacco Use Types Packs/Day Years Used Date Smoking Tobacco: Never Alcohol Use Standard Drinks/Week Comments No 0 (1 standard drink = 0.6 oz pure alcoho l) Sex Assigned at Date Recorded Not on file documented as of this encounter Progress Notes RH ROIS, PROVIDER - 08/07/2005 12:00 AM CATTLE ALLEY WORKER documented in this encounter Plan of Treatment Not on filedocumented as of this encounter Visit Diagnoses Not on filedocumented in this encounter Care Teams Double Head Machine Operator Relationship Specialty Start Date End Date Adam Valentin MD PCP - General 04/10/01 08/31/05 [address] [place] [address] documented as of this encounter
--- OUTSIDE RECORDS SUMMARY | 2022-07-08 15:58 | XMS_ITS | Encounter Summary ---
:1955 Author Organization [facility] Address [address] [place] [address] Care Team Providers Name Role Phone Trish Frausto MD Primary Care Provider Reason for Visit Reason Onset Date Comments APPOINTMENT REQUEST 10/14/2006 Encounter Details Date Type Department Care Team Description 10/14/2006 Telephone [facility] [address] Raad Avendano MD APPOINTMENT REQUEST Neurology Clinic [address] [facility] [address] [place] [address] [place], [place] [id number] Social History Tobacco Use Types Packs/Day Years Used Date Smoking Tobacco: Never Alcohol Use Standard Drinks/Week Comments No 0 (1 standard drink = 0.6 oz pure alcoho l) Sex Assigned at Date Recorded Not on file documented as of this encounter Nursing Notes Kristan Valdivia - 10/18/2006 1:30 PM CST Unable to contact pt. Letter sent. Kristan Valdivia RN Kristan Millard - 10/15/2006 3:02 PM CST Left message to call back. Kristan Valdivia RN Kristan Millard - 10/15/2006 12:07 PM CST Left message to call back. Kristan Valdivia RN HOGGER OPERATOR Kristan Valdivia - 10/14/2006 12:17 PM CST Left message to call back. Kristan Valdivia RN HOGGER OPERATOR Krista Izquierdo - 10/14/2006 11:56 AM CST Patient's wants to talk with the nurse about her condition. He had an appointment today10/14/06, but he cancelled it on line and the did not want him to cancel it. Krista Izquierdo HOGGER OPERATOR documented in this encounter Plan of Treatment Not on filedocumented as of this encounter Visit Diagnoses Not on filedocumented in this encounter Care Teams Satellite Installation Technician Relationship Specialty Start Date End Date Trish Frausto MD PCP - General 09/01/05 08/22/18 [address] [place] [address] documented as of this encounter
--- OUTSIDE RECORDS SUMMARY | 2022-07-08 15:58 | XMS_ITS | Encounter Summary ---
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 Complaint in Whom no [place], [place] [address] Diagnosis Was Made [phone] [place], [place] (Primary Dx) [address] Social History Tobacco Use Types Packs/Day Years Used Date Smoking Tobacco: Never Alcohol Use Standard Drinks/Week Comments No 0 (1 standard drink = 0.6 oz pure alcoho l) Sex Assigned at Date Recorded Not on file documented as of this encounter Last Filed Vital Signs Vital Sign Reading Time Taken Comments Blood Pressure 124/76 03/07/2007 8:45 AM CDT Pulse 64 03/07/2007 8:45 AM CDT Temperature - - Respiratory Rate - - Oxygen Saturation - - Inhaled Oxygen Concentration - - Weight 96.2 kg (212 lb) 03/07/2007 8:45 AM CDT Height 185.4 cm (6' 1) 03/07/2007 8:45 AM CDT Body Mass Index 27.97 03/07/2007 8:45 AM CDT documented in this encounter Patient Instructions Patient Pvjwthcaxalt35/25/2007 9:11 AM CDT Thank you for choosing [facility] Department of Neurology for your care! The following instructions are for your information. Please review this sheet carefully and contact us if you have any questions. Follow-up: Please follow-up in neurology as recommended by Dr. Summers. Please arrive in the neurologydepartment 15 minutes before your scheduled follow-up appointment time to allow adequate time for the nursing staff to review your medications and vital signs. If you are unable to keep your follow-up appointment, please call at least 24 hours in advance to let us know so that we may schedule another patient for that time. If you need to cancel you may call the neurology department or call the [facility] Appointment Center at [phone]. The Appointment Center is open from 7am - 9pm seven days a week. Please call the neurology department at [phone] or [phone] with any concerns regarding your visit today or for any issues as listed below on this follow-up form. My nurses' name is Kristan. Ifyou do not receive a return phone call from us within 4 hours, please call again. Thank you. Diagnosis: Memory concerns Medication Changes: None Written Information: Given written information on Maintaining a Healthy Brain from the Alzheimer's Association and encouraged to keep mentally and physically active. Follow-Up: Please contact Trish Frausto MD or the neurology department with any abrupt worsening in yourmemory or your ability to function. Please expect to hear from Silva Summers's nurse in the next 7-10 business days regarding your test results and recommendations for medication changes if needed. If you have not heard from them within 7-10 business days please call them at [phone]. Please follow-up with Trish Frausto MD / your primary care clinic regarding all other medicalconditions and issues. Please call the neurology department at [phone] if you have any questions related to your visit today, new symptoms and worsening symptoms. Return visit information: Please bring all your medications (including over the counter medications, vitamins and herbal products) with you to all of your visits. Please call at least 24 hours in advance if you are unable to keep your follow-up appointment so that we may schedule another patient for that time. Please arrive in the neurology department 15 minutes BEFORE your scheduled appointment time for the nurse to review all medications and check your vital signs. documented in this encounter Progress Notes Teresa Mccloud - 03/07/2007 9:43 AM CDT S:Mitch Catherine is a 51 yr old male I was asked to see by Dr. Tristin Summers per note dated 03-03-07 forevaluation of c/o memory problems. Please refer to that note for additional information. He has alsoseen Dr. Avendano in the past and had neuropsych testing done by Dr. Holland. He is unaccompanied to this visit. He does not feel he has any memory issues. He states it is his who feels he has problems. He drives without difficulty. Does not get lost in familiar places. No motor vehicle accidents or tickets. He occasionally cooks - no trouble with this. He pays the family bills. No trouble with this and he balances a checkbook without difficulty. He may need to go back and reread sections of a book if it is really involved and has a lot of characters in it to keep all of the characters straight in particular if someone new is added in. He has no trouble following a TV show or a movie. He has occasional word finding problems but not anymore than anyone else. He has always had trouble recalling people's names - this has not changed. He has no trouble recalling dates or appointments. He keeps a det diane systems planner. He does not misplace things at home. He notes that his writes down a lot of things about him and his memory. He states that she wants to move to a location where yard work etc... is taken care of and that she is using his memory problems as a reason to sell their house and move. ROS: With his glasses his vision is fine. He has slight hearing loss from working in a very noisy environment but does not wear hearing aids. Ambulates independently. Social: Lives with his . Has three grown children. Denies smoking or ETOH intake. 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 Allergies: Amoxicillin Medications: Medications the patient reported as taking as of 03/07/2007: MULTIPLE VITAMIN TABS, 1 tab daily, Disp: , Rfl: 0 IBUPROFEN 800 MG OR TABS, 1 tab as needed, Disp: , Rfl: 0 ACETAMINOPHEN 500MG ORAL TABLETS, 3 tabs as needed, Disp: , Rfl: 0 CLOBETASOL PROP (TEMOVATE) 0.05% OINTMENT, apply bid to hands for 2 weeks prn for severe flares, Disp: 1oz, Rfl: 5 CLARITIN OR, 1 as neened , Disp: , Rfl: O: BP 124/76 Pulse 64 Ht 6' 1 (1.854 m) Wt 212 lbs (96.163 kg) Casually dressed, neatly groomed male who appears younger than stated age and in no acute distress. Alert. Speech fluent. No word finding problems noted. Hearing intact to normal voice tones bilaterally. Maintains good eye contact during the visit. No facial asymmetry or paresis noted. Casual gait is smooth. [place] Short Mental Status Exam (29-35 indicative of mild cognitive impairment; 29 or less detects dementia):(STMS, [place] Short Form) - Orientation 7/8, Attention 6/7, Learning 4/4, Calculations 4/4, Abstractions 3/3, Knowledge 4/4, Constructions 4/4, Recall 4/4, TOTAL 36/38. PHQ9 was administered today with a total score of 5. Digit Span Forward (6 digit span forward or higher is normal): Patient was able to recite a 6 digit span forward. Proverbs: Able to abstractly explain 3 proverbs. Words starting with F in 60 seconds (average = 12): 15 Words starting with A in 60 seconds (average = 12): 14 Ideomotor Praxis: Patient demonstrated no ideomotor apraxia. He was able to pantomime 3 specific motor acts without difficulty. A: 1. Normal brief cognitive exam. His score of 36/38 on the [place] Short Mental Status Exam is in the normal range (and one of the points he missed was d/t the fact he wasn't sure where the border was for [facility]). His score of 5 on the PHQ-9 indicates no major depression. He tells me he feels down about the fact his thinks he has problems with his memory. P: 1. This information will be passed on to Dr. Summers, Dr. Avendano and Trish Frausto MD in the form of this note. 2. Follow-up in neurology with Dr. Avendano in May as he has scheduled already. 3. Call the neurology department with any questions, changes or problems related to today's visit. 4. Expect to hear from Dr. Jessie Ascencio' nurse sometime in the next 7-10 business days re: any further recommendations. 5. Given written information on Maintaining a Healthy Brain from the Alzheimer's Association and encouraged to keep mentally and physically active. 6. Please see After Visit Summary for additional instructions given. Teresa Mccloud NP 03/07/2007 Teresa Mccloud - 03/07/2007 12:00 AM CDT documented in this encounter Nursing Notes 03/07/2007 8:45 AM CDT >> BLAZE MARIEE Mon Mar 07, 2007 8:47 AM CONSULT Meds updated and verified with pt. Blaze Mariee documented in this encounter Plan of Treatment Not on filedocumented as of this encounter Visit Diagnoses Diagnosis Person with feared complaint in whom no diagnosis was made - Primary documented in this encounter Care Teams Cash Management Officer Relationship Specialty Start Date End Date Trish Frausto MD PCP - General 09/01/05 08/22/18 [address] [place] [address] documented as of this encounter
--- OUTSIDE RECORDS SUMMARY | 2022-07-08 15:58 | XMS_ITS | Encounter Summary ---
:1955 Author Organization [facility] Address [address] [place] [address] Care Team Providers Name Role Phone Trish Frausto MD Primary Care Provider Reason for Referral Specialty Diagnoses / Procedures Referred By Contact Refer red To Contact Thelma Summers MD [address] [place] [address] Referral ID Status Reason Start Date Expiration Date Visits Requ ested Visits Authorized Reason for Visit Reason Comments SECOND OPINION Memory Encounter Details Date Type Department Care Team Description 03/03/2007 Office Visit [facility] Thelma Summers, Memory Loss (Primary [address] Lacy SAHA Dx) [place], [place] [address] [phone] [facility] [phone] [place] [address] Social History Tobacco Use Types Packs/Day Years Used Date Smoking Tobacco: Never Alcohol Use Standard Drinks/Week Comments No 0 (1 standard drink = 0.6 oz pure alcoho l) Sex Assigned at Date Recorded Not on file documented as of this encounter Last Filed Vital Signs Vital Sign Reading Time Taken Comments Blood Pressure 126/70 03/03/2007 1:45 PM CDT Pulse 68 03/03/2007 1:45 PM CDT Temperature - - Respiratory Rate - - Oxygen Saturation - - Inhaled Oxygen Concentration - - Weight 97.1 kg (214 lb) 03/03/2007 1:45 PM CDT Height 185.4 cm (6' 1) 03/03/2007 1:45 PM CDT Body Mass Index 28.23 03/03/2007 1:45 PM CDT documented in this encounter Patient Instructions Patient Kesuwgygrcnk12/21/2007 3:03 PM CDT Eval by Teresa Mccloud for memory and depression Thelma Summers MD documented in this encounter Progress Notes Thelma Summers - 03/03/2007 3:02 PM CDT This office note has been dictated. Thelma Summers MD documented in this encounter Consult Notes Thelma Summers - 03/03/2007 12:00 AM CDT This is a second opinion. I have been asked by Dr. Valentin to see this patient with memory loss. This 52-year-old white male, right-handed. The patient does not believe he has had any problem with memory. This consult is triggered more because of his being convinced that he is having a problem. Reviewing the patient's chart, he was seen by Dr. Avendano in May 2005, worked up for memory loss. At the time he had an MRI which was within normal limits. One area of gliosis in the left frontal parietal area. EEG June 05, 2005, was within normal limits. Neuropsychological testing in 2004, done by Dr. Scott Holland showed no indication that he was having any cognitive decline nor difficulties with memory. His measures of memory, attention, executive functioning, language, cognitive processing speed and visual sensibilities were all normal. There were some lapses in his capacity to concentrate. At this time it was felt that patient was having some stressors with his and a marital counselor was recommended. His stressors were apparently related to financial issues. Since then the patient apparently has been functioning well. He tells me he is having no difficulties with getting lost, driving well, no motor vehicle accidents, able to balance his checkbook, not bounced his account. No difficulties finding words, no misplacing things at home. 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 No hallucinations, delusions, no falling, no incontinence. There is a phone call recorded in our records on November 29, 2006, apparently the patient's contacted Dr. Avendano concerned that her was changing very fast. He was having personality problems, getting irritable, not remembering trips, not able to find the way to his daughter's house, impaired judgement, spending $1800 buying soap, socks and car parts while she was away. Obsessions for making lists in his day brand planner. Because of these concerns, the patient was recommended to start Neurontin. The patient tells me he never started that medication, it was filled. He read the side effects and instructions, but he never took it because he never felt he needed it. PAST MEDICAL HISTORY: Prostatitis, hydrocele, sleep apnea. ALLERGIES: Amoxicillin. MEDICATIONS: Multivitamins, ibuprofen and Tylenol. REVIEW OF SYSTEMS: Denies depression. No changes in behavior. No delusional hallucinations. No double vision, blurred vision, loss of vision, weakness, numbness, tingling, palpitations, chest pain. EXAMINATION: On exam, blood pressure was 126/70. Pulse was 68. Weight of 214. Height of 6 feet 1 inch. HEENT normocephalic, no trauma, no carotid bruits. Cardiovascular S1, S2, no S3, no S4, no murmurs. Heart rate regular rhythm. Lungs are clear, no rubs, no wheezing. Abdomen soft, normal bowel sounds, no organomegaly. Peripheral pulses, dorsalis pedis and tibialis posterior are present. On neurological examination, the patient is oriented x 3, cooperative. Normal speech, math and spelling. Short term memory is 3 out of 3 immediately and at 5 minute recall. Language is normal in expression and comprehension. Spelling the word world was normal backwards and forwards. Affect and judgment are appropriate. The patient is very cooperative and pleasant. The patient was able to abstract four proverbs without difficulties. His joking was appropriate. He had good insight and was cooperative. Cranial nerves: Extraocular eye movements are normal. Visual davis by confrontation are full. Pupils are equal and reactive at 4 millimeters bilaterally. Fundi have no edema, no hemorrhage. There is no nystagmus. Face is symmetric. Uvula is midline. Palate rises symmetrically. Tongue is midline with normal lateral movements. Corneal reflexes are present bilaterally. Hearing by rub is symmetrical. Shoulder shrug is symmetric. Motor exam reveals normal tone. Strength is 5/5. Deep tendon reflexes are 2/2 at biceps, brachioradialis, triceps, knees and ankles bilaterally and symmetrically. Toes go down bilaterally. Sensory exam to light touch, pin prick, position and vibration were within normal limits. Double simultaneous stimulation on sensory exam was normal. Stereognosis is normal. Coordination to faskrv-axxz-rakymy and abrm-uy-bvgb had no dysmetria or tremor. Rapid alternating movements are normal. Romberg is negative. Walk is narrow-based, stable. The patient is able to tandem backwards and forward and able to hop on both right and left feet. Able to walk on heels and tiptoes. IMPRESSION: This 52-year-old male who does not believe has difficulties with his memory, but his does. At bedside testing I do not see any concerning issues. The patient does have normal functioning regarding speech, he was able to subtract 7 out of 100, he was able to spell the word world backwards and forwards and abstract thinking was normal. PLAN: I am going to have the patient see Ms. Teresa Mccloud to address memory loss with a Short [place] Memory Test and depression. I do not see any reason to repeat Dr. Holland's evaluation since this was completely normal two years ago. Depending on the results, if there are concerns, the patient will be scanned again, otherwise at this point I would not recommend further workup. I do recommend the patient to consider marital counseling and try to resolve the differences with his . The patient tells me he believes his wants to move to a new home, a smaller place and he wonders whether her concerns of his memory loss would be related to her desire to move. Apparently there has been some discrepancy between them regarding this issue. Thank you for letting me be involved in the care of the patient. P cc: MD Thelma Wislon MD Jeanne L. Wittrock, MD documented in this encounter Nursing Notes 03/03/2007 1:45 PM CDT >> BLAZE MARIEE [facility] Mar 03, 2007 1:58 PM 2nd opinion memory loss Meds updated and verified with pt. Blaze Mariee documented in this encounter Plan of Treatment Not on filedocumented as of this encounter Visit Diagnoses Diagnosis Memory loss - Primary documented in this encounter Care Teams Assisted Living Assistant Relationship Specialty Start Date End Date Trish Frausto MD PCP - General 09/01/05 08/22/18 [address] [place] [address] documented as of this encounter
--- OUTSIDE RECORDS SUMMARY | 2022-07-08 15:58 | XMS_ITS | Encounter Summary ---
:1955 Author Organization [facility] Address [address] [address] Care Team Providers Name Role Phone Trish Frausto MD Primary Care Provider Reason for Visit Reason Comments ECZEMA Followup - also check spot o n back. Encounter Details Date Type Department Care Team Description 03/26/2008 Office Visit [facility] [address] Anders Singh MD [facility] [address] [place] [address] [place] [address] [phone] (Wo rk) Social History Tobacco Use Types Packs/Day Years Used Date Smoking Tobacco: Never Alcohol Use Standard Drinks/Week Comments No 0 (1 standard drink = 0.6 oz pure alcoho l) Sex Assigned at Date Recorded Not on file documented as of this encounter Progress Notes Hammad Singh - 03/26/2008 12:00 AM CDT CHIEF COMPLAINT: Hand dermatitis and growth on right flank. HPI: Mitch is a pleasant 52-year-old gentleman who presents to Dermatology Clinic today for evaluation of hand dermatitis and for a lesion on the right flank. 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 He states that he does use clobetasol and fluocinonide ointment sporadically with good control. He does state he does not use any of these products for longer than one to two days in the week. He also has been trying to avoid products, which he does believe contain the allergen. He also request evaluation of a lesion on the right flank, which has been present for several months. He denies any itching, pain or bleeding with this lesion. PAST MEDICAL HISTORY: Negative for personal history of skin cancer. FAMILY HISTORY: Negative for skin cancer. SOCIAL HISTORY: Patient does wear sunscreen SPF 15 on a regular basis. REVIEW OF SYSTEMS: He does feel well and have no other skin complaints. PHYSICAL EXAMINATION: Mr. Catherine is a pleasant 52-year-old gentleman currently in no acute distress. He is pleasant, awake, and alert. Physical exam included evaluation of his head, neck, chest, abdomen, back, bilateral upper extremities. He did have stuck-on keratotic approximately 1 cm plaque on the right flank. He also had erythematous, scaly patches on the volar and palmar aspects of the hands extending onto the dorsal fingers. Remainder of his physical examination is within normal limits. ASSESSMENT AND PLAN: 1. Recurrent hand dermatitis. Most likely related to patient's allergic contact dermatitis to quaternium-15, but possible irritant contact dermatitis component as well. Patient will continue with his topical corticosteroids as he has maintained good control and does use these intermittently. He does understand fully the adverse reactions regarding topical corticosteroids and possibility of tachyphylaxis with regular use. In addition, he is using gentle cleansers, moisturizers for skin and is mindful of avoiding quaternium-15. We also discussed liberal use of emollients. 2. Seborrheic keratosis on right flank, patient reassured the benign nature of this lesion. He will follow up in Dermatology as needed. 03/27/2008 5:57 P cc: Trish Frausto MD documented in this encounter Plan of Treatment Not on filedocumented as of this encounter Visit Diagnoses Not on filedocumented in this encounter Care Teams Sensory Scientist Relationship Specialty Start Date End Date Trish Frausto MD PCP - General 09/01/05 08/22/18 [address] [place] [address] documented as of this encounter
--- OUTSIDE RECORDS SUMMARY | 2022-07-08 15:58 | XMS_ITS | Encounter Summary ---
:1955 Author Organization [facility] Address [address] [place] [address] Care Team Providers Name Role Phone Trish Frausto MD Primary Care Provider Reason for Visit Reason Onset Date Comments MEDICATION, NOS 12/03/2006 Encounter Details Date Type Department Care Team Description 11/29/2006 Telephone [facility] 401 Raad Avendano MD MEDICATION, NOS Neurology Clinic [address] [facility] [place] [address] [place] [address] Social History Tobacco Use Types Packs/Day Years Used Date Smoking Tobacco: Never Alcohol Use Standard Drinks/Week Comments No 0 (1 standard drink = 0.6 oz pure alcoho l) Sex Assigned at Date Recorded Not on file documented as of this encounter Nursing Notes Kristan Valdivia - 12/03/2006 4:42 PM CDT Pt requests Rx to be mailed to her at work: [address] [facility] [address] Informed Rx will be mailed on Wednesday. Kristan Valdivia RN Broderick Avendano - 11/29/2006 11:46 PM CDT Broderick Avendano - 11/29/2006 2:57 PM CDT Mr. Catherine's stopped in clinic today to discuss her 's condition. She provided extensive documentation (files as correspondence 11/09/06) of the behavioral and cognitive changes she is seeing. In addition to some personality change (irritable and often quite angry if errors are pointed out) he is demonstrating problems in multiple cognitive domains: memory - can't remember how to drive a day trip that they have taken each year for 30 yrs; unable to find his way home from his daughter's house. impaired judgement - spent $1800 buying soap, socks and car parts while was away; recently overspent and bought excessive amounts of cough remedies. word finding - increased use of wrong words, e.g., use of orangutan for miles problem solving - unable to properly wire stove, something he could have done in the past; unable to independently choose an insurance plan Obsessions - obsessed with making lists in his day finished goods planner that he bought at [employer]) visuo-spatial - can't find directions, easily mixed up when driving. lack of insight - does not demonstrate an understanding of the problems he is demonstrating; there is always an excuse or someone else to blame paranoia - won't answer the phone if he doesn't recognize the call waiting ID; goes through 's phone records to see who she is calling; complained about having to use a germy pen to sign at pharmacy - could not use his own (since he was signing a touch screen). Discussed these issues in detail. The problems she has illustrated do suggest a dementing process. Previous neuropsych testing failed to reveal abnormalities consistent with these observations. May have been to early in the process, or incorrect or insensitive testing done. Based on his 's documentation, this does not seem to be getting any better. He is however still working for the [employer]. Apparently has tasks that keep him fairly isolated. is not aware of problems at work. 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 Unfortunately he has refused to have any additional testing or come for visit. Previous MRI did not reveal changes (by report) that would indicate fronto-temporally predominant atrophy. Discussed treatment options in detail. His PCP had prescribed Aricept but after reading the product literature given by pharmacy, he refused to take it because of the potential side effects. I suggested Namenda since it may help improve his day-to-day functioning. She will see if she can get him to take it. Past labs reviewed. B12 on low side so also suggested adding B12 supplement. Beyond this, there is not much that can be done unless he is willing to participate and come for additional evaluation. PLAN: MEDICATIONS: Add B12 (1000 mcg) 1 tab daily to help with nerve function. Namenda (5 mg) Start 1 tab daily at bed 1 week later if OK 1 tab AM and 1 tab PM 1 week later if OK 1 tab AM and 2 tab PM 1 weel later if OK 2 tab AM and 2 tab PM Can then change to 10 mg tabs 1 tab AM and 1 tab PM DIAGNOSTIC STUDIES: None REFERRALS: None documented in this encounter Plan of Treatment Not on filedocumented as of this encounter Visit Diagnoses Diagnosis Memory loss - Primary documented in this encounter Care Teams Gamer Relationship Specialty Start Date End Date Trish Frausto MD PCP - General 09/01/05 08/22/18 [address] [place] [address] documented as of this encounter
--- OUTSIDE RECORDS SUMMARY | 2022-07-08 15:58 | XMS_ITS | Encounter Summary ---
:1955 Author Organization [facility] Address [address] [place] [address] Care Team Providers Name Role Phone Trish Frausto MD Primary Care Provider Encounter Details Date Type Department Care Team Description 11/03/2006 Correspondence External to [facility] External, Provid [place] [address] Social History Tobacco Use Types Packs/Day Years Used Date Smoking Tobacco: Never Alcohol Use Standard Drinks/Week Comments No 0 (1 standard drink = 0.6 oz pure alcoho l) Sex Assigned at Date Recorded Not on file documented as of this encounter Progress Notes External, Provider - 11/03/2006 12:00 AM PHARMACY MESSENGER documented in this encounter Plan of Treatment Not on filedocumented as of this encounter Visit Diagnoses Not on filedocumented in this encounter Care Teams Concrete Carpenter Relationship Specialty Start Date End Date Trish Frausto MD PCP - General 09/01/05 08/22/18 [address] [place] [address] documented as of this encounter
--- OUTSIDE RECORDS SUMMARY | 2022-07-08 15:58 | XMS_ITS | Encounter Summary ---
:1955 Author Organization [facility] Address [address] [place] [address] Care Team Providers Name Role Phone Trish Frausto MD Primary Care Provider Reason for Visit Reason Onset Date Comments DIZZINESS 10/14/2005 Encounter Details Date Type Department Care Team Description 10/14/2005 Telephone Careline Darron Lemus RN DIZZINESS [address] 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 Signs of shock (syncope, diaphoresis, tachycardia, dizziness/fainting, severe bleeding): none. Symptoms of vertigo: room is spinning intermittently. Other symptoms: ?ear infection feels pain in one ear, No headache, no nausea, CMS of extremities WNL : yes Precipitating factors: standing up history of dizziness: Yes: 20 years ago. PMH: Healthy. FRAIL/ELDERLY: No CURRENT MEDICATIONS: Yes: Current outpatient prescriptions prior to 10/14/05: ARICEPT 5 MG OR TABS, 1 tab qhs, Disp: 30, Rfl: 3; MULTIPLE VITAMIN TABS, 1 tab daily, Disp: , Rfl:0; IBUPROFEN 800 MG OR TABS, 1 tab as needed, Disp: , Rfl: 0; ACETAMINOPHEN 500MG ORAL TABLETS, 3 tabs as needed, Disp: , Rfl: 0; CLARITIN 10 MG OR TABS, 1 tab as needed, Disp: , Rfl: 0; CLOBETAS OL PROPIONATE 0.05 % EX OINT, apply bid to hands for 2 weeks prn for severe flares, Disp: 1oz, Rfl: 5; . MEDICATION ALLERGIES: Yes: Amoxicillin HOME TREATMENT: Prone position, rise slowly from bed, calming techniques if patient is hyperventilating Eliminate smoking, coffee, tea, alcohol, stimulating drugs Caller transferred to for clinic appt today Caller understands and agrees with this plan Darron Lemus RN documented in this encounter Plan of Treatment Not on filedocumented as of this encounter Visit Diagnoses Not on filedocumented in this encounter Care Teams Real Estate Asset Manager Relationship Specialty Start Date End Date Trish Frausto MD PCP - General 09/01/05 08/22/18 [address] [place] [address] documented as of this encounter
--- OUTSIDE RECORDS SUMMARY | 2022-07-08 15:59 | XMS_ITS | Encounter Summary ---
:1955 Author Organization [facility] Address [address] [place] [address] Care Team Providers Name Role Phone Adam Valentin MD Primary Care Provider Encounter Details Date Type Department Care Team Description 06/04/2005 Orders Only [facility] Juan Alberto, Broderick Brunson MD [address] [facility] [place], [place] [address] [place] [address] Social History Tobacco Use Types Packs/Day Years Used Date Smoking Tobacco: Never Alcohol Use Standard Drinks/Week Comments No 0 (1 standard drink = 0.6 oz pure alcoho l) Sex Assigned at Date Recorded Not on file documented as of this encounter Procedure Notes Sissy Alfredo F - 06/04/2005 12:00 AM CDTAssociated Order(s): ELECTROENCEPHALOGRAM (EEG) EEG REPORT EEG REPORT #: [id number] REFERRING PHYSICIAN: Dr. Broderick Avendano PRIOR EEG: None here. HISTORY: Patient has cognitive changes, memory difficulties. MRI of the brain revealed a small T2 abnormality in the left temporal lobe. MEDICATIONS: Clobetasol, ibuprofen, acetaminophen, Claritin. LEVEL OF CONSCIOUSNESS: Alert, awake, drowsy. TYPE OF EEG: Routine. TEST LOCATION: [facility]. DESCRIPTION: This is a routine scalp EEG done using 21 channels for EEG, 2 channels for eyelids and 1 channel for EKG. Electrodes were placed in the standard 10-20 placement system. ACTIVATION PROCEDURES: Photic stimulation. RESULTS: Background activity during the recording is represented by moderate amplitude alpha posterior rhythm with a frequency of 10-11 Hertz. The alpha rhythm is symmetric and attenuates with eyes opening. Photic stimulation was done and this produced intermittent photic driving. HEART RATE: EKG was recorded and this shows a sinus regular rhythm with a heart rate of 68 per minute. IMPRESSION: This is a normal awake record. P cc: MD Sissy Wilson MD documented in this encounter Plan of Treatment Not on filedocumented as of this encounter Procedures Procedure Name Priority Date/Time Associated Diagnosis Comme nts EEG EXT MONITORING; 06/04/2005 Results for this 41-60 MIN procedure are i n the results section . documented in this encounter Results ELECTROENCEPHALOGRAM (EEG) (06/04/2005) Anatomical Region Laterality Modality Other Transcriptions Sissy Alfredo - 06/04/2005 12 :00 AM CDT EEG REPORT EEG REPORT #: [id number] REFERRING PHYSICIAN: Dr. Broderick Avendano PRIOR EEG: None here. HISTORY: Patient has cognitive changes, memory difficulties. MRI of the brain revealed a small T2 abnormality in the left temporal lobe. MEDICATIONS: Clobetasol, ibuprofen, acet aminophen, Claritin. LEVEL OF CONSCIOUSNESS: Alert, awake, dr dickinson. TYPE OF EEG: Routine. TEST LOCATION: [facility]. DESCRIPTION: This is a routine scalp EEG done using 21 channels for EEG, 2 channels for eyelids and 1 channel for E KG. Electrodes were placed in the standard 10-20 placement system. ACTIVATION PROCEDURES: Photic stimulatio n. RESULTS: Background activity during the recording is represented by moderate amplitude alpha posterior rhyth m with a frequency of 10-11 Hertz. The alpha rhythm is symmetric and attenu ates with eyes opening. Photic stimulation was done and this pro duced intermittent photic driving. HEART RATE: EKG was recorded and this sh ows a sinus regular rhythm with a heart rate of 68 per minute. IMPRESSION: This is a normal awake recor d. P cc: MD Sissy Wilson MD Broderick Avendano MD PROC_1 documented in this encounter Visit Diagnoses Not on filedocumented in this encounter Care Teams Medical Advisor Relationship Specialty Start Date End Date Adam Valentin MD PCP - General 04/10/01 08/31/05 [address] [place] [address] documented as of this encounter
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
--- OUTSIDE RECORDS SUMMARY | 2022-07-08 15:59 | XMS_ITS | Encounter Summary ---
:1955 Author Organization [facility] Address [address] [place] [address] Care Team Providers Name Role Phone Adam Valentin MD Primary Care Provider Encounter Details Date Type Department Care Team Description 05/29/2005 Correspondence [facility] Broderick vAendano MD LETTER [address] [facility] [place], [place] [address] [place] [address] Social History Tobacco Use Types Packs/Day Years Used Date Smoking Tobacco: Never Alcohol Use Standard Drinks/Week Comments No 0 (1 standard drink = 0.6 oz pure alcoho l) Sex Assigned at Date Recorded Not on file documented as of this encounter Progress Notes Broderick Avendano - 05/29/2005 12:00 AM CDT documented in this encounter Plan of Treatment Not on filedocumented as of this encounter Visit Diagnoses Not on filedocumented in this encounter Care Teams Audio/Video Engineer Relationship Specialty Start Date End Date Adam Valentin MD PCP - General 04/10/01 08/31/05 [address] [place] [address] documented as of this encounter
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
--- OUTSIDE RECORDS SUMMARY | 2022-07-08 15:59 | XMS_ITS | Encounter Summary ---
:1955 Author Organization [facility] Address [address] [place] [address] Care Team Providers Name Role Phone Adam Valentin MD Primary Care Provider Encounter Details Date Type Department Care Team Description 06/01/2005 Notes/Orders [facility] Broderick Avendano, [facility] [address] [place] [place] [address] [facility] (Primary [address]. [address]) [place], [place] [address] [phone] [place] [address] Social History Tobacco Use Types Packs/Day Years Used Date Smoking Tobacco: Never Alcohol Use Standard Drinks/Week Comments No 0 (1 standard drink = 0.6 oz pure alcoho l) Sex Assigned at Date Recorded Not on file documented as of this encounter Progress Notes 06/01/2005 11:59 PM CDT >> SUNITA A TURBES Mon Jun 01, 2005 11:13 AM Encounter initiated. documented in this encounter Plan of Treatment Not on filedocumented as of this encounter Procedures Procedure Name Priority Date/Time Associated Comments Diagnosis COMPLETE BLOOD Routine 06/01/2005 2:32 PM [facility] Results for this COUNT-W/DIFF CDT Use Medicatn procedure are i n the results section. RHEUMATOID FACTOR, Routine 06/01/2005 2:32 PM [facility] Long T erm Results for this QUANT CDT Use Medicatn procedure are i n the results section. LYME ANTIBODY (REFLEX Routine 06/01/2005 2:32 PM Aftercare Gianni g Term Results for this TO LYME CONFIRMATORY CDT Use Medicatn procedu re are in PANEL) the results section. RPR (SYPHILIS SCREEN) Routine 06/01/2005 2:32 PM Aftercare Gianni g Term Results for this CDT Use Medicatn procedure are i n the results section. KATARZYNA SCREEN Routine 06/01/2005 2:32 PM [facility] Re sults for this CDT Use Medicatn procedure are i n the results section. TSH, SENSITIVE (WITH Routine 06/01/2005 2:32 PM [facility] Results for this REFLEX) CDT Use Medicatn procedure are i n the results section. VITAMIN B12 ONLY Routine 06/01/2005 2:[address] Results for this CDT Use Medicatn procedure are i n the results section. URIC ACID Routine 06/01/2005 2:32 PM [facility] Re sults for this CDT Use Medicatn procedure are i n the results section. ALT (SGPT) Routine 06/01/2005 2:32 PM [facility] Re sults for this CDT Use Medicatn procedure are i n the results section. AST Routine 06/01/2005 2:32 PM Aftercare Tire Mold Tester Re sults for this CDT Use Medicatn procedure are i n the results section. ESR Routine 06/01/2005 2:32 PM [facility] Re sults for this CDT Use Medicatn procedure are i n the results section. documented in this encounter Results RPR (SYPHYLIS SCREEN) (06/01/2005 2:32 PM CDT) Patholo gist Method Time Signature Syphilis Non-Reacti NR [facility] Screen(RPR) ve Specimen Anatomical Collection Method Collection Time Receive d Time (Source) Location / / Volume Laterality 06/01/2005 2:32 PM 5 2:33 CDT PM CDT Broderick Avendano MD LAB_1 Performing Organization Address City/State/ZIP Code Phon e Number [facility] [phone] [address] RHEUMATOID FACTOR, QUANT (06/01/2005 2:32 PM CDT) P athologist Signature Quant. Rheum. <20 <20 IU/ml [facility] Factor Specimen Anatomical Collection Method Collection Time Receive d Time (Source) Location / / Volume Laterality 06/01/2005 2:32 PM 5 2:33 CDT PM CDT Broderick Avendano MD LAB_1 Performing Organization Address [facility] Code Phon e Number [facility] Curis [phone] [facility] [address] [phone] LYME ANTIBODY (06/01/2005 2:32 PM CDT) athologist Signature Lyme Antibody 0.22 <0.75 [place] [facility] Ratio Comment: Negative Specimen Anatomical Collection Method Collection Time Receive d Time (Source) Location / / Volume Laterality 06/01/2005 2:32 PM 5 2:33 CDT PM CDT Broderick Avendano MD LAB_1 Performing Organization Address [facility] Phon e Number [facility] Curis [phone] [phone] B12 ONLY (4 HR FAST RECOMMENDE (06/01/2005 2:32 PM CDT) athologist Signature Vitamin B12 357 211 - 911 [facility] pg/ml Specimen Anatomical Collection Method Collection Time Receive d Time (Source) Location / / Volume Laterality 06/01/2005 2:32 PM 5 2:33 CDT PM CDT Broderick Avendano MD LAB_1 Performing Organization Address [facility] Phon e Number [facility] Curis [phone] [facility] [address] [place] [phone] KATARZYNA SCREEN (06/01/2005 2:32 PM CDT) athologist Signature KATARZYNA Screen Negative NEG [facility] Comment: Referred to [place], [address] [place] [address] Specimen Anatomical Collection Method Collection Time Receive d Time (Source) Location / / Volume Laterality 06/01/2005 2:32 PM 09/19/200 5 2:33 CDT PM CDT Broderick Avendano MD LAB_1 Performing Organization Address City/[facility]/ZIP Code Phon e Number [facility] [phone] [facility] [address] [phone] URIC ACID (06/01/2005 2:32 PM CDT) athologist Signature Uric Acid 4.9 4.3 - 8.7 [facility] mg/dl Specimen Anatomical Collection Method Collection Time Receive d Time (Source) Location / / Volume Laterality 06/01/2005 2:32 PM 5 2:33 CDT PM CDT Broderick Avendano MD LAB_1 Performing Organization Address [facility] Code Phon e Number [employer] [phone] [address] AST (06/01/2005 2:32 PM CDT) athologist Signature AST (SGOT) 18 <45 U/L [facility] Specimen Anatomical Collection Method Collection Time Receive d Time (Source) Location / / Volume Laterality 06/01/2005 2:32 PM 5 2:33 CDT PM CDT Broderick Avendano MD LAB_1 Performing Organization Address City/[facility]/ZIP Code Phon e Number [employer] [phone] [facility] [address] [phone] ALT (SGPT) (06/01/2005 2:32 PM CDT) P athologist Signature ALT (SGPT) 23 0 - 55 U/L [facility] Specimen Anatomical Collection Method Collection Time Receive d Time (Source) Location / / Volume Laterality 06/01/2005 2:32 PM 5 2:33 CDT PM CDT Broderick Avendano MD LAB_1 Performing Organization Address City/[facility]/ZIP Code Phon e Number [employer] [phone] [phone] TSH, SENSITIVE (WITH REFLEX) (06/01/2005 2:32 PM CDT) athologist Signature TSH 1.17 0.30 - 5.00 [facility] uIU/ml Thyroid Meds No [facility] Specimen Anatomical Collection Method Collection Time Receive d Time (Source) Location / / Volume Laterality 06/01/2005 2:32 PM 5 2:33 CDT PM CDT Broderick Avendano MD LAB_1 Performing Organization Address City/[facility]/ZIP Code Phon e Number [facility] [phone] [phone] ESR (06/01/2005 2:32 PM CDT) athologist [facility] ESR 8 0 - 15 [facility] mm/hr Specimen Anatomical Collection Method Collection Time Receive d Time (Source) Location / / Volume Laterality 06/01/2005 2:32 PM 5 2:33 CDT PM CDT Broderick Avendano MD LAB_1 Performing Organization Address City/[facility]/ZIP Code Phon e Number [facility] [phone] [phone] HEMOGRAM/PLTS/DIFF (06/01/2005 2:32 PM CDT) athologist Signature WBC 6.1 4.0 - 11.0 [facility] k/ul RBC 4.92 4.5 - 5.9 [facility] M/ul Hemoglobin 15.1 13.5 - [facility] 17.5 g/dl HCT 43.6 41.0 - [facility] 53.0 % MCV 88.5 80 - 100 [facility] fl MCH 30.7 26 - 34 pg [facility] MCHC 34.6 32 - 36 % [facility] RDW 13.5 11.5 - [facility] 14.5 % Platelets 241 150 - 450 [facility] k/ul PMN/Band 61 43 - 72 % [facility] Lymph 27 17 - 43 % [facility] [place] 9 4 - 12 % [facility] Eos 2 0 - 8 % [facility] Baso 1 0 - 1 % [facility] Neutrophil 3.7 1.8 - 7.7 [facility] Absolute k/ul Lymph Absolute 1.7 1.0 - 4.8 [facility] k/ul [place] Absolute 0.6 0.1 - 0.7 [facility] k/ul Eos Absolute 0.1 0.0 - 0.5 [facility] k/ul Baso Absolute 0.0 0.0 - 0.2 [facility] k/ul Specimen Anatomical Collection Method Collection Time Receive d Time (Source) Location / / Volume Laterality 06/01/2005 2:32 PM 5 2:33 CDT PM CDT Broderick Avendano MD LAB_1 Performing Organization Address City/State/ZIP Code Phon e Number [facility] [phone] [facility] [address] [phone] documented in this encounter Visit Diagnoses Diagnosis Encounter for long-term (current) use of other medications - Primary documented in this encounter Care Teams Auto Tire Recapper Relationship Specialty Start Date End Date Adam Valentin MD PCP - General 04/10/01 08/31/05 [address] [place] [address] documented as of this encounter
--- OUTSIDE RECORDS SUMMARY | 2022-07-08 15:59 | XMS_ITS | Encounter Summary ---
:1955 Author Organization [facility] Address [address] [place] [address] Care Team Providers Name Role Phone Adam Valentin MD Primary Care Provider Reason for Visit Reason Onset Date Comments RESULTS, TEST 06/09/2005 RE: questions and co ncerns on test results Encounter Details Date Type Department Care Team Description 06/09/2005 Telephone [facility] Juan Alberto, Edward Brunson MD RESULTS, TEST (RE: [address] [place] [address] [facility] questions and concerns [place], [place] [address] [place], [place] on test results) [phone] [id number] Social History Tobacco Use Types Packs/Day Years Used Date Smoking Tobacco: Never Alcohol Use Standard Drinks/Week Comments No 0 (1 standard drink = 0.6 oz pure alcoho l) Sex Assigned at Date Recorded Not on file documented as of this encounter Nursing Notes 06/09/2005 11:59 PM CDT >> JAG GARCIA WedJun 09, 2005 2:44 PM Pt spouse was informed and expressed understanding. Jag Garcia RN Transferred to scheduling..Jaydon Garcia RN >> EDWARD JAIMES WedJun 09, 2005 2:29 PM Labs done 06/01/05 are normal, EEG was normal. Plan as outlined in last note. Await neuropsychometric s and consult with Dr. Nguyen. Follow up as previously planned - needs to get appointment. Maybe we'll do LP. >> JAG GARCIA WedJun 09, 2005 11:31 AM EEG [id number] of action? Next Step?..Jag Garcia RN >> KATE Mcfarland Jun 09, 2005 11:10 AM Spouse is concerned about testing pt had on 06/04 (brain scan) and also of pts behavior documented in this encounter Plan of Treatment Not on filedocumented as of this encounter Visit Diagnoses Not on filedocumented in this encounter Care Teams Electrical Helper Relationship Specialty Start Date End Date Adam Valentin MD PCP - General 04/10/01 08/31/05 [address] [place] [address] documented as of this encounter
--- OUTSIDE RECORDS SUMMARY | 2022-07-08 15:59 | XMS_ITS | Encounter Summary ---
:1955 Author Organization [facility] Address [address] [place] [address] Care Team Providers Name Role Phone Adam Valentin MD Primary Care Provider Encounter Details Date Type Department Care Team Description 05/29/2005 Telephone [facility] Edward Jaimes MD [address] [facility] [place], [place] [address] [place] [address] Social History Tobacco Use Types Packs/Day Years Used Date Smoking Tobacco: Never Alcohol Use Standard Drinks/Week Comments No 0 (1 standard drink = 0.6 oz pure alcoho l) Sex Assigned at Date Recorded Not on file documented as of this encounter Nursing Notes 05/29/2005 11:59 PM CDT >> JAG GARCIA Mon Jun 01, 2005 8:17 AM [phone] (home) Pt was informed and expressed understanding. Jag Garcia RN Lab slip to [facility]..Jag Garcia RN Referral form sent to [facility]..Jag Garcia RN >> EDWARD JAIMES Fri May 29, 2005 11:16 PM Please contact Mr. Catherine and ask him to have Labs for treatable causes of dementia (CBC, DIFF, ESR , LFT, URIC, KATARZYNA, LYME, RPR, RA, B12, TSH) and EEG (routine) at his convenience. Thanks. documented in this encounter Plan of Treatment Not on filedocumented as of this encounter Visit Diagnoses Not on filedocumented in this encounter Care Teams Energy Economist Relationship Specialty Start Date End Date Adam Valentin MD PCP - General 04/10/01 08/31/05 [address] [place] [address] documented as of this encounter
--- OUTSIDE RECORDS SUMMARY | 2022-07-08 15:59 | XMS_ITS | Encounter Summary ---
:1955 Author Organization [facility] Address [address] [place] [address] [place] [address] Care Team Providers Name Role Phone Adam Valentin MD Primary Care Provider Reason for Visit Reason Onset Date Comments Other 05/25/2005 Encounter Details Date Type Department Care Team Description 05/25/2005 Telephone [facility] Juan Alberto, Edward Brunson MD Other [address] [facility] [place], [place] [address] [place] [address] Social History Tobacco Use Types Packs/Day Years Used Date Smoking Tobacco: Never Alcohol Use Standard Drinks/Week Comments Not Asked 0 (1 standard drink = 0.6 oz pure alcoho l) Sex Assigned at Date Recorded Not on file documented as of this encounter Nursing Notes 05/25/2005 11:59 PM CDT >> EDWARD JAIMES WedMay 25, 2005 4:13 PM Noted. >> JAG GARCIA WedMay 25, 2005 3:14 PM RE UPCOMING CONSULT: Pt calling- will be typing up information for Dr. Jaimes re: episodes pt has been having-paranoia, behavior changes, and bring to appt 05-29-05. Pt spouse does not have NARINDER so far and would like Dr. Jaimes to speak to importance of this as well. Jag Garcia, RN >> TYSON LYNN WedMay 25, 2005 3:06 PM Pt is seeing Dr. Jaimes on 05/29/05 pt's wants to give our office a heads up on information re: pt 's appt. Pt's was informed we could not give any medical advice. documented in this encounter Plan of Treatment Not on filedocumented as of this encounter Visit Diagnoses Not on filedocumented in this encounter Care Teams Osteopathy Doctor Relationship Specialty Start Date End Date Adam Valentin MD PCP - General 04/10/01 08/31/05 [address] [place] [address] documented as of this encounter
--- OUTSIDE RECORDS SUMMARY | 2022-07-08 15:59 | XMS_ITS | Encounter Summary ---
:1955 Author [facility] Address [address] [address] Care Team Providers Name Role Phone Adam Valentin MD Primary Care Provider Reason for Visit Reason Onset Date Comments RESULTS, TEST 05/19/2005 Encounter Details Date Type Department Care Team Description 05/19/2005 Telephone [facility] Hayden Frausto MD RESULTS, TEST Practice [address] [facility] [address] [place] [address] [place] [address] [phone] Social History Tobacco Use Types Packs/Day Years Used Date Smoking Tobacco: Never Alcohol Use Standard Drinks/Week Comments Not Asked 0 (1 standard drink = 0.6 oz pure alcoho l) Sex Assigned at Date Recorded Not on file documented as of this encounter Nursing Notes 05/19/2005 11:59 PM CDT >> ELIOT MOORE adela May 19, 2005 1:59 PM pt. informed of normal results >> TRISH Mcfarland May 19, 2005 11:46 AM all is negative so far. Will await neurology consult. Trish Frausto MD >> IDA Mcfarland May 19, 2005 11:43 AM MRI and BLood work done on Wednesday. MRI was done at [facility]. [facility]. Please call with the results documented in this encounter Plan of Treatment Not on filedocumented as of this encounter Visit Diagnoses Not on filedocumented in this encounter Care Teams Manager Coding Relationship Specialty Start Date End Date Adam Valentin MD PCP - General 04/10/01 08/31/05 [address] [place] [address] documented as of this encounter
--- OUTSIDE RECORDS SUMMARY | 2022-07-08 15:59 | XMS_ITS | Encounter Summary ---
:1955 Author Organization [facility] Address [address] [place] [address] Care Team Providers Name Role Phone Trish Frausto MD Primary Care Provider Encounter Details Date Type Department Care Team Description 05/14/2005 Orders Only External to Unknown, Physici an [address] [place], [place] [address] (Wo rk) Social History Tobacco Use Types Packs/Day Years Used Date Smoking Tobacco: Never Alcohol Use Standard Drinks/Week Comments Not Asked 0 (1 standard drink = 0.6 oz pure alcoho l) Sex Assigned at Date Recorded Not on file documented as of this encounter Procedure Notes Trav, Provider - 05/14/2005 12:00 AM CDTAssociated Order(s): MRI HEAD documented in this encounter Plan of Treatment Not on filedocumented as of this encounter Procedures Procedure Name Priority Date/Time Associated Diagnosis Comme nts MRI HEAD 05/14/2005 12:00 AM Results for this CDT procedure are i n the results section . documented in this encounter Results MRI HEAD (05/14/2005 12:00 AM CDT) Anatomical Region Laterality Modality Other Narrative 05/14/2005 12:00 AM CDT This result has an attachment that is no t available. Ordered by an unspecified provider. Transcriptions Trav, Provider - 05/14/2005 12:00 AM CDT Physician Unknown DUMMY/OTHER/AR documented in this encounter Visit Diagnoses Not on filedocumented in this encounter Care Teams Jar Filler Relationship Specialty Start Date End Date Trish Frausto MD PCP - General 09/01/05 08/22/18 [address] [place] [address] documented as of this encounter
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
--- OUTSIDE RECORDS SUMMARY | 2022-07-08 15:59 | XMS_ITS | Encounter Summary ---
:1955 [facility] Address [address] [address] Care Team Providers Name Role Phone Adam Valentin MD Primary Care Provider Reason for Visit Reason Onset Date Comments RESULTS, TEST 05/19/2005 Encounter Details Date Type Department Care Team Description 05/19/2005 Telephone [facility] Adam Valentin MD RESULTS, TEST Practice [address] [facility] [address] [place] [address] [place], [place] [address] [phone] Social History Tobacco Use Types Packs/Day Years Used Date Smoking Tobacco: Never Alcohol Use Standard Drinks/Week Comments Not Asked 0 (1 standard drink = 0.6 oz pure alcoho l) Sex Assigned at Date Recorded Not on file documented as of this encounter Nursing Notes 05/19/2005 11:59 PM CDT >> TRISH BILLINGS WedMay 21, 2005 3:21 PM Discussed pt's symptoms at length. Seems to be worsening. very concerned. Answered what ques tions I could. Neurologist next week. Trish Billings MD >> MILTON ONEAL WedMay 21, 2005 11:42 AM Try this number [phone]. >> TRISH BILLINGS WedMay 21, 2005 11:16 AM Is there a number to reach her? The contact number sounds more like a pager number for him. Trish Billings MD >> MILTON ONEAL Fidelina May 21, 2005 10:38 AM haven calling back. would like a call back by Dr. Billings. >> SUZANNE STERLING adela May 19, 2005 3:[address] Valentin wants forwarded to Dr Billings as she saw him. >> SUZANNE STERLING adela May 19, 2005 2:58 PM labs all normal, cholesterol was 252, MRI results obtained and brought to Dr Valentin Component Reference Range 05/14/2005 05/14/2005 WBC 4.0-11.0 k/ul 5.3 RBC 4.5-5.9 M/ul 4.93 HGB 13.5-17.5 g/dl 15.2 HCT 41.0-53.0 % 44.0 MCV 80-100 fl 89.2 MCH 26-34 pg 30.8 MCHC 32-36 % 34.5 RDW 11.5-14.5 % 13.6 PLTS 150-450 k/ul 217 PMN/Band 43-72 % 68 Lymph 17-43 % 24 Donley 4-12 % 7 Eos 0-8 % 1 Baso 0-1 % 1 PMN Absolute 1.8-7.7 k/ul 3.6 Lymph Absolute 1.0-4.8 k/ul 1.3 Donley Absolute 0.1-0.7 k/ul 0.4 Eos Absolute 0.0-0.5 k/ul 0.1 Baso Absolute 0.0-0.2 k/ul 0.0 Appr Yellow Clear Sp Gr 1.005-1.030 1.020 Leuk Low: GUERRERO Neg Nitr Low: GUERRERO Neg pH 4.5-8.0 7.0 Prot Low: GUERRERO mg/dl Neg Gluc Low: GUERRERO mg/dl Neg Ket Low: GUERRERO mg/dl Neg Urob 0.2-1.0 EU/dl 0.2 Bili Low: GUERRERO Neg Blood Low: GUERRERO Neg Comment Micro Not Indicated Cholesterol Low: <200 mg/dl 252 (H) Triglyceride Low: <200 mg/dl 108 HDL Low: >35 mg/dl 47 LDL, Calc. mg/dl 183 Hours Fasting hours 14 Creatinine 0.6-1.3 mg/dl 1.1 GFR, Estimated Low: >60 ml/min/1.73m2 75.3 GFR, Est., If Black Low: >60 ml/min/1.73m2 >80.0 Glucose 70-100 mg/dl 89 Hours Fasting hours 14 T4, Free ORDERED 0.9-1.8 ng/dl 1.5 Meds No TSH 0.30-5.00 uIU/ml 1.18 Thyroid Meds No AST (SGOT) Low: <45 U/L 22 Chloride 95-105 mmol/L 105 BUN 10-26 mg/dl 15 Lead, Blood Low: <10 mcg/dl <5 Magnesium 1.6-2.6 mg/dl 2.0 Calcium 8.2-10.0 mg/dl 9.5 Potassium 3.5-5.3 mmol/L 4.4 Sodium 135-145 mmol/L 139 Prostatic Spec Ag 0-3.5 ng/ml 1.07 CO2 22-31 mmol/L 27 ESR 0-15 mm/hr 5 Anion Gap (calc.) CENTRAL 7-17 mmol/L 7 >> DIA Mcfaralnd May 19, 2005 2:27 PM Mitch is calling for MRI and lab work from 05-14-05, PLease call with the results as soon as we rece collins them. documented in this encounter Plan of Treatment Not on filedocumented as of this encounter Visit Diagnoses Not on filedocumented in this encounter Care Teams Director Clinical Information Services Relationship Specialty Start Date End Date Adam Valentin MD PCP - General 04/10/01 08/31/05 [address] [place] [address] documented as of this encounter
--- OUTSIDE RECORDS SUMMARY | 2022-07-08 15:59 | XMS_ITS | Encounter Summary ---
:1955 Author Organization [facility] Address [address] [place] [address] Care Team Providers Name Role Phone Adam Valentin MD Primary Care Provider Encounter Details Date Type Department Care Team Description 06/04/2005 Office Visit [facility] TRANSIEN T ALTERATION OF EEG/EMG AWARENESS [address] [facility]. [place], [place] [address] Social History Tobacco Use Types Packs/Day Years Used Date Smoking Tobacco: Never Alcohol Use Standard Drinks/Week Comments No 0 (1 standard drink = 0.6 oz pure alcoho l) Sex Assigned at Date Recorded Not on file documented as of this encounter Plan of Treatment Not on filedocumented as of this encounter Visit Diagnoses Diagnosis Transient alteration of awareness documented in this encounter Care Teams Smoke Tester Relationship Specialty Start Date End Date Adam Valentin MD PCP - General 04/10/01 08/31/05 [address] [place] [address] documented as of this encounter
--- OUTSIDE RECORDS SUMMARY | 2022-07-08 16:00 | XMS_ITS | Encounter Summary ---
:1955 Author Organization [facility] Address [address] [address] Care Team Providers Name Role Phone Adam Valentin MD Primary Care Provider Reason for Visit Reason Onset Date Comments QUESTIONS, GENERAL 05/12/2005 Encounter Details Date Type Department Care Team Description 05/12/2005 Telephone [facility] Adam Valentin MD QUESTIONS, drawer in jacquard loom [address] [facility] [address] [place], [place] [address] [phone] (Wo rk) Social History Tobacco Use Types Packs/Day Years Used Date Smoking Tobacco: Never Alcohol Use Standard Drinks/Week Comments Not Asked 0 (1 standard drink = 0.6 oz pure alcoho l) Sex Assigned at Date Recorded Not on file documented as of this encounter Nursing Notes 05/12/2005 11:59 PM CDT >> KATIE Mcfarland May 12, 2005 1:07 PM contacted. Will make appt. today continues to do odd things & make irrational descisions & gets abnormaly crabby >> KATIE Mcfarland May 12, 2005 8:55 AM Per Pt had several episodes of forgetfulness last week. discussed w/ Dr. Amador, friend, & was advised to call Dr Frausto to get pt to clinic, she f eel he was/is having mini strokes. states he is hard to reach at work to bring in today,Appt set up for tomorrow. would like to speak w/ Dr. Frausto to make sure waiting until tomorrow is fine. >> RALPH Mcfarland May 12, 2005 8:44 AM Encounter initiated. documented in this encounter Plan of Treatment Not on filedocumented as of this encounter Visit Diagnoses Not on filedocumented in this encounter Care Teams Manager Neonatal Relationship Specialty Start Date End Date Adam Valentin MD PCP - General 04/10/01 08/31/05 [address] [place] [address] documented as of this encounter
--- OUTSIDE RECORDS SUMMARY | 2022-07-08 16:00 | XMS_ITS | Encounter Summary ---
:1955 Author Organization [facility] Address [address] [place] [address] Care Team Providers Name Role Phone Adam Valentin MD Primary Care Provider Encounter Details Date Type Department Care Team Description 01/29/2004 Telephone None Unknown, Phys[facility] [address] [place] [address] (Wo rk) Social History Tobacco Use Types Packs/Day Years Used Date Smoking Tobacco: Never Assessed Sex Assigned at Date Recorded Not on file documented as of this encounter Progress Notes Unknown, Physician - 01/29/2004 12:00 AM CDT documented in this encounter Plan of Treatment Not on filedocumented as of this encounter Visit Diagnoses Not on filedocumented in this encounter Care Teams Plasma Processing Technician Relationship Specialty Start Date End Date Adam Valentin MD PCP - General 04/10/01 08/31/05 [address] [place] [address] documented as of this encounter
--- OUTSIDE RECORDS SUMMARY | 2022-07-08 16:00 | XMS_ITS | Encounter Summary ---
:1955 Author Organization [facility] Address [address] [address] Care Team Providers Name Role Phone Srinath Fabian MD Primary Care Provider [phone] Encounter Details Date Type Department Care Team Description 09/19/1997 Office Visit Srinath Fabian MD CARDIAC DYSRHYTHMIA NOS [address] [place] [place] [phone] (Wo rk) Social History Tobacco Use Types Packs/Day Years Used Date Smoking Tobacco: Never Assessed Sex Assigned at Date Recorded Not on file documented as of this encounter Progress Notes Srinath Fabian - 09/19/1997 12:00 AM CSTS: Patient states that he has experienced palpitations over the last 2-3 weeks. These occur several times a day and last from a few seconds up to 20-30 seconds. They may occur at rest or with activity. Usually at rest if he gets up and changes position the palpitations will resolve. He denies any lightheadedness, diaphoresis, nausea or pain. Occasionally he feels some fluttering at the base of his neck. 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 Has actually decreased his caffeine intake, but still is drinking a cup of coffee and two cans of pop a day. No family history of heart disease. O: Alert, in no acute distress. T: 96.9. P: 72 and regular. R: 16. B/P: 130/70 with repeat 128/68. Throat is clear. Neck is supple without adenopathy, thyromegaly, masses. Lungs are clear in all davis. Heart: regular rate and rhythm with normal SI and SII. No murmurs, gallops, clicks or rubs. WBC 4,000. Hgb.: 14.6. EKG shows normal sinus rhythm with no acute changes. Rhythm strip is negative for arrhythmias. A: Palpitations. P: Will pursue workup with Holter monitor since he is having symptoms several x a day. He is instructed to call 911 with any persisting symptoms, chest pain, shortness of breath. TSH, potassium, sodium pending. cc: PUNCHER documented in this encounter Plan of Treatment Not on filedocumented as of this encounter Visit Diagnoses Diagnosis Cardiac dysrhythmia, unspecified documented in this encounter Care Teams Tool Profiling Machine Set Up Operator Relationship Specialty Start Date End Date Srinath Fabian MD PCP - General 08/25/1996 03/14/[address] [place] [address] documented as of this encounter
--- OUTSIDE RECORDS SUMMARY | 2022-07-08 16:00 | XMS_ITS | Encounter Summary ---
:1955 [facility] Address [address], [place] [address] Care Team Providers Name Role Phone Srinath Fabian MD Primary Care Provider [phone] Encounter Details Date Type Department Care Team Description 09/19/1997 Notes/Orders Srinath Fabian MD [address] [place], [place] [address] (Wo rk) Social History Tobacco Use Types Packs/Day Years Used Date Smoking Tobacco: Never Assessed Sex Assigned at Date Recorded Not on file documented as of this encounter Plan of Treatment Not on filedocumented as of this encounter Procedures Procedure Name Priority Date/Time Associated Diagnosis Comme nts TSH, SENSITIVE Routine 09/19/1997 9:14 AM Results for this (WITH REFLEX) PIPING SUPERVISOR procedure are in the results section. SODIUM Routine 09/19/1997 9:14 AM Results f or this PIPING SUPERVISOR procedure are i n the results section. POTASSIUM Routine 09/19/1997 9:14 AM Results f or this PIPING SUPERVISOR procedure are i n the results section. ECG TRACING Routine 09/19/1997 9:14 AM Results f or this PIPING SUPERVISOR procedure are i n the results section. CBC HEME PANEL Waiting 09/19/1997 9:14 AM Results for this PIPING SUPERVISOR procedure are i n the results section. documented in this encounter Results TSH, SENSITIVE (09/19/1997 9:14 AM PIPING SUPERVISOR) P athologist Signature TSH 1.13 0.30 - 5.00 [facility] uIU/ml Thyroid Meds No [facility] Specimen Anatomical Collection Method Collection Time Receive d Time (Source) Location / / Volume Laterality 09/19/1997 9:14 AM 8 9:15 PIPING SUPERVISOR AM PIPING SUPERVISOR Srinath Fabian MD LAB_1 Performing Organization Address City/[facility]/ZIP [facility] [place] Phon e Number [facility] [phone] [facility] [address] [phone] SODIUM (09/19/1997 9:14 AM PIPING SUPERVISOR) athologist Signature Sodium 142 135 - 148 [facility] mmol/L Specimen Anatomical Collection Method Collection Time Receive d Time (Source) Location / / Volume Laterality 09/19/1997 9:14 AM 8 9:15 PIPING SUPERVISOR AM PIPING SUPERVISOR Srinath Fabian MD LAB_1 Performing Organization Address [facility] Phon e Number [facility] [phone] [facility] [address] [place] [phone] POTASSIUM (09/19/1997 9:14 AM PIPING SUPERVISOR) athologist Signature Potassium 4.1 3.5 - 5.3 [facility] mmol/L Specimen Anatomical Collection Method Collection Time Receive d Time (Source) Location / / Volume Laterality 09/19/1997 9:14 AM 8 9:15 PIPING SUPERVISOR AM PIPING SUPERVISOR Srinath Fabian MD LAB_1 Performing Organization Address [facility] Phon e Number [facility] [phone] [facility] [address] [place] [phone] (ABNORMAL) CBC HEME PANEL (09/19/1997 9:14 AM PIPING SUPERVISOR) athologist Signature WBC 4.0 (L) 4.2 - 10.0 [facility] k/ul RBC 4.83 4.4 - 6.0 [facility] M/ul Hemoglobin 14.6 14 - 18 [facility] g/dl HCT 42.8 40 - 52 % [facility] MCV 89 80 - 98 fl [facility] MCH 30.2 27 - 34 pg [facility] MCHC 34.1 32 - 36 % [facility] Platelets 213 150 - 450 [facility] k/ul Specimen Anatomical Collection Method Collection Time Receive d Time (Source) Location / / Volume Laterality 09/19/1997 9:14 AM 8 9:15 PIPING SUPERVISOR AM PIPING SUPERVISOR Srinath Fabian MD LAB_1 Performing Organization Address [facility] Phon e Number [facility] [phone] [facility] [address] [place] [phone] EKG (09/19/1997 9:14 AM PIPING SUPERVISOR) [facility] gist Method Time Signature EKG See Separate [facility] Report Specimen Anatomical Collection Method Collection Time Receive d Time (Source) Location / / Volume Laterality 09/19/1997 9:14 AM 8 9:15 PIPING SUPERVISOR AM PIPING SUPERVISOR Srinath Fabian MD EKG Performing Organization Address City/[facility] Phon e Number [facility] [phone] [phone] documented in this encounter Visit Diagnoses Not on filedocumented in this encounter Care Teams Broadloom Weaver Relationship Specialty Start Date End Date Srinath Fabian MD PCP - General 08/25/1996 03/14/[address] [place] [address] documented as of this encounter
--- OUTSIDE RECORDS SUMMARY | 2022-07-08 16:00 | XMS_ITS | Encounter Summary ---
:1955 Author Organization [facility] Address [address] [place] [address] Care Team Providers Name Role Phone Mitch Li MD Primary Care Provider Encounter Details Date Type Department Care Team Description 07/09/1997 Orders Only Scarlet Melchor MD [place], [place] [address] (Wo rk) Social History Tobacco Use Types Packs/Day Years Used Date Smoking Tobacco: Never Assessed Sex Assigned at Date Recorded Not on file documented as of this encounter Plan of Treatment Not on filedocumented as of this encounter Visit Diagnoses Not on filedocumented in this encounter Care Teams Electrician Constructor Supervisor Relationship Specialty Start Date End Date Mitch Li MD PCP - General Family Practice 08/23/[address] [place] [address] documented as of this encounter
--- OUTSIDE RECORDS SUMMARY | 2022-07-08 16:00 | XMS_ITS | Encounter Summary ---
:1955 Author Organization [facility] Address [address] [place] [address] Care Team Providers Name Role Phone Adam Valentin MD Primary Care Provider Encounter Details Date Type Department Care Team Description 05/30/2001 [facility] [address] [place] [place] [address] Social History Tobacco Use Types Packs/Day Years Used Date Smoking Tobacco: Never Assessed Sex Assigned at Date Recorded Not on file documented as of this encounter Plan of Treatment Not on filedocumented as of this encounter Visit Diagnoses Diagnosis Hydrocele, unspecified documented in this encounter Care Teams Rolling Down Machine Operator Relationship Specialty Start Date End Date Adam Valentin MD PCP - General 04/10/01 08/31/05 [address] [place] [address] documented as of this encounter
--- OUTSIDE RECORDS SUMMARY | 2022-07-08 16:00 | XMS_ITS | Encounter Summary ---
:1955 Author Organization [facility] Address [address] [place] [address] Care Team Providers Name Role Phone Abraham Iraheta MD Primary Care Provider Encounter Details Date Type Department Care Team Description 10/29/2000 Orders Only Abraham Iraheta M D [address] [place] [address] (Wo rk) Social History Tobacco Use Types Packs/Day Years Used Date Smoking Tobacco: Never Assessed Sex Assigned at Date Recorded Not on file documented as of this encounter Procedure Notes Yossi Branch - 10/29/2000 12:00 AM CSTAssociated Order(s): RADIOLOGIC STUDY CLINICAL DATA: NONE GIVEN. INTERPRETATION: CHEST TWO VIEWS, 10/29/00: The chest is normal. Ysosi Bey MD cc: Radiology BL Abraham Iraheta MD documented in this encounter Plan of Treatment Not on filedocumented as of this encounter Procedures Procedure Name Priority Date/Time Associated Comments Diagnosis UNLISTED DX 10/29/2000 12:00 Results for this RADIOGRAPHIC AM DOLPHIN TRAINER procedure are i n PROCEDURE the results section. documented in this encounter Results RADIOLOGIC STUDY (10/29/2000 12:00 AM DOLPHIN TRAINER) Anatomical Region Laterality Modality Other Specimen (Source) Anatomical Location Collection Method / Collectio n Time Received Time / Laterality Volume Transcriptions Yossi Branch - 10/29/2000 12:00 AM C STCLINICAL DATA: NONE GIVEN. INTERPRETATION: CHEST TWO VIEWS, 10/29/00 : The chest is normal. Yossi Bey MD cc: Radiology BL Abraham Iraheta MD Abraham Iraheta MD PAPS documented in this encounter Visit Diagnoses Not on filedocumented in this encounter Care Teams Compliance Manager Relationship Specialty Start Date End Date Abraham Iraheta MD PCP - General 03/15/00 04/09/[address] [place] [address] documented as of this encounter
--- OUTSIDE RECORDS SUMMARY | 2022-07-08 16:00 | XMS_ITS | Encounter Summary ---
:1955 Author Organization [facility] Address [address] [place] [address] Care Team Providers Name Role Phone Mitch Li MD Primary Care Provider Encounter Details Date Type Department Care Team Description 09/19/1997 Orders Only Cure, Srinath villalpando MD [address] [place] [phone] (Wo rk) Social History Tobacco Use Types Packs/Day Years Used Date Smoking Tobacco: Never Assessed Sex Assigned at Date Recorded Not on file documented as of this encounter Plan of Treatment Not on filedocumented as of this encounter Visit Diagnoses Not on filedocumented in this encounter Care Teams Futures Trader Relationship Specialty Start Date End Date Mitch Li MD PCP - General Family Practice 08/23/18 [address] [place] [address] documented as of this encounter
--- OUTSIDE RECORDS SUMMARY | 2022-07-08 16:00 | XMS_ITS | Encounter Summary ---
:1955 Author Organization [facility] Address [address] [place] [address] Care Team Providers Name Role Phone Abraham Iraheta MD Primary Care Provider Reason for Visit Reason Comments RASH VIA INTERFACE Encounter Details Date Type Department Care Team Description 03/09/2001 Office Visit [facility] Chandni Ng MD DERMATITIS NOS [address] [place], [place] [address] [place] [address] [phone] (Wo rk) Social History Tobacco Use Types Packs/Day Years Used Date Smoking Tobacco: Never Assessed Sex Assigned at Date Recorded Not on file documented as of this encounter Progress Notes Chandni Ng - 03/09/2001 12:00 AM CDTSUBJECTIVE: The patient is here for followup of his hand dermatitis. He has been avoiding the products that he is allergic to which is fragrance and quarternium. He did find that was in some of the soaps he was using. He is still having some scaling in his hands, and he has been getting some fissured dry scaly areas in his toe webs. REVIEW OF SYMPTOMS: The patient has no additional skin problems. OBJECTIVE: The patient only has a few dry patchy areas on his fingers of the right and left hands. Otherwise, his right and left arms are clear. He has the same fissure in his toe web of the right foot. Face and neck are clear. ASSESSMENT: 1. Allergic contact dermatitis, improved. 2. Tinea pedis. PLAN: The patient will use Lamisil cream sparingly b.i.d. for the tinea pedis. He will use 0.1% triamcinolone ointment for the hand dermatitis. He will use Cetaphil skin cleanser as a soap substitute. He will return in 6 months. IN SUMMARY: Irritant and allergic hand dermatitis. cc: documented in this encounter Plan of Treatment Not on filedocumented as of this encounter Visit Diagnoses Diagnosis Contact dermatitis and other eczema, due to unspecified cause documented in this encounter Care Teams Foreign Trade Teacher Relationship Specialty Start Date End Date Abraham Iraheta MD PCP - General 03/15/00 04/09/[address] [place] [address] documented as of this encounter
--- OUTSIDE RECORDS SUMMARY | 2022-07-08 16:00 | XMS_ITS | Encounter Summary ---
:1955 Author Organization [facility] Address [address] [facility] [place] [address] Care Team Providers Name Role Phone Mitch Li MD Primary Care Provider Encounter Details Date Type Department Care Team Description 03/17/2000 Orders Only Abraham Iraheta M D [address] [facility] [place], [place] [address] (Wo rk) Social History Tobacco Use Types Packs/Day Years Used Date Smoking Tobacco: Never Assessed Sex Assigned at Date Recorded Not on file documented as of this encounter Plan of Treatment Not on filedocumented as of this encounter Visit Diagnoses Not on filedocumented in this encounter Care Teams Ceramics Technician Relationship Specialty Start Date End Date Mitch Li MD PCP - General Family Practice 08/23/18 [place] [address] documented as of this encounter
--- OUTSIDE RECORDS SUMMARY | 2022-07-08 16:00 | XMS_ITS | Encounter Summary ---
:1955 Author Organization [facility] Address [address] [place] [address] Care Team Providers Name Role Phone Adam Valentin MD Primary Care Provider Encounter Details Date Type Department Care Team Description 01/24/2004 Office Visit [facility] Aneesh Benites, EYE & VISION EXAMINATION; [address] [place]; [place], [place] [address] [place] [phone] Social History Tobacco Use Types Packs/Day Years Used Date Smoking Tobacco: Never Assessed Sex Assigned at Date Recorded Not on file documented as of this encounter Progress Notes Dominguez Benites - 01/24/2004 12:00 AM CDT documented in this encounter Plan of Treatment Not on filedocumented as of this encounter Visit Diagnoses Diagnosis Examination of eyes and vision Myopia Presbyopia documented in this encounter Care Teams Business Test Analyst Relationship Specialty Start Date End Date Adam Valentin MD PCP - General 04/10/01 08/31/05 [address] [place] [address] documented as of this encounter
--- OUTSIDE RECORDS SUMMARY | 2022-07-08 16:00 | XMS_ITS | Encounter Summary ---
:1955 Author [facility] Address [address] [place] [address] Care Team Providers Name Role Phone Adam Valentin MD Primary Care Provider Encounter Details Date Type Department Care Team Description 04/11/2001 Office Visit [facility] Adam Valentin MD [facility] INGUINAL HERNIA Practice [address] [place] [address] [phone] Social History Tobacco Use Types Packs/Day Years Used Date Smoking Tobacco: Never Assessed Sex Assigned at Date Recorded Not on file documented as of this encounter Progress Notes Adam Valentin - 04/11/2001 12:00 AM CDTS: Patient comes in with a question about noticing a little bit of a bulge in the right groin area. He states he has not had associated discomfort with this but just happened to notice this recently. Patient does know he had some kind of surgery in this area when he was 4 or 5 years old, but his parents do not remember what exactly was done. Patient is on no medication. 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 He has not noticed any discomfort with that activity. O: Weight is 214.5 pounds, blood pressure 130/76, heart rate is 60, respiratory rate is 12. Patient has normal scrotum and testicles with right inguinal scar that is about 4 cm in length in the right inguinal area, most likely representing a previous hernia repair as a child. Just inferior to the scar there is a slight bulge over a broad area of about 3 or 4 cm that is palpable when patient strains. Left side is normal. A: Right inguinal muscular weakness with possible early hernia, but certainly no significant hernia present at this time. P: Discussed the nature of the patient's current finding. I advised that because this is a very subtle change I did not feel that a hernia repair is indicated, nor do I think surgical consultation is necessary unless patient decides to pursue that. I advised that we just observe this area, if he starts to develop symptoms or a significant enlargement of the hernia, certainly we would want to address that. IN SUMMARY: Probable early right inguinal hernia. cc: documented in this encounter Plan of Treatment Not on filedocumented as of this encounter Visit Diagnoses Diagnosis Inguinal hernia without mention of obstr uction or gangrene, unilateral or unspecified, (not specified as recurrent ) documented in this encounter Care Teams Senior Devops Engineer Relationship Specialty Start Date End Date Adam Valentin MD PCP - General 04/10/01 08/31/05 [address] [place] [address] documented as of this encounter
--- OUTSIDE RECORDS SUMMARY | 2022-07-08 16:00 | XMS_ITS | Encounter Summary ---
:1955 Author Organization [facility] Address [address], [place] [address] Care Team Providers Name Role Phone Srinath Fabian MD Primary Care Provider [phone] Encounter Details Date Type Department Care Team Description 08/12/1998 Office Visit [facility] Srinath Fabian [facility] MD [place] [address] [place] [address] [address] [address] [place] [address] Social History Tobacco Use Types Packs/Day Years Used Date Smoking Tobacco: Never Assessed Sex Assigned at Date Recorded Not on file documented as of this encounter Progress Notes Srinath Fabian - 08/12/1998 12:00 AM CSTS: Patient here with his for snoring consult. He has a long past history of snoring for over 20 years. This has become worse over the last year. relates that he will start out snoring softly when he first falls asleep, and then this will get louder as the night goes on. She does relate apneic episodes during the night. She is uncertain as to the length of these episodes. Patient has had some drowsiness during the day in the past. He denies any dysphasia or hoarseness. O: Alert and no marked distress. Weight 206 pounds, blood pressure 112/68. No sinus tenderness. Nasal mucosa is unremarkable. Throat is clear. No exudate. Neck reveals no adenopathy or thyromegaly. Lungs are clear. A: Snoring with apneic episodes. P: Pulmonary consult. Screening and labs. May need ENT follow up if sleep apnea is ruled out. Patient and his are in agreement with plan. cc: OR WEB DEVELOPER documented in this encounter Plan of Treatment Not on filedocumented as of this encounter Visit Diagnoses Diagnosis Sleep disturbance, unspecified documented in this encounter Care Teams Seam Rubber Relationship Specialty Start Date End Date Srinath Fabian MD PCP - General 08/25/1996 03/14/00 [facility] [place] [address] documented as of this encounter
--- OUTSIDE RECORDS SUMMARY | 2022-07-08 16:00 | XMS_ITS | Encounter Summary ---
:1955 Author Organization [facility] Address [address] [place] [address] Care Team Providers Name Role Phone Srinath Fabian MD Primary Care Provider [phone] Encounter Details Date Type Department Care Team Description 06/19/1998 Office Visit [facility] Srinath Fabian [facility] MD Cesar FASCIITIS/PLANTAR [address] FASCIAL [place], [place] [address] [facility] [address] [place], [place] [address] Social History Tobacco Use Types Packs/Day Years Used Date Smoking Tobacco: Never Assessed Sex Assigned at Date Recorded Not on file documented as of this encounter Progress Notes Srinath Fabian - 06/19/1998 12:00 AM CDTS: Left heel pain over the past six months. It began after he had been playing tennis. Initially improved and recurred after another tennis game recently. No numbness or weakness. The pain is worse in the morning when he first wakes up. O: Alert and no acute distress. Examination of the right heel is unremarkable. Examination of the left heel reveals mild tenderness to palpation over the inferior aspect of the heel. No Achilles tenderness. CMS otherwise intact in the foot. A: Plantar fasciitis. P: Handout, heel pads and cups given. Instructions on exercises and icing given as well. Ice. Ibuprofen. Follow up p.r.n. cc: documented in this encounter Plan of Treatment Not on filedocumented as of this encounter Visit Diagnoses Diagnosis Plantar fascial fibromatosis documented in this encounter Care Teams Business Intern Relationship Specialty Start Date End Date Srinath Fabian MD PCP - General 08/25/1996 03/14/[address] [place] [address] documented as of this encounter
--- OUTSIDE RECORDS SUMMARY | 2022-07-08 16:00 | XMS_ITS | Encounter Summary ---
:1955 Author [facility] Address [address] [place] [address] Care Team Providers Name Role Phone Abraham Iraheta MD Primary Care Provider Reason for Visit Reason Comments SKIN PROBLEM VIA INTERFACE Encounter Details Date Type Department Care Team Description 01/21/2001 Office Visit [facility] Chandni Ng MD DERMATITIS NOS [address] [place] [place], [place] [address] [place] [address] [phone] (Wo rk) Social History Tobacco Use Types Packs/Day Years Used Date Smoking Tobacco: Never Assessed Sex Assigned at Date Recorded Not on file documented as of this encounter Progress Notes Chandni Ng - 01/21/2001 12:00 AM CDTSUBJECTIVE: The patient is here for interpretation of his patch test. He had a positive patch test of kuaternium 15 and to the fragrance mix. These may be present in the products he is using at work, or in his shampoos or conditioners. OBJECTIVE: The patient still has patchy, dry, scaly areas on the dorsum of his hands. ASSESSMENT: Probable allergic contact dermatitis. PLAN: The patient will avoid the 2 mentioned-above products. He will use Temovate ointment b.i.d. to his hands. I had a long discussion with him about what products he could use. He will use Vanicream and Dove soap, and he will follow up with me in 2 months. A total of 20 minutes was spent with the patient, 15 minutes was spent in counseling and how to avoid these ingredients he is allergic to. IN SUMMARY: Hand dermatitis, fragrance and kuaternium allergy. cc: documented in this encounter Plan of Treatment Not on filedocumented as of this encounter Visit Diagnoses Diagnosis Contact dermatitis and other eczema, due to unspecified cause documented in this encounter Care Teams Family And Divorce Legal Assistant Relationship Specialty Start Date End Date Abraham Iraheta MD PCP - General 03/15/00 04/09/[address] [place] [address] documented as of this encounter
--- OUTSIDE RECORDS SUMMARY | 2022-07-08 16:00 | XMS_ITS | Encounter Summary ---
:1955 Author Organization [facility] Address [address] [place] [address] Care Team Providers Name Role Phone Srinath Fabian MD Primary Care Provider [phone] Reason for Visit Reason Comments OD EXAM VIA INTERFACE Encounter Details Date Type Department Care Team Description 03/03/1999 Office Visit [facility] ConsoerAneesh, ASTIGMATISM NOS; [address] [place]; [place], [place] [address] [place] [phone] Social History Tobacco Use Types Packs/Day Years Used Date Smoking Tobacco: Never Assessed Sex Assigned at Date Recorded Not on file documented as of this encounter Plan of Treatment Not on filedocumented as of this encounter Visit Diagnoses Diagnosis Astigmatism, unspecified Myopia Presbyopia documented in this encounter Care Teams Outbound Sales Consultant Relationship Specialty Start Date End Date Srinath Fabian MD PCP - General 08/25/1996 03/14/[address] [place] [address] documented as of this encounter
--- OUTSIDE RECORDS SUMMARY | 2022-07-08 16:00 | XMS_ITS | Encounter Summary ---
:1955 Author Organization [facility] Address [address] [place] [address] Care Team Providers Name Role Phone Abraham Iraheta MD Primary Care Provider Reason for Visit Reason Comments OD EXAM VIA INTERFACE Encounter Details Date Type Department Care Team Description 07/27/2000 Office Visit [facility] Larry Sims, OD MYOPIA; [address] [facility] ASTIGMATISM NOS; [place], [place] [address] [facility] [phone] [place], [place] [address] (Wo rk) Social History Tobacco Use Types Packs/Day Years Used Date Smoking Tobacco: Never Assessed Sex Assigned at Date Recorded Not on file documented as of this encounter Plan of Treatment Not on filedocumented as of this encounter Visit Diagnoses Diagnosis Myopia Astigmatism, unspecified Presbyopia documented in this encounter Care Teams Industrial Furnace Fabricator Relationship Specialty Start Date End Date Abraham Iraheta MD PCP - General 03/15/00 04/09/[address] [place], [place] [address] documented as of this encounter
--- OUTSIDE RECORDS SUMMARY | 2022-07-08 16:00 | XMS_ITS | Encounter Summary ---
:1955 Author Organization [facility] Address [address] [place] [address] Care Team Providers Name Role Phone Srinath Fabian MD Primary Care Provider [phone] Reason for Visit Reason Comments TESTES PAIN VIA INTERFACE Encounter Details Date Type Department Care Team Description 03/03/2000 Office Visit [facility] Abraham Iraheta, ANICETO NUÑEZ NOS; Practice MD LABORATORY EXAMINATION [address] [facility] [address] [place], [place] [address] [place], [place] [phone] [id number] Social History Tobacco Use Types Packs/Day Years Used Date Smoking Tobacco: Never Assessed Sex Assigned at Date Recorded Not on file documented as of this encounter Progress Notes EsequielElenoen - 03/03/2000 12:00 AM CDTS: Kemal is a 44-year-old male who is here for scrotal pain. Kemal says it's been present for about a week. He states that it is a mild discomfort. He describes it as more of achy sensation and he has some tenderness inside his lower abdomen and into his posterior scrotal area. He's been afebrile. He's had no difficulty with bowel movements. No difficulty with intercourse and he is otherwise healthy. O: His physical examination reveals that he appears healthy. He clearly is in no distress. His temperature is 97.8. His pulse is 60. Blood pressure is 122/84. His external genitalia grossly normal. Penis is circumcised, unremarkable. His inguinal canals are negative. Testicles are non-tender and normal symmetrical without any edema swelling or masses. His tenderness that he describes is in the deep posterior to his scrotum. There is no swelling or mass effect and deep pressure on the corpus callosum approximatley way between his testicles and his anus causes some mild discomfort. His rectal examination revealed that his prostate is somewhat boggy. It's slightly enlarged and it's tender on examination. He has no discharge after palpation of the prostate. A/P: I think Kemal has a prostatitis and I don't think there is anything else seriously going on here. His urinalysis is clear and after discussion started him on some Septra DS for 10 days and he is to do warm soaks as frequently as he can over the next week and if the problem persists beyond a week or two he is to return. He was also informed that frequently problems with prostatitis do tend to occur in rare situations. IN SUMMARY: PROSTATITIS cc: documented in this encounter Plan of Treatment Not on filedocumented as of this encounter Visit Diagnoses Diagnosis Prostatitis, unspecified Laboratory examination documented in this encounter Care Teams Science Editor Relationship Specialty Start Date End Date Caren, Srinath Guerrero MD PCP - General 08/25/1996 03/14/[address] [place] [address] Dr [address] [place] [address] documented as of this encounter
--- OUTSIDE RECORDS SUMMARY | 2022-07-08 16:00 | XMS_ITS | Encounter Summary ---
:1955 Author Organization [facility] Address [address] [place] [address] Care Team Providers Name Role Phone Adam Valentin MD Primary Care Provider Encounter Details Date Type Department Care Team Description 09/02/2001 Office Visit [facility] Chandni Ng MD DERMATITIS NOS [address] [place], [place] [address] [place] [address] [phone] (Wo rk) Social History Tobacco Use Types Packs/Day Years Used Date Smoking Tobacco: Never Assessed Sex Assigned at Date Recorded Not on file documented as of this encounter Progress Notes Chandni Ng - 09/02/2001 12:00 AM CSTSUBJECTIVE: The patient is here for follow up of his hand dermatitis. It remains under good control, as long as he intermittently uses Clobetasol ointment alternating with triamcinolone ointment and Curel lotion and Cytophil skin cleanser. He still gets some break outs on his hands. In addition, he has been having problems with a shaving burn on his neck; he has to shave the lower part of his neck, which is quite tender. Otherwise, he has no additional skin problems. OBJECTIVE: The patient has four 1 centimeter, dry scaly areas on the dorsum of his right and left hand. On his neck, he has erythema on the side of the neck where he has been shaving. His face is clear. ASSESSMENT: Irritant contact dermatitis on hands with past history of an allergic contact dermatitis to Quortmium and shaving rash. PLAN: The patient will continue with his present therapy for his hand dermatitis. He will switch to a triple blade system and will use Cytophil skin cleanser as his shaving gel. He will follow up in a year. IN SUMMARY: Hand dermatitis and shaving dermatitis. cc: NET ARCHITECT documented in this encounter Plan of Treatment Not on filedocumented as of this encounter Visit Diagnoses Diagnosis Contact dermatitis and other eczema, due to unspecified cause documented in this encounter Care Teams Bioinformaticist Relationship Specialty Start Date End Date Adam Valentin MD PCP - General 04/10/01 08/31/05 [address] [place] [address] documented as of this encounter
--- OUTSIDE RECORDS SUMMARY | 2022-07-08 16:00 | XMS_ITS | Encounter Summary ---
:1955 [facility] Address [address] [place] [address] Care Team Providers Name Role Phone Srinath Fabian MD Primary Care Provider [phone] Encounter Details Date Type Department Care Team Description 08/12/1998 Orders Only Srinath Fabian MD [address] [place] [phone] (Wo rk) Social History Tobacco Use Types Packs/Day Years Used Date Smoking Tobacco: Never Assessed Sex Assigned at Date Recorded Not on file documented as of this encounter Plan of Treatment Not on filedocumented as of this encounter Procedures Procedure Name Priority Date/Time Associated Diagnosis Comme nts HEMOGLOBIN, BLOOD Routine 08/12/1998 11:45 AM Res ults for this ASSEMBLY INSTRUCTIONS WRITER procedure are i n the results section. VIT B12 & FOLATE Routine 08/12/1998 11:45 AM Resu lts for this ASSEMBLY INSTRUCTIONS WRITER procedure are i n the results section. documented in this encounter Results VIT B12 & FOLATE (08/12/1998 11:45 AM ASSEMBLY INSTRUCTIONS WRITER) athologist Signature Vitamin B12 302 211 - 911 [facility] pg/ml Folate 4.7 2.6 - 20.0 [facility] ng/ml Specimen Anatomical Collection Method Collection Time Receive d Time (Source) Location / / Volume Laterality 08/12/1998 11:45 08/12/1998 AM ASSEMBLY INSTRUCTIONS WRITER 11:46 AM ASSEMBLY INSTRUCTIONS WRITER Srinath Fabian MD LAB_1 Performing Organization Address City/State/ZIP Code Phon e Number [facility] [phone] [facility] [address] [address] HEMOGLOBIN, BLOOD (08/12/1998 11:45 AM ASSEMBLY INSTRUCTIONS WRITER) P athologist Signature Hemoglobin 14.3 13.5 - 17.5 [facility] g/dl Specimen Anatomical Collection Method Collection Time Receive d Time (Source) Location / / Volume Laterality 08/12/1998 11:45 08/12/1998 AM ASSEMBLY INSTRUCTIONS WRITER 11:46 AM ASSEMBLY INSTRUCTIONS WRITER Srinath Fabian MD LAB_1 Performing Organization Address City/State/ZIP Code Phon e Number [facility] [phone] [address] documented in this encounter Visit Diagnoses Not on filedocumented in this encounter Care Teams Paper Reclaiming Machine Operator Relationship Specialty Start Date End Date Srinath Fabian MD PCP - General 08/25/1996 03/14/[address] [place], [place] [address] documented as of this encounter
--- OUTSIDE RECORDS SUMMARY | 2022-07-08 16:00 | XMS_ITS | Encounter Summary ---
:1955 Author Organization [facility] Address [address], [place] [address] Care Team Providers Name Role Phone Srinath Fabian MD Primary Care Provider [phone] Reason for Visit Reason Comments ARM PAIN VIA INTERFACE Encounter Details Date Type Department Care Team Description 06/16/1999 Office Visit [facility] Srinath Fabian LATERAL EPICONDYLITIS Practice MD [place] [address] Ciera Hernandez [place] [address] [address] [place] [address] [place], [place] [address] Social History Tobacco Use Types Packs/Day Years Used Date Smoking Tobacco: Never Assessed Sex Assigned at Date Recorded Not on file documented as of this encounter Progress Notes Srinath Fabian - 06/16/1999 12:00 AM CDTS: Left elbow pain intermittently over the last month. States he felt it may have began after he was mowing the lawn and pulling the mower to the side. 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 No numbness or weakness. She does have some discomfort with wrist extension. O: Alert and in no acute distress. Examination of the left elbow reveals good range of motion. No obvious deformity or swelling. Mild tenderness over lateral epicondyle. Increased discomfort with wrist extension against resistance. Good fisheries manager strength. A: Left lateral epicondylitis. P: Ice, ibuprofen, tennis elbow strap. Follow-up in 1 month prn. IN SUMMARY: TENNIS ELBOW cc: documented in this encounter Plan of Treatment Not on filedocumented as of this encounter Visit Diagnoses Diagnosis Lateral epicondylitis of elbow Lateral epicondylitis of elbow documented in this encounter Care Teams Special Warfare Boat Operator Relationship Specialty Start Date End Date Srinath Fabian MD PCP - General 08/25/1996 03/14/[address] [place] [address] documented as of this encounter
--- OUTSIDE RECORDS SUMMARY | 2022-07-08 16:00 | XMS_ITS | Encounter Summary ---
:1955 [facility] Address [address], [place] [address] Care Team Providers Name Role Phone Srinath Fabian MD Primary Care Provider [phone] Encounter Details Date Type Department Care Team Description 10/17/1997 Telephone Srinath Fabian MD [address] [place] [address] [address] [place], [place] [address] (Wo rk) Social History Tobacco Use Types Packs/Day Years Used Date Smoking Tobacco: Never Assessed Sex Assigned at Date Recorded Not on file documented as of this encounter Nursing Notes Srinath Fabian - 10/17/1997 12:00 AM CSTPatient returned call from previous with regards to Holter report. Patient had possible wandering atrial pacemaker. He is offered treatment with low dose atenolol since he states that he is continuing to have occasional palpitations. At this point, he does not wish to pursue any therapy and will call back with any change in his symptoms. Patient instructed to call back with any increase in palpitations or other associated symptoms. cc: IFIED CYTOTECHNOLOGIST documented in this encounter Plan of Treatment Not on filedocumented as of this encounter Visit Diagnoses Not on filedocumented in this encounter Care Teams Bmw Sales Consultant Relationship Specialty Start Date End Date Srinath Fabian MD PCP - General 08/25/1996 03/14/00 [facility] [place] [address] documented as of this encounter
--- OUTSIDE RECORDS SUMMARY | 2022-07-08 16:00 | XMS_ITS | Encounter Summary ---
:1955 Author Organization [email or web address] Address [address] [address] Care Team Providers Name Role Phone Adam Valentin MD Primary Care Provider Reason for Visit Reason Onset Date Comments FORGETFULNESS 05/13/2005 Encounter Details Date Type Department Care Team Description 05/13/2005 Telephone [facility] Adam Valentin MD FORGETFULNESS Practice [address] [facility] [address] [place] [address] [place], [place] [address] [phone] Social History Tobacco Use Types Packs/Day Years Used Date Smoking Tobacco: Never Alcohol Use Standard Drinks/Week Comments Not Asked 0 (1 standard drink = 0.6 oz pure alcoho l) Sex Assigned at Date Recorded Not on file documented as of this encounter Nursing Notes 05/13/2005 11:59 PM CDT >> KYLE GONZALES Wed May 13, 2005 4:05 PM Spoke with . Pt is at work now. Pt working 10 hour days. Since this past , everyday, w darrick is noticing forgetfulness, pt not following directions, were in the past had no prob leno doing so. Such as, pt went to car show and brought wrong car to show. Pt bought tickets and tr ied to give seller change back. states pt has been green. TRIAGE REFERENCE: STROKE LIKE SYMPTOMS - ADULT CNG (c) 2004 STAT SYMPTOMS - Consult with Annika and consider ER/911 for the following: None per guideline. ASSESSMENT: Accompanying symptoms: memory deficits; Duration: X 7 days Severity: intermittent, notices happens maybe once a day, but pt is at work 10 hours days. states no report from coworkers, friends or neighbors stating any concerns. Risk factors: over wt, pt grandfather with stroke at age 57yrs old. Choles unknown. Non smoker. PMH: Healthy CURRENT MEDICATIONS: MEDICATION ALLERGIES: Amoxicillin HOME TREATMENT: c/b if symptoms change or worsen PLAN: Appt made with Dr. Farusto for tomorrow at 11am. states she will bring pt in. Per 's request it was noted on appt that if pt called, NOT to cx appt. Review STAT SX as stated in CNG Adult Stroke Like Symptoms, 2003, if dev to immediately to ER. If any new sx dev and further quest ionsor concerns, call clinic if before 5pm or after 5pm the Careline. Review note with Dr. Frausto . Okay for appt tomorrow. >> RALPH BRANNON WedMay 13, 2005 2:44 PM calling, pt cancelled his morning appointment, states he needs to be seen darío, he's margaretin g rooseveltie strokes//she called yesterday for same thing pt was given an appointment documented in this encounter Plan of Treatment Not on filedocumented as of this encounter Visit Diagnoses Not on filedocumented in this encounter Care Teams Oyster Cultivator Relationship Specialty Start Date End Date Adam Valentin MD PCP - General 04/10/01 08/31/05 [address] [place] [address] documented as of this encounter
--- OUTSIDE RECORDS SUMMARY | 2022-07-08 16:00 | XMS_ITS | Encounter Summary ---
:1955 Author Organization [email or web address] Address [address] [place] [address] Care Team Providers Name Role Phone Adam Valentin MD Primary Care Provider Encounter Details Date Type Department Care Team Description 10/30/2002 Office Visit [facility] [address] [facility] [address] [place] [address] [phone] Social History Tobacco Use Types Packs/Day Years Used Date Smoking Tobacco: Never Assessed Sex Assigned at Date Recorded Not on file documented as of this encounter Last Filed Vital Signs Vital Sign Reading Time Taken Comments Blood Pressure 100/70 10/30/2002 5:20 PM CARD PAINTER Pulse 72 10/30/2002 5:20 PM CARD PAINTER Temperature 36.1 ??C (97 ??F) 10/30/2002 5:20 PM CARD PAINTER Respiratory Rate 16 10/30/2002 5:20 PM CARD PAINTER Oxygen Saturation - - Inhaled Oxygen Concentration - - Weight 92.1 kg (203 lb 2 oz) 10/30/2002 5:20 PM CARD PAINTER Height - - Body Mass Index - - documented in this encounter Progress Notes 10/30/2002 5:20 PM CARD PAINTER Mitch Catherine is here today for rash, started on arms 10/26/2002. Has spread to all extremities and trunk, ears. Not on feet or hands, itches (ears Burn). Primary care provider is MD Crystal Valdez RN, 10/30/2002, 5:17 PM Current prescriptions: CLOBETASOL PROPIONATE 0.05% OINTMENT, as directed, D: 1, R: 0 DIPHENHYDRAMINE HCL CAPS 25 MG OR, 2 CAPSULE EVERY 4 TO 6 HOURS NEEDED, D: 56, R: 0 CALAMINE LOTN EX, as directed, D: , R: 0 ACETAMINOPHEN TABS 500 MG OR, prn, D: , R: 0 Adam Valentin - 10/30/2002 12:00 AM CSTS: The patient comes in for evaluation of rash. He states this began on 10/26 with itching and redness to his upper extremities and then spread to the lower extremities. Now is also at the waistline front an back. Not as much on the trunk otherwise. Beginning yesterday he developed itching, redness and swelling to the ears and earlobes with a burning discomfort. The patient had been on Maox for a sinusitis but finished that medication approximately 4-5 days prior to the onset of this rash. He has had no previous reaction to that. He does have a history of eczema mainly to his hands but states this has actually been better this winter and this has not been infected this week. He has an allergy to Quaternium in fragrance which he avoids . He did wear two t-shirts that he isn't certain if they had ever been washed not he first two days that this began but finds it unusual that , that wouldn't have triggered a rash to his trunk. He hasn't changed any soap, detergent, no other factors in his environment that he thinks has been changed. O: The patient is in no acute distress. He has a diffuse erythematous macular rash scattered on the upper and lower extremities. A little bit to the anterior and posterior waistline and neck and upper shoulders. His auricles and earlobes especially have some edema with erythema and dryness. There is no vesiculation, no exudate anywhere. Chest is clear. Throat is clear. IMPRESSION: Diffuse skin rash, ? allergic reaction. May be a delayed reaction to the Amoxicillin. Could be a reaction to something in the t-shirts that wore if they had not been washed. P: At this point will give a prednisone burst 60 milligrams x2 days, 40 milligrams x3 days, 20 milligrams x2 days. He will contact me if he is not seeing a response to this. He may also use [id number] Claritin daily as an antihistamine. He had tried Benadryl 50 milligrams but it didn't seem to be effective. He will follow-up or contact me if he has not seen a good response to this. IN SUMMARY: DIFFUSE SKIN RASH, ? ALLERGIC REACTION TO AMOXICILLIN, ALLERGIC TO UNWASHED T-SHIRTS cc: PAINTER documented in this encounter Plan of Treatment Not on filedocumented as of this encounter Visit Diagnoses Diagnosis Other symptoms involving skin and integu mentary tissues documented in this encounter Care Teams Make Up Operator Relationship Specialty Start Date End Date Adam Valentin MD PCP - General 04/10/01 08/31/05 [address] [place] [address] documented as of this encounter
--- OUTSIDE RECORDS SUMMARY | 2022-07-08 16:00 | XMS_ITS | Encounter Summary ---
:1955 Author Organization [facility] Address [address] [place] [address] Care Team Providers Name Role Phone Adam Valentin MD Primary Care Provider Encounter Details Date Type Department Care Team Description 05/30/2001 Office Visit [facility] Nithya Ibarra, UNILAT INGUINAL [address] [place], [place] [address] [place], [place] [address] (Wo rk) Social History Tobacco Use Types Packs/Day Years Used Date Smoking Tobacco: Never Assessed Sex Assigned at Date Recorded Not on file documented as of this encounter Progress Notes Nithya Ibarra - 05/30/2001 12:00 AM CDTSUBJECTIVE: Mitch is a 46-year-old male sent to the [facility] by Dr. Valentin for evaluation of a possible right groin hernia. He has been having some discomfort in this area for the past approximately two months. 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 There is some fullness in the area without a discrete bulge. He has had no associated gastrointestinal symptomatology. No chronic cough or constipation. He did have repair of right inguinal hernia as a child. His past medical history is significant for prostatitis for which he has taken several courses of antibiotic therapy and Motrin. OBJECTIVE: Physical examination reveals a soft and nontender abdomen. There is no palpable mass or organomegaly or splenomegaly and no umbilical hernia. The bilateral groin areas were examined both supine and standing with the patient exerting increased intraabdominal pressure. Normal male genitalia, testes down bilaterally. No obvious inguinal hernia on either side. Mild tenderness to palpation in the right groin. ASSESSMENT: Right groin discomfort of unclear etiology. Possibilities include a hydrocele, varicocele, occult hernia, or groin strain. PLAN: Would recommend obtaining an ultrasound to further evaluate this area. If ultrasound is negative, I feel the patient would benefit from some physical therapy. He should call the office two days after the ultrasound for a report. IN SUMMARY: RIGHT GROIN DISCOMFORT OF UNCLEAR ETIOLOGY cc: documented in this encounter Procedure Notes Yossi Branch - 05/30/2001 12:00 AM CDTAssociated Order(s): ECHO EXAMINATION PROCEDURE CLINICAL DATA: DISCOMFORT RIGHT GROIN, RULE OUT HYDROCELE EXAMINATION: IN SUMMARY: TESTICULAR ULTRASOUND 05/30/2001: The left testicle measures 43 millimeters in length and the right testicle 42 millimeters. The testicles are normal. In the body of the left epididymis, there is a 2 millimeter cyst, and in the head of the right epididymis, there are two cysts measuring 8 and 11 millimeters in diameter. No hydrocele or other mass is identified. No hernia is noted. CONCLUSION: Bilateral epididymal cyst, but otherwise normal exam. Yossi Bey MD cc: Nithya Ibarra MD Radiology RI documented in this encounter Plan of Treatment Not on filedocumented as of this encounter Procedures Procedure Name Priority Date/Time Associated Diagnosis Comme nts UNLISTED ULTRASOUND 05/30/2001 Results for this PROCEDURE procedure are i n the results section . documented in this encounter Results ECHO EXAMINATION PROCEDURE (05/30/2001) Anatomical Region Laterality Modality Other Specimen (Source) Anatomical Location Collection Method / Collectio n Time Received Time / Laterality Volume Transcriptions Yossi Branch - 05/30/2001 12:00 AM C DTCLINICAL DATA: DISCOMFORT RIGHT GROIN, RULE OUT HYDROCELE EXAMINATION: IN SUMMARY: TESTICULAR ULTR ASOUND 05/30/2001: The left testicle measures 43 millimeter s in length and the right testicle 42 millimeters. The testicles are normal . In the body of the left epididymis, ther e is a 2 millimeter cyst, and in the head of the right epididymis, there are two cysts measuring 8 and 11 millimeters in diameter. No hydrocele or other mass is identified . No hernia is noted. CONCLUSION: Bilateral epididymal cyst, b ut otherwise normal exam. Yossi Bey MD cc: Nithya Ibarra MD Radiology RI Nithya Ibarra MD PROC_2 documented in this encounter Visit Diagnoses Diagnosis Inguinal hernia without mention of obstr uction or gangrene, unilateral or unspecified, (not specified as recurrent ) documented in this encounter Care Teams Punch Press Setter Relationship Specialty Start Date End Date Adam Valentin MD PCP - General 04/10/01 08/31/05 [address] [place] [address] documented as of this encounter
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
--- OUTSIDE RECORDS SUMMARY | 2022-07-08 16:00 | XMS_ITS | Encounter Summary ---
:1955 Author Organization [facility] Address [address] [place] [address] Care Team Providers Name Role Phone Trish Frausto MD Primary Care Provider Encounter Details Date Type Department Care Team Description 03/03/2000 Orders Only Abraham De La Cruz MD [address] [place], [place] [address] [place], [place] [phone] (Wo rk) Social History Tobacco Use Types Packs/Day Years Used Date Smoking Tobacco: Never Assessed Sex Assigned at Date Recorded Not on file documented as of this encounter Plan of Treatment Not on filedocumented as of this encounter Procedures Procedure Name Priority Date/Time Associated Diagnosis Comme nts UA MICRO Routine 03/03/2000 9:48 AM Results f or this CDT procedure are i n the results section . UA MICRO IF Waiting 03/03/2000 9:48 AM Results f or this CDT procedure are i n the results section . documented in this encounter Results UA MICRO (03/03/2000 9:48 AM CDT) Analysis Performed At Patho logist Time Signature RBC'S 0-3 0 - 3 /hpf [facility] WBC'S 0-2 0 - 5 /hpf [facility] Epith, 0 /hpf [facility] Squamous Bact Occ [facility] Casts 0 /lpf [facility] Other Few [facility] Mucous Specimen Anatomical Collection Method Collection Time Receive d Time (Source) Location / / Volume Laterality 03/03/2000 9:48 AM 0 9:49 CDT AM CDT Abraham Iraheta MD LAB_1 Performing Organization Address City/State/ZIP Code Phon e Number [facility] [phone] [facility] [address] [phone] (ABNORMAL) UA MICRO IF (03/03/2000 9:48 AM CDT) P athologist Signature Appr Yellow [facility] Appr Clear [facility] Sp Gr 1.026 1.005 - [facility] 1.030 Leuk Neg [facility] Nitr Neg [facility] pH 5.0 4.5 - 8.0 [facility] Prot 30 (A) [place] mg/dl [facility] Gluc Neg mg/dl [facility] Ket Neg mg/dl [facility] Urob 0.2 0.2 - 1.0 [facility] EU/dl Bili Neg [facility] Blood Neg [facility] Specimen Anatomical Collection Method Collection Time Receive d Time (Source) Location / / Volume Laterality 03/03/2000 9:48 AM 0 9:49 CDT AM CDT Abraham Iraheta MD LAB_1 Performing Organization Address City/[facility] Phon e Number [facility] [phone] [facility] [address] [phone] documented in this encounter Visit Diagnoses Not on filedocumented in this encounter Care Teams Intensive Care Anaesthetist Relationship Specialty Start Date End Date Trish Frausto MD PCP - General 09/01/05 08/22/18 [address] [place] [address] documented as of this encounter
--- OUTSIDE RECORDS SUMMARY | 2022-07-08 16:00 | XMS_ITS | Encounter Summary ---
:1955 Author Organization [facility] Address [address], [place] [address] Care Team Providers Name Role Phone Srinath Fabian MD Primary Care Provider [phone] Reason for Visit Reason Comments PAIN, FOOT VIA INTERFACE Encounter Details Date Type Department Care Team Description 12/08/[address] [facility] Teresa PLANTA R Ankle Surgery/Podiatry DPM FASCI ITIS/PLANTAR FASCIAL FIBROMA TOS Social History Tobacco Use Types Packs/Day Years Used Date Smoking Tobacco: Never Assessed Sex Assigned at Date Recorded Not on file documented as of this encounter Progress Notes Rick Teresa - 12/08/1999 12:00 AM CSTS: The patient was asked to be seen by Dr. Fabian for a two-year history of left heel pain. No specific history of injury. The patient relates that it is worse when he first gets up in the morning or after he has been on his feet for a great deal. 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 He uses Echo shoes for work, has added some additional heel cushions without any significant improvement. Also has been icing and using anti-inflammatory medication. O: Examination shows acute tenderness to direct pressure plantar medial aspect of the left heel correlating with the medial slip of the plantar fascia. No swelling or erythema noted. No palpable masses or skin lesions present. No tenderness or masses along the course of the plantar fascia. Ankle, subtalar, midtarsal joint range of motion within normal limits. Pedal pulses palpable. Muscle testing +5/5, equal bilaterally. Neurological status intact. A: Clinical impression, plantar fasciitis of the left heel. P: We reviewed plantar fasciitis in the handout. Since he has been treating it conservatively without any lasting improvement, recommended that we proceed with orthotics. This was explained to the patient, consent was given. He was casted. 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 He is to continue the ice, anti-inflammatory medication and stretching, get off his feet and elevate whenever possible. If he has any problems with the orthotics or does not get adequate improvement, he is to reappoint for follow-up with the inserts. cc: R SECURITY ENGINEER documented in this encounter Plan of Treatment Not on filedocumented as of this encounter Visit Diagnoses Diagnosis Plantar fascial fibromatosis documented in this encounter Care Teams Draw End Hand Relationship Specialty Start Date End Date Srinath Fabian MD PCP - General 08/25/1996 03/14/[address] [place] [address] documented as of this encounter
--- OUTSIDE RECORDS SUMMARY | 2022-07-08 16:00 | XMS_ITS | Encounter Summary ---
:1955 Author Organization [facility] Address [address] [place] [address] Care Team Providers Name Role Phone Adam Valentin MD Primary Care Provider Encounter Details Date Type Department Care Team Description 03/14/2003 Office Visit Chandni Santana, DERMATOPHYTOS IS OF FOOT; Dermatology DERMATITIS NOS [facility] [address] [place] [address] [phone] Social History Tobacco Use Types Packs/Day Years Used Date Smoking Tobacco: Never Assessed Sex Assigned at Date Recorded Not on file documented as of this encounter Progress Notes 03/14/2003 9:30 AM CDT Mitch Catherine is here today for f/u hand dermatitis. Primary care provider is MD Urmila Valdez LPN, 03/14/2003, 9:13 AM Chandni Ng - 03/14/2003 12:00 AM CDTSUBJECTIVE: Patient is here for follow-up of his hand dermatitis. It's been under good control with intermittent use of clobetasol ointment and fluocinonide ointment. However, he has almost persistent breakouts. He also now has noticed some itching on his right foot, which is a new problem. 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 He's been trying to avoid products that he knows he may have an allergy to. ROS: He has no additional skin problems. OBJECTIVE: Patient has scattered areas of erythema with blister formation on his right and left hand. Then he has HARRISON positive scaling on his right foot in the webspace and instep. Otherwise his face, neck, back, chest, right and left arm is clear. ASSESSMENT: Probable irritant contact dermatitis on hands although there is a possibility of an ID reaction from the feet and tinea pedis. PLAN: Patient will use Loprox cream b.i.d. to his feet. He'll continue with intermittent use of clobetasol ointment b.i.d. for up to two weeks at a time to his hands alternating with Lidex ointment. He'll follow-up with me in six months. IN SUMMARY: [facility] AND HAND DERMATITIS. 11:42 A cc: documented in this encounter Plan of Treatment Not on filedocumented as of this encounter Visit Diagnoses Diagnosis Dermatophytosis of foot Contact dermatitis and other eczema, due to unspecified cause documented in this encounter Care Teams Broadcast Transmitter Operator Relationship Specialty Start Date End Date Adam Valentin MD PCP - General 04/10/01 08/31/05 [address] [place] [address] documented as of this encounter
--- OUTSIDE RECORDS SUMMARY | 2022-07-08 16:00 | XMS_ITS | Encounter Summary ---
:1955 Author Organization [facility] Address [address] [place] [address] Care Team Providers Name Role Phone Adam Valentin MD Primary Care Provider Encounter Details Date Type Department Care Team Description 02/02/2002 Office Visit [facility], EYE & VISION EXAMINATION; [address] [place]; [place], [place] [address] [place] [phone] Social History Tobacco Use Types Packs/Day Years Used Date Smoking Tobacco: Never Assessed Sex Assigned at Date Recorded Not on file documented as of this encounter Plan of Treatment Not on filedocumented as of this encounter Visit Diagnoses Diagnosis Examination of eyes and vision Myopia Presbyopia documented in this encounter Care Teams Rfid Manager Relationship Specialty Start Date End Date Adam Valentin MD PCP - General 04/10/01 08/31/05 [address] [place] [address] documented as of this encounter
--- OUTSIDE RECORDS SUMMARY | 2022-07-08 16:00 | XMS_ITS | Encounter Summary ---
:1955 Author Organization [facility] Address [address], [place] [address] Care Team Providers Name Role Phone Adam Valentin MD Primary Care Provider Reason for Visit Reason Comments HEADACHE VERTIGO Encounter Details Date Type Department Care Team Description 07/21/2004 Office Visit [facility] Adam Valentin MD HEADACHE (Primary Dx); Practice [address] [facility]ER[facility]; [address] [place], [place] [address] [phone] Social History Tobacco Use Types Packs/Day Years Used Date Smoking Tobacco: Never Alcohol Use Standard Drinks/Week Comments Not Asked 0 (1 standard drink = 0.6 oz pure alcoho l) Sex Assigned at Date Recorded Not on file documented as of this encounter Last Filed Vital Signs Vital Sign Reading Time Taken Comments Blood Pressure 128/74 07/21/2004 1:46 PM MARKETING AND PROMOTIONS MANAGER Pulse 72 07/21/2004 1:46 PM MARKETING AND PROMOTIONS MANAGER Temperature 36.3 ??C (97.4 ??F) 07/21/2004 1:46 PM MARKETING AND PROMOTIONS MANAGER Respiratory Rate 20 07/21/2004 1:46 PM MARKETING AND PROMOTIONS MANAGER Oxygen Saturation - - Inhaled Oxygen Concentration - - Weight 92.7 kg (204 lb 6.4 oz) 07/21/2004 1:46 PM MARKETING AND PROMOTIONS MANAGER Height - - Body Mass Index - - documented in this encounter Progress Notes 07/21/2004 1:40 PM MARKETING AND PROMOTIONS MANAGER This office note has been dictated. Adam Valentin - 07/21/2004 12:00 AM CSTS: Patient comes in with two complaints. First is of chronic headaches which he states he has been getting over 2-1/2 years ever since he had a possible sinus infection in September, for which he was initially treated with antibiotics. States ever since then he gets frequent frontal headaches. They now are occurring four to five times a week and they have just kind of been staying the same for a long time without any real change. He thought they were sort of sinus related because they seem to respond to Tavist Sinus with Extra Tylenol that he takes. About 75% of the time this will resolve the headache within an hour or two. If that doesn't resolve the headache, he will take Motrin and most of the time that will knock it out. On a rare occasion neither of those things work and he will have to just go sleep. He now states that the headaches are occurring 4-5 times a week. They don't radiate. He doesn't have any other neurologic findings of symptoms with them. He had a headache yesterday that none of the medicines worked and lasted all day until he took a 4 hour nap. At the worst, the headache can be a 6 or 7 on a 10 scale of pain. In addition, in the last 1 or 2 months he has noticed that he has some occasional episodic dizziness sometimes where he just feels a little off balance. Lasts only a few seconds and goes ago but it can occur sometimes repeatedly, sometimes rarely. Doesn't matter if he is sitting or moving. 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 Hasn't had problems with this in the past. He denies any hearing loss, tinnitus. O: Vital signs within normal limits. He is afebrile. There is no orthostasis. Rapid head movement does not cause any changes. He has no nystagmus. He has bilateral cerumen impactions that initially were tried to be removed with curette. Initially this did not remove much cerumen. Then we irrigated both canals and got a little wax out but incompletely. I was then able to completely remove the cerumen from the left ear canal. Patient noted a fairly significant improvement in his hearing which he wasn't aware of had been reduced. On the right we were not able to fully remove the cerumen but I partially remove it with curette. He has no frontal tenderness, no nasal congestion, no temporal artery tenderness. Neuro exam otherwise normal. IMPRESSION: 1. Chronic daily headaches which may be medication rebound headaches as he does not have any other worrisome signs and has not had a previous history of chronic headaches. 2. Intermittent dizziness, may be related to the cerumen impaction. P: I will have him wait a week to ensure that he does not develop any secondary ear canal inflammation or infection from the procedures today and then try Debrox drops to the right ear and then return one week after that for reassessment and possible reirrigation or curetting of the cerumen. During this time he will try to discontinue all oral analgesics for his headaches as much as possible. He was advised that he will probably have increased headaches during this phase but if we could try an analgesic wash out, this may help improve his headache pattern. We will review this in two weeks. P cc: ETING AND PROMOTIONS MANAGER documented in this encounter Plan of Treatment Not on filedocumented as of this encounter Visit Diagnoses Diagnosis Headache(784.0) - Primary Headache Impacted cerumen Dizziness and giddiness documented in this encounter Care Teams Tanner Rotary Drum Continuous Process Relationship Specialty Start Date End Date Adam Valentin MD PCP - General 04/10/01 08/31/05 [address] [place] [address] documented as of this encounter
--- OUTSIDE RECORDS SUMMARY | 2022-07-08 16:00 | XMS_ITS | Encounter Summary ---
:1955 Author [facility] Address [address] [place] [address] Care Team Providers Name Role Phone Adam Valentin MD Primary Care Provider Encounter Details Date Type Department Care Team Description 10/11/2002 Office Visit [facility] Adam Valentin MD HEADACHE; Practice [id number] [place] [address] ACUTE SINUSITIS NOS [address] [place] [address] 551 [phone] (Wo rk) Social History Tobacco Use Types Packs/Day Years Used Date Smoking Tobacco: Never Assessed Sex Assigned at Date Recorded Not on file documented as of this encounter Last Filed Vital Signs Vital Sign Reading Time Taken Comments Blood Pressure 104/66 10/11/2002 9:50 AM DUST MIXER Pulse 84 10/11/2002 9:50 AM DUST MIXER Temperature 36.4 ??C (97.6 ??F) 10/11/2002 9:50 AM DUST MIXER Respiratory Rate 16 10/11/2002 9:50 AM DUST MIXER Oxygen Saturation - - Inhaled Oxygen Concentration - - Weight 90.3 kg (199 lb) 10/11/2002 9:50 AM DUST MIXER Height - - Body Mass Index - - documented in this encounter Progress Notes 10/11/2002 9:50 AM DUST MIXER Mitch Catherine is here today for sinus headaches. Are you having other pain today, that you want to discuss with the provider? -NO Preventive Services up to date? -YES Immunizations up to date? -YES Do you ever feel physically threatened or emotionally afraid? -NO Tobacco Status? -NEVER SMOKED service attendant cafeteria offered? -NOT APPLICABLE. Aspirin taken daily? -NO BP was taken on the RIGHT arm. Large cuff used? -YES Health Education given? -NO. Contact phone number [phone] (home) [phone] (work), alternate phone number [phone]. BP 104/66 Pulse 84 Temp 97.6 Resp 16 Wt 199 lbs (90.266 kg) 2nd b/p 102/66. Current prescriptions: TAVIST SINUS NON-DROWSY MAX ST TABS 30-500 MG OR, 2 TABLETS EVERY 6 HOURS NEEDED, D: 80, R: 0 ACETAMINOPHEN TABS 500 MG OR, prn, D: , R: 0 Nka Elizabeth Patel LPN 10/11/2002 10:09 AM Adam Valentin - 10/11/2002 12:00 AM CSTS: Patient comes in with concern regarding sinus headaches. He states he's had headaches off an d on for the last three weeks but it's been occurring on a pretty much daily basis.He will take some medicine for it about every other day. The other days he just tries to ignore it or it's not as bad. Tylenol doesn't seem to help but he has used some kind of a Tavist headache medication that seems to help some times, but not always. He isn't aware of any significant facial pain or dental pain. He has had no fever or chills. No recent URIs. He may have a little bit of nasal discharge but nothing significant . No sneezing or allergy symptoms. His headache is mostly localized to the forehead and then to the top of the head. No neck pain. He also feels a little bit fatigued and when the headache was more severe yesterday he felt a little nauseated with it. He's not had a history of sinus infections nor history of headaches prior to this. O: Vital signs are within normal limits. He's in no acute distress. He has some tenderness over the maxillary and frontal sinuses with palpation. The nasal mucosa is edematous and erythematous. There's a little bit of purulent discharge on the left. Throat is nonerythematous. Ear canals and TMs are clear. Chest is clear. Throat is clear. A: Frontal headaches with facial pain, may have a subtle sinusitis as cause of his headaches. P: Amoxicillin 500mg p.o. t.i.d. x 10 days. He may use a decongestant and analgesics prn , however, if his symptoms do not improve with antibiotic therapy, advise follow up . At that point we may need to have him discontinue daily analgesic use and consider other problems such as chronic daily headache or some other pathology. IN SUMMARY: FRONTAL HEADACHES WITH FACIAL PAIN. cc: MIXER documented in this encounter Plan of Treatment Not on filedocumented as of this encounter Visit Diagnoses Diagnosis Headache(784.0) Headache Acute sinusitis, unspecified documented in this encounter Care Teams Cider Press Operator Relationship Specialty Start Date End Date Adam Valentin MD PCP - General 04/10/01 08/31/05 [address] [place] [address] documented as of this encounter
--- OUTSIDE RECORDS SUMMARY | 2022-07-08 16:00 | XMS_ITS | Encounter Summary ---
:1955 Author Organization [facility] Address [address] [place] [address] Care Team Providers Name Role Phone Abraham Iraheta MD Primary Care Provider Reason for Visit Reason Comments SKIN PROBLEM VIA INTERFACE Encounter Details Date Type Department Care Team Description 01/19/2001 Office Visit [facility] Chandni Ng MD DERMATITIS NOS [address] [place], [place] [address] [place] [address] [phone] (Wo rk) Social History Tobacco Use Types Packs/Day Years Used Date Smoking Tobacco: Never Assessed Sex Assigned at Date Recorded Not on file documented as of this encounter Progress Notes Chandni Ng - 01/19/2001 12:00 AM CDTSUBJECTIVE: The patient is here for a followup of his hand dermatitis. He still has persistent hand dermatitis despite using his topical steroid ointment. OBJECTIVE: The patient still has patchy dry scaly areas on his right and left hand. His back was clear. ASSESSMENT: Possible contact dermatitis. PLAN: The patient will be patch tested to the 20 allergens of the Allergen patch test kit, plus he will be patch tested to paraben, ethyl acrylate, tixocortol, and the fragrance mix. He will return in two days to have them read. cc: Chandni Ng MD documented in this encounter Plan of Treatment Not on filedocumented as of this encounter Visit Diagnoses Diagnosis Contact dermatitis and other eczema, due to unspecified cause documented in this encounter Care Teams Biztalk Developer Relationship Specialty Start Date End Date Abraham Iraheta MD PCP - General 03/15/00 04/09/[address] [place] [address] documented as of this encounter
--- OUTSIDE RECORDS SUMMARY | 2022-07-08 16:00 | XMS_ITS | Encounter Summary ---
:1955 Author Organization [facility] Address [address] [place] [address] Care Team Providers Name Role Phone Abraham Iraheta MD Primary Care Provider Reason for Visit Reason Comments OD EXAM VIA INTERFACE Encounter Details Date Type Department Care Team Description 02/04/2001 Office Visit [facility] Juanjose Leon [place]; [address], OD EYE & VISION EXAMINATION [place], [place] [address] Social History Tobacco Use Types Packs/Day Years Used Date Smoking Tobacco: Never Assessed Sex Assigned at Date Recorded Not on file documented as of this encounter Plan of Treatment Not on filedocumented as of this encounter Visit Diagnoses Diagnosis Presbyopia Examination of eyes and vision documented in this encounter Care Teams Statistics Intern Relationship Specialty Start Date End Date Abraham Iraheta MD PCP - General 03/15/00 04/09/[address] [address] documented as of this encounter
--- OUTSIDE RECORDS SUMMARY | 2022-07-08 16:00 | XMS_ITS | Encounter Summary ---
:1955 Author Organization [facility] Address [address] [place] [address] Care Team Providers Name Role Phone Srinath Fabian MD Primary Care Provider [phone] Encounter Details Date Type Department Care Team Description 10/10/1997 Telephone Srinath Fabian MD [address] [place], [place] [address] (Wo rk) Social History Tobacco Use Types Packs/Day Years Used Date Smoking Tobacco: Never Assessed Sex Assigned at Date Recorded Not on file documented as of this encounter Nursing Notes Srinath Fabian - 10/10/1997 12:00 AM VOICE NETWORK ENGINEER PHONE MESSAGE S: Follow-up or Holter monitor report. Left message on answering machine to call back with update on his condition. cc: E NETWORK ENGINEER documented in this encounter Plan of Treatment Not on filedocumented as of this encounter Visit Diagnoses Not on filedocumented in this encounter Care Teams Bridge Repairer Relationship Specialty Start Date End Date Srinath Fabian MD PCP - General 08/25/1996 03/14/[address] [place] [address] documented as of this encounter
--- OUTSIDE RECORDS SUMMARY | 2022-07-08 16:00 | XMS_ITS | Encounter Summary ---
:1955 Author Organization [facility] Address [address] [facility] [place] [address] Care Team Providers Name Role Phone Abraham Iraheta MD Primary Care Provider Reason for Visit Reason Comments ECZEMA VIA INTERFACE Encounter Details Date Type Department Care Team Description 01/14/2001 Office Visit [facility] Chandni Ng MD DERMATITIS NOS [address], [place] [address] [place] [address] [phone] (Wo rk) Social History Tobacco Use Types Packs/Day Years Used Date Smoking Tobacco: Never Assessed Sex Assigned at Date Recorded Not on file documented as of this encounter Progress Notes Chandni Ng - 01/14/2001 12:00 AM CDTSUBJECTIVE: The patient is a 45-year-old man who last saw Dr. Melchor on 06/16/97 for hand dermatitis. The patient has had this since 1989 on a fairly persistent basis. He develops dry, scaly, patchy areas on the dorsum of his hands. Lidex ointment and clobetasol ointment have given him some clearing but no complete clearing. The patient thinks that the gloves he uses at work may make this worse and he has to use antibacterial soap at work. REVIEW OF SYSTEMS: He has family members, such as his sister, who have had hand dermatitis and a history of atopic dermatitis. The patient has no additional skin problems. He has a personal history of itching nose and eyes in the spring months. 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 He is on Motrin p.r.n. OBJECTIVE: The patient has several 1-cm, dry, scaly plaques on the dorsum of his hand and on his fingers. His face, neck, back, chest, right and left arm are otherwise clear. ASSESSMENT: Hand dermatitis and possible atopic individual, possibly made worse by his latex or gloves or leather gloves. PLAN: The patient will continue wit his Lidex ointment. I will check an IgE level to see if he is an atopic individual. He will be scheduled for patch tests. He will try and avoid the latex gloves. cc: Chandni Ng MD documented in this encounter Plan of Treatment Not on filedocumented as of this encounter Visit Diagnoses Diagnosis Contact dermatitis and other eczema, due to unspecified cause documented in this encounter Care Teams Support Director Relationship Specialty Start Date End Date Abraham Iraheta MD PCP - General 03/15/00 04/09/[address] [place] [address] documented as of this encounter
--- OUTSIDE RECORDS SUMMARY | 2022-07-08 16:00 | XMS_ITS | Encounter Summary ---
:1955 Author Organization [facility] Address [address] [place] [address] Care Team Providers Name Role Phone Srinath Fabian MD Primary Care Provider [phone] Encounter Details Date Type Department Care Team Description 09/16/1998 Office Visit [facility] Yossi Christine, SLEEP DISTURBANCES [place] [address] [address] [place] [address] [address] [place], [place] [phone] [id number] Social History Tobacco Use Types Packs/Day Years Used Date Smoking Tobacco: Never Assessed Sex Assigned at Date Recorded Not on file documented as of this encounter Progress Notes Yossi Christine - 09/16/1998 12:00 AM CSTCONSULTATION REASON FOR CONSULTATION/HPI: Severe snoring and witnessed apneas in a gentleman who is not sleepy on only seven hours of sleep a night. The patient chooses not to go be bed until 2315, falls asleep within seconds. His snoring bothers his a great deal but both of them can still sleep in the same bed all night long. He snores all night and every night. His has seen apneas but only a few times a night. He otherwise sleeps quite soundly and will awaken once or twice spontaneously but he will be back to sleep within seconds. He will awaken at 0615 after only seven hours of sleep, usually spontaneously. He feels usually fine upon awakening in the morning. He does not have morning headaches. He denies any abnormal sleepiness during the daytime. He never accidentally falls asleep during any activity. He has not had a decrease in his concentration or memory. 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 He is not obese. He does not drink alcohol. He has three to four caffeinated beverages just before going to bed. He denies any nose or throat condition, injury or surgery, but he does have a retained for his two front teeth. He denies depression. PAST MEDICAL HISTORY: No hypertension and otherwise noncontributory. MEDICATIONS: None. MEDICAL ALLERGIES: No known drug allergies. PHYSICAL EXAMINATION: Weight 206 pounds, blood pressure 138/80, pulse 62. General: Very tall, slim gentleman, who is very alert and attentive and quite intelligent. Nose is very narrow but I see no obstructions or polyps. 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 LABORATORY: Hemoglobin 14.3, TSH 1.13. IMPRESSION: Loud snoring but no evidence of clinically significant sleep apnea and absence of daytime hypersomnolence. He is no doubt predisposed to his severe snoring because of his low palate and retrognathic state. PLAN: I am recommending that he discuss anti-snoring dental device with Dr. Trey Aleman of [facility], particularly the Silent Night Device. He has his own private dental coverage. He can discuss it with them. Because of his front retainer and absence of the two front teeth, he might not be a great candidate for this. An alternative would be the laser assisted uvuloplasty which generally is about $2,000.00 and in the near future will be the radiofrequency ablation technique that will probably be similarly priced. On the other hand, since his snoring is not affecting his health or alertness during the day, the first step might be to have his try some ear plugs that would be less than $6.00 per package. Total time spent with patient, 30 minutes. cc: Srinath Fabian MD N OFFBEARER documented in this encounter Plan of Treatment Not on filedocumented as of this encounter Visit Diagnoses Diagnosis Other sleep disturbances documented in this encounter Care Teams Director Prospect Relationship Specialty Start Date End Date Srinath Fabian MD PCP - General 08/25/1996 03/14/[address] [place] [address] documented as of this encounter
--- OUTSIDE RECORDS SUMMARY | 2022-07-08 16:01 | XMS_ITS | Encounter Summary ---
:1955 Author Organization [facility] Address [address] [place] [address] Care Team Providers Name Role Phone Srinath Fabian MD Primary Care Provider [phone] Encounter Details Date Type Department Care Team Description 06/06/1996 Office Visit Srinath Fabian MD RESPIRATORY ABNORM [facility] [address] [place], [place] [address] (Wo rk) Social History Tobacco Use Types Packs/Day Years Used Date Smoking Tobacco: Never Assessed Sex Assigned at Date Recorded Not on file documented as of this encounter Progress Notes Srinath Fabian MD - 06/06/1996 12:00 AM CDTS. Complains of problems with snoring. Apparently he states that he has been snoring since he was 10 yrs. old. He works nights, but sleeps with his two nights out of the week and she encouraged him to come in for evaluation. He denies his reporting any apneic episodes. No somulence during his waking. O. Alert, NAD. Nasal mucosa is edematous and boggy with clear exudate. Throat reveals cobblestoning. Neck is supple. Lungs are clear. A. Snoring. P. Will try Beconase Nasal Jena 2 sprays in each nostril b.i.d. Cautioned as to delayed onset of action. F/U in l month for recheck. cc: documented in this encounter Plan of Treatment Not on filedocumented as of this encounter Visit Diagnoses Diagnosis Other dyspnea and respiratory abnormalit y documented in this encounter Care Teams Ends Down Checker Relationship Specialty Start Date End Date Caren, Srinath Guerrero MD PCP - General 08/25/1996 03/14/[address] [place] [address] documented as of this encounter
--- OUTSIDE RECORDS SUMMARY | 2022-07-08 16:01 | XMS_ITS | Encounter Summary ---
:1955 Author Organization [facility] Address [address] [place] [address] Care Team Providers Name Role Phone Srinath Fabian MD Primary Care Provider [phone] Encounter Details Date Type Department Care Team Description 12/18/1993 Office Visit Ricky Bang MD Need for prophylactic [address] [place] [address] unspecified combined [phone] (Wo rk) vaccine Social History Tobacco Use Types Packs/Day Years Used Date Smoking Tobacco: Never Assessed Sex Assigned at Date Recorded Not on file documented as of this encounter Plan of Treatment Not on filedocumented as of this encounter Visit Diagnoses Diagnosis Need for prophylactic vaccination with u nspecified combined vaccine documented in this encounter Care Teams Gas Pump Attendant Relationship Specialty Start Date End Date Srinath Fabian MD PCP - General 08/25/1996 03/14/[address] [place] [address] documented as of this encounter
--- OUTSIDE RECORDS SUMMARY | 2022-07-08 16:01 | XMS_ITS | Encounter Summary ---
:1955 Author Organization [facility] Address [address] [facility] [place] [address] Care Team Providers Name Role Phone Srinath Fabian MD Primary Care Provider [phone] Encounter Details Date Type Department Care Team Description 07/02/1994 Office Visit Dilshad Momin M D Need for prophylactic [facility] [place] [facility] vaccination with [address] [place] [address] vaccine [phone] (Wo rk) Social History Tobacco Use Types Packs/Day Years Used Date Smoking Tobacco: Never Assessed Sex Assigned at Date Recorded Not on file documented as of this encounter Plan of Treatment Not on filedocumented as of this encounter Visit Diagnoses Diagnosis Need for prophylactic vaccination with u nspecified combined vaccine documented in this encounter Care Teams Call Or Contact Centre Operator Relationship Specialty Start Date End Date Srinath Fabian MD PCP - General 08/25/1996 03/14/[address] [place] [address] documented as of this encounter
--- OUTSIDE RECORDS SUMMARY | 2022-07-08 16:01 | XMS_ITS | Encounter Summary ---
:1955 Author Organization [facility] Address [address] [facility] [place] [address] Care Team Providers Name Role Phone Srinath Fabian MD Primary Care Provider [phone] Encounter Details Date Type Department Care Team Description 01/21/1994 Office Visit Dilshad Momin M D Need for prophylactic [facility] [facility] vaccination with [address] [place] [address] vaccine [phone] (Wo rk) Social History Tobacco Use Types Packs/Day Years Used Date Smoking Tobacco: Never Assessed Sex Assigned at Date Recorded Not on file documented as of this encounter Plan of Treatment Not on filedocumented as of this encounter Visit Diagnoses Diagnosis Need for prophylactic vaccination with u nspecified combined vaccine documented in this encounter Care Teams Public Health Aide Relationship Specialty Start Date End Date Srinath Fabian MD PCP - General 08/25/1996 03/14/[address] [place] [address] documented as of this encounter
--- OUTSIDE RECORDS SUMMARY | 2022-07-08 16:01 | XMS_ITS | Encounter Summary ---
:1955 Author Organization [facility] Address [address] [address] Care Team Providers Name Role Phone Srinath Fabian MD Primary Care Provider [phone] Encounter Details Date Type Department Care Team Description 09/02/1993 Office Visit Srinath Fabian, Pain i n joint, lower leg; Backache, unspecified; [address] [place] and other nonspecific skin eruption [address] [place], [place] [address] (Wo rk) Social History Tobacco Use Types Packs/Day Years Used Date Smoking Tobacco: Never Assessed Sex Assigned at Date Recorded Not on file documented as of this encounter Plan of Treatment Not on filedocumented as of this encounter Visit Diagnoses Diagnosis Pain in joint, lower leg Backache, unspecified Rash and other nonspecific skin eruption documented in this encounter Care Teams Natural Sciences Manager Relationship Specialty Start Date End Date Srinath Fabian MD PCP - General 08/25/1996 03/14/00 [address] [place] [address] documented as of this encounter
--- OUTSIDE RECORDS SUMMARY | 2022-07-08 16:01 | XMS_ITS | Encounter Summary ---
:1955 Author Organization [facility] Address [address], [place] [address] Care Team Providers Name Role Phone Srinath Fabian MD Primary Care Provider [phone] Encounter Details Date Type Department Care Team Description 09/25/1996 Office Visit Srinath Fabian MD ENTHESOPATHY, SITE NOS [address] [place] [address] (Wo rk) Social History Tobacco Use Types Packs/Day Years Used Date Smoking Tobacco: Never Assessed Sex Assigned at Date Recorded Not on file documented as of this encounter Progress Notes Srinath Fabian - 09/25/1996 12:00 AM CSTS: Patient has intermittent forearm and bilat. wrist pain for the past 8-10 yrs. Initially started when he had apparently suffered repetitive trauma through work, home projects and playing tennis. At this point has noticed that he has bilat. 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 He has occasional numbness in the thumb and index fingers bilat. Pain in both arms occurs after using the machine for approx. an hour and will resolve over the next 3-7 days. O: Alert and in no acute distress. Exam of the upper extremities reveals no swelling, deformity, atrophy. Good range of motion. Elbows are unremarkable. Wrists reveal no significant tenderness. No pain in the wrists or elbows with forced wrist extension. Neg. Tinel's and Phalen's. Sensory exams intact in both hands to light touch and pin prick. Good tiller worker strength. A: Sx. consistent with bilat. wrist tendinitis. No evidence of carpal tunnel syndrome at this time. P: Patient will be given bilat. wrist splints to be used as needed. Ice and Ibuprofen prn. He is encouraged to f/u immediately with any persisting symptoms. cc: H GATHERER documented in this encounter Plan of Treatment Not on filedocumented as of this encounter Visit Diagnoses Diagnosis Enthesopathy of unspecified site documented in this encounter Care Teams Director Of Physiotherapy Services Relationship Specialty Start Date End Date Srinath Fabian MD PCP - General 08/25/1996 03/14/00 [facility] [place] [address] documented as of this encounter
--- OUTSIDE RECORDS SUMMARY | 2022-07-08 16:01 | XMS_ITS | Encounter Summary ---
:1955 Author Organization [facility] Address [address] [place] [address] Care Team Providers Name Role Phone Mitch Li MD Primary Care Provider Encounter Details Date Type Department Care Team Description 09/08/1996 Orders Only Scarlet Melchor MD [place], [place] [address] (Wo rk) Social History Tobacco Use Types Packs/Day Years Used Date Smoking Tobacco: Never Assessed Sex Assigned at Date Recorded Not on file documented as of this encounter Plan of Treatment Not on filedocumented as of this encounter Visit Diagnoses Not on filedocumented in this encounter Care Teams Teachers Assistant Relationship Specialty Start Date End Date Mitch Li MD PCP - General Family Practice 08/23/18 [address] [place] [address] documented as of this encounter
--- OUTSIDE RECORDS SUMMARY | 2022-07-08 16:01 | XMS_ITS | Encounter Summary ---
:1955 Author Organization [facility] Address [address], [place] [address] Care Team Providers Name Role Phone Mitch Li MD Primary Care Provider Encounter Details Date Type Department Care Team Description 12/02/1995 Orders Only [facility] Fidel snow MD [facility] [address] [place] [address] (Wo rk) Social History Tobacco Use Types Packs/Day Years Used Date Smoking Tobacco: Never Assessed Sex Assigned at Date Recorded Not on file documented as of this encounter Plan of Treatment Not on filedocumented as of this encounter Visit Diagnoses Not on filedocumented in this encounter Care Teams Marinator Relationship Specialty Start Date End Date Mitch Li MD PCP - General Family Practice 08/23/18 [facility] [place] [address] documented as of this encounter
--- OUTSIDE RECORDS SUMMARY | 2022-07-08 16:01 | XMS_ITS | Encounter Summary ---
:1955 Author Organization [facility] Address [address] [place] [address] Care Team Providers Name Role Phone Srinath Fabian MD Primary Care Provider [phone] Encounter Details Date Type Department Care Team Description 10/12/1994 Office Visit [facility] Alexey Smiley Other atopic Medicine [place] dermatitis and related [address] conditions [place], [place] [address] , [place] [address] Social History Tobacco Use Types Packs/Day Years Used Date Smoking Tobacco: Never Assessed Sex Assigned at Date Recorded Not on file documented as of this encounter Progress Notes Srinath Smiley - 10/12/1994 12:00 AM CSTS: Mitch is a 39-year-old here for follow up of his atopic hand dermatitis. Is under excellent control with the Lidex Oint. but he finds Triamcinolone does not work. He just needs a refill. O: There is no atrophy of his hands. Hands are under good control at this point. A: Atopic hand dermatitis. P: 1) Lidex Oint. b.i.d. as needed to affected area. 2) Follow up once a year. cc: Srinath Smiley MD documented in this encounter Plan of Treatment Not on filedocumented as of this encounter Visit Diagnoses Diagnosis Other atopic dermatitis and related cond itions documented in this encounter Care Teams Whipper Relationship Specialty Start Date End Date Srinath Fabian MD PCP - General 08/25/1996 03/14/[address] [place], [place] [address] documented as of this encounter
--- OUTSIDE RECORDS SUMMARY | 2022-07-08 16:01 | XMS_ITS | Encounter Summary ---
:1955 Author Organization [facility] Address [address] [address] Care Team Providers Name Role Phone Srinath Fabian MD Primary Care Provider [phone] Encounter Details Date Type Department Care Team Description 11/18/1994 Office Visit Srinath Fabian MD Abdominal pain [address] [place], [place] [address] (Wo rk) Social History Tobacco Use Types Packs/Day Years Used Date Smoking Tobacco: Never Assessed Sex Assigned at Date Recorded Not on file documented as of this encounter Progress Notes Srinath Fabian MD - 11/18/1994 12:00 AM CSTS: RLQ pain intermittently over the past month. No fever, chills or change in his bowel habits. No acute trauma noted. Occasionally is worse when he changes position. O: Alert and in no acute distress. No CVAT. No back pain upon palpation. Abdomen is soft with minimal tenderness over the right rectus abdominus muscle. Increased tenderness with abdominal flexion. No hepatosplenomegaly. A: Rectus abdominus strain. P: Cold packs, Ibuprofen. F/u prn. cc: HOUSE OPERATOR documented in this encounter Plan of Treatment Not on filedocumented as of this encounter Visit Diagnoses Diagnosis Abdominal pain documented in this encounter Care Teams Hip Hop Dancer Relationship Specialty Start Date End Date Srinath Fabian MD PCP - General 08/25/1996 03/14/[address] [place], [place] [address] documented as of this encounter
--- OUTSIDE RECORDS SUMMARY | 2022-07-08 16:01 | XMS_ITS | Encounter Summary ---
:1955 Author Organization [facility] Address [address], [place] [address] Care Team Providers Name Role Phone Srinath Fabian MD Primary Care Provider [phone] Encounter Details Date Type Department Care Team Description 06/26/1997 Office Visit [facility] Scarlet Melchor OTHER ATOPIC [address] Lacy Mcnamara MD DERMATITIS [place], [place] [address] [place], [place] [phone] Social History Tobacco Use Types Packs/Day Years Used Date Smoking Tobacco: Never Assessed Sex Assigned at Date Recorded Not on file documented as of this encounter Progress Notes Scarlet Melchor - 06/26/1997 12:00 AM CDTS: [age] year old follow-up for hand dermatitis. He has seen Dr. Smiley in the past. Triamcinolone has never been very helpful, but Lidex ointment has helped. He is careful about soap and water and chemicals. 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 He is contacting a lot of chemicals. He does use protective gloves. He also is aware of cotton glove liners. He does have a history of eczema in the family along with allergies and asthma. O: Eczematous patch on the dorsal fingers. A: Hand dermatitis, atopic background. Possibly may also have irritant component. P: Discussed hand dermatitis and general cares and moisturizers. Samples given. We'll increase to Psorcon ointment for severe times, then decreasing back to Lidex ointment. Stressed that both of these are strong and can atrophy. No evidence of atrophy today. Stressed protective gloves and moisturizing. Samples given. Recheck in 2-3 months. cc: documented in this encounter Plan of Treatment Not on filedocumented as of this encounter Visit Diagnoses Diagnosis Other atopic dermatitis and related cond itions documented in this encounter Care Teams Foil Cutter Relationship Specialty Start Date End Date Caren, Srinath Guerrero MD PCP - General 08/25/1996 03/14/[address] [place] [address] documented as of this encounter
--- OUTSIDE RECORDS SUMMARY | 2022-07-08 16:01 | XMS_ITS | Encounter Summary ---
:1955 Author Organization [facility] Address [address] [place] [address] Care Team Providers Name Role Phone Srinath Fabian MD Primary Care Provider [phone] Encounter Details Date Type Department Care Team Description 08/02/1996 Office Visit Fidel Ross MYOPIA; [facility] V[facility] EXAMINATION [address] [facility] [place] Social History Tobacco Use Types Packs/Day Years Used Date Smoking Tobacco: Never Assessed Sex Assigned at Date Recorded Not on file documented as of this encounter Plan of Treatment Not on filedocumented as of this encounter Visit Diagnoses Diagnosis Myopia Examination of eyes and vision documented in this encounter Care Teams Television News Producer Relationship Specialty Start Date End Date Srinath Fabian MD PCP - General 08/25/1996 03/14/[address] [place] [id number] documented as of this encounter
--- OUTSIDE RECORDS SUMMARY | 2022-07-08 16:01 | XMS_ITS | Encounter Summary ---
:1955 Author Organization [facility] Address [address] [place] [address] Care Team Providers Name Role Phone Mitch Li MD Primary Care Provider Encounter Details Date Type Department Care Team Description 06/06/1996 Orders Only Cure, Srinath villalpando MD [address] [place] [phone] (Wo rk) Social History Tobacco Use Types Packs/Day Years Used Date Smoking Tobacco: Never Assessed Sex Assigned at Date Recorded Not on file documented as of this encounter Plan of Treatment Not on filedocumented as of this encounter Visit Diagnoses Not on filedocumented in this encounter Care Teams Puddler Helper Relationship Specialty Start Date End Date Mitch Li MD PCP - General Family Practice 08/23/18 [address] [place] [address] documented as of this encounter
--- OUTSIDE RECORDS SUMMARY | 2022-07-08 16:01 | XMS_ITS | Encounter Summary ---
:1955 Author [facility] Address [address] [place] [address] Care Team Providers Name Role Phone Srinath Fabian MD Primary Care Provider [phone] Encounter Details Date Type Department Care Team Description 10/11/1996 Office Visit Jazmin Jones [facility] [address] [place], [place] [id number] Social History Tobacco Use Types Packs/Day Years Used Date Smoking Tobacco: Never Assessed Sex Assigned at Date Recorded Not on file documented as of this encounter Plan of Treatment Not on filedocumented as of this encounter Visit Diagnoses Diagnosis Myopia documented in this encounter Care Teams Laboratory Monitor Relationship Specialty Start Date End Date Srinath Fabian MD PCP - General 08/25/1996 03/14/[address] [place], [place] [address] documented as of this encounter
--- OUTSIDE RECORDS SUMMARY | 2022-07-08 16:01 | XMS_ITS | Encounter Summary ---
:1955 Author Organization [facility] Address [address] [place] [address] Care Team Providers Name Role Phone Srinath Fabian MD Primary Care Provider [phone] Encounter Details Date Type Department Care Team Description 12/02/1995 Office Visit Fidel Montano a, unspecified; Isis Brunson MD Infective otitis externa, unspecified; [facility] Impacted cerumen [address] [place] [address] Social History Tobacco Use Types Packs/Day Years Used Date Smoking Tobacco: Never Assessed Sex Assigned at Date Recorded Not on file documented as of this encounter Progress Notes Fidel Lyon MD - 12/02/1995 12:00 AM CSTS. Here for Lt. ear pain. He had some blockage in his ears with wax and so he put some murine in the left ear and fell asleep for an hour. When he awoke it was uncomfortable so he irrigated it with some warm water and the pain persists. O. Cerumenized Rt. ear canal. The Lt. is clear. There is tenderness to manipulation. Audiogram is Nl. A. KYLE Secondary To Chemical Irritation. P. Cortisporin Otic q.i.d. cc: HANGER documented in this encounter Plan of Treatment Not on filedocumented as of this encounter Visit Diagnoses Diagnosis Otalgia, unspecified Infective otitis externa, unspecified Impacted cerumen documented in this encounter Care Teams Spanish Instructor Relationship Specialty Start Date End Date Srinath Faiban MD PCP - General 08/25/1996 03/14/[address] [place] [address] documented as of this encounter
--- OUTSIDE RECORDS SUMMARY | 2022-07-08 16:01 | XMS_ITS | Encounter Summary ---
:1955 Author [facility] Address [address], [place] [address] Care Team Providers Name Role Phone Mitch Li MD Primary Care Provider Encounter Details Date Type Department Care Team Description 06/14/1995 Orders Only Srinath [address] , [place] [address] Social History Tobacco Use Types Packs/Day Years Used Date Smoking Tobacco: Never Assessed Sex Assigned at Date Recorded Not on file documented as of this encounter Plan of Treatment Not on filedocumented as of this encounter Visit Diagnoses Not on filedocumented in this encounter Care Teams Onion Farmer Relationship Specialty Start Date End Date Mitch Li MD PCP - General Family Practice 08/23/18 [address] [place] [address] documented as of this encounter
[2022-07-08 18:17] LABS: Creatinine Urine 52.7 mg/dL
[2022-07-08 18:22] LABS: Microalbumin Creatinine Ratio 150 mg/g (0-30); Microalbumin Urine 8 mg/dL
== END 2022-07-08 15:53 | disposition home or self-care (01) ==
PROVIDERS: PCP Family Medicine; Visit Provider Internal Medicine Nephrology
DX: N17.9 Acute kidney failure, unspecified (principal); R53.83 Other fatigue; R82.90 Unspecified abnormal findings in urine
CPT/HCPCS: 82043; 82570; 87086

== ENCOUNTER 2022-10-07 14:42 | Outpatient (CLI) | payer MEDICARE, BC, SELFPAY ==
[2022-10-07 17:33] LABS: Albumin* 4.2 g/dL (3.3-5.0); Chloride* 106 mmol/L (96-114); Potassium* 4.8 mmol/L (3.6-5.1); Sodium* 140 mmol/L (135-149)
[2022-10-07 17:36] LABS: Blood Urea Nitrogen* 25 mg/dL (7-30); Carbon Dioxide* 28 mmol/L (20-32); Creatinine* 1.7 mg/dL (0.5-1.5); Estimated Glomerular Filt Rate 44 ml/min
[2022-10-07 17:37] LABS: Calcium* 9.4 mg/dL (8.4-10.6); Glucose* 86 mg/dL (60-115); Phosphorus* 4.1 mg/dL (2.5-4.5)
[2022-10-07 17:41] LABS: Creatinine Urine 80.3 mg/dL
[2022-10-07 17:45] LABS: Microalbumin Creatinine Ratio 90 mg/g (0-30); Microalbumin Urine 8 mg/dL
== END 2022-10-07 14:43 | disposition home or self-care (01) ==
PROVIDERS: PCP Family Medicine; Visit Provider Internal Medicine Nephrology
DX: N17.9 Acute kidney failure, unspecified (principal); R53.83 Other fatigue; I12.9 Hypertensive chronic kidney disease with stage 1 through stage 4 chronic kidney disease, or unspecified chronic kidney disease; N18.32 Chronic kidney disease, stage 3b; R82.90 Unspecified abnormal findings in urine
CPT/HCPCS: 80069; 82043; 82570; 82610; 87086

== ENCOUNTER 2023-01-04 13:34 | Outpatient (CLI) | payer MEDICARE, BC, SELFPAY | END 2023-01-04 13:35 | disposition home or self-care (01) | PROVIDERS: PCP Family Medicine; Visit Provider Internal Medicine | DX: I21.4 Non-ST elevation (NSTEMI) myocardial infarction (principal) | CPT/HCPCS: 93308; 93321; 93325 ==

== ENCOUNTER 2023-03-22 13:07 | Outpatient (CLI) | payer MEDICARE, BC, SELFPAY | END 2023-03-22 13:08 | disposition home or self-care (01) | LOC: NFLDREF 03-23 12:10 | PROVIDERS: PCP Family Medicine; Referring Provider Family Medicine; Visit Provider Internal Medicine Nephrology | DX: N17.9 Acute kidney failure, unspecified (principal) | CPT/HCPCS: 80069; 82043; 82570; 82610 ==

== ENCOUNTER 2023-04-01 13:17 | Outpatient (CLI) | payer MEDICARE, BC, SELFPAY | END 2023-04-01 13:18 | disposition home or self-care (01) | LOC: NFLDREF 04-02 11:36 | PROVIDERS: PCP Family Medicine; Referring Provider Family Medicine; Visit Provider Internal Medicine Nephrology | DX: N17.9 Acute kidney failure, unspecified (principal); R53.83 Other fatigue | CPT/HCPCS: 82043; 82570 ==

== ENCOUNTER 2023-09-24 15:20 | Outpatient (CLI) | payer MEDICARE, BC, SELFPAY ==
--- OUTSIDE RECORDS SUMMARY | 2023-09-30 16:17 | XMS_ITS | Clinical Summary ---
Author Name Unknown Organization [facility] Address [place], [place] [address] Care Team Providers Care Drawer Liner Name Role Phone Mitch Li MD Primary Care Provider Allergies Active Allergy Reactions Criticality Noted Date Comments Amoxicillin Hives 04/24/2015 Medications Medication Sig Dispensed Refills Start Date End Date Status azelastine 137 mcg/actuation (ASTELIN) nasal sprayIndications:Chr onic vasomotor rhinitis Inhale 1 [place] into affected nostril(s) in the morning and 1 [place] in the evening. 30 mL 11 04/20/2022 Active nitroglycerin (NITROSTAT) 0.4 mg sublingual tabletIndications:Ch est pain, unspecified type Place 1 Tablet (0.4 mg) under the tongue every 5 minutes if needed for Chest Pain. 25 Tablet 1 07/06/2023 Active clopidogreL (PLAVIX) 75 mg tabletIndications:ST elevation myocardial infarction involving left anterior descending (LAD) coronary artery (HC) Take 1 Tablet (75 mg) by mouth once daily. 90 Tablet 3 09/01/2023 Active metoprolol succinate (Toprol XL) 25 mg Sustained-Release tabletIndications:Ac port gamble ST elevation myocardial infarction (STEMI) of anterior wall (HC) Take 0.5 Tablets (12.5 mg) by mouth once daily. 45 Tablet 3 09/01/2023 Active rosuvastatin (CRESTOR) 40 mg tabletIndications:ST elevation myocardial infarction involving left anterior descending (LAD) coronary artery (HC),Hyperlipidemia, unspecified hyperlipidemia type Take 1 Tablet (40 mg) by mouth at bedtime. 90 Tablet 3 09/01/2023 Active rosuvastatin (CRESTOR) 40 mg tabletIndications:ST elevation myocardial infarction involving left anterior descending (LAD) coronary artery (HC),Hyperlipidemia, unspecified hyperlipidemia type Take 1 Tablet (40 mg) by mouth at bedtime. 90 Tablet 3 10/13/2022 3 Discontinue d(Reorder (E-cancel not sent)) clopidogreL (PLAVIX) 75 mg tabletIndications:ST elevation myocardial infarction involving left anterior descending (LAD) coronary artery (HC) Take 1 Tablet (75 mg) by mouth once daily. 90 Tablet 3 10/13/2022 3 Discontinue d(Reorder (E-cancel not sent)) metoprolol succinate (Toprol XL) 25 mg Sustained-Release tabletIndications:Ac port gamble ST elevation myocardial infarction (STEMI) of anterior wall (HC) Take 0.5 Tablets (12.5 mg) by mouth once daily. 45 Tablet 3 10/13/2022 3 Discontinue d(Reorder (E-cancel not sent)) Active Problems Problem Noted Date Diagnosed Date Colon polyp 01/26/2023 Overview: Colonoscopy 01/2023 TA, repeat in 7 years Stage 3b chronic kidney disease 09/17/2022 Bradycardia 06/02/2022 Anemia 06/01/2022 Left ventricular dysfunction ( 30-35% post STEMI 10/08/2021, 45-50% 01/2022). 10/13/2021 STEMI left anterior descendi ng (LAD) (HC); HOLLIE to 100% prox LAD 10/08/2021 10/08/2021 S/P total knee arthroplasty, right 10/17/2018 Obstructive sleep apnea 01/12/2018 Hyperlipidemia 12/10/2017 Osteoarthritis of both knees 12/10/2017 Eczema 04/24/2015 Allergy 04/24/2015 Resolved Problems Problem Noted Date Diagnosed Date Resolved Date Hypovolemia 06/02/2022 06/17/2022 JUAN MANUEL (acute kidney injury) 06/01/2022 Dizziness 06/01/2022 06/17/2022 Hyperkalemia 06/01/2022 06/17/2022 Overweight 12/10/2017 06/05/2022 Encounters Date Type Department Care Team Description 09/01/2023 Telephone [facility] [address] [place] [phone] Abraham Christopher MD Medication Management 09/01/2023 Refill [facility] [address] [place] [phone] Abraham Christopher MD Refill Request (Plavix, metoptolol, crestor) 08/19/2023 Orders Only [facility] Scanner 1 scan: (1-Ord) TC ORTHO, INJ OF THE LT KNEE JOINT, 08/19/2023 07/06/2023 2:55 PM CDT Office Visit [facility] [address] [place] [address] Mitch Li MD Medicare ANNUAL (subsequent) Visit (68 year old); Wrist Pain/problem (Left wrist, started yesterday (07/05/2024), no known injury); Concerns (Discuss vertigo) 07/06/2023 Travel from Last 3 Months Immunizations Name Administration Dates Next Due Amb Influenza, Inactivated A IIV4 (Age 65+ Years) Preserv Free 06/26/2020 COVID-19 Vaccine Spikevax (M oderna 50mcg/0.5mL) 12YO+ 8198-1619 Formula PF 07/06/2023 COVID-19 vaccine (Moderna 100mcg/0.5mL) PF, MDV 12/08/2020,11/10/2020 COVID-19 vaccine (Moderna 50mcg/0.5mL) 12YO+ BIVALENT PF, MDV 07/31/2022 COVID-19 vaccine (Moderna Dion chucho 50mcg/0.25mL) PF, MDV 03/10/2022,07/16/2021 Hepatitis B, Unspecified 07/02/1994,01/21/1994,0 12/18/1993 Influenza Virus, Unspecified 09/03/2014, 09/18/2012,06/18/2010,2008,07/03/2008,08/10/2007 Influenza, IIV4 06/01/2019,06/25/2015,09/03/2014 Influenza, IIV4 (=>6mos) MDV 09/19/2018 Influenza, Inactivated AIIV4 (Age 65+ Years) Preserv Free 07/06/2023,07/31/2022,07/16/2021 Pneumococcal Conj 20-valent (Prevnar 20) 01/12/2022 Pneumococcal Poly,23-Valent (Pneumovax) 12/24/2020 Td (Age >=7 Years) 07/13/1994,09/12/1984 Td, Preservative Free (age > = 7 Years) 05/14/2005 Tdap 02/18/2021,09/15/2010 Zoster (Shingrix-RZV, recombinant) 02/15/2023, Zoster (Zostavax-ZVL, live) 07/05/2015 Family History Medical [...] Date Smoking Tobacco: Never Smokeless Tobacco: Never Tobacco Cessation:Counseling Given: No Alcohol Use Standard Drinks/Week Comments Not Currently 0 (1 standard drink = 0.6 oz pur e alcohol) PHQ-2 Answer Date Recorded PHQ-2 TOTAL SCORE 0 07/06/2023 Social Connections Answer Date Recorded Frequency of Communication with Friends and Fami ly 0 07/06/2023 Financial Resource Strain Answer Date R ecorded Difficulty of Paying Living Expenses 3 07/06/2023 Difficulty of Paying Living Expenses Not on file 07/06/2023 Food Insecurity Answer Date Recorded Worried About Running Out of Food in the Last Ye ar 1 07/06/2023 Transportation Needs Answer Date Record ed Lack of Transportation (Medical) 1 07/06/2023 Housing Stability Answer Date Recorded Unable to Pay for Housing in the Last Year 1 07/06/2023 Sex and Gender Information Value Date Recorded Sex Assigned at Not on file Gender Identity Not on file Sexual Orientation Not on file Obstetrics History Last Filed Vital Signs Vital Sign Reading Time Taken Comments Blood Pressure 115/69 07/06/2023 2:55 PM CDT Pulse 48 07/06/2023 2:55 PM CDT Temperature 36.5 ??C (97.7 ??F) 10/19/2022 9:50 AM CS T Respiratory Rate 14 01/21/2023 12:0 5 PM CDT Oxygen Saturation 100% 07/06/2023 2:55 PM CDT Inhaled Oxygen Concentration - - Weight 82.9 kg (182 lb 12.8 oz) 07/06/2023 2:55 PM CDT Height 182.6 cm (5' 11.89) 07/06/2023 2:55 PM C DT Body Mass Index 24.87 07/06/2023 2:55 PM CDT Plan of Treatment Upcoming Encounters Date Type Department Care Team (Late st Contact Info) Description 11/03/2023 1:30 PM DIANETICIST Office Visit [facility] [address] [place] [phone] Abraham Christopher MD [address] [facility] [address] [place], [place] [id number] Health Maintenance Due Date Last Done Comments Medicare Wellness for age 65+ 07/05/2024, 06/17/2022, 01/14/2021 BMI (ht and wt on same day) for age 18+ 07/06/2024 07/06/2023, 06/17/2022, 11/04/2021, Additional history exists Depression screening for age 12+ 07/06/2024 07/06/2023, 06/18/2022, 06/17/2022, Additional history exists Lipids for age 45-75 07/06/2028 07/06/2023, 06/17/2022, 12/09/2021, Additional history exists Colonoscopy through age 75 01/21/203001/21, 01/21/2023, 01/21/2023, Additional history exists Tetanus booster 02/18/2031 02/18/2021, 11/2010, 05/14/2005, Additional history exists Hepatitis C screening for ag e 18-79 Completed 06/25/2015 Tdap Completed 02/18/2021, 09/15/2010 Pneumococcal series for age 65+ Completed 2, 12/24/2020 Zoster (shingles) series for age 50+ Completed 02/15/2023, 09/22/2022, 07/05/2015 COVID-19 vaccine series Completed 07/06/20, 07/31/2022, 03/10/2022, Additional history exists Influenza for age 65+ Completed 07/06/2023 , 07/31/2022, 07/16/2021, Additional history exists Procedures Procedure Name Priority Date/Time Associated Diagnosis Comments SCAN-OPERATIVE/PROC EDURE REPORT 08/19/2023 12:00 AM DIANETICIST VITAMIN B12 Routine 07/06/2023 4:03 PM CDT Anemia, unspecified type HEMOGLOBIN Routine 07/06/2023 4:03 PM CDT Anemia, unspecified type BASIC METABOLIC PANEL Routine 07/06/2023 4:03 PM CDT Stage 3b chronic kidney disease (HC) PSA TOTAL SCREEN Routine 07/06/2023 4:03 PM CDT Prostate cancer screening LIPID PANEL W REFLEX MEASURED LDL Routine 07/06/2023 4:03 PM CDT Hyperlipidemia, unspecified hyperlipidemia type from Last 3 Months Results * SCAN-OPERATIVE/PROCEDURE REPORT (08/19/2023 12:00 AM DIANETICIST) Scanner OTHER * LIPID PANEL W REFLEX MEASURED LDL (07/06/2023 4:03 PM CDT) CHOLESTEROL,TOTAL 137 100 - 199 mg/dL 07/07/2023 4:36 PM CDT [facility] Comment: Cholesterol, Total Reference Ranges Desirable <200 mg/dL Borderline 200-239 mg/dL High >=240 mg/dL TRIGLYCERIDES 110 <150 mg/dL 07/07/2023 4:36 PM CDT [facility] [employer] HDL CHOLESTEROL 63 >40 mg/dL 4:36 PM CDT [facility] NON-HDL CHOLESTEROL 74 <145 mg/dl 07/07/2023 4:36 PM CDT [facility] CHOL/HDL RATIO 2.17 <4.50 07/07/2023 4:36 PM CDT [facility] LDL CHOLESTEROL 52 <=130 mg/dL 07/07/2023 4:36 PM CDT [facility] VLDL CHOLESTEROL 22 <=30 mg/dL 07/07/2023 4:36 PM CDT [facility] PROVIDER ORDERED STATUS RANDOM 07/07/2023 4:36 PM CDT [facility] Blood BLOOD SPECIMEN / Unknown Venipuncture / Unknown 07/06/2023 4:03 PM CDT 07/06/2023 4:05 PM CDT Mitch Li MD CHEMISTRY [facility] [address] [place] [address], [place] * HEMOGLOBIN (07/06/2023 4:03 PM CDT) HEMOGLOBIN 14.1 13.5 - 17.5 g/dL 07/06/2023 4:09 PM CDT [facility] MCV 91 80 - 100 fL 07/06/2023 4:09 PM CDT [facility] Blood BLOOD SPECIMEN / Unknown Venipuncture / Unknown 07/06/2023 4:03 PM CDT 07/06/2023 4:05 PM CDT Mitch Li MD HEMATOLOGY [facility] [address] [place] [address], * VITAMIN B12 (07/06/2023 4:03 PM CDT) VITAMIN B12 445 232 - 1,245 pg/mL 07/07/2023 5:19 PM CDT [facility] Blood BLOOD SPECIMEN / Unknown Venipuncture / Unknown 07/06/2023 4:03 PM CDT 07/06/2023 4:05 PM CDT [facility] - 07/07/2023 5:19 PM CDT Biotin supplements may cause clinically significant interference for this test assay. ??If interference is suspected, it is strongly recommended that biotin is discontinued for at least one week prior to retesting. Mitch Li MD CHEMISTRY [facility] [address] [place] [address], * (ABNORMAL) BASIC METABOLIC PANEL (07/06/2023 4:03 PM CDT) SODIUM 140 136 - 145 mmol/L 07/07/2023 4:36 PM CDT [facility] POTASSIUM 4.5 3.5 - 5.1 mmol/L 07/07/2023 4:36 PM CDT [facility] CHLORIDE 105 98 - 107 mmol/L 07/07/2023 4:36 PM CDT [facility] CO2,TOTAL 25 22 - 29 mmol/L 07/07/2023 4:36 PM CDT [facility] ANION GAP 10 5 - 18 07/07/2023 4:36 PM CDT [facility] GLUCOSE 88 70 - 99 mg/dL 07/07/2023 4:36 PM CDT [facility] CALCIUM 9.5 8.8 - 10.2 mg/dL 07/07/2023 4:36 PM CDT [facility] BUN 23 8 - 23 mg/dL 07/07/2023 4:36 PM CDT [facility] CREATININE 1.55(H) 0.70 - 1.20 mg/dL 07/07/2023 4:36 PM CDT [facility] BUN/CREAT RATIO 15 10 - 20 4:36 PM CDT [facility] eGFR 48(L) >90 mL/min/1.7 3m2 07/07/2023 4:36 PM CDT [facility] Comment:As of 2021, eG FR is calculated by the CKD-EPI creatinine equation without race adjustment. ??eGFR can be influenced by muscle mass, exercise, and diet. ??The reported eGFR is an estimation only and is only applicable if the renal function is stable. Blood BLOOD SPECIMEN / Unknown Venipuncture / Unknown 07/06/2023 4:03 PM CDT 07/06/2023 4:05 PM CDT Mitch Li MD CHEMISTRY Performing Organization Address [facility] Co de Phone Number [facility] [address] [place] [address], [place] * PSA TOTAL SCREEN (07/06/2023 4:03 PM CDT) PSA TOTAL (SCREEN) 1.15 <4.00 ng/mL 07/07/2023 5:19 PM CDT [facility] Blood BLOOD SPECIMEN / Unknown Venipuncture / Unknown 07/06/2023 4:03 PM CDT 07/06/2023 4:05 PM CDT Narrative [facility] - 07/07/2023 5:19 PM CDT The test method changed on 03/09/2023. If this test has been used for serial monitoring, rebaselining is recommended. Rebaselining consists of 2 measurements, collected 3-6 weeks apart. The Carlos Elecsys total PSA assay is an electrochemiluminescence immunoassay ECLIA performed on the Carlos Heather e immunoassay analyzers. Values obtained with different assay methods may be different and cannot be used interchangeably. Mitch Li MD LABORATORY Performing Organization Address [place]/[facility] Co de Phone Number [facility] [address] [place] [phone], from Last 3 Months Advance Directives Latest Code Status on File Code Status Date Activated Date Inactivated Comments Full Code 06/01/2022 5:42 PM 06/02/2022 12:51 PM Question Answer Comments Code Status Discussion: Reviewed Preferences Code Status History Code Status Date Activated Date Inactivated Comments Full Code 10/08/2021 4:05 AM 10/09/2021 2:43 PM Question Answer Comments Code Status Discussion: Reviewed Preferences Care Teams Drawer Liner Relationship Specialty Start Date End Date Mitch Li MD [address] [place] [address] PCP - General Family Practice 08/01/15
--- OUTSIDE RECORDS SUMMARY | 2023-09-30 16:18 | XMS_ITS | Encounter Summary ---
Author Name Unknown Organization [facility] Address [address] [place] [address] Care Team Providers Care Annual Giving Manager Name Role Phone Mitch Li MD Primary Care Provider Encounter Details Date Type Department Care Team Description 09/19/1997 Orders Only Srinath Fabian MD [address] [place] [address] Social History Tobacco Use Types Packs/Day Years Used Date Smoking Tobacco: Never Assessed Sex and Gender Information Value Date Recorded Sex Assigned at Not on file Gender Identity Not on file Sexual Orientation Not on file documented as of this encounter Plan of Treatment Not on file documented as of this encounter Visit Diagnoses Not on filedocumented in this encounter Care Teams Annual Giving Manager Relationship Specialty Start Date End Date Mitch Li MD [address] [place] [address] PCP - General Family Practice 08/23/18 documented as of this encounter
--- OUTSIDE RECORDS SUMMARY | 2023-09-30 16:18 | XMS_ITS | Encounter Summary ---
Author Name Unknown Organization [facility] Address [address] [place] [address] Care Team Providers Care Drapery Maker Name Role Phone Mitch Li MD Primary Care Provider Encounter Details Date Type Department Care Team Description 06/14/1995 Orders Only Srinath [address], [place] [address] Social History Tobacco Use Types Packs/Day Years Used Date Smoking Tobacco: Never Assessed Sex and Gender Information Value Date Recorded Sex Assigned at Not on file Gender Identity Not on file Sexual Orientation Not on file documented as of this encounter Plan of Treatment Not on file documented as of this encounter Visit Diagnoses Not on filedocumented in this encounter Care Teams Drapery Maker Relationship Specialty Start Date End Date Mitch Li MD [facility] [place] [address] PCP - General Family Practice 08/23/18 documented as of this encounter
--- OUTSIDE RECORDS SUMMARY | 2023-09-30 16:18 | XMS_ITS | Encounter Summary ---
Author Name Unknown Organization [facility] Address [address] [place] [address] Care Team Providers Care Agriculture Research Director Name Role Phone Mitch Li MD Primary Care Provider [phone] Encounter Details Date Type Department Care Team Description 09/08/1996 Orders Only [place] [address] Social History Tobacco Use Types Packs/Day Years Used Date Smoking Tobacco: Never Assessed Sex and Gender Information Value Date Recorded Sex Assigned at Not on file Gender Identity Not on file Sexual Orientation Not on file documented as of this encounter Plan of Treatment Not on file documented as of this encounter Visit Diagnoses Not on filedocumented in this encounter Care Teams Agriculture Research Director Relationship Specialty Start Date End Date Mitch Li MD [address] [place] [address] PCP - General Family Practice 08/23/18 documented as of this encounter
--- OUTSIDE RECORDS SUMMARY | 2023-09-30 16:18 | XMS_ITS | Encounter Summary ---
Author Name Unknown Organization [facility] Address [address] [place] [address] Care Team Providers Care Paver Installer Name Role Phone Mitch Li MD Primary Care Provider [phone] Encounter Details Date Type Department Care Team Description 03/17/2000 Orders Only Abraham Iraheta MD Social History Tobacco Use Types Packs/Day Years Used Date Smoking Tobacco: Never Assessed Sex and Gender Information Value Date Recorded Sex Assigned at Not on file Gender Identity Not on file Sexual Orientation Not on file documented as of this encounter Plan of Treatment Not on file documented as of this encounter Visit Diagnoses Not on filedocumented in this encounter Care Teams Paver Installer Relationship Specialty Start Date End Date Mitch Li MD [address] [place] [address] PCP - General Family Practice 08/23/18 documented as of this encounter
--- OUTSIDE RECORDS SUMMARY | 2023-09-30 16:18 | XMS_ITS | Clinical Summary ---
Author Name Unknown Organization [facility] Address [address] [place] [address] Care Team Providers Care Manager Employee Relations Name Role Phone Mitch Li MD Primary Care Provider Source Comments You are receiving this document as you are listed as the primary care provider,follow-up provider, or the patient has been referred to you for consultation.This is in compliance with the Medicare and[facility] Cent[facility] EHR Incentive Program,which states Providers who transition their patient to another setting of careor provider of care or refers their patient to another provider of care shouldprovide summary care record for each transition of care or referral. Holograam Allergies Active Allergy Reactions Criticality Noted Date Comments Amoxicillin 02/13/2010 PN: LW Reaction: generalized rash Medications Medication Sig Dispensed Refills Start Date End Date Status MULTIPLE VITAMIN TABS 1 tab daily 0 08/07/2005 Ac tive ibuprofen (AKA MOTRIN) 800 MG tabletIndications:Rec urrent low back pain Take one tablet by mouth every 6-8 hours as needed for pain. 30 0 06/24/2009 Active ALBUterol sulfate hfa (AKA PROAIR,VENTOLIN) 108 (90 BASE) MCG/ACT inhaler Inhale 2 Puffs by mouth every 6 hours as needed for Wheezing. 6.7 g 1 05/18/2012 Active Loratadine-Pseudoephe drine (LORATADINE-D 24HR) 10-240 MG tablet Take 1 Tab by mouth daily. 30 Tab 0 03/07/2015 Active Multiple Vitamins-Minerals (MULTIVITAMIN ADULT OR) Take 1 tablet by mouth daily (every 24 hours). 0 08/31/2014 Active Glucosamine-Chondroit -Vit C-Mn (GLUCOSAMINE CHONDROITIN COMPLX) Take 1 capsule by mouth daily (every 24 hours). 0 08/31/2014 Active Dermatological Products, Misc. (ATOPICLAIR) APPLY FOR USE UNDER GLOVES 100 g 11 11/12/2016 Active Azelastine-Fluticason e 137-50 MCG/ACT SUSP Place 1 [place] into both nostrils two times a day. 1 Bottle 11 01/06/2017 Active triamcinolone (NASACORT AQ) 55 MCG/ACT nasal inhaler Place 1 [place] into both nostrils daily. 16.5 g 11 02/09/2017 Active azelastine (ASTELIN) 0.1 % nasal solution Place 2 Sprays into both nostrils daily. 30 mL 11 02/09/2017 Active clobetasol (TEMOVATE) 0.05 % ointment Apply to hands twice daily x 2 weeks prn for severe flares 30 g 2 08/28/2020 Active Active Problems Problem Noted Date Diagnosed Date Recurrent low back pain 06/17/2009 Other atopic dermatitis and related conditions 0 05/28/2005 Obesity 05/28/2005 Overview: BMI 28 Epic Allergic rhinitis 05/28/2005 Overview: Epic Hyperlipidemia 05/27/2005 Overview: Other and unspecified hyperlipidemia (HRC) Headache 07/21/2004 Immunizations Name Administration Dates Next Due Flu Vac (3+ yrs) 09/18/2012, 0,06/17/2009, 008 HepB Adult (Engerix-B, 20+ y rs, 3 dose series) 07/02/1994,01/21/1994,12/18/1993 Influenza IIV4 (Quadrivalent ) 0.5mL (69031) 09/03/2014 Influenza Vaccine (3+years) ([facility]) 08/10/2007 Td 07/13/1994,09/12/1984 Td (7+ yrs) 05/14/2005 Tdap 09/15/2010 Family [...] drink = 0.6 oz pur e alcohol) Sex and Gender Information Value Date Recorded Sex Assigned at Not on file Gender Identity Not on file Sexual Orientation Not on file Last Filed Vital Signs Vital Sign Reading Time Taken Comments Blood Pressure 156/90 02/07/2018 12:15 PM CDT Pulse 56 02/07/2018 12:15 PM CDT Temperature 35.7 ??C (96.2 ??F) 02/07/2018 12:15 PM C DT Respiratory Rate 16 02/07/2018 12:15 PM CDT Oxygen Saturation 97% 02/07/2018 12:15 PM CDT Inhaled Oxygen Concentration - - Weight 101.6 kg (224 lb) 02/07/2018 12:15 PM CDT Height 182.9 cm (6') 01/06/2017 12:58 PM CDT Body Mass Index 30.38 01/06/2017 12:58 PM CDT Plan of Treatment Health Maintenance Due Date Last Done Comments Colon Cancer Screening Plan Due 1955 Hep C Screening (Preventive Services) 1955 Medicare Annual Wellness Visit 1955 COVID-19 Vaccine (#1) 1955 PSA Screening Discussion 05/14/2006 05/14/2005 Cholesterol 05/14/2010 05/14/2005 Zoster/Shingles (2 of 3) 08/30/2015 07/05/2015 DTaP/Tdap/Td (2 - Tdap) 09/15/2020 09/15/19 11, 05/14/2005, 05/14/2005, Additional history exists Pneumococcal 65+ Yrs (2 - PCV) 12/24/2021 12/24/2020 Influenza (#1) 2023 06/26/2020, 05/14, 09/19/2018, Additional history exists HepB Completed 07/02/1994, 01/11, 12/18/1993 HepA Aged Out No longer eligi ble based on patient's age to complete this topic Hib Aged Out No longer eligi ble based on patient's age to complete this topic IPV (Polio) Aged Out No longer eligi ble based on patient's age to complete this topic [email or web address] Aged Out No longer eligi ble based on patient's age to complete this topic Care Teams Manager Employee Relations Relationship Specialty Start Date End Date Mitch Li MD [address] [place] [address] PCP - General Family Practice 08/23/18
--- OUTSIDE RECORDS SUMMARY | 2023-09-30 16:18 | XMS_ITS | Clinical Summary ---
Author Name Unknown Organization [facility] Address [address] [place] [address] Care Team Providers Care Middle [employer] Librarian Name Role Phone Mitch Li Ronaldo Primary Care Provider [phone] Allergies Active Allergy Reactions Criticality Noted Date Comments Amoxicillin Hives 02/08/2013 Medications Medication Sig Dispensed Refills Start Date End Date Status loratadine-pseudoeP HEDrine (CLARITIN-D 24-HOUR) 10-240 MG per tablet Take 1 tablet by mouth daily. 14 tablet 0 02/08/2013 Active ibuprofen (ADVIL,MOTRIN) 800 MG tablet Take 1 tablet by mouth every 8 hours as needed for pain. 90 tablet 1 02/08/2013 Active fluticasone (FLONASE) 50 MCG/ACT nasal spray [place] 1 spray into both nostrils daily as needed for rhinitis or allergies 0 Active meclizine (ANTIVERT) 25 MG tablet Take 25 mg by mouth 3 times daily as needed for dizziness 0 Active clobetasol (TEMOVATE) 0.05 % external ointment Apply topically 2 times daily 0 Active Dermatological Products, Misc. (KERASAL FUNGAL NAIL RENEWAL EX) Externally apply topically daily as needed 0 Active multivitamin w/minerals (MULTI-VITAMIN) tablet Take 1 tablet by mouth daily 0 Active oxyCODONE (ROXICODONE) 5 MG tabletIndications:S /P total knee arthroplasty, right 1 tab po q 4 hrs prn pain scale 3-6, 2 tabs po q 4hrs prn pain scale 7-10 55 tablet 0 10/19/2018 Active Active Problems Patient Care Coordination No te Formatting of this note migh t be different from the original. [email or web address] Problem Noted Date Diagnosed Date S/P total knee arthroplasty, right 10/17/2018 CARDIOVASCULAR SCREENING; LDL GOAL LESS THAN 160 02/08/2013 Resolved Problems Problem Noted Date Diagnosed Date Resolved Date Right shoulder pain 11/28/2015 01/02/20 16 Primary osteoarthritis of right knee 10/17/2015 01/02/2016 Immunizations Name Administration Dates Next Due TDAP (Adacel,Boostrix) 09/15/2010 Family History Medical History Relation Comments Neurologic Disorder Father parkinson's Breast Cancer Mother postmenopausal Cardiovascular Mother heart faiure; di ed age 85 Diabetes Mother Cardiovascular Sister 1 Kidney Disease Sister 2 born with one ki dney Relation Status Comments Father Mother Sister 1 [...] Comments Blood Pressure 135/78 10/19/2018 7:29 AM POTTERY STRIPER Pulse 75 10/17/2018 2:45 PM POTTERY STRIPER Temperature 35.6 ??C (96 ??F) 10/19/2018 7:29 AM POTTERY STRIPER Respiratory Rate 16 10/19/2018 12:43 PM POTTERY STRIPER Oxygen Saturation 96% 10/19/2018 7:29 AM POTTERY STRIPER Inhaled Oxygen Concentration - - Weight 103.9 kg (229 lb) 10/17/2018 8:20 AM POTTERY STRIPER Height 185.4 cm (6' 1) 10/17/2018 8:20 AM POTTERY STRIPER p er pt Body Mass Index 30.21 10/17/2018 8:20 AM POTTERY STRIPER Plan of Treatment Not on file Medical Devices Implanted Type Area Jet Pilot Device Identifier Shelf Expiration Date Model / Serial / Lot Bone Cement Simplex W/Tobramycin 6197-9-001 Implanted:Qty: 1 on 10/17/2018 by Los Diaz MD at [facility] Cement, Bone Right: Knee [employer] 03/12/2020 6197-9-001 / / [id number] Imp Patella Zim Knee All Mracelle 35mm [id number] Implanted:Qty: 1 on 10/17/2018 by Los Diaz MD at [facility] Total Joint Component /Insert Right: Knee [employer] 07/13/2026 42-5400-00 0- / [id number] Persona Tibia, Cemented, 5 Degree, Stemmed, Right, Size F Implanted:Qty: 1 on 10/17/2018 by Los Diaz MD at [facility] Right: Knee [employer] 06/12/2028 42-5320-07 5 / [id number] Advance Directives For more information, please contact: [phone] Latest Code Status on File Code Status Date Activated Date Inactivated Comments Full Code 10/17/2018 2:52 PM 10/19/2018 3:42 PM Question Answer Comments Code status determined by: Discussion wi th patient/legal decision maker Care Teams Middle [employer] Librarian Relationship Specialty Start Date End Date Mitch Li PCP - General Family Practice 10/11/18
--- OUTSIDE RECORDS SUMMARY | 2023-09-30 16:18 | XMS_ITS | Encounter Summary ---
Author Name Unknown Organization [facility] Address [address] [place] [address]. [place] [address] Care Team Providers Care Turbine Engineer Name Role Phone Angeline Stern MD Primary Care Provider [phone] Mitch Li Primary Care Provider [phone] Encounter Details Date Type Department Care Team (Late st Contact Info) Description 09/27/2018 [facility] [address] [place] [id number] Lso Diaz MD [facility] [address] [place] [address] Pre-operative laboratory examination (Primary Dx) Social History Tobacco Use Types Packs/Day Years [...] this encounter Visit Diagnoses Diagnosis Pre-operative laboratory examination- Primary Pre-procedural laboratory examination documented in this encounter Care Teams Turbine Engineer Relationship Specialty [place] [address] [place] [address] PCP - General Internal Medicine 02/09/13 10/10/18 Mitch Li [id number] [address] PCP - General Family Practice 10/11/18 documented as of this encounter
--- OUTSIDE RECORDS SUMMARY | 2023-09-30 16:18 | XMS_ITS | Encounter Summary ---
Author Name Unknown Organization [facility] Address [address] [place] [address] Care Team Providers Care Bond Writer Name Role Phone Mitch Li MD Primary Care Provider Encounter Details Date Type Department Care Team Description 12/02/1995 Orders Only [facility] Fidel Lyon MD FAMILY PRACTICE [address] [place] [address] Social History Tobacco Use Types Packs/Day Years Used Date Smoking Tobacco: Never Assessed Sex and Gender Information Value Date Recorded Sex Assigned at Not on file Gender Identity Not on file Sexual Orientation Not on file documented as of this encounter Plan of Treatment Not on file documented as of this encounter Visit Diagnoses Not on filedocumented in this encounter Care Teams Bond Writer Relationship Specialty Start Date End Date Mitch Li MD [address] [place] [address] PCP - General Family Practice 08/23/18 documented as of this encounter
--- OUTSIDE RECORDS SUMMARY | 2023-09-30 16:18 | XMS_ITS | Referral Summary ---
Author Name Unknown Organization [facility] Address [address] [place] [address] Care Team Providers Care Medical Claims Representative Name Role Phone Mitch Li Ronaldo Primary Care Provider [phone] Allergies Active Allergy Reactions Criticality Noted Date [...] Active fluticasone (FLONASE) 50 MCG/ACT nasal spray [place] 1 spray into both nostrils daily as [...] migh t be different from the original. [email or web address] Problem Noted Date Diagnosed Date S/P total knee arthroplasty, right 10/17/2018 CARDIOVASCULAR SCREENING; LDL GOAL LESS THAN 160 02/08/2013 Resolved Problems Problem Noted Date Diagnosed Date Resolved Date Right shoulder pain 11/28/2015 01/02/20 16 Primary osteoarthritis of right knee 10/17/2015 01/02/2016 Immunizations Name Administration Dates Next Due TDAP (Adacel,Boostrix) 09/15/2010 Social History Tobacco Use Types Packs/Day Years [...] Comments Blood Pressure 135/78 10/19/2018 7:29 AM FIELD INSURANCE SALES MANAGER Pulse 75 10/17/2018 2:45 PM FIELD INSURANCE SALES MANAGER Temperature 35.6 ??C (96 ??F) 10/19/2018 7:29 AM FIELD INSURANCE SALES MANAGER Respiratory Rate 16 10/19/2018 12:43 PM FIELD INSURANCE SALES MANAGER Oxygen Saturation 96% 10/19/2018 7:29 AM FIELD INSURANCE SALES MANAGER Inhaled Oxygen Concentration - - Weight 103.9 kg (229 lb) 10/17/2018 8:20 AM FIELD INSURANCE SALES MANAGER Height 185.4 cm (6' 1) 10/17/2018 8:20 AM FIELD INSURANCE SALES MANAGER p er pt Body Mass Index 30.21 10/17/2018 8:20 AM FIELD INSURANCE SALES MANAGER Plan of Treatment Not on file Medical Devices Implanted Type Area Contract Post Office Clerk Device Identifier Shelf Expiration Date Model / Serial / Lot Bone Cement Simplex W/Tobramycin 6197-9-001 Implanted:Qty: 1 on 10/17/2018 by Los Diaz MD at [facility] Cement, Bone Right: Knee [employer] 03/12/2020 6197-9-001 / / [id number] Imp Patella Zim Knee All Marcelle 35mm [id number] Implanted:Qty: 1 on 10/17/2018 by Los Diaz MD at [facility] Total Joint Component /Insert Right: Knee [employer] 07/13/2026 42-5400-00 0-35 / / [id number] Persona Tibia, Cemented, 5 Degree, Stemmed, Right, Size F Implanted:Qty: 1 on 10/17/2018 by Los Diaz MD at [facility] Right: Knee [employer] 06/12/2028 42-5320-07 01-12 [id number] Advance Directives For more information, please contact: [phone] Latest Code Status on File Code Status Date Activated Date Inactivated Comments Full Code 10/17/2018 2:52 PM 10/19/2018 3:42 PM Question Answer Comments Code status determined by: Discussion wi patient/legal decision maker Care Teams Medical Claims Representative Relationship Specialty Start Date End Date Mitch Li PCP - General Family Practice 10/11/18
--- OUTSIDE RECORDS SUMMARY | 2023-09-30 16:18 | XMS_ITS | Encounter Summary ---
Author Name Unknown Organization [facility] Address [address] [place] [address] Care Team Providers Care Customs Brokerage Manager Name Role Phone Mitch Li MD Primary Care Provider Encounter Details Date Type Department Care Team Description 07/09/1997 Orders Only [place] [address] Social History Tobacco Use Types Packs/Day Years Used Date Smoking Tobacco: Never Assessed Sex and Gender Information Value Date Recorded Sex Assigned at Not on file Gender Identity Not on file Sexual Orientation Not on file documented as of this encounter Plan of Treatment Not on file documented as of this encounter Visit Diagnoses Not on filedocumented in this encounter Care Teams Customs Brokerage Manager Relationship Specialty Start Date End Date Mitch Li MD [address] [place] [address] PCP - General Family Practice 08/23/18 documented as of this encounter
--- OUTSIDE RECORDS SUMMARY | 2023-09-30 16:18 | XMS_ITS | Encounter Summary ---
Author Name Unknown Organization [facility] Address [address] [place] [address] Care Team Providers Care Thread Spooler Name Role Phone Mitch Li MD Primary Care Provider Encounter Details Date Type Department Care Team Description 06/06/1996 Orders Only Srinath Fabian MD [address] [place] [address] Social History Tobacco Use Types Packs/Day Years Used Date Smoking Tobacco: Never Assessed Sex and Gender Information Value Date Recorded Sex Assigned at Not on file Gender Identity Not on file Sexual Orientation Not on file documented as of this encounter Plan of Treatment Not on file documented as of this encounter Visit Diagnoses Not on filedocumented in this encounter Care Teams Thread Spooler Relationship Specialty Start Date End Date Mitch Li MD [address] [place] [address] PCP - General Family Practice 08/23/18 documented as of this encounter
== END 2023-09-24 15:21 | disposition home or self-care (01) ==
LOC: NFLDREF 09-30 16:16
PROVIDERS: PCP Family Medicine; Referring Provider Family Medicine; Visit Provider Internal Medicine Nephrology
DX: N17.9 Acute kidney failure, unspecified (principal)
CPT/HCPCS: 80069; 82043; 82570

== ENCOUNTER 2024-10-11 13:19 | Outpatient (CLI) | payer MEDICARE, BC, SELFPAY | END 2024-10-11 13:20 | disposition home or self-care (01) | LOC: NFLDREF 10-16 02:52 | PROVIDERS: PCP Family Medicine; Referring Provider Family Medicine; Visit Provider Internal Medicine Nephrology | DX: E78.5 Hyperlipidemia, unspecified (principal); N18.31 Chronic kidney disease, stage 3a; R31.9 Hematuria, unspecified | CPT/HCPCS: 80061; 80069; 82043; 82570 ==